=== PATIENT | female | born 1945 | race Caucasian/White ===

== ENCOUNTER 2017-08-19 06:18 | Emergency (ER) | payer MEDICARE, OTHER ==
[2017-08-19 06:30] VITALS: TEMP 98.5
[2017-08-19] MEDS ORDERED: MORPHINE SULFATE 4 MG/ML SYRINGE IV STA (06:37)
[2017-08-19] MEDS ORDERED: SODIUM CHLORIDE 0.9% 1,000 ML IV STA ×2 (06:37)
[2017-08-19] MEDS ORDERED: RX INFO: IV CONTRAST WAS GIVEN 1 EACH MISC MISCELLANE PRN (06:37)
--- NOTE | 2017-08-19 06:38 | ED ---
General Adult HPI - General Source: patient, RN notes reviewed, old records reviewed Mode of arrival: ambulatory Limitations: no limitations <Jan Christina - Last Filed: 08/19/17 07:07> <Shai Pepper - Last Filed: 08/19/17 09:52> - General Chief complaint: Recheck/Abnormal Lab/Rx Stated complaint: back, R arm pain Time Seen by Provider: 08/19/17 06:23 - History of Present Illness Initial comments: This is a 72-year-old female ER for evaluation of severe right arm pain right chest pain. Patient's history of high blood pressure CA and diabetes. Patient has pain rating to her back. Severe pain that she woke up with this morning suddenly. Patient states been doing increased work at home but does not recall any specific injury. No fevers no cough or congestion denies shortness of breath. Patient is in tears. Severe right-sided pain (Jan Christina) - Related Data Home Medications Medication Instructions Recorded Confirmed Aspirin EC [Ecotrin Low Dose] 81 mg PO DAILY 08/19/17 08/19/17 Calcium/Magnesium/Zinc 1 tab PO DAILY 08/19/17 08/19/17 [Wfxndoz-Aluuqzvws-Rord Tablet] Eder Red 1 tab PO DAILY 08/19/17 08/19/17 Multivitamins, Thera [Multivitamin 1 tab PO DAILY 08/19/17 08/19/17 (formulary)] Vit A/Vit C/Vit E/Zinc/Copper 1 cap PO DAILY 08/19/17 08/19/17 [ICAPS SOFTGEL] Vitamin C/Biotin [Hair, Skin and 1 tab PO DAILY 08/19/17 08/19/17 Nails] cloNIDine HCL [Catapres] 0.1 mg PO DAILY 08/19/17 08/19/17 metFORMIN HCL [Glucophage] 500 mg PO DAILY 08/19/17 08/19/17 Previous Rx's Medication Instructions Recorded Diazepam [Valium] 2 mg PO HS PRN #12 tab 08/19/17 Ibuprofen [Motrin] 600 mg PO Q8HR PRN #24 tab 08/19/17 Allergies Allergy/AdvReac Type Severity Reaction Status Date / Time No Known Allergies Allergy Verified 08/19/17 08:46 Review of Systems ROS Other: All systems not noted in ROS Statement are negative. <Jan Christina - Last Filed: 08/19/17 07:07> ROS Other: All systems not noted in ROS Statement are negative. <Shai Pepper - Last Filed: 08/19/17 09:52> ROS Statement: Those systems with pertinent positive or pertinent negative responses have been documented in the HPI. Past Medical History Past Medical History: Cancer, Diabetes Mellitus, Hypertension History of Any Multi-Drug Resistant Organisms: None Reported Past Surgical History: Hysterectomy, Joint Replacement, Orthopedic Surgery Additional Past Surgical History / Comment(s): right knee x2 left knee x1; left foot; Past Psychological History: No Psychological Hx Reported Smoking Status: Former smoker Past Alcohol Use History: Daily Past Drug Use History: None Reported <Jan Christina - Last Filed: 08/19/17 07:07> General Exam Limitations: no limitations General appearance: alert, in no apparent distress Head exam: Present: atraumatic, normocephalic, normal inspection Eye exam: Present: normal appearance, PERRL, EOMI. Absent: scleral icterus, conjunctival injection, periorbital swelling ENT exam: Present: normal exam, mucous membranes moist Neck exam: Present: normal inspection. Absent: tenderness, meningismus, lymphadenopathy Respiratory exam: Present: normal lung sounds bilaterally. Absent: respiratory distress, wheezes, rales, rhonchi, stridor Cardiovascular Exam: Present: regular rate, normal rhythm, normal heart sounds. Absent: systolic murmur, diastolic murmur, rubs, gallop, clicks GI/Abdominal exam: Present: soft, normal bowel sounds. Absent: distended, tenderness, guarding, rebound, rigid Extremities exam: Present: normal inspection, full ROM, normal capillary refill. Absent: tenderness, pedal edema, joint swelling, calf tenderness Back exam: Present: normal inspection Neurological exam: Present: alert, oriented X3, CN II-XII intact Psychiatric exam: Present: normal affect, normal mood Skin exam: Present: warm, dry, intact, normal color. Absent: rash <Jan Christina - Last Filed: 08/19/17 07:07> Vital Signs 08/19/17 08/19/17 06:25 07:43 Temperature 98.5 F Pulse Rate 91 78 Respiratory 22 18 Rate Blood Pressure 184/83 141/64 O2 Sat by Pulse 99 97 Oximetry EKG Findings - EKG Comments: EKG Findings:: EKG shows sinus rhythm rate of 82, IL 216, QRS 80, QTC 434 <Jan Christina - Last Filed: 08/19/17 07:07> Medical Decision Making <Jan Christina - Last Filed: 08/19/17 07:07> - Lab Data Result diagrams: 08/19/17 07:30 08/19/17 07:30 <Shai Pepper - Last Filed: 08/19/17 09:52> - Medical Decision Making 72-year-old female presenting with right arm pain and right back pain. Patient does admit she been lifting boxes and moving things around her heart is which is abnormal for her. Denies any specific injury. Patient's blood pressure was initially elevated, CT angiography is obtained for concerns for dissection. This patient was signed out at shift change awaiting these results. Laboratory studies are reviewed, normal white blood cell count, stable hemoglobin, normal lites, troponin and d-dimer are negative. CT angiography is negative for both pulmonary embolism and dissection, there is a left renal cyst, these findings are discussed with the patient. Patient is reevaluated, she does have point tenderness in the right paraspinal thoracic muscles. She will be prescribed anti-inflammatory medication. She will follow-up with her primary care physician. (Shai Pepper) - Lab Data Lab Results 08/19/17 08/19/17 08/19/17 Range/Units 07:30 07:30 07:30 WBC 10.0 (3.8-10.6) k/uL RBC 4.74 (3.80-5.40) m/uL Hgb 13.9 (11.4-16.0) gm/dL Hct 43.5 (34.0-46.0) % MCV 91.6 (80.0-100.0) fL MCH 29.4 (25.0-35.0) pg MCHC 32.1 (31.0-37.0) g/dL RDW 12.8 (11.5-15.5) % Plt Count 284 (150-450) k/uL Neutrophils % 79 % Lymphocytes % 14 % Monocytes % 4 % Eosinophils % 2 % Basophils % 0 % Neutrophils # 7.9 H (1.3-7.7) k/uL Lymphocytes # 1.4 (1.0-4.8) k/uL Monocytes # 0.4 (0-1.0) k/uL Eosinophils # 0.2 (0-0.7) k/uL Basophils # 0.0 (0-0.2) k/uL PT (9.0-12.0) sec INR (<1.2) APTT (22.0-30.0) sec D-Dimer (<0.60) mg/L FEU Sodium 143 (137-145) mmol/L Potassium 4.2 (3.5-5.1) mmol/L Chloride 107 (98-107) mmol/L Carbon Dioxide 24 (22-30) mmol/L Anion Gap 12 mmol/L BUN 11 (7-17) mg/dL Creatinine 0.50 L (0.52-1.04) mg/dL Est GFR (MDRD) Af Amer >60 (>60 ml/min/1.73 sqM) Est GFR (MDRD) Non-Af >60 (>60 ml/min/1.73 sqM) Glucose 128 H (74-99) mg/dL Calcium 9.5 (8.4-10.2) mg/dL Magnesium 2.0 (1.6-2.3) mg/dL Total Bilirubin 0.5 (0.2-1.3) mg/dL AST 20 (14-36) U/L ALT 26 (9-52) U/L Alkaline Phosphatase 90 (38-126) U/L Total Creatine Kinase 56 (30-135) U/L CK-MB (CK-2) 1.0 (0.0-2.4) ng/mL CK-MB (CK-2) Rel Index 1.8 Troponin I <0.012 (0.000-0.034) ng/mL Total Protein 7.0 (6.3-8.2) g/dL Albumin 4.1 (3.5-5.0) g/dL Lipase 165 (23-300) U/L 08/19/17 Range/Units 07:30 WBC (3.8-10.6) k/uL RBC (3.80-5.40) m/uL Hgb (11.4-16.0) gm/dL Hct (34.0-46.0) % MCV (80.0-100.0) fL MCH (25.0-35.0) pg MCHC (31.0-37.0) g/dL RDW (11.5-15.5) % Plt Count (150-450) k/uL Neutrophils % % Lymphocytes % % Monocytes % % Eosinophils % % Basophils % % Neutrophils # (1.3-7.7) k/uL Lymphocytes # (1.0-4.8) k/uL Monocytes # (0-1.0) k/uL Eosinophils # (0-0.7) k/uL Basophils # (0-0.2) k/uL PT 9.6 (9.0-12.0) sec INR 1.0 (<1.2) APTT 22.5 (22.0-30.0) sec D-Dimer 0.51 (<0.60) mg/L FEU Sodium (137-145) mmol/L Potassium (3.5-5.1) mmol/L Chloride (98-107) mmol/L Carbon Dioxide (22-30) mmol/L Anion Gap mmol/L BUN (7-17) mg/dL Creatinine (0.52-1.04) mg/dL Est GFR (MDRD) Af Amer (>60 ml/min/1.73 sqM) Est GFR (MDRD) Non-Af (>60 ml/min/1.73 sqM) Glucose (74-99) mg/dL Calcium (8.4-10.2) mg/dL Magnesium (1.6-2.3) mg/dL Total Bilirubin (0.2-1.3) mg/dL AST (14-36) U/L ALT (9-52) U/L Alkaline Phosphatase (38-126) U/L Total Creatine Kinase (30-135) U/L CK-MB (CK-2) (0.0-2.4) ng/mL CK-MB (CK-2) Rel Index Troponin I (0.000-0.034) ng/mL Total Protein (6.3-8.2) g/dL Albumin (3.5-5.0) g/dL Lipase (23-300) U/L Disposition <Jan Christina - Last Filed: 08/19/17 07:07> Time of Disposition: 09:50 <Shai Pepper - Last Filed: 08/19/17 09:52> Clinical Impression: Muscle strain Disposition: HOME SELF-CARE Condition: Good Instructions: Muscle Strain (ED) Prescriptions: Diazepam [Valium] 2 mg PO HS PRN #12 tab PRN Reason: Muscle Spasm Ibuprofen [Motrin] 600 mg PO Q8HR PRN #24 tab PRN Reason: Pain Referrals: Lobito Ford MD [Primary Care Provider] - 1-2 days
[2017-08-19 07:46] LABS: Basophils % (A) 0 %; Eosinophils # (A) 0.2 k/uL (0-0.7); Eosinophils % (A) 2 %; HCT 43.5 % (34.0-46.0); HGB 13.9 gm/dL (11.4-16.0); Lymphocytes # (A) 1.4 k/uL (1.0-4.8); Lymphocytes % (A) 14 %; MCH 29.4 pg (25.0-35.0); MCHC 32.1 g/dL (31.0-37.0); MCV 91.6 fL (80.0-100.0); Mean Platelet Volume 7.1; Monocytes # (A) 0.4 k/uL (0-1.0); Monocytes % (A) 4 %; Neutrophils # (A) 7.9 k/uL (1.3-7.7); Neutrophils % (A) 79 %; Platelet Count 284 k/uL (150-450); RBC 4.74 m/uL (3.80-5.40); RDW 12.8 % (11.5-15.5)
[2017-08-19 07:56] LABS: ALT 26 U/L (9-52); AST 20 U/L (14-36); Albumin 4.1 g/dL (3.5-5.0); Alkaline Phosphatase 90 U/L (38-126); Anion Gap 12 mmol/L; Blood Urea Nitrogen 11 mg/dL (7-17); Calcium 9.5 mg/dL (8.4-10.2); Carbon Dioxide 24 mmol/L (22-30); Chloride 107 mmol/L (98-107); Glucose 128 mg/dL (74-99); Lipase 165 U/L (23-300); Partial Thromboplastin Time 22.5 sec (22.0-30.0); Potassium 4.2 mmol/L (3.5-5.1); Prothrombin Time 9.6 sec (9.0-12.0); Sodium 143 mmol/L (137-145); Total Bilirubin 0.5 mg/dL (0.2-1.3)
[2017-08-19 08:01] LABS: D-Dimer 0.51 mg/L FEU (<0.60)
[2017-08-19 08:10] LABS: Creatine Kinase 56 U/L (30-135)
[2017-08-19 08:23] LABS: Troponin I <0.012 ng/mL (0.000-0.034)
--- NOTE | 2017-08-19 08:48 | CT ---
EXAMINATION TYPE: CT angio chest DATE OF EXAM: 08/19/2017 COMPARISON: NONE HISTORY: 72-year-old female back and right arm pain TECHNIQUE: Contiguous axial scanning of the chest performed with IV Contrast, patient injected with 9 1 mL of Omnipaque 350. Coronal/sagittal MIP reconstructions performed. CT DLP: 721.1 mGycm Automated exposure control for dose reduction was used. FINDINGS: The heart is upper limits of normal in size without pericardial effusion. Mild coronary vessel calcif ications are present in remarkable for coronary artery disease. Conventional arch vessel branching an atomy. There is suboptimal opacification of the pulmonary arterial system without large central or definite lobar pulmonary embolus seen. Segmental and more distal arterial branches are nondiagnostic and embol i here cannot adequately be excluded. No thoracic lymphadenopathy by CT size criteria. No focal consolidation or pleural effusion. Mild dependent atelectasis at the posterior lung bases. Tiny hiatal hernia. Visualized upper abdomen shows indeterminant 2.3 cm hypodense lesion lateral left kidney. Questionable mild left-sided hydronephrosis or parapelvic cysts. Also partially visualized. Subcentimeter hypodensity posterior right liver lobe too small for accurate CT characterization, prob able cyst. Bones: Endplate spondylosis mid to lower thoracic spine. Advanced degenerative changes both shoulders . IMPRESSION: 1. SUBOPTIMAL CONTRAST BOLUS. NO LARGE CENTRAL OR DEFINITE LOBAR PULMONARY EMBOLUS. MANY OF THE SEGME NTAL AND MORE DISTAL ARTERIAL BRANCHES ARE NONDIAGNOSTIC AND EMBOLI HERE CANNOT BE EVALUATED. 2. BORDERLINE CARDIOMEGALY. 3. INDETERMINATE 2.3 CM HYPODENSE LESION LATERAL LEFT KIDNEY. EITHER SOME PROMINENT LEFT-SIDED PARAPE LVIC CYSTS OR MILD LEFT-SIDED HYDRONEPHROSIS. CORRELATE WITH PATIENT'S SYMPTOMS. RENAL ULTRASOUND CAN ATTEMPT FURTHER EVALUATION.
[2017-08-19 09:50] VITALS: BP 147/74; PULSE 84; RESP 16
== END 2017-08-19 10:02 | disposition home or self-care (01) ==
LOC: EC 06:18
DX: S29.012A Strain of muscle and tendon of back wall of thorax, initial encounter (principal); S46.911A Strain of unspecified muscle, fascia and tendon at shoulder and upper arm level, right arm, initial encounter; E11.9 Type 2 diabetes mellitus without complications; I10 Essential (primary) hypertension; Z85.9 Personal history of malignant neoplasm, unspecified; Z87.891 Personal history of nicotine dependence; Z79.82 Long term (current) use of aspirin; Z79.84 Long term (current) use of oral hypoglycemic drugs; Z79.899 Other long term (current) drug therapy; X50.0XXA Overexertion from strenuous movement or load, initial encounter; Y92.009 Unspecified place in unspecified non-institutional (private) residence as the place of occurrence of the external cause; Y93.89 Activity, other specified
CPT/HCPCS: 36415; 93005; 85379; 80053; 82550; 82553; 83690; 83735; 84484; 85025; 85610; 85730; 71275; 99284; 96374; 96361 ×2; J2270; Q9967

== ENCOUNTER → 2017-09-02 | Outpatient (CLI) | payer MEDICARE, OTHER ==
--- NOTE | 2017-09-02 14:54 | US ---
EXAMINATION TYPE: US kidneys/renal and bladder DATE OF EXAM: 09/02/2017 COMPARISON: US 2012 CLINICAL HISTORY: Aquired cyst of Kidney N28.1. Follow up renal cyst seen on previous CT EXAM MEASUREMENTS: Right Kidney: 11.2 x 5.7 x 4.9 cm Left Kidney: 11.3 x 6.1 x 5.3 cm Technically difficult and limited study due to patient body habitus Right Kidney: no hydro or masses seen Left Kidney: 1.8 x 1.7 x 2.1cm hypoechoic area lateral mid pole, 1.8 x 1.4 x 1.7cm hypoechoic area me dial mid pole Bladder: wnl Bilateral Jets seen: yes IMPRESSION: 1. Enlarging simple appearing cysts left mid kidney
== END | disposition home or self-care (01) ==
LOC: RADUSWWP 13:57
PROVIDERS: ATTEND Internal Medicine Geriatric Medicine
DX: N28.1 Cyst of kidney, acquired (principal)
CPT/HCPCS: 76770

== ENCOUNTER → 2018-06-08 | Outpatient (CLI) | payer MEDICARE, OTHER ==
[~2018-06-08] MED LIST: REGADENOSON 0.4 MG/5 ML SYRINGE IV ONE
--- NOTE | 2018-06-08 12:54 | NM ---
EXAMINATION TYPE: NM stress lexiscan cardiolite DATE OF EXAM: 06/08/2018 COMPARISON: Prior nuclear medicine cardiac stress test October 26, 2009 HISTORY: Shortness of breath and chest pain per order. TECHNIQUE: After the intravenous administration of 10.31 mCi Tc 99m Sestamibi - Cardiolite resting S PECT images acquired 45 minutes post injection. The patient received 0.4mg Lexiscan, 25.4 mCi Tc 99m Sestamibi - Stress images obtained [address] injection FINDINGS: Review of stress and rest SPECT images demonstrates poor uptake involving anterior septal wall on str ess images particularly basilar to mid segments seen on short axis and vertical long axis views in wh ich acute ischemia cannot be excluded. Gated analysis shows overall estimated left ventricular eject ion fraction of 66 %. IMPRESSION: Cannot exclude acute stress-induced ischemia anterior left ventricular wall LAD distribut ion. Correlate clinically and with EKG. Consider direct catheter angiogram follow-up. A Yellow level critical message alert has been initiated for Lobito Ford MD via the [employer] Critical Results System on 06/08/2018 12:51 PM. This message alert has been sent to Lobito Ford MD v ia the preferences provided by the clinician for the receipt of Radiology Critical Findings. Message ID [id number].
--- NOTE | 2018-06-08 13:43 | EST ---
EXERCISE STRESS DATE OF SERVICE: 06/08/2018 AGE: 72 SEX: Female HT: 5'7" WT: 247 pounds PROTOCOL: Lexiscan Cardiolite STAGE: DURATION OF EXERCISE: HEART RATE REST: 72 BLOOD PRESSURE REST: 144/70 MAXIMUM HEART RATE ACHIEVED: 97 MAXIMUM BLOOD PRESSURE: 146/57 85% MPHR: 100% MPHR: METS: INDICATIONS: Chest pain. CLINICAL INFORMATION: Baseline rhythm is sinus mechanism, rate 72, normal axis and intervals, poor R progression. Baseline blood pressure 144/70 mmHg. Patient received an injection of Lexiscan. Electrocardiograph monitoring revealed no evidence of diagnostic ischemic ST deviation. Cardiolite was injected per protocol. CONCLUSION: 1. Nondiagnostic electrocardiograph stress testing. 2. Nuclear images will be reported separately. MMODL / IJN: [id number] /
== END | disposition home or self-care (01) ==
LOC: RADNMMAIN 07:37
PROVIDERS: ATTEND Internal Medicine Geriatric Medicine
DX: R07.9 Chest pain, unspecified (principal)
CPT/HCPCS: 93017; 78452; A9500; J2785

== ENCOUNTER 2018-06-11 07:38 | Day surgery (SDC) | payer MEDICARE, OTHER ==
[2018-06-10 10:36] VITALS: BMI 39.4
[~2018-06-11 07:38] MED LIST changes: +ALPRAZolam 0.25 MG TAB PO PRN; +ALPRAZolam 0.5 MG TAB PO PRN; +ASPIRIN 325 MG TAB PO ONE; +ATORVASTATIN 80 MG TAB PO ONE; +NITROGLYCERIN SL TABS 0.4 MG TAB SUBLINGUAL PRN; -REGADENOSON 0.4 MG/5 ML SYRINGE IV ONE; +SODIUM CHLORIDE 0.9% 1,000 ML in EMPTY BAG 1 BAG IV ONE
[2018-06-11 08:40] VITALS: PULSE 79; TEMP 97.8
[2018-06-11] MEDS ORDERED: VERAPAMIL 2.5 MG/ML 2 ML AMP ONE (09:03)
[2018-06-11] MEDS ORDERED: LIDOCAINE 1% INJ 10MG/ML (20 ML MDV) ONE (09:03)
[2018-06-11] MEDS ORDERED: HEPARIN SODIUM 1,000 UN/ML (10ML VL) ONE (09:05)
[2018-06-11 09:17] LABS: Glucose,Whole Blood 143 mg/dL (75-99)
[2018-06-11] MEDS ORDERED: MIDAZOLAM 2 MG/2 ML VIAL IV ONE (09:17)
[2018-06-11] MEDS ORDERED: LIDOCAINE 2% (PF) 20 MG/ML 2 ML AMP SQ ONE (09:19)
[2018-06-11] MEDS: VERAPAMIL SYRINGE (5 MG/10 ML) INTRAARTER ONE ×2 (09:20→09:30)
[2018-06-11] MEDS ORDERED: IOPAMIDOL-370 125ML BTL INJ ONE (09:30)
[2018-06-11] MEDS ORDERED: RX INFO: IV CONTRAST WAS GIVEN 1 EACH MISC MISCELLANE PRN (09:37)
[2018-06-11] MEDS ORDERED: SODIUM CHLORIDE 0.9% 1,000 ML IV SCH (09:45)
--- NOTE | 2018-06-11 10:10 | CC ---
CARDIAC CATHETERIZATION REPORT DATE OF SERVICE: June 11, 2018 PERFORMING PHYSICIAN: Berto Lanza MD, supply specialist. PROCEDURE PERFORMED: 1. Selective right and left coronary angiogram. 2. Left heart catheterization. INDICATION: This is a pleasant 72-year-old female patient with past medical history significant for diabetes, hypertension, and dyslipidemia, who was experiencing symptoms of chest discomfort. She underwent a stress test as an outpatient by Dr. Ford and that revealed an anterior ischemia. Because of that, heart catheterization was advised. APPROACH: Right radial artery. COMPLICATION: None. LEVEL OF SEDATION: Moderate with sedation length of 16 minutes. PROCEDURE DESCRIPTION: After obtaining an informed consent, the patient was brought to the cardiac senior laboratory technician. The right radial artery was cannulated using micropuncture technique, the micropuncture wire passed easily then I placed a 6-Ukrainian sheath in the right radial artery. After that I gave the patient 2 mg of verapamil IA and 6000 units of heparin IV. Selective right and left coronary angiogram was performed using JR4 and JL3.5 catheters. Left heart catheterization was performed using 5-Ukrainian pigtail catheter. The procedure was completed without any complication. SELECTIVE CORONARY ANGIOGRAM: 1. The right coronary artery is a medium caliber vessel and it is a nondominant vessel. I did an non selective injection and that showed that the artery is angiographically normal. 2. The left main is angiographically normal. It bifurcates into left circumflex, which is a dominant circumflex and left anterior descending artery. 3. Left circumflex is a large caliber vessel. It is a dominant vessel. The proximal circumflex is angiographically normal. The mid circumflex is normal and gives rise into the first OM branch which appeared to be angiographically normal. The circumflex distally is normal and bifurcates into PDA and PLV branches both are angiographically normal. 4. The LAD: The proximal LAD is normal and gives rise into a high takeoff diagonal branch which appeared to be angiographically normal. The mid LAD is normal as well. It gives rise into 2 small diagonal branches appeared to be angiographically normal and the LAD distally is normal as well. HEMODYNAMICS: The left ventricular end-diastolic pressure was 12 mmHg without significant gradient across the aortic valve. CONCLUSION: 1. Normal coronary angiogram. 2. Normal left ventricular end-diastolic pressure. POSTPROCEDURE MANAGEMENT: Medical treatment. MMODL / IJN: [id number] /
[2018-06-11 11:37] VITALS: RESP 20
[2018-06-11 15:46] VITALS: BP 158/78
== END 2018-06-11 15:49 | disposition home or self-care (01) ==
LOC: CATHCVL 07:38
PROVIDERS: ATTEND Internal Medicine Interventional Cardiology
DX: I20.8 Other forms of angina pectoris (principal); I10 Essential (primary) hypertension; E78.5 Hyperlipidemia, unspecified; E66.3 Overweight; E11.9 Type 2 diabetes mellitus without complications; Z79.84 Long term (current) use of oral hypoglycemic drugs; Z79.82 Long term (current) use of aspirin; Z79.899 Other long term (current) drug therapy
CPT/HCPCS: 93458; C1769; C1894; J2250; J1644; J2001; Q9967

== ENCOUNTER → 2018-08-03 | Outpatient (CLI) | payer MEDICARE, OTHER ==
--- NOTE | 2018-08-03 16:09 | XR ---
EXAMINATION TYPE: XR chest 2V DATE OF EXAM: 08/03/2018 COMPARISON: None INDICATION: Cough TECHNIQUE: Frontal and lateral views of the chest are obtained. FINDINGS: The heart size is normal. The pulmonary vasculature is normal. The lungs are clear. IMPRESSION: 1. No acute pulmonary process.
== END | disposition home or self-care (01) ==
LOC: RADXRMAIN 15:32
PROVIDERS: ATTEND Internal Medicine Geriatric Medicine
DX: R05 Cough (principal)
CPT/HCPCS: 71046

== ENCOUNTER → 2018-09-29 | Outpatient (CLI) | payer MEDICARE, OTHER ==
--- NOTE | 2018-10-01 10:34 | MM ---
Reason for exam: screening (asymptomatic). Last mammogram was performed 2 years and 10 months ago. History: Patient is postmenopausal and has history of endometrial cancer at age 51. Physical Findings: A clinical breast exam by your physician is recommended on an annual basis and results should be correlated with mammographic findings. MG 3D Screening Mammo W/Cad Bilateral CC, MLO, and XCCL view(s) were taken. Prior study comparison: December 14, 2015, bilateral MG screening mammo w CAD. August 28, 2014, bilateral MG screening mammo w CAD. There are scattered fibroglandular densities. There is chronic nodularity in the right breast. New small group of calcifications far posteriorly and centrally 8 o'clock right breast. ASSESSMENT: Incomplete: need additional imaging evaluation, BI-RAD 0 RECOMMENDATION: Special view mammogram of the right breast. If lesion persists on supplemental views, image directed ultrasound is recommended. [facility] will attempt to contact patient to return for supplemental views and ultrasound if indicated.
== END | disposition home or self-care (01) ==
LOC: RADMAMWWP 08:43
PROVIDERS: ATTEND Internal Medicine Geriatric Medicine
DX: Z12.31 Encounter for screening mammogram for malignant neoplasm of breast (principal)
CPT/HCPCS: 77063; 77067

== ENCOUNTER → 2018-10-05 | Outpatient (CLI) | payer MEDICARE, OTHER ==
--- NOTE | 2018-10-05 09:30 | MM ---
Reason for exam: additional evaluation requested from abnormal screening. Last mammogram was performed less than 1 month ago. History: Patient is postmenopausal and has history of endometrial cancer at age 51. Physical Findings: Nurse did not find any significant physical abnormalities on exam. MG 3D Work Up W/Cad RT CC with magnification, ML with magnification, and ML view(s) were taken of the right breast. Prior study comparison: September 29, 2018, bilateral MG 3d screening mammo w/cad. December 14, 2015, bilateral MG screening mammo w CAD. Indeterminate calcifications outer and far posterior right breast. These results were verbally communicated with the patient and result sheet given to the patient on 10/05/18. ASSESSMENT: Suspicious, BI-RAD 4 RECOMMENDATION: Stereotactic core biopsy of the right breast. Called Dr. Ford with mammographic findings and has scheduled an appointment for the patient for 10/27/18 at 2:[address] Pan. Biopsy scheduled for 10/12/18 at 10:20. PRELIMINARY REPORT CALLED AND FAXED TO DR. PAN ON 10/05/18.
== END | disposition home or self-care (01) ==
LOC: RADMAMWWP 06:54
PROVIDERS: ATTEND Internal Medicine Geriatric Medicine
DX: R92.8 Other abnormal and inconclusive findings on diagnostic imaging of breast (principal)
CPT/HCPCS: 77065; G0279; 77061

== ENCOUNTER → 2018-10-12 | Day surgery (SDC) | payer MEDICARE, OTHER ==
[2018-10-12 09:52] VITALS: RESP 16; BMI 82.8
[2018-10-12 12:31] VITALS: BP 106/74; PULSE 81; TEMP 98
--- NOTE | 2018-10-13 17:32 | MM ---
EXAMINATION TYPE: MG stereo VAD BX RT DATE OF EXAM: 10/12/2018 COMPARISON: 10/05/2018 CLINICAL HISTORY: Abnormal mammogram TECHNIQUE: Stereotactic guided core biopsy of right breast. FINDINGS: The procedure of stereotactic guided core biopsy was explained to the patient. Benefits, alternatives, and risks were discussed. An informed consent was then obtained. A timeout was performed Craniocaudal approach was utilized for accurate identification and localization of the calcifications. The skin and deeper breast tissue was anesthetized with 1% lidocaine buffered with sodium bicarbonate. Additional lidocaine was administered during the biopsy procedure protocol. 6 core samples were obtained. Sample specimen was obtained demonstrating calcifications within several samples. Clip was placed at the biopsy site due to mammogram was ordered. The patient tolerated the procedure well without any immediate complication. The patient was kept in the radiology department for short stay after the procedure and then discharged home in stable condition. Post biopsy mammogram shows the clip to appear in satisfactory position relative to the targeted area of concern on the preprocedure images. IMPRESSION: 1. Successful stereotactic core biopsy right breast calcifications. Recommendations: 1. Recommendations are pending pathology results. Pathology Results: Benign RIGHT BREAST: Fibrocystic and fibroadenomatoid lesions in mostly fatty tissue with a microscopic calcification. Recommendation Follow up mammogram of the right breast in 6 months. SOFIYA
== END ==
LOC: RADMAMWWP 09:04
PROVIDERS: ATTEND Surgery
DX: N60.11 Diffuse cystic mastopathy of right breast (principal); R92.1 Mammographic calcification found on diagnostic imaging of breast
CPT/HCPCS: 88305; 19081; A4648; J2001

== ENCOUNTER 2018-12-22 12:30 | Inpatient (IN) | payer MEDICARE, OTHER ==
[2018-12-22] MEDS: MIDAZOLAM (PF) 2 MG/2 ML VIAL IVP ONE ×2 (11:23→12:29)
[~2018-12-22 12:30] MED LIST changes: -ALPRAZolam 0.25 MG TAB PO PRN; -ALPRAZolam 0.5 MG TAB PO PRN; -ASPIRIN 325 MG TAB PO ONE; -ATORVASTATIN 80 MG TAB PO ONE; +HYDROmorphone 0.5 MG/0.5 ML SYRINGE IVP PRN; +LACTATED RINGERS 1,000 ML IV ONE; +LIDOCAINE 1% 20 ML VIAL (10MG/ML) FOR IV START INTRADERMA PRN; -NITROGLYCERIN SL TABS 0.4 MG TAB SUBLINGUAL PRN; +ONDANSETRON 4 MG/2 ML VIAL IVP ONE; -SODIUM CHLORIDE 0.9% 1,000 ML in EMPTY BAG 1 BAG IV ONE; +ceFAZolin IN SWFI 2 GM/20 ML SYRINGE IVP ONE; +fentaNYL (PF) 50 MCG/ML 2 ML AMP IVP ONE
[2018-12-22] MEDS ORDERED: ePHEDrine SULFATE/0.9% NACL/PF 50 MG/5 ML SYRINGE IV ONE (12:52)
[2018-12-22] MEDS ORDERED: ROPIVACAINE 5 MG/ML 30 ML VIAL ONE (12:52)
[2018-12-22] MEDS ORDERED: PHENYLEPHRINE-0.9% NACL SYG 1 MG/10 ML SYRINGE ONE (12:52)
[2018-12-22] MEDS ORDERED: MIDAZOLAM 2 MG/2 ML VIAL ONE (12:52)
[2018-12-22] MEDS ORDERED: fentaNYL (PF) 50 MCG/ML 2 ML AMP ONE (12:52)
[2018-12-22] MEDS ORDERED: LIDOCAINE 1% INJ 10MG/ML (20 ML MDV) ONE (12:52)
[2018-12-22] MEDS ORDERED: ROCURONIUM BROMIDE 10 MG/ML 10 ML VIAL IV ONE (12:52)
[2018-12-22] MEDS ORDERED: SUCCINYLCHOLINE CHLORIDE 100 MG/5 ML SYR IV ONE (12:52)
[2018-12-22] MEDS ORDERED: PROPOFOL 10 MG/ML 20 ML VIAL IV ONE (12:52)
[2018-12-22] MEDS ORDERED: LACTATED RINGERS 1,000 ML IV ONE (14:50)
--- NOTE | 2018-12-22 15:03 | P.ANPRN ---
Procedure Note - Anesthesia - Nerve Block Performed Right Popliteal Single Time Out Performed: Yes Date of Procedure: 12/22/18 Location of Patient Procedure: PreOp Indication: Acute Post-Operative Pain Specifically requested for management of pain by DrRay: Branden West Sedation Type: Sedate with meaningful contact maintained Position: Left Lateral Catheter: None Needle Types: Pajunk Needle Gauge: 18 Technique: Ultrasound Injectate: Other (see comment) (0.25% ropivacaine/0.5% lidocaine 20 mL) Adjunct: Epinephrine (see comment for dilution ratio) (1:200,000) Blood Aspirated: No Pain Paresthesia on Injection Noted: No Resistance on Injection: Normal Events: Uneventful and Well Tolerated
--- NOTE | 2018-12-22 15:05 | P.ANPRN ---
Procedure Note - Anesthesia - Nerve Block Performed Right Saphenous/Obturator Single Time Out Performed: Yes Date of Procedure: 12/22/18 Procedure Start Time: 11:58 Location of Patient Procedure: PreOp Indication: Acute Post-Operative Pain Specifically requested for management of pain by DrRay: Branden West Sedation Type: Sedate with meaningful contact maintained Preparation: Sterile Prep Position: Supine Catheter: None Needle Types: Pajunk Needle Gauge: 18 Technique: Ultrasound Injectate: Other (see comment) (0.25% ropivacaine/0.5% lidocaine 20 mL) Adjunct: Epinephrine (see comment for dilution ratio) (1:200,000) Blood Aspirated: No Pain Paresthesia on Injection Noted: No Resistance on Injection: Normal Events: Uneventful and Well Tolerated
[2018-12-22] MEDS ORDERED: hydrOXYzine PAMOATE 25 MG CAP PO PRN (16:28)
[2018-12-22] MEDS ORDERED: HYDROmorphone 0.5 MG/0.5 ML SYRINGE IVP PRN ×2 (16:28)
[2018-12-22] MEDS ORDERED: SENNOSIDES-DOCUSATE SODIUM 1 EACH TAB PO PRN (16:28)
[2018-12-22] MEDS ORDERED: ONDANSETRON 4 MG/2 ML VIAL IVP PRN (16:28)
[2018-12-22] MEDS ORDERED: HYDROcodone/APAP 5-325MG 1 EACH TAB PO PRN (16:28)
--- NOTE | 2018-12-22 16:42 | P.OP ---
Date of Procedure: 12/22/18 Preoperative Diagnosis: Right stage Vahe adult acquired flatfoot deformity Postoperative Diagnosis: Same Procedure(s) Performed: 1. Right subtalar arthrodesis 2. Right talonavicular joint arthrodesis 3. Right first tarsometatarsal joint arthrodesis 4. Right percutaneous tendo Achilles lengthening 5. Right percutaneous long flexor tendon tenotomy, hallux 6. Application of short leg splint by physician, right leg Anesthesia: CONCETTA, regional Surgeon: Branden West Clam Treader #1: Lakeshia Olvera Estimated Blood Loss (ml): 20 IV fluids (ml): 1,500 Pathology: none sent Condition: stable Disposition: PACU Indications for Procedure: The patient is very pleasant 73-year-old female with a symptomatic stage Vahe adult acquired flat foot deformity. Clinically she had a substantial pes mspri-tezkvtq-uzulaf deformity. Majority of her symptoms were from her deformity and over the dorsal aspect of her midfoot. She had failed a long course of nonsurgical treatment including activity modification, and said pain medication, orthotics, and bracing. She got to the point that she requested surgery. We discussed different surgical options for her severe flatfoot and valgus ankle arthritis. My recommendation was to correct her flatfoot deformity with a modified triple arthrodesis (subtalar, talonavicular, and first tarsometatarsal joint) and if she continued to have ankle pain returned at a separate setting to perform a total ankle arthroplasty. We discussed potential risks and application of surgery including but not limited to risk of anesthesia, superficial infection, deep infection, delayed wound healing, sup erficial wound necrosis, nonunion of the fusion sites, malunion of the fusion sites, under correction of her deformity, over correction of her deformity, continued or worsened pain, progression of ankle arthritis, DVT, medical complications, and inability to regain preinjury level of function, generalized to satisfaction with surgery, possibly loss of life or limb. The patient voiced understanding of these potential complications and also acknowledge that other, less common Rotations are possible. She provided her verbal and written consent to go forward with surgery. Description of Procedure: The patient was identified and prepped with holding and the correct right leg was marked with my initials. I reviewed the consent form with the patient and her family. All their questions were answered. The patient was then given a popliteal and saphenous nerve block by anesthesia. She was brought back to the operating room and positioned on the OR table where a general anesthetic and preoperative antibiotics were given. All bony prominences were well-padded. A tourniquet was applied the proximal aspect of the right leg. A bump was placed under the buttock internally rotating the right leg to neutral. A ramp was placed under the right leg to facilitate imaging. The [place] test was then performed. I was unable to dorsiflex the ankle past neutral with the knee flexed or extended. I interpreted this as a global tendo Achilles contracture necessitating a percutaneous tendo Achilles lengthening. The right leg was then prepped and draped in standard sterile fashion. Prior to starting surgery timeout was performed identifying the correct patient, operative extremity, and procedure. The patient's leg was then elevated, exsanguinated with an Esmarch bandage, and the tourniquet was inflated to 250 mmHg. I began by performing a percutaneous tendo Achilles lengthening. Stab incisions were made starting 2 cm proximal to the posterior tuberosity calcaneus at 2-1/2 cm increments between each stab incision. The distal and proximal stab incisions were used to release the medial 50% of the tendon and the central incision was used to release the lateral 50% of the tendon. A gentle dorsiflexion force was applied to the ankle and there was an audible and palpable pop as the Achilles lengthening. The Achilles was still in continuity. I was able to dorsiflex past neutral. A percutaneous flexor tenotomy was then performed at the flexion crease the big toe and I was able to straighten the toe at the MTP and IP joint. Attention was then turned to the subtalar joint. Longitudinal incision was marked out starting at the tip of the fibula and extending distally over the sinus tarsi in line with the fourth ray. Skin incision made with a scalpel and dissection was carried down carefully to the septated tissue with tenotomy scissors. The peroneal tendon sheath was identified and sharply incised. The peroneal tendons were retracted plantarly. The capsule over the subtalar joint was sharply opened. K wires were placed into the talus and calcaneus and the distractor was applied. I then removed all the articular cartilage from the posterior and middle facets of the subtalar joint with a series of osteotomes and curettes. Once all the articular cartilage was removed the joint was thoroughly irrigated. A 2.5 mm drill bit was used to fenestrate the prepared bony surfaces to facilitate fusion. Attention was then turned to the talonavicular joint. A longitudinal incision was marked out dorsally starting over the dorsal talar neck and extending distally over the first tarsometatarsal joint. Skin incision was made a scalpel and dissection was carried down carefully to the subtendinous tissue. The capsule of the talonavicular joint was sharply elevated. K wires were placed in the navicular and talus and a distractor was applied. The articular cartilage from the talar head and navicular removed with curettes and osteotomes. The joint was thoroughly irrigated. A 2.5 mm button was used to fenestrate the bony surfaces to facilitate fusion. A mixture of crushed cancellus allograft and augment was mixed and packed in the fusion sites. I then positioned the joint for fusion by rotating the talus underneath the calcaneus. On the lateral view the cyma line was restored. A 0.0625 K wire was placed through the anterior process of the calcaneus up into the talar head. On AP view there was slight over correction of the talonavicular joint but due to the patient's significant valgus I elected to accept a slight overcorrection. A K wire was driven through the navicular tuberosity into the talus. I then placed K wires on the plantar aspect of the posterior tuberosity of the calcaneus with the more lateral wire directed to talar body and the more medial wire directed to the talar neck. The wires were then measured, drilled, and partially threaded 7.0 mm screws were placed generating excellent compression across the subtalar joint. The 0.0625 K wire was removed. A cannulated 5.5 mm screw was then placed through the navicular tuberosity up into the talar body. A 20 x 20 3 mm staple was placed over the lateral aspect of the talonavicular joint. Position of both the subtalar and talonavicular joint were evaluated with fluoroscopy. The dorsal incision was then extended distally and the first tarsometatarsal joint was exposed. There were large dorsal osteophytes which were contoured. The joint appeared markedly arthritic. K wires were placed and the joint was distracted. The remaining articular cartilage was removed with an osteotome and curet. The joint was thoroughly irrigated. The subchondral bone was fenestrated with a 2.0 mm drill bit to facilitate fusion. I then position the joint and placed a peripheral 0.0625 K wire to hold the reduction. A 3.5 mm drill bit was used to create a gliding hole along the dorsal aspect of the first metatarsal and a 2.5 mm drill bit was used to create a threaded hole in the medial cuneiform. A fully threaded 3.5 mm cortical screw was placed across the joint generating excellent compression. A second antegrade screw was placed fro m the dorsal lateral aspect of the medial cuneiform into the first metatarsal base. A 2.5 mm drill bit was used to create a threaded hole and a fully threaded 3.5 mm screw measuring 40 mm was placed across the joint. The joint appeared to be adequately compressed. Bone graft was packed around the first metatarsal base. Final fluoroscopic images were taken including a mortise view of the ankle, and axial view of the heel, and AP view of the foot, and a lateral view of the ankle and foot. All the hardware appeared to be neck supple position. On the lateral view Meary's line was restored as well as the cyma line. On the AP view there was slight overcorrection of the talonavicular joint but do to the substantial deformity in both the foot and considering a valgus ankle arthritis I elected to accept the slight overcorrection. Both wounds were copiously irrigated and closed in layers. A sterile dressing was applied. The drapes were taken down and a well-padded bulky Olvera splint was placed with the ankle in neutral. The patient was awoken from her anesthetic, transferred to a [place], and brought to recovery haven't helped procedure well. Plan: The patient is going to be admitted overnight for pain control, 2 doses of postoperative antibiotics, DVT prophylaxis, and discharge planning. She is to remain strictly nonweightbearing on her operative extremity for 6-8 weeks. S he'll follow-up in the office in 2 weeks for splint removal and likely placement into a cast.
[2018-12-22 17:05] LABS: Glucose,Whole Blood 155 mg/dL (75-99)
[2018-12-22] MEDS: HYDROcodone/APAP 5-325MG 1 EACH TAB PO PRN ×2 (18:17→23:59)
[2018-12-22 18:39] LABS: Basophils % (A) 0 %; Eosinophils # (A) 0.1 k/uL (0-0.7); Eosinophils % (A) 1 %; HCT 40.7 % (34.0-46.0); HGB 12.9 gm/dL (11.4-16.0); Lymphocytes % (A) 8 %; MCH 28.5 pg (25.0-35.0); MCHC 31.7 g/dL (31.0-37.0); MCV 89.8 fL (80.0-100.0); Mean Platelet Volume 7.2; Monocytes # (A) 0.4 k/uL (0-1.0); Monocytes % (A) 3 %; Neutrophils # (A) 11.7 k/uL (1.3-7.7); Neutrophils % (A) 88 %; Platelet Count 288 k/uL (150-450); RBC 4.53 m/uL (3.80-5.40); RDW 14.2 % (11.5-15.5); WBC 13.3 k/uL (3.8-10.6)
[2018-12-22 19:42] VITALS: BMI 38.8
[2018-12-22] MEDS: cloNIDine HCL 0.1 MG TAB PO SCH (21:22)
[2018-12-22] MEDS: HYDROmorphone 0.5 MG/0.5 ML SYRINGE IVP PRN (21:30)
[2018-12-22] MEDS: ceFAZolin IN SWFI 2 GM/20 ML SYRINGE IVP SCH (23:54)
[2018-12-23] MEDS: LACTATED RINGERS 1,000 ML IV SCH ×4 (01:04→04:49)
[2018-12-23] MEDS: HYDROmorphone 0.5 MG/0.5 ML SYRINGE IVP PRN ×4 (01:25→12:21)
--- NOTE | 2018-12-23 07:21 | XR ---
EXAMINATION TYPE: XR foot limited RT, FL guidance operating room DATE OF EXAM: 12/22/2018 CLINICAL HISTORY: ORIF for right foot arch revealed. Fluoroscopic documentation. TECHNIQUE: Fluoroscopy. COMPARISON: None. FINDINGS: Fluoroscopic guidance was provided during procedure performed by Dr. West. A total of 1 minute and 37 seconds seconds of fluoroscopic time was utilized during the procedure and 5 spot im ages was acquired. IMPRESSION: As Above.
--- NOTE | 2018-12-23 08:01 | P.PN ---
Subjective Progress Note Date: 12/23/18 This patient is a 73-year-old female with a past medical history of diabetes type 2 and hypertension that underwent a right subtalar arthrodesis, talonavicular joint arthrodesis, first tarsometatarsal joint arthrodesis, percutaneous tendo Achilles lengthening, and percutaneous flexor tendon tenotomy of the hallux on 12/22/[address] West. Today's postoperative day #1. The patient states she is doing well, although her pain is uncontrolled this morning. She has required IV Dilaudid. She states she has been elevating her foot throughout the night. She states she has not been up out of bed yet. She tolerated her breakfast well. She denies numbness or tingling of the right lower extremity. She denies any issues with urination, she has not had a bowel movement yet postoperatively. Patient denies chest pain, shortness of breath, nausea, vomiting, fevers or chills. Objective - Vital Signs Vital signs: Vital Signs Temp 98.5 F 12/23/18 07:00 Pulse 90 12/23/18 07:00 Resp 16 12/23/18 07:00 BP 149/78 12/23/18 07:00 Pulse Ox 94 L 12/23/18 07:00 Intake & Output 12/22/18 12/23/18 12/23/18 18:59 06:59 18:59 Intake Total 1600 1000 Output Total 50 Balance 1550 1000 Intake: IV 1600 Intake, IV Titration 1000 Amount Lactated Ringers 1,000 ml 1000 @ 100 mls/hr IV .Q10H MEHNAZ Rx#:[id number] Output: Estimated Blood Loss 50 Other: # Voids 1 - Exam On examination, the patient is lying in bed in no apparent distress. She is alert and oriented 3. On inspection of the right lower extremity, there is a bulky Olvera splint in place. There is bleeding through the splint on the lateral side. Patient is able to wiggle her toes without pain or issue. There is no pain on passive range of motion of the toes. The toes are warm and well- perfused with brisk capillary refill. Sensation is intact to light touch of toes. The left calf is soft and nontender to palpation. Compression cuff in place of the left lower extremity. - Labs CBC & Chem 7: 12/22/18 18:28 Labs: Abnormal Lab Results - Last 24 Hours (Table) 12/22/18 12/22/18 Range/Units 17:01 18:28 WBC 13.3 H (3.8-10.6) k/uL Neutrophils # 11.7 H (1.3-7.7) k/uL POC Glucose (mg/dL) 155 H (75-99) mg/dL Assessment and Plan Assessment: Right stage IV adult acquired flat foot deformity status-post right subtalar arthrodesis, talonavicular joint arthrodesis, first tarsometatarsal joint arthrodesis, percutaneous tendo Achilles lengthening, and percutaneous flexor tendon tenotomy of the hallux on 12/22/18. Postoperative day #1. Plan: - Strict nonweightbearing of the right lower extremity. Ice and elevate the right lower extremity to decrease pain and swelling. - Physical therapy for gait and balance training. - Continue pain management. [place] increased to 7.5mg q4h. - Lovenox while she is inpatient for anticoagulation, aspirin on discharge. - 2 doses of postoperative antibiotics. - Internal medicine consult for medical management. - Case management consulted for discharge pending. Patient is planning on discharging to rehab. Patient discussed with Dr. West.
[2018-12-23] MEDS: SYMBICORT 160-4.5 MCG INHALER INHALATION SCH ×2 (08:24→19:12)
[2018-12-23] MEDS: ceFAZolin IN SWFI 2 GM/20 ML SYRINGE IVP SCH (08:39)
[2018-12-23] MEDS: cloNIDine HCL 0.1 MG TAB PO SCH ×2 (08:56→21:35)
[2018-12-23] MEDS: VIT A,C & E-LUTEIN-MINERALS 1 EACH TAB PO SCH (08:56)
[2018-12-23] MEDS: ENOXAPARIN 40 MG/0.4 ML SYRINGE SQ SCH (08:56)
[2018-12-23] MEDS: CYANOCOBALAMIN 500 MCG TAB PO SCH (08:56)
[2018-12-23] MEDS: MULTIVITAMINS, THERA 1 EACH TAB PO SCH (08:56)
[2018-12-23] MEDS: metFORMIN 500 MG TAB PO SCH (08:56)
[2018-12-23] MEDS ORDERED: NON-FORMULARY DRUG (Krill/Om-3/Dha/Epa/Phospho/Ast [Omega-3 Krill Oil 300 Mg Sfgl] 1 EACH) PO SCH (09:00)
[2018-12-23] MEDS ORDERED: NON-FORMULARY DRUG (Cinnamon Bark [Cinnamon] 500 MG) PO SCH (09:00)
[2018-12-23] MEDS ORDERED: NON-FORMULARY DRUG (Cranberry Fruit Extract [Cranberry] 500 MG) PO SCH (09:00)
[2018-12-23] MEDS ORDERED: NON-FORMULARY DRUG (Calcium/Magnesium/Zinc [Calcium-Magnesium-Zinc Tablet] 1 TAB) PO SCH (09:00)
[2018-12-23] MEDS ORDERED: NON-FORMULARY DRUG (Vitamin C/Biotin [Hair, Skin And Nails] 1 TAB) PO SCH (09:00)
[2018-12-23] MEDS: HYDROcodone/APAP 7.5-325MG 1 EACH TAB PO PRN ×4 (09:58→21:35)
[2018-12-23 11:10] LABS: Glucose,Whole Blood 133 mg/dL (75-99)
[2018-12-23] MEDS: INSULIN ASPART (NovoLOG) 100 UNIT/ML VIAL SQ SCH ×3 (12:22→22:06)
--- NOTE | 2018-12-23 15:04 | P.CONS ---
History of Present Illness - Reason for Consult Consult date: 12/23/18 Medical management - History of Present Illness This is a 73-year-old female patient of Dr. Galindo with past medical history of diabetes mellitus type 2, hypertension, uterine cancer status post surgery and radiation treatment in 1998. Patient has been brought into the hospital on the care of Dr. West status post surgery for flatfoot deformity completed yesterday. The patient is complaining of pain to the foot and ankle region. She denies any shortness of breath or chest pain. No nausea or vomiting. Blood pressure has been stable 149/78, heart rate 99, pulse ox 94% on room air. She has been afebrile. She has been afebrile, white count is 13.3, hemoglobin 12.9. Review of Systems All systems: negative Constitutional: Denies chills, Denies fatigue, Denies fever, Denies lethargy, Denies malaise, Denies poor appetite, Denies weight loss Eyes: denies blurred vision, denies pain Ears, nose, mouth and throat: Denies dysphagia, Denies headache, Denies nasal congestion, Denies nasal discharge, Denies sore throat, Denies vertigo Cardiovascular: Denies chest pain, Denies decreased exercise tolerance, Denies dyspnea on exertion, Denies leg edema, Denies lightheadedness, Denies shortness of breath, Denies syncope Respiratory: Denies cough, Denies cough with sputum, Denies dyspnea, Denies excessive sputum, Denies hemoptysis, Denies home oxygen, Denies wheezing Gastrointestinal: Denies abdominal pain, Denies diarrhea, Denies nausea, Denies vomiting Genitourinary: Denies dysuria, Denies hematuria, Denies urgency, Denies urinary frequency Musculoskeletal: Denies frequent falls, Denies gait dysfunction, Denies muscle weakness, Denies myalgias Integumentary: Denies darkening of skin, Denies pruritus, Denies rash Neurological: Denies change in mentation, Denies change in speech, Denies confusion, Denies convulsions, Denies numbness, Denies weakness Psychiatric: Denies anxiety, Denies depression Endocrine: Denies fatigue, Denies weight change Past Medical History Past Medical History: Cancer, Chest Pain / Angina, Diabetes Mellitus, Hypertension, Osteoarthritis (OA) Additional Past Medical History / Comment(s): uterine cancer (surgery & radiation tx 1998), states "secondary lung disease", takes clonidine as preventative due to diabetes., Pain right foot- states using cane and walker. History of Any Multi-Drug Resistant Organisms: None Reported Past Surgical History: Heart Catheterization, Hysterectomy, Joint Replacement, Orthopedic Surgery, Tonsillectomy Additional Past Surgical History / Comment(s): total right knee x2 total left knee; Left foot surgery; maru trigger fingers. Heart Cath (may 2018 no stents) Past Anesthesia/Blood Transfusion Reactions: Blood Transfusion Reaction Additional Past Anesthesia/Blood Transfusion Reaction / Comm: Hx of rash with blood transfusion 1997 Past Psychological History: No Psychological Hx Reported Smoking Status: Former smoker Past Alcohol Use History: Occasional Additional Past Alcohol Use History / Comment(s): smoked 1976 for 9 months Past Drug Use History: None Reported - Past Family History Mother Family Medical History: No Reported History Additional Family Medical History / Comment(s): Mother in her 70s from colon cancer. Sister(s) Family Medical History: Cancer Additional Family Medical History / Comment(s): Patient has 2 sisters and one has from ocular melanoma. A second sister is healthy. Father Additional Family Medical History / Comment(s): Father in his 50s from alcoholic liver disease. Son(s) Additional Family Medical History / Comment(s): Patient has 3 children. One son has diabetes and overweight. Patient has 2 daughters with no major medical problems. Medications and Allergies Home Medications Medication Instructions Recorded Confirmed Type Aspirin EC [Ecotrin Low Dose] 81 mg PO DAILY 08/19/17 12/22/18 History Calcium/Magnesium/Zinc 1 tab PO DAILY 08/19/17 12/22/18 History [Ahyfbec-Rqlrsbqxm-Kswc Tablet] Multivitamins, Thera [Multivitamin 1 tab PO DAILY 08/19/17 12/22/18 History (formulary)] Vitamin C/Biotin [Hair, Skin and 1 tab PO DAILY 08/19/17 12/22/18 History Nails] cloNIDine HCL [Catapres] 0.05 mg PO BID 08/19/17 12/22/18 History metFORMIN HCL [Glucophage] 500 mg PO DAILY 08/19/17 12/22/18 History Cinnamon Bark [Cinnamon] 500 mg PO DAILY 06/10/18 12/22/18 History Cranberry Fruit Extract [Cranberry] 500 mg PO DAILY 12/15/18 12/22/18 History Krill/Om-3/Dha/Epa/Phospho/Ast 1 each PO DAILY 12/15/18 12/22/18 History [Sims-3 Krill Oil 300 mg Sfgl] Symbicort 1 puff INHALATION DAILY 12/15/18 12/22/18 History Turmeric Root Extract [Turmeric] 500 mg PO DAILY 12/15/18 12/22/18 History Vits A,C,E/Lutein/Minerals 1 each PO DAILY 12/15/18 12/22/18 History [Ocuvite with Lutein Tablet] Cyanocobalamin [Vitamin B-12] 500 mcg PO DAILY 12/16/18 12/22/18 History Allergies Allergy/AdvReac Type Severity Reaction Status Date / Time No Known Allergies Allergy Verified 12/22/18 17:40 Physical Exam Vitals: Vital Signs Temp Pulse Resp BP Pulse Ox 12/23/18 07:00 98.5 F 90 16 149/78 94 L 12/23/18 01:18 99.0 F 90 18 137/82 95 12/22/18 20:00 98.2 F 93 18 126/78 96 12/22/18 18:15 97 150/72 12/22/18 18:00 97 126/77 12/22/18 17:45 100 153/77 12/22/18 17:30 97.7 F 108 H 18 152/79 93 L 12/22/18 16:43 96 16 148/70 96 12/22/18 16:38 95 16 129/69 95 12/22/18 16:23 97.2 F L 97 18 112/68 97 12/22/18 12:26 81 16 125/58 96 12/22/18 11:45 76 18 111/53 96 12/22/18 10:56 98.7 F 75 18 166/74 97 Intake and Output 12/22/18 12/23/18 12/23/18 22:59 06:59 14:59 Intake Total 100 1000 Output Total 50 Balance 50 1000 Intake: IV 100 Intake, IV Titration 1000 Amount Lactated Ringers 1,000 ml 1000 @ 100 mls/hr IV .Q10H MEHNAZ Rx#:[id number] Output: Estimated Blood Loss 50 Other: # Voids 1 1 Gen: This is a 73-year-old morbidly obese female. She is resting in bed and appears to be comfortable and in no acute distress. HEENT: Head is atraumatic, normocephalic. Pupils equal, round. Sclerae is anicteric. NECK: Supple. No JVD. No lymphadenopathy. No thyromegaly. LUNGS: Clear to auscultation. No wheezes or rhonchi. No intercostal retractions. HEART: Regular rate and rhythm. No murmur. ABDOMEN: Soft. Bowel sounds are present. No masses. No tenderness. EXTREMITIES: No pedal edema. No calf tenderness. Large dressing in place to the right lower extremity. NEUROLOGICAL: Patient is awake, alert and oriented x3. Cranial nerves 2 through 12 are grossly intact. Results CBC & Chem 7: 12/22/18 18:28 Labs: Abnormal Lab Results - Last 24 Hours (Table) 12/22/18 12/22/18 Range/Units 17:01 18:28 WBC 13.3 H (3.8-10.6) k/uL Neutrophils # 11.7 H (1.3-7.7) k/uL POC Glucose (mg/dL) 155 H (75-99) mg/dL Assessment and Plan Plan: 1. Flat foot deformity status post surgical intervention. Continue current pain management, PT and OT per orthopedics. Lovenox as DVT prophylaxis. 2. Diabetes mellitus type 2. Continue metformin 500 mg daily, NovoLog scale before meals and at bedtime. 3. Hypertension. Continue Catapres 0.05 mg twice daily. 4. History of uterine cancer status post surgery and radiation treatment in 1998, stable. 5. GI prophylaxis. Pepcid. 6. DVT prophylaxis. Lovenox. 7. Pulmonary prophylaxis. Incentive spirometry. Discharge plan: To be determined Impression and plan of care have been directed as dictated by the signing physician. Tia Enciso nurse practitioner acting as scribe for signing physician.
[2018-12-23 17:32] LABS: Glucose,Whole Blood 131 mg/dL (75-99)
[2018-12-23 20:41] LABS: Glucose,Whole Blood 135 mg/dL (75-99)
[2018-12-24] MEDS: HYDROcodone/APAP 7.5-325MG 1 EACH TAB PO PRN ×5 (00:34→20:59)
[2018-12-24] MEDS: LACTATED RINGERS 1,000 ML IV SCH (01:32)
[2018-12-24 06:59] LABS: Glucose,Whole Blood 128 mg/dL (75-99)
[2018-12-24] MEDS: SYMBICORT 160-4.5 MCG INHALER INHALATION SCH ×2 (07:19→20:11)
[2018-12-24] MEDS: INSULIN ASPART (NovoLOG) 100 UNIT/ML VIAL SQ SCH ×4 (07:20→21:00)
[2018-12-24] MEDS: ENOXAPARIN 40 MG/0.4 ML SYRINGE SQ SCH (07:35)
[2018-12-24] MEDS: VIT A,C & E-LUTEIN-MINERALS 1 EACH TAB PO SCH (07:35)
[2018-12-24] MEDS: CYANOCOBALAMIN 500 MCG TAB PO SCH (07:36)
[2018-12-24] MEDS: metFORMIN 500 MG TAB PO SCH (07:36)
[2018-12-24] MEDS: FAMOTIDINE 20 MG TAB PO SCH (07:36)
[2018-12-24] MEDS: MULTIVITAMINS, THERA 1 EACH TAB PO SCH (07:36)
--- NOTE | 2018-12-24 09:05 | P.PN ---
Subjective Progress Note Date: 12/24/18 This patient is a 73-year-old female with a past medical history of diabetes type 2 and hypertension that underwent a right subtalar arthrodesis, talonavicular joint arthrodesis, first tarsometatarsal joint arthrodesis, percutaneous tendo Achilles lengthening, and percutaneous flexor tendon tenotomy of the hallux on 12/22/[address] West. Today's postoperative day #2. The patient continues to do well, she states her pain is very well-controlled this morning on the oral [place]. She had a bowel mov ement yesterday, she is having no issues with urination. She has been working with physical therapy with minimal issue with transferring. Patient denies chest pain, shortness of breath, nausea, vomiting, numbness or tingling of the right lower extremity. Vital signs stable. Objective - Vital Signs Vital signs: Vital Signs Temp 98.3 F 12/24/18 07:11 Pulse 86 12/24/18 07:11 Resp 15 12/24/18 07:11 BP 146/74 12/24/18 07:11 Pulse Ox 93 L 12/24/18 07:11 Intake & Output 12/23/18 12/24/18 12/24/18 18:59 06:59 18:59 Intake Total 1200 480 Balance 1200 480 Intake: Oral 1200 480 Other: # Voids 1 - Exam On examination, the patient is lying in the bedside chair in no apparent distress. She is alert and oriented 3. On inspection of the right lower extremity, there is a bulky Olvera splint in place. There is no evidence of bleeding through the splint today. Patient is able to wiggle her toes without pain or issue. There is no pain on passive range of motion of the toes. The toes are warm and well-perfused with brisk capillary refill. Sensation is intact to light touch of toes. The left calf is soft and nontender to palpation. Compression cuff in place of the left lower extremity. - Labs CBC & Chem 7: 12/22/18 18:28 Labs: Abnormal Lab Results - Last 24 Hours (Table) 12/22/18 12/23/18 12/23/18 Range/Units 18:28 11:07 17:30 POC Glucose (mg/dL) 133 H 131 H (75-99) mg/dL Vitamin D 25-Hydroxy 23.9 L (30.0-100.0) ng/mL 12/23/18 12/24/18 Range/Units 20:39 06:58 POC Glucose (mg/dL) 135 H 128 H (75-99) mg/dL Vitamin D 25-Hydroxy (30.0-100.0) ng/mL Assessment and Plan Assessment: Right stage IV adult acquired flat foot deformity status-post right subtalar arthrodesis, talonavicular joint arthrodesis, first tarsometatarsal joint arthrodesis, percutaneous tendo Achilles lengthening, and percutaneous flexor tendon tenotomy of the hallux on 12/22/18. Postoperative day #2. Plan: - Strict nonweightbearing of the right lower extremity. Ice and elevate the right lower extremity to decrease pain and swelling. - Continue physical therapy for gait and balance training. - Continue pain management. - Lovenox while she is inpatient for anticoagulation, aspirin on discharge. - 2 doses of postoperative antibiotics. - Appreciate internal medicine consult for medical management. - Planning on discharge to [facility] rehab in the next 24-48 hours. Patient discussed with Dr. West.
[2018-12-24] MEDS: cloNIDine HCL 0.1 MG TAB PO SCH ×2 (11:39→20:59)
[2018-12-24 12:35] LABS: Glucose,Whole Blood 126 mg/dL (75-99)
--- NOTE | 2018-12-24 14:49 | P.PN ---
Subjective Progress Note Date: 12/24/18 This is a 73-year-old female patient of Dr. Ford with past medical history of diabetes mellitus type 2, hypertension, uterine cancer status post surgery and radiation treatment in 1998. Patient has been brought into the hospital on the care of Dr. West status post surgery for flatfoot deformity completed yesterday. The patient is complaining of pain to the foot and ankle region. She denies any shortness of breath or chest pain. No nausea or vomiting. Blood pressure has been stable 149/78, heart rate 99, pulse ox 94% on room air. She has been afebrile. She has been afebrile, white count is 13.3, hemoglobin 12.9. 12/24: Patient has been working with PT and OT with plan for discharge to [facility] on Thursday if bed is available for her. She denies having any shortness of breath. She is using her incentive spirometry. Patient had a bowel movement yesterday. She denies any nausea or vomiting. Pain is currently a #6. Blood sugars are running between 128 and 135. She has been afebrile, heart rate 86, blood pressure 146/74 and pulse ox 93% on room air. Medication reconciliation reviewed with plan for discharge tomorrow. Objective - Vital Signs Vital signs: Vital Signs Temp 98.3 F 12/24/18 07:11 Pulse 86 12/24/18 07:11 Resp 15 12/24/18 07:11 BP 146/74 12/24/18 07:11 Pulse Ox 93 L 12/24/18 07:11 Intake & Output 12/23/18 12/24/18 12/24/18 18:59 06:59 18:59 Intake Total 1200 480 Balance 1200 480 Intake: Oral 1200 480 Other: # Voids 1 - Exam Review of Systems All systems: negative Constitutional: Denies chills, Denies fatigue, Denies fever, Denies lethargy, Denies malaise, Denies poor appetite, Denies weight loss Eyes: denies blurred vision, denies pain Ears, nose, mouth and throat: Denies dysphagia, Denies headache, Denies nasal congestion, Denies nasal discharge, Denies sore throat, Denies vertigo Cardiovascular: Denies chest pain, Denies decreased exercise tolerance, Denies dyspnea on exertion, Denies leg edema, Denies lightheadedness, Denies shortness of breath, Denies syncope Respiratory: Denies cough, Denies cough with sputum, Denies dyspnea, Denies excessive sputum, Denies hemoptysis, Denies home oxygen, Denies wheezing Gastrointestinal: Denies abdominal pain, Denies diarrhea, Denies nausea, Denies vomiting Genitourinary: Denies dysuria, Denies hematuria, Denies urgency, Denies urinary frequency Musculoskeletal: Denies frequent falls, Denies gait dysfunction, Denies muscle weakness, Denies myalgias Integumentary: Denies darkening of skin, Denies pruritus, Denies rash Neurological: Denies change in mentation, Denies change in speech, Denies confusion, Denies convulsions, Denies numbness, Denies weakness Psychiatric: Denies anxiety, Denies depression Endocrine: Denies fatigue, Denies weight change Physical exam: Gen: This is a 73-year-old morbidly obese female. She is resting in a recliner and appears to be comfortable and in no acute distress. HEENT: Head is atraumatic, normocephalic. Pupils equal, round. Sclerae is an icteric. NECK: Supple. No JVD. No lymphadenopathy. No thyromegaly. LUNGS: Clear to auscultation. No wheezes or rhonchi. No intercostal retractions. HEART: Regular rate and rhythm. No murmur. ABDOMEN: Soft. Bowel sounds are present. No masses. No tenderness. EXTREMITIES: No pedal edema. No calf tenderness. Large dressing in place to the right lower extremity. NEUROLOGICAL: Patient is awake, alert and oriented x3. Cranial nerves 2 through 12 are grossly intact. - Labs CBC & Chem 7: 12/22/18 18:28 Labs: Abnormal Lab Results - Last 24 Hours (Table) 12/22/18 12/23/18 12/23/18 Range/Units 18:28 11:07 17:30 POC Glucose (mg/dL) 133 H 131 H (75-99) mg/dL Vitamin D 25-Hydroxy 23.9 L (30.0-100.0) ng/mL 12/23/18 12/24/18 Range/Units 20:39 06:58 POC Glucose (mg/dL) 135 H 128 H (75-99) mg/dL Vitamin D 25-Hydroxy (30.0-100.0) ng/mL Assessment and Plan Plan: 1. Flat foot deformity status post surgical intervention. Continue current p ain management, PT and OT per orthopedics. Lovenox as DVT prophylaxis. 2. Diabetes mellitus type 2. Continue metformin 500 mg daily, NovoLog scale before meals and at bedtime. 3. Hypertension. Continue Catapres 0.05 mg twice daily. 4. History of uterine cancer status post surgery and radiation treatment in 1998, stable. 5. GI prophylaxis. Pepcid. 6. DVT prophylaxis. Lovenox. 7. Pulmonary prophylaxis. Incentive spirometry. Discharge plan: on Thursday depending on bed availability. Impression and plan of care have been directed as dictated by the signing physician. Tia Enciso nurse practitioner acting as scribe for signing physician.
[2018-12-24 16:41] LABS: Glucose,Whole Blood 123 mg/dL (75-99)
[2018-12-24 20:45] LABS: Glucose,Whole Blood 138 mg/dL (75-99)
[2018-12-25] MEDS: HYDROcodone/APAP 7.5-325MG 1 EACH TAB PO PRN ×3 (03:30→11:40)
[2018-12-25] MEDS: LACTATED RINGERS 1,000 ML IV SCH (04:21)
[2018-12-25 07:05] LABS: Glucose,Whole Blood 135 mg/dL (75-99)
[2018-12-25] MEDS: INSULIN ASPART (NovoLOG) 100 UNIT/ML VIAL SQ SCH (07:35)
[2018-12-25] MEDS: SYMBICORT 160-4.5 MCG INHALER INHALATION SCH (08:35)
[2018-12-25 08:57] VITALS: BP 123/77; PULSE 77; RESP 15; TEMP 97.9
--- NOTE | 2018-12-25 09:17 | P.DS ---
Providers Date of admission: 12/22/18 12:58 Expected date of discharge: 12/25/18 Attending physician: Branden West Consults: 12/22/18 16:37 Consult Physician Routine Consulting Provider: Lobito Ford Reason/Comments: Medical management Do you want consulting provider notified?: Yes Primary care physician: Lobito Logan [place] [facility] Course: This is a 73-year-old female with a past medical history of type 2 diabetes and hypertension that was seen by Dr. West for her flat foot deformity of the right foot. After nonsurgical treatment, the patient requested surgery. Patient underwent a right subtalar arthrodesis, talonavicular arthrodesis, first tarsometatarsal joint arthrodesis, percutaneous tendo Achilles lengthening, percutaneous long flexor tendon tenotomy of the hallux on 12/22/[address] West. The patient was admitted to [facility] following this procedure. Procedure was performed without complication or sequelae. Patient is doing well postoperatively. Vital signs and postoperative labs are stable. The patient is transferring to the bedside commode with a walker with minimal assistance. Patient was seen at bedside today and she has no new complaints. She states her pain is currently well-controlled on oral pain medications. She states she had a bowel movement yesterday, she denies abdominal pain. She denies chest pain, shortness of breath, fevers, chills, abdominal pain, or dysuria. On exam the patient is sitting up in her chair in no acute distress. Patient is alert and oriented 3. A Bulky Olver[place] splint is in place to the right lower extremity. The toes are warm and well perfused with brisk capillary refill. Sensation is intact to the toes. There is no pain to passive range of motion of toes. She is able to actively move her toes without difficulty. Left calf if soft and nontender. Left dorsalis pedis pulse +2. Left compression cuff in place. The patient is discharged to rehab in good condition, pending medical clearance.. Please see discharge orders. Please refer to the med rec for accurate list of medications. Patient Condition at Discharge: Fair Plan - Discharge Summary Discharge Rx Participant: Yes New Discharge Prescriptions: New Famotidine [Pepcid] 20 mg PO DAILY tab Sennosides-Docusate Sodium [Senokot-S] 2 each PO HS PRN tab PRN Reason: Constipation Aspirin 325 mg PO BID #28 tab Hydrocodone/Acetaminophen [[place] 7.5-325] 1 tab PO Q4-6H PRN 7 Days #40 tab PRN Reason: Pain Continue Aspirin EC [Ecotrin Low Dose] 81 mg PO DAILY metFORMIN HCL [Glucophage] 500 mg PO DAILY cloNIDine HCL [Catapres] 0.05 mg PO BID Multivitamins, Thera [Multivitamin (formulary)] 1 tab PO DAILY Calcium/Magnesium/Zinc [Edlmnpd-Nwrgeblfq-Jgrq Tablet] 1 tab PO DAILY Vitamin C/Biotin [Hair, Skin and Nails] 1 tab PO DAILY Vits A,C,E/Lutein/Minerals [Ocuvite with Lutein Tablet] 1 each PO DAILY Cranberry Fruit Extract [Cranberry] 500 mg PO DAILY Symbicort 1 puff INHALATION DAILY Cyanocobalamin [Vitamin B-12] 500 mcg PO DAILY Discontinued Cinnamon Bark [Cinnamon] 500 mg PO DAILY Turmeric Root Extract [Turmeric] 500 mg PO DAILY Krill/Om-3/Dha/Epa/Phospho/Ast [[place]-3 Krill Oil 300 mg Sfgl] 1 each PO DAILY Discharge Medication List Aspirin EC [Ecotrin Low Dose] 81 mg PO DAILY 08/19/17 [History] Calcium/Magnesium/Zinc [Zwvtcgj-Vfbdafshr-Mivb Tablet] 1 tab PO DAILY 08/19/17 [History] Multivitamins, Thera [Multivitamin (formulary)] 1 tab PO DAILY 08/19/17 [History] Vitamin C/Biotin [Hair, Skin and Nails] 1 tab PO DAILY 08/19/17 [History] cloNIDine HCL [Catapres] 0.05 mg PO BID 08/19/17 [History] metFORMIN HCL [Glucophage] 500 mg PO DAILY 08/19/17 [History] Cranberry Fruit Extract [Cranberry] 500 mg PO DAILY 12/15/18 [History] Symbicort 1 puff INHALATION DAILY 12/15/18 [History] Vits A,C,E/Lutein/Minerals [Ocuvite with Lutein Tablet] 1 each PO DAILY 12/15/18 [History] Cyanocobalamin [Vitamin B-12] 500 mcg PO DAILY 12/16/18 [History] Famotidine [Pepcid] 20 mg PO DAILY tab 12/24/18 [Rx] Sennosides-Docusate Sodium [Senokot-S] 2 each PO HS PRN tab 12/24/18 [Rx] Aspirin 325 mg PO BID #28 tab 12/25/18 [Rx] Hydrocodone/Acetaminophen [[place] 7.5-325] 1 tab PO Q4-6H PRN 7 Days #40 tab 12/25/18 [Rx] Follow up Appointment(s)/Referral(s): Lobito Ford MD [Primary Care Provider] - 1 Week ([address] [facility]) Branden West MD [Medical Doctor] - 2 Weeks Activity/Diet/Wound Care/Special Instructions: -Strict non-weight bearing on your operative leg. Do not remove your splint; K eep splint clean, dry, and intact -Use crutches, knee scooter, or a walker to ambulate after surgery. -Elevate and ice operative leg to help reduce swelling and control pain. -Take pain medications as prescribed. Take aspirin as prescribed for blood clot prevention. -Follow-up appointment with Dr. West in the office in 2 weeks. -Call the office with any questions or concerns, Discharge Disposition: TRANSFER TO SNF/ECF
[2018-12-25] MEDS: metFORMIN 500 MG TAB PO SCH (10:03)
[2018-12-25] MEDS: CYANOCOBALAMIN 500 MCG TAB PO SCH (10:03)
[2018-12-25] MEDS: FAMOTIDINE 20 MG TAB PO SCH (10:03)
[2018-12-25] MEDS: cloNIDine HCL 0.1 MG TAB PO SCH (10:03)
[2018-12-25] MEDS: VIT A,C & E-LUTEIN-MINERALS 1 EACH TAB PO SCH (10:03)
[2018-12-25] MEDS: MULTIVITAMINS, THERA 1 EACH TAB PO SCH (10:03)
[2018-12-25] MEDS: ENOXAPARIN 40 MG/0.4 ML SYRINGE SQ SCH (10:04)
[2018-12-25 11:43] LABS: Glucose,Whole Blood 141 mg/dL (75-99)
--- NOTE | 2018-12-25 21:21 | P.PN ---
Subjective Progress Note Date: 12/25/18 This is a 73-year-old female patient of Dr. Ford with past medical history of diabetes mellitus type 2, hypertension, uterine cancer status post surgery and radiation treatment in 1998. Patient has been brought into the hospital on the care of Dr. West status post surgery for flatfoot deformity completed yesterday. The patient is complaining of pain to the foot and ankle region. She denies any shortness of breath or chest pain. No nausea or vomiting. Blood pressure has been stable 149/78, heart rate 99, pulse ox 94% on room air. She has been afebrile. She has been afebrile, white count is 13.3, hemoglobin 12.9. 12/24: Patient has been working with PT and OT with plan for discharge to [facility] on Thursday if bed is available for her. She denies having any shortness of breath. She is using her incentive spirometry. Patient had a bowel movement yesterday. She denies any nausea or vomiting. Pain is currently a #6. Blood sugars are running between 128 and 135. She has been afebrile, heart rate 86, blood pressure 146/74 and pulse ox 93% on room air. Medication reconciliation reviewed with plan for discharge tomorrow. 12/25: Patient is scheduled to be discharged to [facility] today, patient denies any shortness of breath or chest pain, possibly the pain is under control, no nausea no vomiting, patient remains to be afebrile, no new complaints today Review of Systems All systems: negative Constitutional: Denies chills, Denies fatigue, Denies fever, Denies lethargy, Denies malaise, Denies poor appetite, Denies weight loss Eyes: denies blurred vision, denies pain Ears, nose, mouth and throat: Denies dysphagia, Denies headache, Denies nasal congestion, Denies nasal discharge, Denies sore throat, Denies vertigo Cardiovascular: Denies chest pain, Denies decreased exercise tolerance, Denies dyspnea on exertion, Denies leg edema, Denies lightheadedness, Denies shortness of breath, Denies syncope Respiratory: Denies cough, Denies cough with sputum, Denies dyspnea, Denies excessive sputum, Denies hemoptysis, Denies home oxygen, Denies wheezing Gastrointestinal: Denies abdominal pain, Denies diarrhea, Denies nausea, Denies vomiting Genitourinary: Denies dysuria, Denies hematuria, Denies urgency, Denies urinary frequency Musculoskeletal: Denies frequent falls, Denies gait dysfunction, Denies muscle weakness, Denies myalgias Integumentary: Denies darkening of skin, Denies pruritus, Denies rash Neurological: Denies change in mentation, Denies change in speech, Denies confusion, Denies convulsions, Denies numbness, Denies weakness Psychiatric: Denies anxiety, Denies depression Endocrine: Denies fatigue, Denies weight change Objective - Vital Signs Vital signs: Vital Signs Temp 97.9 F 12/25/18 07:00 Pulse 77 12/25/18 07:00 Resp 15 12/25/18 07:00 BP 123/77 12/25/18 07:00 Pulse Ox 93 L 12/25/18 07:00 Intake & Output 12/24/18 12/25/18 12/25/18 18:59 06:59 18:59 Intake Total 600 180 Balance 600 180 Intake: Oral 600 180 Other: Voiding Method Bedpan Bedpan Bedpan # Voids 4 4 - Constitutional General appearance: Present: cooperative, no acute distress - EENT Eyes: Present: anicteric sclerae, EOMI, PERRLA, dentition normal, normal appearance ENT: Present: hearing grossly normal, NA/AT, normal oropharynx - Respiratory Respiratory: bilateral: CTA, negative: diminished, dullness, rales - Cardiovascular Rhythm: regular Heart sounds: normal: S1, S2 Abnormal Heart Sounds: Absent: systolic murmur, diastolic murmur, rub, S3 Gallop, S4 Gallop, click, other - Gastrointestinal General gastrointestinal: Present: normal bowel sounds, soft - Integumentary Integumentary: Present: decreased turgor, normal - Neurologic Neurologic: Present: CNII-XII intact - Musculoskeletal Musculoskeletal: Present: generalized weakness, strength equal bilaterally - Psychiatric Psychiatric: Present: A&O x's 3, appropriate affect, intact judgment & insight - Labs CBC & Chem 7: 12/22/18 18:28 Labs: Abnormal Lab Results - Last 24 Hours (Table) 12/24/18 12/24/18 12/25/18 Range/Units 16:39 20:33 07:02 POC Glucose (mg/dL) 123 H 138 H 135 H (75-99) mg/dL 12/25/18 Range/Units 11:32 POC Glucose (mg/dL) 141 H (75-99) mg/dL Assessment and Plan Plan: 1. Flat foot deformity status post surgical intervention. Continue current pain management, PT and OT per orthopedics. Lovenox as DVT prophylaxis. 2. Diabetes mellitus type 2. Continue metformin 500 mg daily, NovoLog scale before meals and at bedtime. 3. Hypertension. Continue Catapres 0.05 mg twice daily. 4. History of uterine cancer status post surgery and radiation treatment in 1998, stable. 5. GI prophylaxis. Pepcid. 6. DVT prophylaxis. Lovenox. 7. Pulmonary prophylaxis. Incentive spirometry. Discharge plan: on Thursday stable.
[2018-12-26 15:39] LABS: Glucose,Whole Blood 109 mg/dL (75-99)
== END 2018-12-25 12:45 | DRG 502 ==
LOC: 2ORMAIN 12:58 → 4SSUR 16:23
PROVIDERS: ADMIT Orthopaedic Surgery; ATTEND Orthopaedic Surgery
PROC: 0L8N0ZZ Division of Right Lower Leg Tendon, Open Approach (ICD-10-PCS; principal; 2018-12-22 12:30)
PROC: 0L8V3ZZ Division of Right Foot Tendon, Percutaneous Approach (ICD-10-PCS; principal; 2018-12-22 12:30)
PROC: 3E0T3BZ Introduction of Anesthetic Agent into Peripheral Nerves and Plexi, Percutaneous Approach (ICD-10-PCS; principal; 2018-12-22 12:30)
PROC: 0SGH04Z Fusion of Right Tarsal Joint with Internal Fixation Device, Open Approach (ICD-10-PCS; principal; 2018-12-22 12:30)
PROC: 0SGK04Z Fusion of Right Tarsometatarsal Joint with Internal Fixation Device, Open Approach (ICD-10-PCS; principal; 2018-12-22 12:30)
DX: M21.41 Flat foot [pes planus] (acquired), right foot (principal); I10 Essential (primary) hypertension; E11.9 Type 2 diabetes mellitus without complications; M19.90 Unspecified osteoarthritis, unspecified site; E66.01 Morbid (severe) obesity due to excess calories; Z96.60 Presence of unspecified orthopedic joint implant; Z79.51 Long term (current) use of inhaled steroids; Z79.82 Long term (current) use of aspirin; Z79.84 Long term (current) use of oral hypoglycemic drugs; Z80.0 Family history of malignant neoplasm of digestive organs; Z80.8 Family history of malignant neoplasm of other organs or systems; Z85.42 Personal history of malignant neoplasm of other parts of uterus; Z87.891 Personal history of nicotine dependence; Z90.710 Acquired absence of both cervix and uterus; Z92.3 Personal history of irradiation; Z90.89 Acquired absence of other organs; Z98.890 Other specified postprocedural states; Z84.89 Family history of other specified conditions; Z68.39 Body mass index [BMI] 39.0-39.9, adult
CPT/HCPCS: 82306; 85025; 94640

== ENCOUNTER → 2019-04-04 | Outpatient (CLI) | payer MEDICARE, OTHER ==
--- NOTE | 2019-04-05 11:55 | MM ---
Reason for exam: follow-up at short interval from prior study. Last mammogram was performed 6 months ago. History: Patient is postmenopausal and has history of endometrial cancer at age 51. Benign MG stereo VAD BX RT of the right breast, October 12, 2018. Physical Findings: Nurse did not find any significant physical abnormalities on exam. MG 3D Diag Mammo W/Cad RT CC and MLO view(s) were taken of the right breast. Prior study comparison: October 05, 2018, right breast MG 3d work up w/cad RT. September 29, 2018, bilateral MG 3d screening mammo w/cad. There are scattered fibroglandular densities. Right biopsy marker. These results were verbally communicated with the patient and result sheet given to the patient on 04/04/19. ASSESSMENT: Benign, BI-RAD 2 RECOMMENDATION: Return to routine screening mammogram schedule for both breasts. Back on schedule for September 2019.
== END | disposition home or self-care (01) ==
LOC: RADMAMWWP 12-22 10:32
PROVIDERS: ATTEND Surgery
DX: R92.8 Other abnormal and inconclusive findings on diagnostic imaging of breast (principal)
CPT/HCPCS: 77065; G0279; 77061

== ENCOUNTER 2020-03-06 11:37 | Emergency (ER) | payer MEDICARE, OTHER ==
[2020-03-06 11:42] VITALS: BP 160/85; PULSE 79; RESP 18; TEMP 98
[2020-03-06] MEDS ORDERED: LIDOCAINE 1% INJ 10MG/ML (20 ML MDV) SQ ONE (11:51)
[2020-03-06] MEDS ORDERED: DIPH,PERTUS(ACELL)TETVAC-LF 0.5 ML VIAL IM ONE (11:51)
--- NOTE | 2020-03-06 11:53 | ED ---
Wound/Laceration HPI - General Chief Complaint: Wound/Laceration Stated Complaint: finger lac Time Seen by Provider: 03/06/20 11:43 Source: patient, RN notes reviewed Mode of arrival: wheelchair Limitations: no limitations - History of Present Illness Initial Comments: 74-year-old female presents emergency Department chief plan laceration to her right hand fourth digit. Patient states that she cut it on a fence going on her chin gout. Patient states she has full range of motion there is no pain associated she is unsure when her last tetanus was. Patient denies any other complaints of injury no loss conscious. - Related Data Home Medications Medication Instructions Recorded Confirmed Aspirin EC [Ecotrin Low Dose] 81 mg PO DAILY 08/19/17 12/22/18 Calcium/Magnesium/Zinc 1 tab PO DAILY 08/19/17 12/22/18 [Afuxwin-Xdckilhvb-Tewi Tablet] Multivitamins, Thera [Multivitamin 1 tab PO DAILY 08/19/17 12/22/18 (formulary)] Vitamin C/Biotin [Hair, Skin and 1 tab PO DAILY 08/19/17 12/22/18 Nails] cloNIDine HCL [Catapres] 0.05 mg PO BID 08/19/17 12/22/18 metFORMIN HCL [Glucophage] 500 mg PO DAILY 08/19/17 12/22/18 Cranberry Fruit Extract [Cranberry] 500 mg PO DAILY 12/15/18 12/22/18 Symbicort 1 puff INHALATION DAILY 12/15/18 12/22/18 Vits A,C,E/Lutein/Minerals 1 each PO DAILY 12/15/18 12/22/18 [Ocuvite with Lutein Tablet] Cyanocobalamin [Vitamin B-12] 500 mcg PO DAILY 12/16/18 12/22/18 Previous Rx's Medication Instructions Recorded Famotidine [Pepcid] 20 mg PO DAILY tab 12/24/18 Sennosides-Docusate Sodium 2 each PO HS PRN tab 12/24/18 [Senokot-S] Aspirin 325 mg PO BID #28 tab 12/25/18 Hydrocodone/Acetaminophen [[place] 1 tab PO Q4-6H PRN 7 Days #40 tab 12/25/18 7.5-325] Allergies Allergy/AdvReac Type Severity Reaction Status Date / Time No Known Allergies Allergy Verified 09/08/20 11:45 Review of Systems ROS Statement: Those systems with pertinent positive or pertinent negative responses have been documented in the HPI. ROS Other: All systems not noted in ROS Statement are negative. Past Medical History Past Medical History: Cancer, Chest Pain / Angina, Diabetes Mellitus, Hypertension, Osteoarthritis (OA) Additional Past Medical History / Comment(s): uterine cancer (surgery & radiation tx 1998), states "secondary lung disease", takes clonidine as preventative due to diabetes., Pain right foot- states using cane and walker. History of Any Multi-Drug Resistant Organisms: None Reported Past Surgical History: Heart Catheterization, Hysterectomy, Joint Replacement, Orthopedic Surgery, Tonsillectomy Additional Past Surgical History / Comment(s): total right knee x2 total left knee; Left foot surgery; maru trigger fingers. Heart Cath (may 2018 no stents) Past Anesthesia/Blood Transfusion Reactions: Blood Transfusion Reaction Additional Past Anesthesia/Blood Transfusion Reaction / Comment(s): Hx of rash with blood transfusion 1997 Past Psychological History: No Psychological Hx Reported Past Alcohol Use History: Occasional Past Drug Use History: None Reported - Past Family History Mother Family Medical History: No Reported History Additional Family Medical History / Comment(s): Mother in her 70s from colon cancer. Sister(s) Family Medical History: Cancer Additional Family Medical History / Comment(s): Patient has 2 sisters and one has from ocular melanoma. A second sister is healthy. Father Additional Family Medical History / Comment(s): Father in his 50s from alcoholic liver disease. Son(s) Additional Family Medical History / Comment(s): Patient has 3 children. One son has diabetes and overweight. Patient has 2 daughters with no major medical problems. General Exam Limitations: no limitations General appearance: alert, in no apparent distress Head exam: Present: atraumatic, normocephalic, normal inspection Respiratory exam: Present: normal lung sounds bilaterally. Absent: respiratory distress, wheezes, rales, rhonchi, stridor Cardiovascular Exam: Present: regular rate, normal rhythm, normal heart sounds. Absent: systolic murmur, diastolic murmur, rubs, gallop, clicks Extremities exam: Present: other (Right hand fourth digit there is a 1 cm laceration at the PIP patient's full range of motion neurovascular intact) Skin exam: Present: warm, dry Course Vital Signs 03/06/20 11:39 Temperature 98.0 F Pulse Rate 79 Respiratory 18 Rate Blood Pressure 160/85 O2 Sat by Pulse 97 Oximetry Procedures - Laceration Laceration #1 Consent Obtained: verbal consent Indication: laceration Site: hand (Right hand) Size (cm): 1 Description: irregular Depth: simple, single layer Anesthetic Used: lidocaine 1% Anesthesia Technique: local infiltration Amount (mls): 3 Pre-repair: wound explored, irrigated extensively, deep structures intact Type of Sutures: nylon Size of Sutures: 4-0 Number of Sutures: 3 Technique: simple, interrupted Patient Tolerated Procedure: well, no complications Medical Decision Making - Medical Decision Making Sutures were placed with no compilations patient has full range of motion neurovascular intact return parameters were discussed wound care was discussed. Disposition Clinical Impression: Laceration of finger of right hand Disposition: HOME SELF-CARE Condition: Stable Instructions (If sedation given, give patient instructions): Care For Your Stitches (ED), Finger Laceration (ED) Additional Instructions: Have sutures removed in 10 days.Please return to the Emergency Department if symptoms worsen or any other concerns. Is patient prescribed a controlled substance at d/c from ED?: No Referrals: Lobito Ford MD [Primary Care Provider] - 1-2 days
== END 2020-03-06 12:50 | disposition home or self-care (01) ==
LOC: EC 11:37
DX: S61.214A Laceration without foreign body of right ring finger without damage to nail, initial encounter (principal); I10 Essential (primary) hypertension; E11.9 Type 2 diabetes mellitus without complications; I20.9 Angina pectoris, unspecified; M19.90 Unspecified osteoarthritis, unspecified site; M79.671 Pain in right foot; Z79.899 Other long term (current) drug therapy; Z79.84 Long term (current) use of oral hypoglycemic drugs; Z79.82 Long term (current) use of aspirin; Z79.51 Long term (current) use of inhaled steroids; Z23 Encounter for immunization; Z85.42 Personal history of malignant neoplasm of other parts of uterus; Z96.60 Presence of unspecified orthopedic joint implant; W26.8XXA Contact with other sharp object(s), not elsewhere classified, initial encounter
CPT/HCPCS: 90715; 99282; 12001; 90471; J2001

== ENCOUNTER 2021-02-08 17:28 | Observation (INO) | payer MEDICARE, OTHER ==
[2021-02-08] MEDS ORDERED: ASPIRIN 81 MG PO STA (17:50)
--- NOTE | 2021-02-08 17:56 | ED ---
Chest Pain HPI - General Chief Complaint: Chest Pain Stated Complaint: chest pressure Time Seen by Provider: 02/08/21 17:33 Source: patient Mode of arrival: wheelchair Limitations: physical limitation - History of Present Illness Initial Comments: 75-year-old female with no prior history of heart disease who did have a catheterization approximately 3-4 years ago who was apparently within normal limits presents with difficulty breathing sweats retrosternal chest tightness and pressure for last couple days on and off. She currently has 3-4/10 retrost ernal discomfort nonradiating. She had no fevers chills sweats no cough or phlegm production no other current complaints or modifying factors she is a nonsmoker she did try for a little while but quit many many years ago. MD Complaint: chest pain - Related Data Home Medications Medication Instructions Recorded Confirmed Aspirin EC [Ecotrin Low Dose] 81 mg PO DAILY 08/19/17 02/08/21 cloNIDine HCL [Catapres] 0.1 mg PO DAILY 08/19/17 02/08/21 metFORMIN HCL [Glucophage] 500 mg PO DAILY 08/19/17 02/08/21 Oxybutynin ER [Ditropan Xl] 10 mg PO DAILY 02/08/21 02/08/21 Allergies Allergy/AdvReac Type Severity Reaction Status Date / Time No Known Allergies Allergy Verified 02/08/21 18:37 Review of Systems ROS Statement: Those systems with pertinent positive or pertinent negative responses have been documented in the HPI. ROS Other: All systems not noted in ROS Statement are negative. EKG Findings - EKG Results: EKG: interpreted by LICO, sinus rhythm (Sinus rhythm of 86. Interval 206 QRS duration 82 daily since QTC 360/440 left anterior fascicular block and minimal criteria for LVH evidence of septal changes) Past Medical History Past Medical History: Cancer, Chest Pain / Angina, Diabetes Mellitus, Hypertension, Osteoarthritis (OA) Additional Past Medical History / Comment(s): uterine cancer (surgery & radiation tx 1998), states "secondary lung disease", takes clonidine as preventative due to diabetes., Pain right foot- states using cane and walker, covid History of Any Multi-Drug Resistant Organisms: None Reported Past Surgical History: Heart Catheterization, Hysterectomy, Joint Replacement, Orthopedic Surgery, Tonsillectomy Additional Past Surgical History / Comment(s): total right knee x2 total left knee; Left foot surgery; maru trigger fingers. Heart Cath (may 2018 no stents) Past Anesthesia/Blood Transfusion Reactions: Blood Transfusion Reaction Additional Past Anesthesia/Blood Transfusion Reaction / Comment(s): Hx of rash with blood transfusion 1997 Past Psychological History: No Psychological Hx Reported Smoking Status: Never smoker Past Alcohol Use History: Daily Past Drug Use History: None Reported - Past Family History Mother Family Medical History: No Reported History Additional Family Medical History / Comment(s): Mother in her 70s from colon cancer. Sister(s) Family Medical History: Cancer Additional Family Medical History / Comment(s): Patient has 2 sisters and one has from ocular melanoma. A second sister is healthy. Father Additional Family Medical History / Comment(s): Father in his 50s from alcoholic liver disease. Son(s) Additional Family Medical History / Comment(s): Patient has 3 children. One son has diabetes and overweight. Patient has 2 daughters with no major medical problems. General Exam - General Exam Comments Initial Comments: This is a well-developed well-nourished awake alert oriented 3 female Limitations: physical limitation General appearance: alert, anxious Head exam: Present: atraumatic, normocephalic, normal inspection Eye exam: Present: normal appearance, PERRL, EOMI. Absent: scleral icterus, conjunctival injection, periorbital swelling ENT exam: Present: normal exam, mucous membranes moist Neck exam: Present: normal inspection. Absent: tenderness, meningismus, lymphadenopathy Respiratory exam: Present: normal lung sounds bilaterally. Absent: respiratory distress, wheezes, rales, rhonchi, stridor Cardiovascular Exam: Present: regular rate, normal rhythm, normal heart sounds. Absent: systolic murmur, diastolic murmur, rubs, gallop, clicks GI/Abdominal exam: Present: soft, normal bowel sounds. Absent: distended, tenderness, guarding, rebound, rigid Extremities exam: Present: normal inspection, full ROM, normal capillary refill. Absent: tenderness, pedal edema, joint swelling, calf tenderness Back exam: Present: normal inspection Neurological exam: Present: alert, oriented X3, CN II-XII intact Psychiatric exam: Present: normal affect, normal mood Skin exam: Present: warm, dry, intact, normal color. Absent: rash Course Vital Signs 02/08/21 02/08/21 02/08/21 17:29 17:46 18:05 Temperature 98.9 F Pulse Rate 88 84 86 Respiratory 18 18 18 Rate Blood Pressure 163/79 169/86 133/76 O2 Sat by Pulse 98 97 98 Oximetry 02/08/21 02/08/21 18:21 18:30 Temperature Pulse Rate 82 80 Respiratory 18 18 Rate Blood Pressure 140/95 127/74 O2 Sat by Pulse 98 98 Oximetry - Reevaluation(s) Reevaluation #1: 02/08/21 19:22 Patient did get complete relief of her chest discomfort after nitroglycerin. Chest Pain MDM - MDM Imaging reviewed no acute findings patient family member was present we did discuss the findings the presentation currently is consistent with ACS, once stable angina. Patient be admitted she'll be placed on heparin and nitro Marinelli and aspirin. Cardiology will be consulted. The case is discussed with Dr. Ashford Critical Care Time Critical Care Time: Yes Total Critical Care Time: 31 Critical Care Time: Critical care time includes initial presentation with history physical labs x- rays multiple reevaluation the patient discuss the patient family discuss with the admitting physician admission orders and documentation of the above Disposition Clinical Impression: Unstable angina pectoris, Chest pain, Acute coronary syndrome Disposition: ADMITTED IP TO THIS [facility] Condition: Stable Referrals: Lobito Ford MD [Primary Care Provider] - 1-2 days
[2021-02-08] MEDS: NITROGLYCERIN SL TABS 0.4 MG TAB SUBLINGUAL STA ×2 (17:59→18:08)
[2021-02-08 18:13] LABS: Basophils # (A) 0.1 k/uL (0-0.2); Basophils % (A) 1 %; Eosinophils # (A) 0.1 k/uL (0-0.7); Eosinophils % (A) 2 %; HCT 44.3 % (34.0-46.0); HGB 14.7 gm/dL (11.4-16.0); Lymphocytes # (A) 2.3 k/uL (1.0-4.8); Lymphocytes % (A) 27 %; MCH 30.5 pg (25.0-35.0); MCHC 33.2 g/dL (31.0-37.0); Mean Platelet Volume 8.2; Monocytes # (A) 0.4 k/uL (0-1.0); Monocytes % (A) 5 %; Neutrophils # (A) 5.5 k/uL (1.3-7.7); Neutrophils % (A) 64 %; Platelet Count 304 k/uL (150-450); RBC 4.81 m/uL (3.80-5.40); RDW 13.2 % (11.5-15.5); WBC 8.6 k/uL (3.8-10.6)
[2021-02-08 18:22] LABS: ALT 20 U/L (4-34); AST 28 U/L (14-36); African American GFR (CKD) >90 (>60 ml/min/1.73 sqM); Albumin 4.2 g/dL (3.5-5.0); Alkaline Phosphatase 92 U/L (38-126); Anion Gap 9 mmol/L; Blood Urea Nitrogen 19 mg/dL (7-17); Calcium 9.7 mg/dL (8.4-10.2); Carbon Dioxide 24 mmol/L (22-30); Chloride 105 mmol/L (98-107); Creatine Kinase 74 U/L (30-135); Glucose 120 mg/dL (74-99); Lipase 87 U/L (23-300); Magnesium 1.9 mg/dL (1.6-2.3); Non-African American GFR(CKD) >90 (>60 ml/min/1.73 sqM); Potassium 4.2 mmol/L (3.5-5.1); Sodium 138 mmol/L (137-145); Total Bilirubin 0.2 mg/dL (0.2-1.3)
[2021-02-08 18:31] LABS: INR 0.9 (<1.2); Prothrombin Time 9.5 sec (9.0-12.0)
--- NOTE | 2021-02-08 18:35 | XR ---
EXAMINATION TYPE: XR chest 2V DATE OF EXAM: 02/08/2021 COMPARISON: 08/03/2018. HISTORY: Chest pain. TECHNIQUE: Frontal and lateral views of the chest are obtained. FINDINGS: There is mild atelectasis. No focal air space opacity, pleural effusion, or pneumothorax s een. The cardiac silhouette size is within normal limits. The osseous structures are intact. IMPRESSION: No acute cardiopulmonary process.
[2021-02-08 18:38] LABS: Partial Thromboplastin Time 20.8 sec (22.0-30.0)
[2021-02-08] MEDS ORDERED: HEPARIN SODIUM 1,000 UN/ML (10ML VL) IV ONE (19:25)
[2021-02-08] MEDS ORDERED: NITROGLYCERIN SL TABS 0.4 MG TAB SUBLINGUAL PRN (19:25)
[2021-02-08] MEDS ORDERED: HEPARIN SOD,PORK IN 0.45% NACL 25,000 UNIT in 0.45% NACL 1 250ML.BAG IV SCH (19:30)
[2021-02-08] MEDS: SODIUM CHLORIDE 0.9% 1,000 ML IV SCH (19:57)
[2021-02-08] MEDS: INSULIN ASPART (NovoLOG) 100 UNIT/ML VIAL SQ SCH (22:35)
[2021-02-09] MEDS: NITROGLYCERIN OINT 1 INCH/GM PACKET TOPICAL SCH ×4 (00:15→18:16)
[2021-02-09] MEDS ORDERED: HEPARIN SODIUM 1,000 UN/ML (10ML VL) IV PRN (04:20)
[2021-02-09] MEDS: INSULIN ASPART (NovoLOG) 100 UNIT/ML VIAL SQ SCH ×4 (08:41→21:21)
[2021-02-09 08:42] LABS: Glucose,Whole Blood 133 mg/dL (75-99)
[2021-02-09] MEDS: ASPIRIN 81 MG PO SCH (08:42)
[2021-02-09] MEDS: cloNIDine HCL 0.1 MG TAB PO SCH ×2 (08:42→08:43)
[2021-02-09] MEDS: OXYBUTYNIN 10 MG TAB.ER.24 PO SCH (08:42)
[2021-02-09] MEDS ORDERED: ASPIRIN 325 MG TAB PO SCH (09:00)
[2021-02-09 09:50] LABS: Chol/HDL Ratio 3.71; LDL Cholesterol,Calculated 68.6 mg/dL (0.0-131.0); VLDL Calculation 23.4 mg/dL (5.00-40.00)
--- NOTE | 2021-02-09 10:28 | P.CRDCN ---
History of Present Illness History of present illness: HISTORY OF PRESENTING ILLNESS This is a pleasant 75-year-old with past medical history significant for hypertension, anxiety, normal coronary arteries by heart catheterization 2018, pre-diabetes mellitus on metformin. She was previously seen by Dr. Lanza however has not followed in a few years. She admits that over the last 3-4 weeks she has been having increased episodes of diaphoresis and shortness breath. She believes it is mainly related to the hot weather as she works outside on a farm. It has however been fairly excessive to where she cannot do much of anything without becoming profusely diaphoretic and short of breath. 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 She therefore was recommended to come the emergency department. Initially her blood pressure is mildly elevated, systolics in the 160s and she was given nitroglycerin with relief of her chest discomfort. She had been doing fairly well up until last 3 weeks. She did have a prior similar episode a few years back after the of her however had workup with heart catheterization which showed normal coronary arteries. She has been on clonidine 0.1 mg daily however has had significant fluctuations in her blood pressures and therefore discussed changing to a once a day regimen with losartan and Toprol as clonidine is usually a twice a day medication. Does not smoke, rare alcohol, no illicit drugs. She admits she previously was on some inhalers however has not been using them. She denies any wheeze or cough. She did have mild increased right lower extremity swelling however this has improved. She admits her shortness breath has also improved today. DIAGNOSTICS EKG reveals normal sinus rhythm, no significant ST-T wave abnormalities Chest xray NAP Laboratory reviewed, WBC 8.6, hemoglobin 14.7, d-dimer 0.56, sodium 138, BUN 19, creatinine 0.5 troponin less than 0.0123, proBNP 133, total cholesterol 126, LDL 68, HDL 34.. REVIEW OF SYSTEMS At the time of my exam: CONSTITUTIONAL: Denies fever or chills. CARDIOVASCULAR: +chest pain, +shortness of breath, No orthopnea, PND or palpitations. RESPIRATORY: Denies cough. GASTROINTESTINAL: Denies abdominal pain, diarrhea, constipation, nausea or vomiting. MUSCULOSKELETAL: Denies myalgias. NEUROLOGIC: Denies numbness, tingling or weakness. ENDOCRINE: Denies fatigue, weight change, polydipsia or polyurina. GENITOURINARY: Denies burning, hematuria or urgency with micturation. HEMATOLOGIC: Denies history of anemia or bleeding. PHYSICAL EXAMINATION Vital signs reviewed. CONSTITUTIONAL: No apparent distress. HEENT: Head is normocephalic. Pupils are equal, round. Sclerae anicteric. Mucous membranes of the mouth are moist. No JVD. No carotid bruit. CHEST EXAMINATION: Lungs are clear to auscultation. No chest wall tenderness is noted on palpation or with deep breathing. HEART EXAMINATION: Regular rate and rhythm. S1, S2 heard. No murmurs, gallops or rub. ABDOMEN: Soft, nontender. Positive bowel sounds. EXTREMITIES: 2+ peripheral pulses, no lower extremity edema and no calf tender ness. NEUROLOGIC EXAMINATION: Patient is awake, alert and oriented x3. ASSESSMENT 1. Precordial chest pain worse with exertion associated with diaphoresis and shortness breath and improved with nitroglycerin. Somewhat concerning for cardiac etiology however EKG normal and troponins normal and normal left heart catheterization 2018. 2. Essential hypertension, elevated on presentation 3. Prediabetes mellitus 4. Dyslipidemia 5. Mild increased swelling of the right lower extremity, currently improved. Suspect related to venous insufficiency 6. Dyspnea on exertion with associated diaphoresis. May be related to deconditioning or pulmonary source however no significant wheeze on exam. P roBNP normal PLAN Patient's chest pain is somewhat atypical as it is worse with exertion and improves with rest, associated diaphoresisand SOB. We will check 2-D echo to evaluate for left ventricular function. ProBNP noted to be normal however can be somewhat falsely normal at times with obesity. Patient did have improvement with nitroglycerin and less likely acute coronary syndrome however may have microvascular dysfunction, exacerbated by elevated blood pressures. Blood pressures have been somewhat labile and clonidine should be twice a day may be causing some reflex hypertension. We will stop clonidine and place patient on losartan as well as metoprolol for antianginal effects. Discussed possible stress testing and patient would prefer to do this and patient given her significant symptoms with minimal activity and issues with following up, logistics. We will continue to try to treat medications and likely stress test on Thursday. Past Medical History Past Medical History: Cancer, Chest Pain / Angina, Hypertension, Osteoarthritis (OA) Additional Past Medical History / Comment(s): uterine cancer (surgery & ra diation tx 1998), states "secondary lung disease", takes clonidine as preventative due to diabetes., Pain right foot- states using cane and walker, covid History of Any Multi-Drug Resistant Organisms: None Reported Past Surgical History: Heart Catheterization, Hysterectomy, Joint Replacement, Orthopedic Surgery, Tonsillectomy Additional Past Surgical History / Comment(s): total right knee x2 total left knee; Left foot surgery; maru trigger fingers. Heart Cath (may 2018 no stents) Past Anesthesia/Blood Transfusion Reactions: Blood Transfusion Reaction Additional Past Anesthesia/Blood Transfusion Reaction / Comment(s): Hx of rash with blood transfusion 1997 Past Psychological History: No Psychological Hx Reported Smoking Status: Never smoker Past Alcohol Use History: Daily Additional Past Alcohol Use History / Comment(s): smoked 1976 for 9 months Past Drug Use History: None Reported - Past Family History Mother Family Medical History: No Reported History Additional Family Medical History / Comment(s): Mother in her 70s from colon cancer. Sister(s) Family Medical History: Cancer Additional Family Medical History / Comment(s): Patient has 2 sisters and one has from ocular melanoma. A second sister is healthy. Father Additional Family Medical History / Comment(s): Father in his 50s from alcoholic liver disease. Son(s) Additional Family Medical History / Comment(s): Patient has 3 children. One son has diabetes and overweight. Patient has 2 daughters with no major medical problems. Medications and Allergies Home Medications Medication Instructions Recorded Confirmed Type Aspirin EC [Ecotrin Low Dose] 81 mg PO DAILY 08/19/17 02/08/21 History cloNIDine HCL [Catapres] 0.1 mg PO DAILY 08/19/17 02/08/21 History metFORMIN HCL [Glucophage] 500 mg PO DAILY 08/19/17 02/08/21 History Oxybutynin ER [Ditropan Xl] 10 mg PO DAILY 02/08/21 02/08/21 History Allergies Allergy/AdvReac Type Severity Reaction Status Date / Time No Known Allergies Allergy Verified 02/08/21 18:37 Physical Exam Vitals: Vital Signs Temp Pulse Pulse Resp BP BP Pulse Ox 02/09/21 07:00 98.3 F 79 16 157/92 96 02/09/21 01:17 98.2 F 76 20 129/76 95 02/08/21 20:38 97.6 F 84 22 163/80 97 02/08/21 19:00 80 18 134/88 98 02/08/21 18:30 80 18 127/74 98 02/08/21 18:21 82 18 140/95 98 02/08/21 18:05 86 18 133/76 98 02/08/21 17:46 84 18 169/86 97 02/08/21 17:29 98.9 F 88 18 163/79 98 Intake and Output 02/08/21 02/09/21 02/09/21 22:59 06:59 14:59 Intake Total 85.333 Balance 85.333 Intake: Intake, IV Titration 85.333 Amount Heparin Sod,Pork in 0.45% 85.333 NaCl 25,000 unit In 0.45 % NaCl 1 250ml.bag @ 8. 8184 UNITS/KG/HR 10 mls/ hr IV .Q24H [facility] Rx#: [id number] Other: Voiding Method Toilet # Voids 1 2 Weight 113.398 kg Results 02/08/21 17:54 02/08/21 17:54 Cardiac Enzymes 02/08/21 02/08/21 02/08/21 Range/Units 17:54 17:54 21:20 AST 28 (14-36) U/L Troponin I <0.012 <0.012 (0.000-0.034) ng/mL 02/09/21 Range/Units 00:07 AST (14-36) U/L Troponin I <0.012 (0.000-0.034) ng/mL Coagulation 02/08/21 02/09/21 Range/Units 17:54 03:11 PT 9.5 (9.0-12.0) sec APTT 20.8 L 24.2 (22.0-30.0) sec Lipids 02/09/21 Range/Units 03:11 Triglycerides 117.0 (0.0-149.0) mg/dL Cholesterol 126 (0-200) mg/dL HDL Cholesterol 34.0 L (40.0-60.0) mg/dL Cholesterol/HDL Ratio 3.71 CBC 02/08/21 Range/Units 17:54 WBC 8.6 (3.8-10.6) k/uL RBC 4.81 (3.80-5.40) m/uL Hgb 14.7 (11.4-16.0) gm/dL Hct 44.3 (34.0-46.0) % Plt Count 304 (150-450) k/uL Comprehensive Metabolic Panel 02/08/21 Range/Units 17:54 Sodium 138 (137-145) mmol/L Potassium 4.2 (3.5-5.1) mmol/L Chloride 105 (98-107) mmol/L Carbon Dioxide 24 (22-30) mmol/L BUN 19 H (7-17) mg/dL Creatinine 0.55 (0.52-1.04) mg/dL Glucose 120 H (74-99) mg/dL Calcium 9.7 (8.4-10.2) mg/dL AST 28 (14-36) U/L ALT 20 (4-34) U/L Alkaline Phosphatase 92 (38-126) U/L Total Protein 7.0 (6.3-8.2) g/dL Albumin 4.2 (3.5-5.0) g/dL Current Medications Generic Name Dose Route Start Last Admin Trade Name Freq PRN Reason Stop Dose Admin Aspirin 81 mg 02/09/21 09:00 02/09/21 08:42 Aspirin 81 Mg PO 81 mg DAILY MEHNAZ Administration Heparin Sodium (Porcine) 0 unit 02/09/21 04:20 02/09/21 04:32 Heparin Sodium 1,000 Un/Ml (10ml Vl) IV 5,669.9 unit PER PROTOCOL PRN Administration Low PTT Protocol Sodium Chloride 1,000 mls @ 20 mls/hr 02/08/21 19:30 02/08/21 19:57 Saline 0.9% IV 20 mls/hr .Q24H MEHNAZ Administration Insulin Aspart 0 unit 02/08/21 21:00 02/09/21 08:41 Insulin Aspart (Novolog) 100 Unit/Ml Vial SQ Not Given ACHS [facility] Protocol Losartan Potassium 25 mg 02/09/21 10:15 Losartan 25 Mg Tab PO DAILY [facility] Metformin HCl 500 mg 02/09/21 09:00 Metformin 500 Mg Tab PO DAILY [facility] Metoprolol Succinate 25 mg 02/09/21 10:15 Metoprolol Succinate (Er) 25 Mg Tab.Er.24h PO DAILY [facility] Nitroglycerin 0.4 mg 02/08/21 19:25 Nitroglycerin Sl Tabs 0.4 Mg Tab SUBLINGUAL Q5M PRN Chest Pain Nitroglycerin 1 inch 02/09/21 00:00 02/09/21 05:47 Nitroglycerin Oint 1 Inch/Gm Packet TOPICAL Not Given Q6HR [facility] Oxybutynin Chloride 10 mg 02/09/21 09:00 02/09/21 08:42 Oxybutynin 10 Mg Tab.Er.24 PO 10 mg DAILY MEHNAZ Administration Intake and Output 02/08/21 02/09/21 02/09/21 22:59 06:59 14:59 Intake Total 85.333 Balance 85.333 Intake: Intake, IV Titration 85.333 Amount Heparin Sod,Pork in 0.45% 85.333 NaCl 25,000 unit In 0.45 % NaCl 1 250ml.bag @ 8. 8184 UNITS/KG/HR 10 mls/ hr IV .Q24H [facility] Rx#: [id number] Other: Voiding Method Toilet # Voids 1 2 Weight 113.398 kg 02/08/21 17:54 02/08/21 17:54
[2021-02-09] MEDS: metFORMIN 500 MG TAB PO SCH (10:34)
--- NOTE | 2021-02-09 10:55 | P.HPIM ---
History of Present Illness H&P Date: 02/09/21 HISTORY OF PRESENT ILLNESS This is a 75-year-old female patient of Dr. Ford with past medical history of diabetes mellitus type 2, hypertension, uterine cancer status post surgery and radiation treatment in 1998, overactive bladder. Patient states now she feels great but yesterday, patient developed mid chest pain that went across her chest. No radiation to her neck or arms. She describes the chest pain as a discomfort. 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 She denies any orthopnea. She does had some right ankle swelling earlier in the week but it was after she went swimming on Thursday and Thursday that this improved. She was also thinking that her arms were sore from exercise and the poor on Thursday and Thursday. No chest wall tenderness. She does follow with Dr. Lanza but has not seen him recently. When she is active she has some shortness of breath. She does not have home oxygen. Patient's chest pain was relieved with 2 nitroglycerin sublingual Patient presented to [facility] emergency center for evaluation. She was found to be afebrile, heart rate 88, blood pressure 163/79, pulse ox 98% on room air. CBC was normal, electrolytes normal. BUN 19 and creatinine 0.55, blood sugar 120. D-dimer 0.56. Troponins were negative on 3 draws. Magnesium 1.9. Liver function tests normal. Lipase 87. EKG was in normal sinus rhythm. Chest x-ray showed no acute cardiopulmonary findings. Patient was started on heparin drip, placed on the observation unit and cardiology consult requested. REVIEW OF SYSTEMS Constitutional: No fever, no chills, no night sweats. No weight change. No weakness, fatigue or lethargy. No daytime sleepiness. EENT: No headache. No blurred vision or double vision, no loss of vision. No loss of Hearing, no ringing in the ears, no dizziness. No nasal drainage or congestion. No epistaxis. No sore throat. Lungs: No shortness of breath, cough, no sputum production. No wheezing. Cardiovascular: No chest pain, no lower extremity edema. No palpitations. No paroxysmal nocturnal dyspnea. No orthopnea. No lightheadedness or dizziness. No syncopal episodes. Abdominal: No abdominal pain. No nausea, vomiting. No diarrhea. No c onstipation. No bloody or tarry stools.. No loss of appetite. Genitourinary: No dysuria, increased frequency, urgency. No urinary retention. Musculoskeletal: No myalgias. No muscle weakness, no gait dysfunction, no frequent falls. No back pain. No neck pain. Integumentary: No wounds, no lesions. No rash or pruritus. No unusual bruising. No change in hair or nails. Neurologic: No aphasia. No facial droop. No change in mentation. No head injury. No headache. No paralysis. No paresthesia. Psychiatric: No depression. No anxiety. No mood swings. Endocrine: No abnormal blood sugars. No weight change. No excessive sweating or thirst. No cold intolerance. SOCIAL HISTORY Patient is a lifelong nonsmoker, no alcohol use, marijuana or illicit drug use. FAMILY HISTORY Mother in her 70s from colon cancer. Father in his 50s from alcoholic liver disease. Patient has 2 sisters and one is from ocular melanoma and a second sister is healthy. Patient has 3 children, one son is overweight with diabetes, 2 daughters with no major medical problems. PHYSICAL EXAMINATION Gen: This is a 75-year-old obese female. She is resting in bed appears to be comfortable and in no acute distress. HEENT: Head is atraumatic, normocephalic. Pupils equal, round. Sclerae is anicteric. NECK: Supple. No JVD. No lymphadenopathy. No thyromegaly. LUNGS: Clear to auscultation. No wheezes or rhonchi. No intercostal retractions. HEART: Regular rate and rhythm. No murmur. ABDOMEN: Soft. Bowel sounds are present. No masses. No tenderness. EXTREMITIES: No pedal edema. No calf tenderness. Dorsalis pedis +2 bilaterally NEUROLOGICAL: Patient is awake, alert and oriented x3. Cranial nerves 2 through 12 are grossly intact. ASSESSMENT AND PLAN 1. Chest pain with negative troponins, concerning for angina, acute coronary syndrome ruled out by cardiology. Patient has been on a heparin drip, cardiology consult appreciated. Patient may require stress test on Thursday. Continue aspirin 81 mg daily, Toprol-XL. 2. Diabetes mellitus type 2. Hold metformin 500 mg daily, continue NovoLog scale before meals and at bedtime. 3. Hypertension. Catapres was discontinued and patient started on losartan 25 mg daily and Toprol-XL 25 mg daily. 4. History of uterine cancer status post surgery and radiation treatment in 1998, stable. 5. Overactive bladder. Continue oxybutynin 10 mg daily. 6. GI prophylaxis. Protonix. 7. DVT prophylaxis. Heparin. Patient placed as an observation status. DISCHARGE PLAN Home. Impression and plan of care have been directed as dictated by the signing physician. Tia Enciso nurse practitioner acting as scribe for signing physician. Past Medical History Past Medical History: Cancer, Chest Pain / Angina, Hypertension, Osteoarthritis (OA) Additional Past Medical History / Comment(s): uterine cancer (surgery & radiation tx 1998), states "secondary lung disease", takes clonidine as preventative due to diabetes., Pain right foot- states using cane and walker, covid History of Any Multi-Drug Resistant Organisms: None Reported Past Surgical History: Heart Catheterization, Hysterectomy, Joint Replacement, Orthopedic Surgery, Tonsillectomy Additional Past Surgical History / Comment(s): total right knee x2 total left knee; Left foot surgery; maru trigger fingers. Heart Cath (may 2018 no stents) Past Anesthesia/Blood Transfusion Reactions: Blood Transfusion Reaction Additional Past Anesthesia/Blood Transfusion Reaction / Comment(s): Hx of rash with blood transfusion 1997 Past Psychological History: No Psychological Hx Reported Smoking Status: Never smoker Past Alcohol Use History: Daily Additional Past Alcohol Use History / Comment(s): smoked 1976 for 9 months Past Drug Use History: None Reported - Past Family History Mother Family Medical History: No Reported History Additional Family Medical History / Comment(s): Mother in her 70s from colon cancer. Sister(s) Family Medical History: Cancer Additional Family Medical History / Comment(s): Patient has 2 sisters and one has from ocular melanoma. A second sister is healthy. Father Additional Family Medical History / Comment(s): Father in his 50s from alcoholic liver disease. Son(s) Additional Family Medical History / Comment(s): Patient has 3 children. One son has diabetes and overweight. Patient has 2 daughters with no major medical problems. Medications and Allergies Home Medications Medication Instructions Recorded Confirmed Type Aspirin EC [Ecotrin Low Dose] 81 mg PO DAILY 08/19/17 02/08/21 History cloNIDine HCL [Catapres] 0.1 mg PO DAILY 08/19/17 02/08/21 History metFORMIN HCL [Glucophage] 500 mg PO DAILY 08/19/17 02/08/21 History Oxybutynin ER [Ditropan Xl] 10 mg PO DAILY 02/08/21 02/08/21 History Allergies Allergy/AdvReac Type Severity Reaction Status Date / Time No Known Allergies Allergy Verified 02/08/21 18:37 Physical Exam Vitals: Vital Signs Temp Pulse Pulse Resp BP BP Pulse Ox 02/09/21 07:00 98.3 F 79 16 157/92 96 02/09/21 01:17 98.2 F 76 20 129/76 95 02/08/21 20:38 97.6 F 84 22 163/80 97 02/08/21 19:00 80 18 134/88 98 02/08/21 18:30 80 18 127/74 98 02/08/21 18:21 82 18 140/95 98 02/08/21 18:05 86 18 133/76 98 02/08/21 17:46 84 18 169/86 97 02/08/21 17:29 98.9 F 88 18 163/79 98 Intake and Output 02/08/21 02/09/21 02/09/21 22:59 06:59 14:59 Intake Total 85.333 Balance 85.333 Intake: Intake, IV Titration 85.333 Amount Heparin Sod,Pork in 0.45% 85.333 NaCl 25,000 unit In 0.45 % NaCl 1 250ml.bag @ 8. 8184 UNITS/KG/HR 10 mls/ hr IV .Q24H [facility] Rx#: [id number] Other: Voiding Method Toilet # Voids 1 2 Weight 113.398 kg Results CBC & Chem 7: 02/08/21 17:54 02/08/21 17:54 Labs: Abnormal Lab Results - Last 24 Hours (Table) 02/08/21 02/08/21 Range/Units 17:54 17:54 APTT 20.8 L (22.0-30.0) sec BUN 19 H (7-17) mg/dL Glucose 120 H (74-99) mg/dL Thrombosis Risk Factor Assmnt - Choose All That Apply Each Factor Represents 1 point: Obesity (BMI >25) Each Risk Factor Represents 3 Points: Age 75 years or older Thrombosis Risk Factor Assessment Total Risk Factor Score: 4 Thrombosis Risk Factor Assessment Level: Moderate Risk
[2021-02-09] MEDS: METOPROLOL SUCCINATE (ER) 25 MG TAB.ER.24H PO SCH (11:01)
[2021-02-09] MEDS: LOSARTAN 25 MG TAB PO SCH (11:01)
[2021-02-09 12:33] LABS: Glucose,Whole Blood 127 mg/dL (75-99)
--- NOTE | 2021-02-09 13:23 | ECHOF ---
Referral Reason:LVF MEASUREMENTS -------- HEIGHT: 170.2 cm WEIGHT: 113.4 kg BP: 157/92 RVIDd: 3.2 cm (< 3.3) IVSd: 2.0 cm (0.6 - 1.1) LVIDd: 3.3 cm (3.9 - 5.3) LVPWd: 1.5 cm (0.6 - 1.1) IVSs: 2.3 cm LVIDs: 2.1 cm LVPWs: 1.7 cm LAESV Index (A-L): 22.27 ml/m Ao Diam: 3.3 cm (2.0 - 3.7) AV Cusp: 1.6 cm (1.5 - 2.6) MV EXCURSION: 17.027 mm (> 18.000) MV EF SLOPE: 56 mm/s (70 - 150) EPSS: 0.2 cm MV E Wicho: 0.80 m/s MV DecT: 295 ms MV A Wicho: 1.44 m/s MV E/A Ratio: 0.55 AV maxP.87 mmHg AV meanP.64 mmHg RAP: 5.00 mmHg RVSP: 26.07 mmHg FINDINGS -------- Sinus rhythm. This was a technically difficult study with suboptimal views. The left ventricular size is normal. There is severe concentric left ventricular hypertrophy. Ove rall left ventricular systolic function is normal with, an EF between 55 - 60 %. The right ventricle is normal in size. Normal LA size by volume 22+/-6 ml/m2. The right atrial size is normal. 5.0mg of Lumason was utilized for enhancement of images Interatrial and interventricular septum intact. There is no evidence of aortic regurgitation. There is mild aortic stenosis present. Peak/mean gr adient across the Aortic Valve is 21.87mmHg / 13.64mmHg. Moderate mitral annular calcification present. No mitral regurgitation. Cakr-ya-dggbkuep mitral s tenosis , with a MVA of 2.0cm (by PHT) Mild tricuspid regurgitation present. There is no evidence of pulmonary hypertension. The right v entricular systolic pressure, as measured by Doppler, is 26.07mmHg. There is no pulmonic regurgitation present. The aortic root size is normal. Normal inferior vena cava with normal inspiratory collapse consistent with estimated right atrial pre ssure of 5 mmHg. There is no pericardial effusion. CONCLUSIONS -------- 1. The left ventricular size is normal. 2. There is severe concentric left ventricular hypertrophy. 3. Overall left ventricular systolic function is normal with, an EF between 55 - 60 %. 4. There is mild aortic stenosis present. 5. Peak/mean gradient across the Aortic Valve is 21.87mmHg / 13.64mmHg. 6. Moderate mitral annular calcification present. 7. No mitral regurgitation. 8. Ucht-la-kakkqyjx mitral stenosis. 9. , with a MVA of 2.0cm (by PHT) 10. Mild tricuspid regurgitation present. [employer] ITEM: Nichole Byrne RDCS
[2021-02-09 17:10] LABS: Glucose,Whole Blood 147 mg/dL (75-99)
[2021-02-09 21:05] LABS: Glucose,Whole Blood 133 mg/dL (75-99)
[2021-02-09] MEDS: SODIUM CHLORIDE 0.9% 1,000 ML IV SCH (21:23)
[2021-02-10] MEDS: NITROGLYCERIN OINT 1 INCH/GM PACKET TOPICAL SCH ×4 (00:57→16:39)
[2021-02-10 07:17] LABS: Glucose,Whole Blood 127 mg/dL (75-99)
[2021-02-10] MEDS: INSULIN ASPART (NovoLOG) 100 UNIT/ML VIAL SQ SCH ×4 (07:36→21:35)
[2021-02-10] MEDS: metFORMIN 500 MG TAB PO SCH (07:40)
[2021-02-10] MEDS: LOSARTAN 25 MG TAB PO SCH (07:40)
[2021-02-10] MEDS: PANTOPRAZOLE 40 MG TABLET PO SCH (07:40)
[2021-02-10] MEDS: METOPROLOL SUCCINATE (ER) 25 MG TAB.ER.24H PO SCH (07:40)
[2021-02-10] MEDS: OXYBUTYNIN 10 MG TAB.ER.24 PO SCH (07:40)
[2021-02-10] MEDS: ASPIRIN 81 MG PO SCH (07:40)
--- NOTE | 2021-02-10 08:50 | P.PN ---
Subjective Progress Note Date: 02/10/21 HISTORY OF PRESENT ILLNESS This is a 75-year-old female patient of Dr. Ford with past medical history of diabetes mellitus type 2, hypertension, uterine cancer status post surgery and radiation treatment in 1998, overactive bladder. Patient states now she feels great but yesterday, patient developed mid chest pain that went across her chest. No radiation to her neck or arms. She describes the chest pain as a discomfort. 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 She denies any orthopnea. She does had some right ankle swelling earlier in the week but it was after she went swimming on Thursday and Thursday that this improved. She was also thinking that her arms were sore from exercise and the poor on Thursday and Thursday. No chest wall tenderness. She does follow with Dr. Lanza but has not seen him recently. When she is active she has some shortness of breath. She does not have home oxygen. Patient's chest pain was relieved with 2 nitroglycerin sublingual Patient presented to [facility] emergency center for ev aluation. She was found to be afebrile, heart rate 88, blood pressure 163/79, pulse ox 98% on room air. CBC was normal, electrolytes normal. BUN 19 and creatinine 0.55, blood sugar 120. D-dimer 0.56. Troponins were negative on 3 draws. Magnesium 1.9. Liver function tests normal. Lipase 87. EKG was in normal sinus rhythm. Chest x-ray showed no acute cardiopulmonary findings. Patient was started on heparin drip, placed on the observation unit and cardiology consult requested. 02/10: Patient has been seen by cardiology and medication changes were made to include discontinuing clonidine and started losartan and metoprolol. Patient may have stress testing done on Thursday. Echocardiogram reveals EF of 55-60% with severe concentric left ventricular hypertrophy, mild aortic stenosis, mild to moderate mitral stenosis, mild tricuspid regurgitation. Patient has been afebrile, heart rate 81, blood pressure 158/83 on the left arm and right arm is 190/91, pulse ox 95% on room air. Blood sugars are running between 127 -147. Triglycerides 117, cholesterol 126, HDL 34. Patient denies having any chest pain, no lightheadedness or dizziness. She does have shortness of breath with ambulating to the bathroom and back to her bed. Heparin drip has been discontinued. IV fluids will be changed to saline lock. Plan is for stress test tomorrow. REVIEW OF SYSTEMS Constitutional: No fever, no chills, no night sweats. No weight change. No weakness, fatigue or lethargy. No daytime sleepiness. EENT: No headache. No blurred vision or double vision, no loss of vision. No loss of Hearing, no ringing in the ears, no dizziness. No nasal drainage or congestion. No epistaxis. No sore throat. Lungs: No shortness of breath, cough, no sputum production. No wheezing. Shortness of breath with exertion. Cardiovascular: No chest pain, no lower extremity edema. No palpitations. No paroxysmal nocturnal dyspnea. No orthopnea. No lightheadedness or dizziness. No syncopal episodes. Abdominal: No abdominal pain. No nausea, vomiting. No diarrhea. No constipation. No bloody or tarry stools.. No loss of appetite. Genitourinary: No dysuria, increased frequency, urgency. No urinary retention. Musculoskeletal: No myalgias. No muscle weakness, no gait dysfunction, no frequent falls. No back pain. No neck pain. Integumentary: No wounds, no lesions. No rash or pruritus. No unusual bruising. No change in hair or nails. Neurologic: No aphasia. No facial droop. No change in mentation. No head injury. No headache. No paralysis. No paresthesia. Psychiatric: No depression. No anxiety. No mood swings. Endocrine: No abnormal blood sugars. No weight change. No excessive sweating or thirst. No cold intolerance. PHYSICAL EXAMINATION Gen: This is a 75-year-old obese female. She is resting in bed appear s to be comfortable and in no acute distress. HEENT: Head is atraumatic, normocephalic. Pupils equal, round. Sclerae is anicteric. NECK: Supple. No JVD. No lymphadenopathy. No thyromegaly. LUNGS: Clear to auscultation. Scattered bilateral wheezes no rhonchi. No intercostal retractions. HEART: Regular rate and rhythm. No murmur. ABDOMEN: Soft. Bowel sounds are present. No masses. No tenderness. EXTREMITIES: No pedal edema. No calf tenderness. Dorsalis pedis +2 bilaterally NEUROLOGICAL: Patient is awake, alert and oriented x3. Cranial nerves 2 through 12 are grossly intact. ASSESSMENT AND PLAN 1. Chest pain with negative troponins, concerning for angina, acute coronary syndrome ruled out by cardiology. Off heparin drip, cardiology consult appreciated. Stress test on Thursday. Continue aspirin 81 mg daily, Toprol-XL. 2. Diabetes mellitus type 2. Hold metformin 500 mg daily, continue NovoLog scale before meals and at bedtime. 3. Hypertension. Catapres was discontinued and patient started on losartan 25 mg daily and Toprol-XL 25 mg daily. 4. Valvular heart disease with mild aortic stenosis, mild to moderate mitral stenosis. 5. History of uterine cancer status post surgery and radiation treatment in 1998, stable. 6. Overactive bladder. Continue oxybutynin 10 mg daily. 7. COPD, mild exacerbation. Patient restarted on Pulmicort 1 mg twice daily and DuoNeb treatments 3 times daily and as needed. 8. GI prophylaxis. Protonix. 9. DVT prophylaxis. Heparin. DISCHARGE PLAN Home. Impression and plan of care have been directed as dictated by the signing physician. Tia Enciso nurse practitioner acting as scribe for signing physician. Objective - Vital Signs Vital signs: Vital Signs Temp 97.6 F 02/10/21 07:00 Pulse 81 02/10/21 07:00 Resp 16 02/10/21 07:43 BP 190/91 02/10/21 07:00 Pulse Ox 95 02/10/21 07:00 Intake & Output 02/09/21 02/10/21 02/10/21 18:59 06:59 18:59 Intake Total 360 Balance 360 Intake: Intake, IV Titration 120 Amount Sodium Chloride 0.9% 1, 120 000 ml @ 20 mls/hr IV . Q24H [facility] Rx#:[id number] Oral 240 Other: Voiding Method Toilet Toilet # Voids 1 - Labs CBC & Chem 7: 02/08/21 17:54 02/08/21 17:54 Labs: Abnormal Lab Results - Last 24 Hours (Table) 02/09/21 02/09/21 02/09/21 Range/Units 03:11 08:41 12:31 POC Glucose (mg/dL) 133 H 127 H (75-99) mg/dL HDL Cholesterol 34.0 L (40.0-60.0) mg/dL 02/09/21 02/09/21 02/10/21 Range/Units 17:09 21:04 07:15 POC Glucose (mg/dL) 147 H 133 H 127 H (75-99) mg/dL HDL Cholesterol (40.0-60.0) mg/dL
[2021-02-10] MEDS ORDERED: IPRATROPIUM-ALBUTEROL 3 ML NEB INHALATION PRN (08:51)
[2021-02-10] MEDS ORDERED: LOSARTAN 25 MG TAB PO STA (09:34)
[2021-02-10] MEDS ORDERED: METOPROLOL SUCCINATE (ER) 25 MG TAB.ER.24H PO STA (09:35)
[2021-02-10] MEDS ORDERED: FUROSEMIDE 10 MG/ML 2 ML VIAL IV ONE (09:39)
--- NOTE | 2021-02-10 09:39 | P.PN ---
Subjective HISTORY OF PRESENTING ILLNESS This is a pleasant 75-year-old with past medical history significant for hypertension, anxiety, normal coronary arteries by heart catheterization 2017, pre-diabetes mellitus on metformin. She was previously seen by Dr. Lanza however has not followed in a few years. She admits that over the last 3-4 weeks she has been having increased episodes of diaphoresis and shortness breath. She believes it is mainly related to the hot weather as she works outside on a farm. It has however been fairly excessive to where she cannot do much of anything without becoming profusely diaphoretic and short of breath. 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 She therefore was recommended to come the emergency department. Initially her blood pressure is mildly elevated, systolics in the 160s and she was given nitroglycerin with relief of her chest discomfort. She had been doing fairly well up until last 3 weeks. She did have a prior similar episode a few years back after the of her however had workup with heart catheterization which showed normal coronary arteries. She has been on clonidine 0.1 mg daily however has had significant fluctuations in her blood pressures and therefore discussed changing to a once a day regimen with losartan and Toprol as clonidine is usually a twice a day medication. Does not smoke, rare alcohol, no illicit drugs. She admits she previously was on some inhalers however has not been using them. She denies any wheeze or cough. She did have mild increased right lower extremity swelling however this has improved. She admits her shortness breath has also improved today. DIAGNOSTICS EKG reveals normal sinus rhythm, no significant ST-T wave abnormalities Chest xray [facility] Laboratory reviewed, WBC 8.6, hemoglobin 14.7, d-dimer 0.56, sodium 138, BUN 19, creatinine 0.5 troponin less than 0.0123, proBNP 133, total cholesterol 126, LDL 68, HDL 34.. 02/10 Patient seen and examined. Patient still with significant dyspnea with fairly minimal exertion. She denies any further chest tightness. Her blood pressure noted to be fairly elevated however this was after minimal activity and on repeat somewhat better this morning with systolics 150s. There initially was some discrepancy between left and right however on repeat it was fairly similar. She had changes to her medication yesterday and we will increase the losartan to 50 mg today as well as increased the Toprol to 50 mg today. PHYSICAL EXAMINATION Vital signs reviewed. CONSTITUTIONAL: No apparent distress. HEENT: Head is normocephalic. Pupils are equal, round. Sclerae anicteric. Mucous membranes of the mouth are moist. No JVD. No carotid bruit. CHEST EXAMINATION: Lungs are clear to auscultation. No chest wall tenderness is noted on palpation or with deep breathing. HEART EXAMINATION: Regular rate and rhythm. S1, S2 heard. No murmurs, gallops or rub. ABDOMEN: Soft, nontender. Positive bowel sounds. EXTREMITIES: 2+ peripheral pulses, no lower extremity edema and no calf tenderness. NEUROLOGIC EXAMINATION: Patient is awake, alert and oriented x3. ASSESSMENT 1. Precordial chest pain worse with exertion associated with diaphoresis and shortness breath and improved with nitroglycerin. Somewhat concerning for cardiac etiology however EKG normal and troponins normal and normal left heart catheterization 2018. 2. Essential hypertension, elevated on presentation 3. Prediabetes mellitus 4. Dyslipidemia 5. Mild increased swelling of the right lower extremity, currently improved. Suspect related to venous insufficiency 6. Dyspnea on exertion with associated diaphoresis. May be related to deconditioning or pulmonary source however no significant wheeze on exam. ProBNP normal PLAN Somewhat typical chest pain associated with exertion and improved with nitroglycerin associated shortness breath and diaphoresis. We will check a dobutamine stress echo tomorrow. Some of this may be related to her blood pressure being elevated and we will continue to optimize medications, antianginals. If stress test okay tomorrow likely discharge home tomorrow. Objective - Vital Signs Vital signs: Vital Signs Temp 97.6 F 02/10/21 07:00 Pulse 81 02/10/21 07:00 Resp 16 02/10/21 07:43 BP 190/91 02/10/21 07:00 Pulse Ox 95 02/10/21 07:00 Intake & Output 02/09/21 02/10/21 02/10/21 18:59 06:59 18:59 Intake Total 360 Balance 360 Intake: Intake, IV Titration 120 Amount Sodium Chloride 0.9% 1, 120 000 ml @ 20 mls/hr IV . Q24H [facility] Rx#:[id number] Oral 240 Other: Voiding Method Toilet Toilet # Voids 1 - Labs CBC & Chem 7: 02/08/21 17:54 02/08/21 17:54 Labs: Abnormal Lab Results - Last 24 Hours (Table) 02/09/21 02/09/21 02/09/21 Range/Units 03:11 12:31 17:09 POC Glucose (mg/dL) 127 H 147 H (75-99) mg/dL HDL Cholesterol 34.0 L (40.0-60.0) mg/dL 02/09/21 02/10/21 Range/Units 21:04 07:15 POC Glucose (mg/dL) 133 H 127 H (75-99) mg/dL HDL Cholesterol (40.0-60.0) mg/dL
[2021-02-10] MEDS: IPRATROPIUM-ALBUTEROL 3 ML NEB INHALATION SCH ×2 (11:43→18:55)
[2021-02-10 11:49] LABS: Glucose,Whole Blood 135 mg/dL (75-99)
[2021-02-10 17:32] LABS: Glucose,Whole Blood 106 mg/dL (75-99)
[2021-02-10] MEDS: BUDESONIDE 1 MG/2 ML NEBU INHALATION SCH (18:55)
[2021-02-10] MEDS: SODIUM CHLORIDE 0.9% 1,000 ML IV SCH (20:12)
[2021-02-10 21:01] LABS: Glucose,Whole Blood 144 mg/dL (75-99)
[2021-02-11] MEDS: NITROGLYCERIN OINT 1 INCH/GM PACKET TOPICAL SCH ×2 (00:04→05:19)
[2021-02-11 02:36] VITALS: TEMP 97.6
[2021-02-11] MEDS ORDERED: DOBUTamine DRIP for NUC MED 500 MG in DEXTROSE/WATER 1 250ML.BAG IV PRN (06:00)
[2021-02-11 07:09] LABS: Glucose,Whole Blood 135 mg/dL (75-99)
[2021-02-11 07:32] VITALS: BP 156/84; RESP 16
[2021-02-11] MEDS: INSULIN ASPART (NovoLOG) 100 UNIT/ML VIAL SQ SCH ×2 (07:40→12:32)
[2021-02-11] MEDS: ASPIRIN 81 MG PO SCH (08:44)
[2021-02-11] MEDS: OXYBUTYNIN 10 MG TAB.ER.24 PO SCH (08:44)
[2021-02-11] MEDS ORDERED: LOSARTAN 50 MG TAB PO SCH (09:00)
[2021-02-11] MEDS ORDERED: METOPROLOL SUCCINATE (ER) 50 MG TAB.ER.24H PO SCH (09:00)
[2021-02-11] MEDS: BUDESONIDE 1 MG/2 ML NEBU INHALATION SCH (09:25)
[2021-02-11] MEDS: IPRATROPIUM-ALBUTEROL 3 ML NEB INHALATION SCH ×2 (09:25→12:48)
[2021-02-11] MEDS: PANTOPRAZOLE 40 MG TABLET PO SCH (10:02)
[2021-02-11] MEDS: metFORMIN 500 MG TAB PO SCH (10:02)
--- NOTE | 2021-02-11 10:39 | P.STRESS ---
- Stress Test Note Stress Test Results/Findings: Exam Performed: Exam Date: Reason for Exam: Height: 5 ft 7 in Weight: 113.398 kg Protocol: Stage: Duration of Exercise: Resting Heart Rate: Resting Blood Pressure: Maximum Achieved Heart Rate: Maximum Achieved Blood Pressure: 85% PMHR: 100% PMHR: METS: Technologist Comment: Stress Test Results/Findings: This is a 75-year-old female with history of hypertension, diabetes, COPD being evaluated for symptoms chest pain and shortness of breath. Stress data: Baseline EKG showed sinus rhythm with normal ID interval and QRS duration some T-wave inversions in aVL. Blood pressure at rest is 153/72 with pulse rate of 77. A standard dose of dobutamine was initiated at 10 mics and titrated to 30 mics, achieving a maximal heart rate of 125 with a blood pressure 130/47. EKGs taken during and after the dobutamine infusion did not reveal any significant changes from the baseline.. Echo data: Baseline echo images show normal wall motion and thickening. The study is done with contrast. Exercise echo images showed augmentation of wall motion and thickening in all the segments. Final impression: #1. Negative dobutamine stress test #2. Negative dobutamine stress echo.
--- NOTE | 2021-02-11 10:53 | P.PN ---
Subjective Progress Note Date: 02/11/21 HISTORY OF PRESENT ILLNESS: This is a pleasant 75-year-old with past medical history significant for hypertension, anxiety, normal coronary arteries by heart catheterization 2018, p re-diabetes mellitus on metformin. She was previously seen by Dr. Lanza however has not followed in a few years. She admits that over the last 3-4 weeks she has been having increased episodes of diaphoresis and shortness breath. She believes it is mainly related to the hot weather as she works outside on a farm. It has however been fairly excessive to where she cannot do much of anything without becoming profusely diaphoretic and short of breath. 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 She therefore was recommended to come the emergency department. Initially her blood pressure is mildly elevated, systolics in the 160s and she was given nitroglycerin with relief of her chest discomfort. She had been doing fairly well up until last 3 weeks. She did have a prior similar episode a few years back after the of her however had workup with heart catheterization which showed normal coronary arteries. She has been on clonidine 0.1 mg daily however has had significant fluctuations in her blood pressures and therefore discussed changing to a once a day regimen with losartan and Toprol as clonidine is usually a twice a day medication. Does not smoke, rare alcohol, no illicit drugs. She admits she previously was on some inhalers however has not been using them. She denies any wheeze or cough. She did have mild increased right lower extremity swelling however this has improved. She admits her shortness breath has also improved today. DIAGNOSTICS EKG reveals normal sinus rhythm, no significant ST-T wave abnormalities Chest xray NAP Laboratory reviewed, WBC 8.6, hemoglobin 14.7, d-dimer 0.56, sodium 138, BUN 19, creatinine 0.5 troponin less than 0.0123, proBNP 133, total cholesterol 126, LDL 68, HDL 34.. 02/10 Patient seen and examined. Patient still with significant dyspnea with fairly minimal exertion. She denies any further chest tightness. Her blood pressure noted to be fairly elevated however this was after minimal activity and on repeat somewhat better this morning with systolics 150s. There initially was some discrepancy between left and right however on repeat it was fairly similar. She had changes to her medication yesterday and we will increase the losartan to 50 mg today as well as increased the Toprol to 50 mg today. 02/11/2021 Patient examined this morning. Patient denies chest pain or pressure. She denies shortness of breath. Vital signs are stable. She is hoping to be discharged home today. PHYSICAL EXAM: VITAL SIGNS: Reviewed. GENERAL: Well-developed in no acute distress. NECK: Supple. No JVD or thyromegaly LUNGS: Respirations even and unlabored. Lungs essentially clear to auscultation bilaterally. HEART: Regular rate and rhythm. S1 and S2 heard. EXTREMITIES: Normal range of motion. No clubbing or cyanosis. Peripheral puls es intact. No lower extremity edema ASSESSMENT: Precordial chest pain Hypertension Diabetes mellitus Hyperlipidemia Dyspnea on exertion PLAN: Patient underwent dobutamine stress echo today which was negative for ischemia. The patient may be discharged home today from a cardiac standpoint. She is to follow up on an outpatient basis We will sign off. Please reconsult if needed. Nurse practitioner note has been reviewed by physician. Signing provider agrees with the documented findings, assessment, and plan of care. Objective - Vital Signs Vital signs: Vital Signs Temp 97.6 F 02/11/21 07:00 Pulse 95 02/11/21 07:00 Resp 16 02/11/21 07:00 BP 156/84 02/11/21 07:00 Pulse Ox 95 02/11/21 07:00 Intake & Output 02/10/21 02/11/21 02/11/21 18:59 06:59 18:59 Other: Voiding Method Toilet Toilet # Voids 6 2 - Labs CBC & Chem 7: 02/08/21 17:54 02/08/21 17:54 Labs: Abnormal Lab Results - Last 24 Hours (Table) 02/10/21 02/10/21 02/10/21 Range/Units 11:47 17:21 20:55 POC Glucose (mg/dL) 135 H 106 H 144 H (75-99) mg/dL 02/11/21 Range/Units 06:58 POC Glucose (mg/dL) 135 H (75-99) mg/dL
[2021-02-11 12:01] LABS: Glucose,Whole Blood 171 mg/dL (75-99)
[2021-02-11 12:57] VITALS: PULSE 92
--- NOTE | 2021-02-11 14:12 | P.DS ---
Providers Date of admission: 02/08/21 19:25 Expected date of discharge: 02/11/21 Attending physician: Diamond Ashford Primary care physician: Lobito Ford [facility] Course: HISTORY OF PRESENT ILLNESS This is a 75-year-old female patient of Dr. Ford with past medical history of diabetes mellitus type 2, hypertension, uterine cancer status post surgery and radiation treatment in 1998, overactive bladder. Patient states now she feels great but yesterday, patient developed mid chest pain that went across her chest. No radiation to her neck or arms. She describes the chest pain as a discomfort. 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 She denies any orthopnea. She does had some right ankle swelling earlier in the week but it was after she went swimming on Thursday and Thursday that this improved. She was also thinking that her arms were sore from exercise and the poor on Thursday and Thursday. No chest wall tenderness. She does follow with Dr. Lanza but has not seen him recently. When she is active she has some shortness of breath. She does not have home oxygen. Patient's chest pain was relieved with 2 nitroglycerin sublingual Patient presented to [facility] emergency center for evaluation. She was found to be afebrile, heart rate 88, blood pressure 163/79, pulse ox 98% on room air. CBC was normal, electrolytes normal. BUN 19 and creatinine 0.55, blood sugar 120. D-dimer 0.56. Troponins were negative on 3 draws. Magnesium 1.9. Liver function tests normal. Lipase 87. EKG was in normal sinus rhythm. Chest x-ray showed no acute cardiopulmonary findings. Patient was started on heparin drip, placed on the observation unit and cardiology consult requested. 02/10: Patient has been seen by cardiology and medication changes were made to include discontinuing clonidine and started losartan and metoprolol. Patient may have stress testing done on Thursday. Echocardiogram reveals EF of 55-60% with severe concentric left ventricular hypertrophy, mild aortic stenosis, mild to moderate mitral stenosis, mild tricuspid regurgitation. Patient has been afebrile, heart rate 81, blood pressure 158/83 on the left arm and right arm is 190/91, pulse ox 95% on room air. Blood sugars are running between 127 -147. Triglycerides 117, cholesterol 126, HDL 34. Patient denies having any chest pain, no lightheadedness or dizziness. She does have shortness of breath with ambulating to the bathroom and back to her bed. Heparin drip has been discontinued. IV fluids will be changed to saline lock. Plan is for stress test tomorrow. 02/11: Patient underwent stress test today which was negative for stress-induced ischemia, patient is also doing much better today, no chest pain, she required inhalers while here, and she reports that this has helped. She will be discharged later today, with follow-up to see her PCP and Dr. Petit, patient will be discharged on inhalers, and Zithromax and Flonase Symbicort follow up with PCP 1-2 days no GI symptoms this time including the special melena, no odynophagia, no fever no chills, no lightheadedness, symptoms have improved REVIEW OF SYSTEMS Constitutional: No fever, no chills, no night sweats. No weight change. No weakness, fatigue or lethargy. No daytime sleepiness. EENT: No headache. No blurred vision or double vision, no loss of vision. No loss of Hearing, no ringing in the ears, no dizziness. No nasal drainage or congestion. No epistaxis. No sore throat. Lungs: No shortness of breath, cough, no sputum production. No wheezing. Shortness of breath with exertion. Cardiovascular: No chest pain, no lower extremity edema. No palpitations. No paroxysmal nocturnal dyspnea. No orthopnea. No lightheadedness or dizziness. No syncopal episodes. Abdominal: No abdominal pain. No nausea, vomiting. No diarrhea. No constipation. No bloody or tarry stools.. No loss of appetite. Genitourinary: No dysuria, increased frequency, urgency. No urinary retention. Musculoskeletal: No myalgias. No muscle weakness, no gait dysfunction, no frequent falls. No back pain. No neck pain. Integumentary: No wounds, no lesions. No rash or pruritus. No unusual bruising. No change in hair or nails. Neurologic: No aphasia. No facial droop. No change in mentation. No head injury. No headache. No paralysis. No paresthesia. Psychiatric: No depression. No anxiety. No mood swings. Endocrine: No abnormal blood sugars. No weight change. No excessive sweating or thirst. No cold intolerance. DISCHARGE DIAGNOSIS 1. Chest pain with negative troponins ruled out SC, concerning for angina, acute coronary syndrome ruled out by cardiology. Off heparin drip, cardiology consult appreciated. Stress test negative Graeme 02/11/2021 Continue aspirin 81 mg daily, Toprol-XL. 2. Diabetes mellitus type 2. Hold metformin 500 mg daily patient on discharge, continue NovoLog scale before meals and at bedtime. 3. Hypertension. Catapres was discontinued and patient started on losartan 25 mg daily and Toprol-XL 25 mg daily. 4. Valvular heart disease with mild aortic stenosis, mild to moderate mitral stenosis. 5. History of uterine cancer status post surgery and radiation treatment in 1998, stable. 6. Overactive bladder. Continue oxybutynin 10 mg daily. 7. COPD, mild exacerbation. Patient restarted on Pulmicort 1 mg twice daily and DuoNeb treatments 3 times daily and as needed. Discharge with Symbicort and Proventil 8. GI prophylaxis. Protonix. 9. DVT prophylaxis. Heparin. Patient Condition at Discharge: Stable Plan - Discharge Summary Discharge Rx Participant: No New Discharge Prescriptions: New Losartan [Cozaar] 50 mg PO DAILY #30 tab Albuterol Sulfate [Proventil Hfa] 1 puff INHALATION Q4-6H PRN #1 each PRN Reason: Wheezing Budesonide-Formot 160-4.5 Mcg [Symbicort 160-4.5 Mcg Inhaler] 2 puff INHALATION BID #1 each Metoprolol Succinate (ER) [Toprol XL] 50 mg PO DAILY #30 tab.er.24h Fluticasone Nasal [place] [Flonase Nasal [place]] 1 spray EA NOSTRIL BID #1 bottle Azithromycin [Zithromax Z-pack (6 tabs)] 0 mg PO DIRECTED 5 Days #6 tab Continue Aspirin EC [Ecotrin Low Dose] 81 mg PO DAILY metFORMIN HCL [Glucophage] 500 mg PO DAILY Oxybutynin ER [Ditropan Xl] 10 mg PO DAILY Discontinued cloNIDine HCL [Catapres] 0.1 mg PO DAILY Discharge Medication List Aspirin EC [Ecotrin Low Dose] 81 mg PO DAILY 08/19/17 [History] metFORMIN HCL [Glucophage] 500 mg PO DAILY 08/19/17 [History] Oxybutynin ER [Ditropan Xl] 10 mg PO DAILY 02/08/21 [History] Albuterol Sulfate [Proventil Hfa] 1 puff INHALATION Q4-6H PRN #1 each 02/11/21 [Rx] Azithromycin [Zithromax Z-pack (6 tabs)] 0 mg PO DIRECTED 5 Days #6 tab 02/11/21 [Rx] Budesonide-Formot 160-4.5 Mcg [Symbicort 160-4.5 Mcg Inhaler] 2 puff INHALATION BID #1 each 02/11/21 [Rx] Fluticasone Nasal [place] [Flonase Nasal [place]] 1 spray EA NOSTRIL BID #1 bottle 02/11/21 [Rx] Losartan [Cozaar] 50 mg PO DAILY #30 tab 02/11/21 [Rx] Metoprolol Succinate (ER) [Toprol XL] 50 mg PO DAILY #30 tab.er.24h 02/11/21 [Rx] Follow up Appointment(s)/Referral(s): Berto Lanza MD [STAFF PHYSICIAN] - 1 Week (please call and make appointment ) Lobito Ford MD [Primary Care Provider] - 1 Week Patient Instructions/Handouts: Chest Pain (DC) Activity/Diet/Wound Care/Special Instructions: activity as tolerated heart healthy diet Discharge Disposition: HOME SELF-CARE
--- NOTE | 2021-02-15 10:45 | ECHOS ---
Stress Test Results/Findings: Exam Performed: Dobutamine Stress Echo Exam Date: 02/11/21 Reason for Exam: CP Height: 5 ft 7 in Weight: 113.398 kg Protocol: Dobutamine Stress Echo Stage: 3 Duration of Exercise: Resting Heart Rate: 77 Resting Blood Pressure: 153/72 Maximum Achieved Heart Rate: 125 Maximum Achieved Blood Pressure: 168/78 85% PMHR: 123 100% PMHR: 145 METS: Technologist Comment: Stress Test Results/Findings: This is a 75-year-old female with history of hypertension, diabetes, COPD being evaluated for symptoms chest pain and shortness of breath. Stress data: Baseline EKG showed sinus rhythm with normal HI interval and QRS duration some T-wave inversions in aVL. Blood pressure at rest is 153/72 with pulse rate of 77. A standard dose of dobutamine was initiated at 10 mics and titrated to 30 mics, achieving a maximal heart rate of 125 with a blood pressure 130/47. EKGs taken during and after the dobutamine infusion did not reveal any significant changes from the baseline.. Echo data: Baseline echo images show normal wall motion and thickening. The study is done with contrast. Exercise echo images showed augmentation of wall motion and thickening in all the segments. Final impression: #1. Negative dobutamine stress test #2. Negative dobutamine stress echo. DIANAD
== END 2021-02-11 14:47 | disposition home or self-care (01) ==
LOC: EC 17:28 → 6NMEDSUR 19:25
PROVIDERS: ADMIT Family Medicine; ATTEND Family Medicine
DX: R07.89 Other chest pain (principal); J44.1 Chronic obstructive pulmonary disease with (acute) exacerbation; E11.9 Type 2 diabetes mellitus without complications; I11.9 Hypertensive heart disease without heart failure; I08.3 Combined rheumatic disorders of mitral, aortic and tricuspid valves; E78.5 Hyperlipidemia, unspecified; M19.90 Unspecified osteoarthritis, unspecified site; M79.671 Pain in right foot; N32.81 Overactive bladder; E66.9 Obesity, unspecified; Z68.39 Body mass index [BMI] 39.0-39.9, adult; F41.9 Anxiety disorder, unspecified; R22.41 Localized swelling, mass and lump, right lower limb; R61 Generalized hyperhidrosis; Z79.82 Long term (current) use of aspirin; Z79.84 Long term (current) use of oral hypoglycemic drugs; Z79.899 Other long term (current) drug therapy; Z85.42 Personal history of malignant neoplasm of other parts of uterus; Z92.3 Personal history of irradiation; Z86.16 Personal history of COVID-19; Z90.710 Acquired absence of both cervix and uterus; Z96.653 Presence of artificial knee joint, bilateral; Z98.890 Other specified postprocedural states; Z87.891 Personal history of nicotine dependence; Z80.0 Family history of malignant neoplasm of digestive organs; Z80.8 Family history of malignant neoplasm of other organs or systems; Z81.1 Family history of alcohol abuse and dependence; Z83.3 Family history of diabetes mellitus; Z83.79 Family history of other diseases of the digestive system; Z83.49 Family history of other endocrine, nutritional and metabolic diseases
CPT/HCPCS: 96376 ×2; 96366 ×2; 96375; 96365; 99291; 36415; 94640 ×3; 94760; 93005; 85379; 83880; 80061; 80053; 82550; 83690; 83735; 84484 ×2; 85025; 85610; 85730 ×2; 71046; G0378 ×4; C8929; C8930; J1250; J1940; J1644 ×3; Q9950; 93306; 93351

== ENCOUNTER 2021-11-26 09:47 | Inpatient (IN) | payer MEDICARE, OTHER ==
[2021-11-26 10:32] LABS: Basophils # (A) 0.1 k/uL (0-0.2); Basophils % (A) 1 %; Eosinophils # (A) 0.2 k/uL (0-0.7); Eosinophils % (A) 3 %; HCT 38.8 % (34.0-46.0); HGB 12.4 gm/dL (11.4-16.0); Lymphocytes # (A) 1.7 k/uL (1.0-4.8); Lymphocytes % (A) 25 %; MCH 29.1 pg (25.0-35.0); MCHC 31.9 g/dL (31.0-37.0); MCV 91.2 fL (80.0-100.0); Mean Platelet Volume 7.6; Monocytes # (A) 0.3 k/uL (0-1.0); Monocytes % (A) 4 %; Neutrophils # (A) 4.5 k/uL (1.3-7.7); Neutrophils % (A) 66 %; Platelet Count 309 k/uL (150-450); RBC 4.26 m/uL (3.80-5.40); RDW 13.8 % (11.5-15.5); WBC 6.8 k/uL (3.8-10.6)
[2021-11-26 10:43] LABS: INR 0.9 (<1.2); Partial Thromboplastin Time 22.7 sec (22.0-30.0); Prothrombin Time 9.9 sec (9.0-12.0)
[2021-11-26 10:58] LABS: ALT 16 U/L (4-34); AST 20 U/L (14-36); African American GFR (CKD) >90 (>60 ml/min/1.73 sqM); Albumin 3.8 g/dL (3.5-5.0); Alkaline Phosphatase 82 U/L (38-126); Anion Gap 7 mmol/L; Blood Urea Nitrogen 19 mg/dL (7-17); Carbon Dioxide 26 mmol/L (22-30); Chloride 106 mmol/L (98-107); Glucose 138 mg/dL (74-99); Non-African American GFR(CKD) >90 (>60 ml/min/1.73 sqM); Sodium 139 mmol/L (137-145); Total Bilirubin 0.3 mg/dL (0.2-1.3); Total Protein 6.5 g/dL (6.3-8.2)
--- NOTE | 2021-11-26 12:14 | ED ---
General Adult HPI - General Chief complaint: GI Bleed Stated complaint: rectal bleeding Time Seen by Provider: 11/26/21 11:52 Source: patient Mode of arrival: ambulatory Limitations: no limitations - History of Present Illness Initial comments: Dictation was produced using [employer] dictation software. please excuse any grammatical, word or spelling errors. Chief Complaint: 76-year-old female presents to the emergency department with b right red blood per rectum History of Present Illness: Patient is a 76-year-old female presents emergency department for acute bright red blood per rectum. She states she noted brisk bleeding coming from her rectum every 20 minutes since 3 AM this morning. She felt a little uncomfortable last night thought that maybe her symptoms started then. Patient denies taking any anticoagulation therapy. She does have history of hypertension, diabetes. She has previous history of uterine cancer. Patient had a conversation with a primary care doctor and she was instructed to come to the emergency department for evaluation. Patient has any abdominal pain. She denies any rectal pain. She does feel like she gets some spasms in her suprapubic area. However at the bedside she is a symptomatic. The ROS documented in this emergency department record has been reviewed and confirmed by me. Those systems with pertinent positive or negative responses have been documented in the HPI. All other systems are other negative and/or noncontributory. PHYSICAL EXAM: General Impression: Alert and oriented x3, not in acute distress HEENT: Normocephalic atraumatic, extra-ocular movements intact, pupils equal and reactive to light bilaterally, mucous membranes moist. Cardiovascular: Heart regular rate and rhythm Chest: Able to complete full sentences, no retractions, no tachypnea Abdomen: abdomen soft, non-tender, non-distended, no organomegaly Musculoskeletal: Pulses present and equal in all extremities, no peripheral edema Motor: no focal deficits noted Neurological: CN II-XII grossly intact, no focal motor or sensory deficits noted Skin: Intact with no visualized rashes Psych: Normal affect and mood Rectal exam: Bright red blood per rectum with slight active bleed ED course: 76-year-old female presents emergency department for bright red blood per rectum. Patient is having active bleeding. The bleeding however is not brisk on physical examination patient is well-appearing at the bedside. Vital signs are unremarkable. Advanced triage protocol labs were ordered by triage nurse. CBC is unremarkable. Hemoglobin stable. Coag panel is negative. Patient is not acidotic. Metabolic panel is otherwise unremarkable. Case is discussed with on-call surgeon Dr. Brown who is agreeable that patient can be admitted to our hospital with him on consult despite not having any GI coverage this week. Patient given Protonix. Patient nothing by mouth will be admitted to Dr. Ford's service. EKG interpretation: Ventricular rate 83, sinus rhythm, VT interval 202, care is 98, QTC 411. No VT prolongation, no QTC prolongation, no ST or T-wave changes noted. EKG compared to 02/08/2021 showing no changes. Overall, this EKG is unremarkable - Related Data Home Medications Medication Instructions Recorded Confirmed Aspirin EC [Ecotrin Low Dose] 81 mg PO DAILY 08/19/17 02/08/21 metFORMIN HCL [Glucophage] 500 mg PO DAILY 08/19/17 02/08/21 Oxybutynin ER [Ditropan Xl] 10 mg PO DAILY 02/08/21 02/08/21 Previous Rx's Medication Instructions Recorded Albuterol Sulfate [Proventil Hfa] 1 puff INHALATION Q4-6H PRN #1 each 02/11/21 Azithromycin [Zithromax Z-pack (6 0 mg PO DIRECTED 5 Days #6 tab 02/11/21 tabs)] Budesonide-Formot 160-4.5 Mcg 2 puff INHALATION BID #1 each 02/11/21 [Symbicort 160-4.5 Mcg Inhaler] Fluticasone Nasal [place] [Flonase 1 spray EA NOSTRIL BID #1 bottle 02/11/21 Nasal [place]] Losartan [Cozaar] 50 mg PO DAILY #30 tab 02/11/21 Metoprolol Succinate (ER) [Toprol 50 mg PO DAILY #30 tab.er.24h 02/11/21 XL] Allergies Allergy/AdvReac Type Severity Reaction Status Date / Time No Known Allergies Allergy Verified 11/26/21 09:55 Review of Systems ROS Statement: Those systems with pertinent positive or pertinent negative responses have been documented in the HPI. ROS Other: All systems not noted in ROS Statement are negative. Past Medical History Past Medical History: Cancer, Chest Pain / Angina, Hypertension, Osteoarthritis (OA) Additional Past Medical History / Comment(s): uterine cancer (surgery & radiation tx 1998), states "secondary lung disease", takes clonidine as preventative due to diabetes., Pain right foot- states using cane and walker, covid History of Any Multi-Drug Resistant Organisms: None Reported Past Surgical History: Heart Catheterization, Hysterectomy, Joint Replacement, Orthopedic Surgery, Tonsillectomy Additional Past Surgical History / Comment(s): total right knee x2 total left knee; Left foot surgery; maru trigger fingers. Heart Cath (may 2018 no stents) Past Anesthesia/Blood Transfusion Reactions: Blood Transfusion Reaction Additional Past Anesthesia/Blood Transfusion Reaction / Comment(s): Hx of rash with blood transfusion 1997 Past Psychological History: No Psychological Hx Reported Smoking Status: Never smoker Past Alcohol Use History: Daily Past Drug Use History: None Reported - Past Family History Mother Family Medical History: No Reported History Additional Family Medical History / Comment(s): Mother in her 70s from colon cancer. Sister(s) Family Medical History: Cancer Additional Family Medical History / Comment(s): Patient has 2 sisters and one has from ocular melanoma. A second sister is healthy. Father Additional Family Medical History / Comment(s): Father in his 50s from alcoholic liver disease. Son(s) Additional Family Medical History / Comment(s): Patient has 3 children. One son has diabetes and overweight. Patient has 2 daughters with no major medical problems. General Exam Limitations: no limitations Course Vital Signs 11/26/21 11/26/21 09:53 11:42 Temperature 97.9 F 98.5 F Pulse Rate 86 80 Respiratory 20 18 Rate Blood Pressure 118/60 145/80 O2 Sat by Pulse 96 98 Oximetry Medical Decision Making - Lab Data Result diagrams: 11/26/21 10:19 11/26/21 10:19 Lab Results 11/26/21 11/26/21 11/26/21 Range/Units 10:19 10:19 10:19 WBC 6.8 (3.8-10.6) k/uL RBC 4.26 (3.80-5.40) m/uL Hgb 12.4 (11.4-16.0) gm/dL Hct 38.8 (34.0-46.0) % MCV 91.2 (80.0-100.0) fL MCH 29.1 (25.0-35.0) pg MCHC 31.9 (31.0-37.0) g/dL RDW 13.8 (11.5-15.5) % Plt Count 309 (150-450) k/uL MPV 7.6 Neutrophils % 66 % Lymphocytes % 25 % Monocytes % 4 % Eosinophils % 3 % Basophils % 1 % Neutrophils # 4.5 (1.3-7.7) k/uL Lymphocytes # 1.7 (1.0-4.8) k/uL Monocytes # 0.3 (0-1.0) k/uL Eosinophils # 0.2 (0-0.7) k/uL Basophils # 0.1 (0-0.2) k/uL PT 9.9 (9.0-12.0) sec INR 0.9 (<1.2) APTT 22.7 (22.0-30.0) sec Sodium 139 (137-145) mmol/L Potassium 4.0 (3.5-5.1) mmol/L Chloride 106 (98-107) mmol/L Carbon Dioxide 26 (22-30) mmol/L Anion Gap 7 mmol/L BUN 19 H (7-17) mg/dL Creatinine 0.55 (0.52-1.04) mg/dL Est GFR (CKD-EPI)AfAm >90 (>60 ml/min/1.73 sqM) Est GFR (CKD-EPI)NonAf >90 (>60 ml/min/1.73 sqM) Glucose 138 H (74-99) mg/dL Calcium 9.0 (8.4-10.2) mg/dL Total Bilirubin 0.3 (0.2-1.3) mg/dL AST 20 (14-36) U/L ALT 16 (4-34) U/L Alkaline Phosphatase 82 (38-126) U/L Troponin I (0.000-0.034) ng/mL Total Protein 6.5 (6.3-8.2) g/dL Albumin 3.8 (3.5-5.0) g/dL 11/26/21 Range/Units 10:19 WBC (3.8-10.6) k/uL RBC (3.80-5.40) m/uL Hgb (11.4-16.0) gm/dL Hct (34.0-46.0) % MCV (80.0-100.0) fL MCH (25.0-35.0) pg MCHC (31.0-37.0) g/dL RDW (11.5-15.5) % Plt Count (150-450) k/uL MPV Neutrophils % % Lymphocytes % % Monocytes % % Eosinophils % % Basophils % % Neutrophils # (1.3-7.7) k/uL Lymphocytes # (1.0-4.8) k/uL Monocytes # (0-1.0) k/uL Eosinophils # (0-0.7) k/uL Basophils # (0-0.2) k/uL PT (9.0-12.0) sec INR (<1.2) APTT (22.0-30.0) sec Sodium (137-145) mmol/L Potassium (3.5-5.1) mmol/L Chloride (98-107) mmol/L Carbon Dioxide (22-30) mmol/L Anion Gap mmol/L BUN (7-17) mg/dL Creatinine (0.52-1.04) mg/dL Est GFR (CKD-EPI)AfAm (>60 ml/min/1.73 sqM) Est GFR (CKD-EPI)NonAf (>60 ml/min/1.73 sqM) Glucose (74-99) mg/dL Calcium (8.4-10.2) mg/dL Total Bilirubin (0.2-1.3) mg/dL AST (14-36) U/L ALT (4-34) U/L Alkaline Phosphatase (38-126) U/L Troponin I <0.012 (0.000-0.034) ng/mL Total Protein (6.3-8.2) g/dL Albumin (3.5-5.0) g/dL Disposition Clinical Impression: BRBPR (bright red blood per rectum) Disposition[facility] Condition: Serious Referrals: Lobito Ford MD [Primary Care Provider] - 1-2 days Decision Time: 13:36
[2021-11-26] MEDS ORDERED: SODIUM CHLORIDE 0.9% 1,000 ML IV STA (13:17)
[2021-11-26] MEDS ORDERED: PANTOPRAZOLE 40 MG/10 ML VIAL IVP STA (13:17)
[2021-11-26] MEDS ORDERED: NALOXONE 0.4 MG/ML 1 ML VIAL IV PRN (13:32)
--- NOTE | 2021-11-26 15:15 | P.GSCN ---
History of Present Illness Consult date: 11/26/21 History of present illness: CHIEF COMPLAINT: GI bleed HISTORY OF PRESENT ILLNESS: This is a 76-year-old female who presented to the hospital with bright red blood per rectum. She reports the bleeding started at 3 AM this morning. She reports initially she had been doing with constipation for the last week. Her stools were like lee. She reports some mild lower abdominal discomfort. And then has been having multiple episodes of bleeding from rectum. She reports about every 30 minutes she is been passing some blood. She also reports some blood clots. She denies any NSAID use. Denies any history of anticoagulation. Her last colonoscopy was 7 years ago she reports that was negative. Her last cold guard was 2 years ago and she reports as negative. She has a history of uterine cancer status post radiation treatment and hysterectomy. Hemoglobin on admission 12.4. PAST MEDICAL HISTORY: See list. PAST SURGICAL HISTORY: See list. MEDICATIONS: See list. ALLERGIES: See list. SOCIAL HISTORY: No illicit drug use. REVIEW OF SYSTEMS: CONSTITUTIONAL: Denies fever or chills. HEENT: Denies blurred vision, vision changes, or eye pain. Denies hemoptysis CARDIOVASCULAR: Denies chest pain or pressure. RESPIRATORY: No shortness of breath. GASTROINTESTINAL: See HPI for pertinent findings HEMATOLOGIC: Denies bleeding disorders. GENITOURINARY: Denies any blood in urine or increased urinary frequency. SKIN: Denies pruitis. Denies rash. PHYSICAL EXAM: VITAL SIGNS: Reviewed GENERAL: Well-developed in no acute distress. HEENT: No sclera icterus. Extraocular movements grossly intact. Moist buccal mucosa. Head is atraumatic, normocephalic. No nasal drainage. ABDOMEN: Soft. Nondistended. Minimal discomfort with palpation of the lower abdomen NEUROLOGIC: Alert and oriented. Cranial nerves II through XII grossly intact. LABORATORY DATA: WBC is 6.8 hemoglobin 12.4 platelets 309 INR 0.9 Sodium 139 potassium 4.0 creatinine 0.55 IMAGING: ASSESSMENT: 1. Acute GI bleed with bright red blood per rectum PLAN: -Patient scheduled for colonoscopy on , 11/28/[address] lyons -Patient can have clear liquid diet today -Start GoLYTELY prep tomorrow -Continue to monitor hemoglobin -Continue monitor for any signs or symptoms of bleeding -Continue IV fluids -Continue supportive care Thank you for this consultation Physician Access Consultant note has been reviewed by physician. Signing provider agrees with the documented findings, assessment, and plan of care. Past Medical History Past Medical History: Cancer, Chest Pain / Angina, Hypertension, Osteoarthritis (OA) Additional Past Medical History / Comment(s): uterine cancer (surgery & radiation tx 1998), states "secondary lung disease", takes clonidine as preventative due to diabetes., Pain right foot- states using cane and walker, covid History of Any Multi-Drug Resistant Organisms: None Reported Past Surgical History: Heart Catheterization, Hysterectomy, Joint Replacement, Orthopedic Surgery, Tonsillectomy Additional Past Surgical History / Comment(s): total right knee x2 total left knee; Left foot surgery; maru trigger fingers. Heart Cath (may 2018 no stents) Past Anesthesia/Blood Transfusion Reactions: Blood Transfusion Reaction Additional Past Anesthesia/Blood Transfusion Reaction / Comm: Hx of rash with blood transfusion 1997 Past Psychological History: No Psychological Hx Reported Smoking Status: Never smoker Past Alcohol Use History: Daily Past Drug Use History: None Reported - Past Family History Mother Family Medical History: No Reported History Additional Family Medical History / Comment(s): Mother in her 70s from colon cancer. Sister(s) Family Medical History: Cancer Additional Family Medical History / Comment(s): Patient has 2 sisters and one has from ocular melanoma. A second sister is healthy. Father Additional Family Medical History / Comment(s): Father in his 50s from alcoholic liver disease. Son(s) Additional Family Medical History / Comment(s): Patient has 3 children. One son has diabetes and overweight. Patient has 2 daughters with no major medical problems. Medications and Allergies Home Medications Medication Instructions Recorded Confirmed Type metFORMIN HCL [Glucophage] 500 mg PO BID 08/19/17 11/26/21 History Oxybutynin ER [Ditropan Xl] 10 mg PO HS 02/08/21 11/26/21 History Albuterol Sulfate [Proair Hfa] 2 puff INHALATION RT-QID PRN 11/26/21 11/26/21 History Aspirin 81 mg PO DAILY 11/26/21 11/26/21 History Budesonide-Formot 160-4.5 Mcg 2 puff INHALATION RT-BID 11/26/21 11/26/21 History [Symbicort 160-4.5 Mcg Inhaler] Calcium/Magnesium/Zinc 1 tab PO DAILY 11/26/21 11/26/21 History [Jsexlnu-Keqrrlfcb-Dpha Tablet] Cholecalciferol [Vitamin D3 (25 25 mcg PO DAILY 11/26/21 11/26/21 History Mcg = 1000 Iu)] Cinnamon Bark [Cinnamon] 500 mg PO DAILY 11/26/21 11/26/21 History Cranberry Fruit Extract [Cranberry] 500 mg PO DAILY 11/26/21 11/26/21 History Cyanocobalamin (Vitamin B-12) 1,000 mcg PO DAILY 11/26/21 11/26/21 History [Vitamin B-12] Elderberry Fruit and Flower [Black 1 cap PO DAILY 11/26/21 11/26/21 History Elderberry 575 mg Cap] Isosorbide Mononitrate ER [Imdur] 15 mg PO HS 11/26/21 11/26/21 History Losartan Potassium 100 mg PO DAILY 11/26/21 11/26/21 History Metoprolol Succinate (ER) [Toprol 50 mg PO HS 11/26/21 11/26/21 History XL] Multivit with Calcium,Iron,Min 1 tab PO DAILY 11/26/21 11/26/21 History [Women's Multivitamin] Neuriva 1 cap PO DAILY 11/26/21 11/26/21 History Vitamin C/Biotin [Hair, Skin and 1 tab PO DAILY 11/26/21 11/26/21 History Nails Chew] cloNIDine HCL [Catapres] 0.1 mg PO BID 11/26/21 11/26/21 History Allergies Allergy/AdvReac Type Severity Reaction Status Date / Time No Known Allergies Allergy Verified 11/26/21 14:25 Surgical - Exam Vital Signs Temp Pulse Resp BP Pulse Ox 97.9 F 86 20 118/60 96 11/26/21 09:53 11/26/21 09:53 11/26/21 09:53 11/26/21 09:53 11/26/21 09:53 Results - Labs 11/26/21 10:19 11/26/21 10:19 Abnormal Lab Results - Last 24 Hours (Table) 11/26/21 Range/Units 10:19 BUN 19 H (7-17) mg/dL Glucose 138 H (74-99) mg/dL Diabetes panel 11/26/21 Range/Units 10:19 Sodium 139 (137-145) mmol/L Potassium 4.0 (3.5-5.1) mmol/L Chloride 106 (98-107) mmol/L Carbon Dioxide 26 (22-30) mmol/L BUN 19 H (7-17) mg/dL Creatinine 0.55 (0.52-1.04) mg/dL Glucose 138 H (74-99) mg/dL Calcium 9.0 (8.4-10.2) mg/dL AST 20 (14-36) U/L ALT 16 (4-34) U/L Alkaline Phosphatase 82 (38-126) U/L Total Protein 6.5 (6.3-8.2) g/dL Albumin 3.8 (3.5-5.0) g/dL Calcium panel 11/26/21 Range/Units 10:19 Calcium 9.0 (8.4-10.2) mg/dL Albumin 3.8 (3.5-5.0) g/dL Pituitary panel 11/26/21 Range/Units 10:19 Sodium 139 (137-145) mmol/L Potassium 4.0 (3.5-5.1) mmol/L Chloride 106 (98-107) mmol/L Carbon Dioxide 26 (22-30) mmol/L BUN 19 H (7-17) mg/dL Creatinine 0.55 (0.52-1.04) mg/dL Glucose 138 H (74-99) mg/dL Calcium 9.0 (8.4-10.2) mg/dL Adrenal panel 11/26/21 Range/Units 10:19 Sodium 139 (137-145) mmol/L Potassium 4.0 (3.5-5.1) mmol/L Chloride 106 (98-107) mmol/L Carbon Dioxide 26 (22-30) mmol/L BUN 19 H (7-17) mg/dL Creatinine 0.55 (0.52-1.04) mg/dL Glucose 138 H (74-99) mg/dL Calcium 9.0 (8.4-10.2) mg/dL Total Bilirubin 0.3 (0.2-1.3) mg/dL AST 20 (14-36) U/L ALT 16 (4-34) U/L Alkaline Phosphatase 82 (38-126) U/L Total Protein 6.5 (6.3-8.2) g/dL Albumin 3.8 (3.5-5.0) g/dL
[2021-11-26 16:29] LABS: Basophils # (A) 0.1 k/uL (0-0.2); Basophils % (A) 1 %; Eosinophils # (A) 0.2 k/uL (0-0.7); Eosinophils % (A) 2 %; HCT 37.4 % (34.0-46.0); HGB 11.7 gm/dL (11.4-16.0); Lymphocytes # (A) 2.1 k/uL (1.0-4.8); Lymphocytes % (A) 29 %; MCH 29.2 pg (25.0-35.0); MCHC 31.3 g/dL (31.0-37.0); MCV 93.2 fL (80.0-100.0); Mean Platelet Volume 7.6; Monocytes # (A) 0.3 k/uL (0-1.0); Monocytes % (A) 5 %; Neutrophils # (A) 4.5 k/uL (1.3-7.7); Neutrophils % (A) 62 %; Platelet Count 275 k/uL (150-450); RBC 4.01 m/uL (3.80-5.40); RDW 13.8 % (11.5-15.5); WBC 7.2 k/uL (3.8-10.6)
[2021-11-26] MEDS ORDERED: ALBUTEROL HFA INHALER INHALATION PRN (18:25)
[2021-11-26] MEDS: SYMBICORT 160-4.5 MCG INHALER INHALATION SCH (20:14)
[2021-11-26] MEDS: METOPROLOL SUCCINATE (ER) 50 MG TAB.ER.24H PO SCH (21:20)
[2021-11-26] MEDS: ISOSORBIDE MONONITRATE ER 15 MG TAB PO SCH (21:20)
[2021-11-26] MEDS: cloNIDine HCL 0.1 MG TAB PO SCH (21:20)
[2021-11-26] MEDS: SODIUM CHLORIDE 0.9% 1,000 ML IV SCH (22:03)
--- NOTE | 2021-11-26 22:46 | P.HPIM ---
History of Present Illness H&P Date: 11/26/21 HISTORY OF PRESENT ILLNESS 76 year-old morbidly obese female one of my office patient who is known to have history of type 2 diabetes, hypertension, uterine cancer post surgery with radiation and chemo, history of overactive bladder, recurrent UTI and chronic arthritis. patient has not been feeling well last 24 hours developed to have recurrent bright red blood per rectum with worsening symptoms as a cause on ended up calling the office with a concern of the active recurrent bleed was instructed to come to the emergency department where was seen and evaluated at the time her hemoglobin remain good at 12.4 with no major abnormality negative troponin blood sugar was mildly elevated at 138. Hemoccult was positive patient has been complaining of increased discomfort in the mid lower abdominal region for the last few days become much worse last 48 hours. Patient was admitted to the hospital continue hydration watch CBC every 8-12 hours and consult general surgery for backup patient might need to be testing or intervention. REVIEW OF SYSTEMS Constitutional: No fever, no chills, no night sweats. No weight change. No weakness, fatigue or lethargy. No daytime sleepiness. EENT: No headache. No blurred vision or double vision, no loss of vision. No loss of Hearing, no ringing in the ears, no dizziness. No nasal drainage or congestion. No epistaxis. No sore throat. Lungs: No shortness of breath, cough, no sputum production. No wheezing. Cardiovascular: No chest pain, no lower extremity edema. No palpitations. No paroxysmal nocturnal dyspnea. No orthopnea. No lightheadedness or dizziness. No syncopal episodes. Abdominal: No abdominal pain. No nausea, vomiting. No diarrhea. No constipation. No bloody or tarry stools.. No loss of appetite. Genitourinary: No dysuria, increased frequency, urgency. No urinary retention. Musculoskeletal: No myalgias. No muscle weakness, no gait dysfunction, no frequent falls. No back pain. No neck pain. Integumentary: No wounds, no lesions. No rash or pruritus. No unusual b ruising. No change in hair or nails. Neurologic: No aphasia. No facial droop. No change in mentation. No head injury. No headache. No paralysis. No paresthesia. Psychiatric: No depression. No anxiety. No mood swings. Endocrine: No abnormal blood sugars. No weight change. No excessive sweating o r thirst. No cold intolerance. SOCIAL HISTORY Patient is a lifelong nonsmoker, no alcohol use, marijuana or illicit drug use. FAMILY HISTORY Mother in her 70s from colon cancer. Father in his 50s from alcoholic liver disease. Patient has 2 sisters and one is from ocular melanoma and a second sister is healthy. Patient has 3 children, one son is overweight with diabetes, 2 daughters with no major medical problems. PHYSICAL EXAMINATION Gen: This is a 75-year-old obese female. She is resting in bed appears to be comfortable and in no acute distress. HEENT: Head is atraumatic, normocephalic. Pupils equal, round. Sclerae is anicteric. NECK: Supple. No JVD. No lymphadenopathy. No thyromegaly. LUNGS: Clear to auscultation. No wheezes or rhonchi. No intercostal retractions. HEART: Regular rate and rhythm. No murmur. ABDOMEN: Soft. Bowel sounds are present. I discomfort and lower abdominal region area no rebound or rigidity. EXTREMITIES: No pedal edema. No calf tenderness. Dorsalis pedis +2 bilaterally NEUROLOGICAL: Patient is awake, alert and oriented x3. Cranial nerves 2 through 12 are grossly intact. ASSESSMENT AND PLAN 1 acute GI bleed: Most likely lower with bright red blood per rectum, we'll consult general surgery, patient will have CBC every 8 hours if no significant drop in hemoglobin and stable might be able to do her colonoscopy in the next 24 hours otherwise will wait until patient is more stable. 2 active gastritis and gastroesophageal Flex syndrome: Patient will continue been on proton pump inhibitor twice a day for now. 3 History of type 2 diabetes: Has been well controlled on metformin continue medication continue Accu-Chek with sliding scales coverage. 4 atherosclerotic heart disease: Post angioplasty and stent placement, still doing well. 5 mild COPD: Has been on Pulmicort and albuterol. 6 History of uterine cancer status post surgery and radiation treatment in 1998, stable. 7 Overactive bladder. Continue oxybutynin 10 mg daily. 8 Hypertension. Catapres was discontinued and patient started on losartan 25 mg daily and Toprol-XL 25 mg daily. 9 GI prophylaxis. Protonix. 10 DVT prophylaxis. Heparin. admit patient to the hospital for at least 2 days overnight stay. DISCHARGE PLAN Home. Past Medical History Past Medical History: Cancer, Chest Pain / Angina, Hypertension, Osteoarthritis (OA) Additional Past Medical History / Comment(s): uterine cancer (surgery & radiation tx 1998), states "secondary lung disease", takes clonidine as preventative due to diabetes., Pain right foot- states using cane and walker, covid History of Any Multi-Drug Resistant Organisms: None Reported Past Surgical History: Heart Catheterization, Hysterectomy, Joint Replacement, Orthopedic Surgery, Tonsillectomy Additional Past Surgical History / Comment(s): total right knee x2 total left knee; Left foot surgery; maru trigger fingers. Heart Cath (may 2018 no stents) Past Anesthesia/Blood Transfusion Reactions: Blood Transfusion Reaction Additional Past Anesthesia/Blood Transfusion Reaction / Comment(s): Hx of rash with blood transfusion 1997 Past Psychological History: No Psychological Hx Reported Smoking Status: Never smoker Past Alcohol Use History: Daily Past Drug Use History: None Reported - Past Family History Mother Family Medical History: No Reported History Additional Family Medical History / Comment(s): Mother in her 70s from colon cancer. Sister(s) Family Medical History: Cancer Additional Family Medical History / Comment(s): Patient has 2 sisters and one has from ocular melanoma. A second sister is healthy. Father Additional Family Medical History / Comment(s): Father in his 50s from alcoholic liver disease. Son(s) Additional Family Medical History / Comment(s): Patient has 3 children. One son has diabetes and overweight. Patient has 2 daughters with no major medical problems. Medications and Allergies Home Medications Medication Instructions Recorded Confirmed Type metFORMIN HCL [Glucophage] 500 mg PO BID 08/19/17 11/26/21 History Oxybutynin ER [Ditropan Xl] 10 mg PO HS 02/08/21 11/26/21 History Albuterol Sulfate [Proair Hfa] 2 puff INHALATION RT-QID PRN 11/26/21 11/26/21 History Aspirin 81 mg PO DAILY 11/26/21 11/26/21 History Budesonide-Formot 160-4.5 Mcg 2 puff INHALATION RT-BID 11/26/21 11/26/21 History [Symbicort 160-4.5 Mcg Inhaler] Calcium/Magnesium/Zinc 1 tab PO DAILY 11/26/21 11/26/21 History [Dhrlftw-Tdmfgefhl-Smim Tablet] Cholecalciferol [Vitamin D3 (25 25 mcg PO DAILY 11/26/21 11/26/21 History Mcg = 1000 Iu)] Cinnamon Bark [Cinnamon] 500 mg PO DAILY 11/26/21 11/26/21 History Cranberry Fruit Extract [Cranberry] 500 mg PO DAILY 11/26/21 11/26/21 History Cyanocobalamin (Vitamin B-12) 1,000 mcg PO DAILY 11/26/21 11/26/21 History [Vitamin B-12] Elderberry Fruit and Flower [Black 1 cap PO DAILY 11/26/21 11/26/21 History Elderberry 575 mg Cap] Isosorbide Mononitrate ER [Imdur] 15 mg PO HS 11/26/21 11/26/21 History Losartan Potassium 100 mg PO DAILY 11/26/21 11/26/21 History Metoprolol Succinate (ER) [Toprol 50 mg PO HS 11/26/21 11/26/21 History XL] Multivit with Calcium,Iron,Min 1 tab PO DAILY 11/26/21 11/26/21 History [Women's Multivitamin] Neuriva 1 cap PO DAILY 11/26/21 11/26/21 History Vitamin C/Biotin [Hair, Skin and 1 tab PO DAILY 11/26/21 11/26/21 History Nails Chew] cloNIDine HCL [Catapres] 0.1 mg PO BID 11/26/21 11/26/21 History Allergies Allergy/AdvReac Type Severity Reaction Status Date / Time No Known Allergies Allergy Verified 11/26/21 14:25 Physical Exam Vitals: Vital Signs Temp Pulse Resp BP Pulse Ox 11/26/21 11:42 98.5 F 80 18 145/80 98 11/26/21 09:53 97.9 F 86 20 118/60 96 Intake and Output 11/26/21 11/26/21 11/26/21 06:59 14:59 22:59 Other: Weight 99.79 kg Results CBC & Chem 7: 11/26/21 15:57 11/26/21 10:19 Labs: Abnormal Lab Results - Last 24 Hours (Table) 11/26/21 Range/Units 10:19 BUN 19 H (7-17) mg/dL Glucose 138 H (74-99) mg/dL
[2021-11-27] MEDS: SODIUM CHLORIDE 0.9% 1,000 ML IV SCH ×3 (02:41→17:08)
[2021-11-27] MEDS: ASPIRIN 81 MG PO SCH (07:41)
[2021-11-27] MEDS: cloNIDine HCL 0.1 MG TAB PO SCH ×2 (07:41→20:55)
[2021-11-27] MEDS: CYANOCOBALAMIN 500 MCG TAB PO SCH (07:42)
[2021-11-27] MEDS: LOSARTAN 50 MG TAB PO SCH (07:42)
[2021-11-27] MEDS: CHOLECALCIFEROL 25 MCG (1000 IU) TABLET PO SCH (07:42)
[2021-11-27] MEDS ORDERED: PEG 3350-NA SULF,BICARB,CL/KCL 4,000 ML BOTTLE PO ONE (09:00)
[2021-11-27] MEDS ORDERED: NON FORMULARY DRUG (Neuriva 1 CAP) PO SCH (09:00)
[2021-11-27] MEDS ORDERED: NON FORMULARY DRUG (Elderberry Fruit And Flower [Black Elderberry 575 Mg Cap] 1 EACH Capsu PO SCH (09:00)
[2021-11-27] MEDS ORDERED: NON FORMULARY DRUG (Calcium/Magnesium/Zinc [Calcium-Magnesium-Zinc Tablet] 1 EACH Tablet) PO SCH (09:00)
[2021-11-27] MEDS ORDERED: NON FORMULARY DRUG (Cinnamon Bark [Cinnamon] 500 MG Capsule) PO SCH (09:00)
[2021-11-27] MEDS ORDERED: NON FORMULARY DRUG (Cranberry Fruit Extract [Cranberry] 500 MG Tablet) PO SCH (09:00)
[2021-11-27] MEDS: SYMBICORT 160-4.5 MCG INHALER INHALATION SCH ×2 (09:08→21:42)
[2021-11-27 10:29] LABS: ALT 15 U/L (4-34); AST 20 U/L (14-36); African American GFR (CKD) >90 (>60 ml/min/1.73 sqM); Albumin 3.5 g/dL (3.5-5.0); Alkaline Phosphatase 67 U/L (38-126); Anion Gap 5 mmol/L; Blood Urea Nitrogen 13 mg/dL (7-17); Calcium 8.6 mg/dL (8.4-10.2); Carbon Dioxide 26 mmol/L (22-30); Chloride 107 mmol/L (98-107); Glucose 134 mg/dL (74-99); Non-African American GFR(CKD) >90 (>60 ml/min/1.73 sqM); Potassium 4.2 mmol/L (3.5-5.1); Sodium 138 mmol/L (137-145); Total Bilirubin 0.3 mg/dL (0.2-1.3)
[2021-11-27 10:34] LABS: HCT 33.8 % (34.0-46.0); HGB 10.8 gm/dL (11.4-16.0); MCH 29.6 pg (25.0-35.0); MCHC 31.8 g/dL (31.0-37.0); Mean Platelet Volume 7.7; Platelet Count 289 k/uL (150-450); RBC 3.63 m/uL (3.80-5.40); WBC 6.5 k/uL (3.8-10.6)
--- NOTE | 2021-11-27 10:35 | P.PN ---
Subjective Progress Note Date: 11/27/21 HISTORY OF PRESENT ILLNESS 76 year-old morbidly obese female one of my office patient who is known to have history of type 2 diabetes, hypertension, uterine cancer post surgery with radiation and chemo, history of overactive bladder, recurrent UTI and chronic arthritis. patient has not been feeling well last 24 hours developed to have recurrent bright red blood per rectum with worsening symptoms as a cause on ended up calling the office with a concern of the active recurrent bleed was instructed to come to the emergency department where was seen and evaluated at the time her hemoglobin remain good at 12.4 with no major abnormality negative troponin blood sugar was mildly elevated at 138. Hemoccult was positive patient has been complaining of increased discomfort in the mid lower abdominal region for the last few days become much worse last 48 hours. Patient was admitted to the hospital continue hydration watch CBC every 8-12 hours and consult general surgery for backup patient might need to be testing or intervention. 11/27: Patient has been seen by general surgery and scheduled for colonoscopy tomorrow. Repeat hemoglobin yesterday afternoon was 11.7 and lab work for this morning is still pending. Patient states she stopped leading rectally early in the night. She has started the prep for colonoscopy. Patient has been afebrile, heart rate 73, blood pressure 133/80, pulse ox 95% on room air. REVIEW OF SYSTEMS Constitutional: No fever, no chills, no night sweats. No weight change. No weakness, fatigue or lethargy. No daytime sleepiness. EENT: No headache. No blurred vision or double vision, no loss of vision. No loss of Hearing, no ringing in the ears, no dizziness. No nasal drainage or congestion. No epistaxis. No sore throat. Lungs: No shortness of breath, cough, no sputum production. No wheezing. Cardiovascular: No chest pain, no lower extremity edema. No palpitations. No paroxysmal nocturnal dyspnea. No orthopnea. No lightheadedness or dizziness. No syncopal episodes. Abdominal: No abdominal pain. No nausea, vomiting. No diarrhea. No constipation. Reports bloody or tarry stools.. No loss of appetite. Genitourinary: No dysuria, increased frequency, urgency. No urinary retention. Musculoskeletal: No myalgias. No muscle weakness, no gait dysfunction, no frequent falls. No back pain. No neck pain. Integumentary: No wounds, no lesions. No rash or pruritus. No unusual bruising. No change in hair or nails. Neurologic: No aphasia. No facial droop. No change in mentation. No head injury. No headache. No paralysis. No paresthesia. Psychiatric: No depression. No anxiety. No mood swings. Endocrine: No abnormal blood sugars. No weight change. No excessive sweating or thirst. No cold intolerance. PHYSICAL EXAMINATION Gen: This is a 75-year-old obese female. She is resting in bed appears to be comfortable and in no acute distress. HEENT: Head is atraumatic, normocephalic. Pupils equal, round. Sclerae is anicteric. NECK: Supple. No JVD. No lymphadenopathy. No thyromegaly. LUNGS: Clear to auscultation. No wheezes or rhonchi. No intercostal retractions. HEART: Regular rate and rhythm. No murmur. ABDOMEN: Soft. Bowel sounds are present. I discomfort and lower abdominal region area no rebound or rigidity. EXTREMITIES: No pedal edema. No calf tenderness. Dorsalis pedis +2 bilaterally NEUROLOGICAL: Patient is awake, alert and oriented x3. Cranial nerves 2 through 12 are grossly intact. ASSESSMENT AND PLAN 1 acute GI bleed: Most likely lower with bright red blood per rectum. Consult with general surgery, colonoscopy scheduled for tomorrow. Repeat CBC this morning and tomorrow. 2 active gastritis and GERD: Patient will continue been on proton pump inhibitor twice a day for now. 3 History of type 2 diabetes: Has been well controlled on metformin continue medication continue Accu-Chek with sliding scales coverage. 4 atherosclerotic heart disease: Post angioplasty and stent placement, still doing well. 5 mild COPD: Has been on Pulmicort and albuterol. 6 History of uterine cancer status post surgery and radiation treatment in 1998, stable. 7 Overactive bladder. Continue oxybutynin 10 mg daily. 8 Hypertension. Catapres was discontinued and patient started on losartan 25 mg daily and Toprol-XL 25 mg daily. 9 GI prophylaxis. Protonix. 10 DVT prophylaxis. SCDs and KENNY hose. DISCHARGE PLAN Home. Impression and plan of care have been directed as dictated by the signing physician. Tia Enciso nurse practitioner acting as scribe for signing murphy ramirez. Objective - Vital Signs Vital signs: Vital Signs Temp 97.6 F 11/27/21 04:00 Pulse 73 11/27/21 04:00 Resp 12 11/27/21 04:00 BP 136/78 11/27/21 04:00 Pulse Ox 96 11/27/21 04:00 FiO2 Intake & Output 11/26/21 11/27/21 11/27/21 18:59 06:59 18:59 Weight 99.79 kg Other: Voiding Method Toilet # Voids 1 - Labs CBC & Chem 7: 11/26/21 15:57 11/27/21 09:14 Labs: Abnormal Lab Results - Last 24 Hours (Table) 11/26/21 Range/Units 10:19 BUN 19 H (7-17) mg/dL Glucose 138 H (74-99) mg/dL
[2021-11-27 11:44] LABS: Glucose,Whole Blood 138 mg/dL (75-99)
[2021-11-27] MEDS: INSULIN ASPART (NovoLOG) 100 UNIT/ML VIAL SQ SCH ×3 (12:18→20:49)
--- NOTE | 2021-11-27 13:21 | P.PN ---
Subjective Progress Note Date: 11/27/21 CHIEF COMPLAINT: GI bleed HISTORY OF PRESENT ILLNESS: Patient sitting up at bedside chair. Denies any ab dominal pain. She has started the GoLYTELY prep. Hemoglobin has been trending downwards from 11.7-10.8. Afebrile sodium 13 potassium 4.2 creatinine 0.44 PHYSICAL EXAM: VITAL SIGNS: Reviewed. GENERAL: Well-developed in no acute distress. HEENT: No sclera icterus. Extraocular movements grossly intact. Moist buccal mucosa. Head is atraumatic, normocephalic. ABDOMEN: Soft. Nondistended. Nontender. NEUROLOGIC: Alert and oriented. Cranial nerves II through XII grossly intact. ASSESSMENT: 1. Acute GI bleed with bright red blood per rectum PLAN: -Patient scheduled for colonoscopy tomorrow, 11/28/[address] lyons -GoLYTELY prep today -Nothing by mouth after midnight -Continue monitor hemoglobin -Continue monitor for any signs or symptoms of bleeding Physician Bricklayer Tender note has been reviewed by physician. Signing provider agrees with the documented findings, assessment, and plan of care. Objective - Vital Signs Vital signs: Vital Signs Temp 97.5 F L 11/27/21 11:05 Pulse 70 11/27/21 11:05 Resp 20 11/27/21 11:05 BP 139/70 11/27/21 11:05 Pulse Ox 97 11/27/21 11:05 FiO2 Intake & Output 11/26/21 11/27/21 11/27/21 18:59 06:59 18:59 Intake Total 1018 Balance 1018 Weight 99.79 kg Intake: Intake, IV Titration 900 Amount Sodium Chloride 0.9% 1, 900 000 ml @ 130 mls/hr IV . [id number] [facility] Rx#:[id number] Oral 118 Other: Voiding Method Toilet Toilet # Voids 1 1 # Bowel Movements 1 - Labs CBC & Chem 7: 11/27/21 09:14 11/27/21 09:14 Labs: Abnormal Lab Results - Last 24 Hours (Table) 11/27/21 11/27/21 11/27/21 Range/Units 09:14 09:14 11:42 RBC 3.63 L (3.80-5.40) m/uL Hgb 10.8 L (11.4-16.0) gm/dL Hct 33.8 L (34.0-46.0) % Creatinine 0.44 L (0.52-1.04) mg/dL Glucose 134 H (74-99) mg/dL POC Glucose (mg/dL) 138 H (75-99) mg/dL Total Protein 6.0 L (6.3-8.2) g/dL
[2021-11-27 16:24] LABS: Glucose,Whole Blood 152 mg/dL (75-99)
[2021-11-27 20:14] LABS: Glucose,Whole Blood 120 mg/dL (75-99)
[2021-11-27] MEDS: ISOSORBIDE MONONITRATE ER 15 MG TAB PO SCH (20:55)
[2021-11-27] MEDS: METOPROLOL SUCCINATE (ER) 50 MG TAB.ER.24H PO SCH (20:55)
[2021-11-28] MEDS: SODIUM CHLORIDE 0.9% 1,000 ML IV SCH ×4 (00:08→22:23)
[2021-11-28 00:27] VITALS: RESP 16
[2021-11-28 06:07] LABS: Glucose,Whole Blood 140 mg/dL (75-99)
[2021-11-28] MEDS: INSULIN ASPART (NovoLOG) 100 UNIT/ML VIAL SQ SCH ×4 (06:24→21:42)
[2021-11-28] MEDS: SYMBICORT 160-4.5 MCG INHALER INHALATION SCH ×2 (07:57→19:33)
[2021-11-28] MEDS: ASPIRIN 81 MG PO SCH (08:28)
[2021-11-28] MEDS: cloNIDine HCL 0.1 MG TAB PO SCH ×2 (08:28→21:42)
[2021-11-28] MEDS: CYANOCOBALAMIN 500 MCG TAB PO SCH (08:28)
[2021-11-28] MEDS: CHOLECALCIFEROL 25 MCG (1000 IU) TABLET PO SCH (08:28)
[2021-11-28] MEDS: LOSARTAN 50 MG TAB PO SCH (08:28)
[2021-11-28 09:54] LABS: HCT 33.8 % (34.0-46.0); HGB 10.7 gm/dL (11.4-16.0); MCH 29.5 pg (25.0-35.0); MCHC 31.8 g/dL (31.0-37.0); MCV 92.9 fL (80.0-100.0); Mean Platelet Volume 7.6; Platelet Count 286 k/uL (150-450); RBC 3.64 m/uL (3.80-5.40); RDW 14.5 % (11.5-15.5); WBC 5.9 k/uL (3.8-10.6)
[2021-11-28 10:05] LABS: ALT 15 U/L (4-34); AST 20 U/L (14-36); African American GFR (CKD) >90 (>60 ml/min/1.73 sqM); Albumin 3.7 g/dL (3.5-5.0); Alkaline Phosphatase 67 U/L (38-126); Anion Gap 6 mmol/L; Blood Urea Nitrogen 4 mg/dL (7-17); Calcium 8.7 mg/dL (8.4-10.2); Carbon Dioxide 29 mmol/L (22-30); Chloride 107 mmol/L (98-107); Glucose 129 mg/dL (74-99); Non-African American GFR(CKD) >90 (>60 ml/min/1.73 sqM); Potassium 4.1 mmol/L (3.5-5.1); Sodium 142 mmol/L (137-145); Total Bilirubin 0.2 mg/dL (0.2-1.3); Total Protein 6.3 g/dL (6.3-8.2)
[2021-11-28 11:34] LABS: Glucose,Whole Blood 131 mg/dL (75-99)
--- NOTE | 2021-11-28 11:49 | P.DS ---
Providers Date of admission: 11/26/21 13:32 Expected date of discharge: 11/28/21 Attending physician: Lobito Ford Consults: 11/26/21 13:11 Consult Physician Routine Consulting Provider: Teofilo Brown Consult Reason/Comments: BRBPR Do you want consulting provider notified?: Already Contacted Primary care physician: Lob[facility] Course: HISTORY OF PRESENT ILLNESS 76 year-old morbidly obese female one of my office patient who is known to have history of type 2 diabetes, hypertension, uterine cancer post surgery with radiation and chemo, history of overactive bladder, recurrent UTI and chronic arthritis. patient has not been feeling well last 24 hours developed to have recurrent bright red blood per rectum with worsening symptoms as a cause on ended up calling the office with a concern of the active recurrent bleed was instructed to come to the emergency department where was seen and evaluated at the time her hemoglobin remain good at 12.4 with no major abnormality negative troponin blood sugar was mildly elevated at 138. Hemoccult was positive patient has been complaining of increased discomfort in the mid lower abdominal region for the last few days become much worse last 48 hours. Patient was admitted to the hospital continue hydration watch CBC every 8-12 hours and consult general surgery for backup patient might need to be testing or intervention. 11/27: Patient has been seen by general surgery and scheduled for colonoscopy tomorrow. Repeat hemoglobin yesterday afternoon was 11.7 and lab work for this morning is still pending. Patient states she stopped leading rectally early in the night. She has started the prep for colonoscopy. Patient has been afebrile, heart rate 73, blood pressure 133/80, pulse ox 95% on room air. 11/28: Patient states that she completed today prep for colonoscopy and output was clear, no blood has been noted in more than 24 hours. Colonoscopy was incomplete secondary to tortuosity of the sigmoid colon and patient scheduled for barium enema tomorrow. Repeat hemoglobin is 10.7, BUN 4 and creatinine 0.42. Blood sugars running between 120 and 140. 6/: Patient denies any new concerns. IV fluids will be discontinued. She denies abdominal pain, no further rectal bleeding. Patient is afebrile, heart rate 74, blood pressure 156/78 and pulse ox 94% on room air. Repeat blood work reveals WBC 5.0, hemoglobin 9.7 and platelet count 252. Capillary blood glucose running between 127-138. Barium enema revealed successful filling to the cecum. No obstructing or constricting neoplasm. She will be discharged home today in stable condition. DISCHARGE DIAGNOSES 1 acute GI bleed: Most likely lower with bright red blood per rectum. 2 active gastritis and GERD. 3 History of type 2 diabetes. 4 atherosclerotic heart disease. 5 mild COPD. 6 History of uterine cancer status post surgery and radiation treatment in 1998, stable. 7 Overactive bladder. 8 Hypertension. DISCHARGE PLAN Home. Greater than 35 minutes was utilized and coordinating patient's discharge. Impression and plan of care have been directed as dictated by the signing physician. Tia Enciso nurse practitioner acting as scribe for signing physician. Patient Condition at Discharge: Good Plan - Discharge Summary Discharge Rx Participant: Yes New Discharge Prescriptions: Continue metFORMIN HCL [Glucophage] 500 mg PO BID Neuriva 1 cap PO DAILY Vitamin C/Biotin [Hair, Skin and Nails Chew] 1 tab PO DAILY Calcium/Magnesium/Zinc [Zhxgyyd-Wsdeppkqb-Mgsh Tablet] 1 tab PO DAILY Budesonide-Formot 160-4.5 Mcg [Symbicort 160-4.5 Mcg Inhaler] 2 puff INHALATION RT-BID Aspirin 81 mg PO DAILY Losartan Potassium 100 mg PO DAILY Isosorbide Mononitrate ER [Imdur] 15 mg PO HS cloNIDine HCL [Catapres] 0.1 mg PO BID Elderberry Fruit and Flower [Black Elderberry 575 mg Cap] 1 cap PO DAILY Oxybutynin ER [Ditropan Xl] 10 mg PO HS Cinnamon Bark [Cinnamon] 500 mg PO DAILY Cyanocobalamin (Vitamin B-12) [Vitamin B-12] 1,000 mcg PO DAILY Cranberry Fruit Extract [Cranberry] 500 mg PO DAILY Cholecalciferol [Vitamin D3 (25 Mcg = 1000 Iu)] 25 mcg PO DAILY Multivit with Calcium,Iron,Min [Women's Multivitamin] 1 tab PO DAILY Metoprolol Succinate (ER) [Toprol XL] 50 mg PO HS Albuterol Sulfate [Proair Hfa] 2 puff INHALATION RT-QID PRN PRN Reason: Shortness Of Breath Discharge Medication List metFORMIN HCL [Glucophage] 500 mg PO BID 08/19/17 [History] Oxybutynin ER [Ditropan Xl] 10 mg PO HS 02/08/21 [History] Albuterol Sulfate [Proair Hfa] 2 puff INHALATION RT-QID PRN 11/26/21 [History] Aspirin 81 mg PO DAILY 11/26/21 [History] Budesonide-Formot 160-4.5 Mcg [Symbicort 160-4.5 Mcg Inhaler] 2 puff INHALATION RT-BID 11/26/21 [History] Calcium/Magnesium/Zinc [Eotzgkg-Jzabduidm-Fcco Tablet] 1 tab PO DAILY 11/26/21 [History] Cholecalciferol [Vitamin D3 (25 Mcg = 1000 Iu)] 25 mcg PO DAILY 11/26/21 [History] Cinnamon Bark [Cinnamon] 500 mg PO DAILY 11/26/21 [History] Cranberry Fruit Extract [Cranberry] 500 mg PO DAILY 11/26/21 [History] Cyanocobalamin (Vitamin B-12) [Vitamin B-12] 1,000 mcg PO DAILY 11/26/21 [History] Elderberry Fruit and Flower [Black Elderberry 575 mg Cap] 1 cap PO DAILY 11/26/21 [History] Isosorbide Mononitrate ER [Imdur] 15 mg PO HS 11/26/21 [History] Losartan Potassium 100 mg PO DAILY 11/26/21 [History] Metoprolol Succinate (ER) [Toprol XL] 50 mg PO HS 11/26/21 [History] Multivit with Calcium,Iron,Min [Women's Multivitamin] 1 tab PO DAILY 11/26/21 [History] Neuriva 1 cap PO DAILY 11/26/21 [History] Vitamin C/Biotin [Hair, Skin and Nails Chew] 1 tab PO DAILY 11/26/21 [History] cloNIDine HCL [Catapres] 0.1 mg PO BID 11/26/21 [History] Follow up Appointment(s)/Referral(s): Lobito Ford MD [Primary Care Provider] - 1 Week Discharge Disposition: HOME SELF-CARE
[2021-11-28] MEDS ORDERED: IV FLUID CONTINUATION 600 ML IV ONE (13:41)
[2021-11-28] MEDS ORDERED: PROPOFOL 10 MG/ML 20 ML VIAL IV ONE (13:41)
--- NOTE | 2021-11-28 13:55 | P.OP ---
Date of Procedure: 11/28/21 Preoperative Diagnosis: GI bleed Postoperative Diagnosis: Internal and external hemorrhoids Incomplete colonoscopy secondary tortuosity of sigmoid colon Procedure(s) Performed: Colonoscopy Anesthesia: MAC Surgeon: Teofilo Brown Pathology: none sent Condition: stable Disposition: PACU Description of Procedure: Patient's placed on the endoscopy table in the lateral position. She received IV sedation. The digital rectal exam was performed which revealed internal and external hemorrhoids. Flexible colonoscope was then placed patient anus and placed into the sigmoid colon. Scope could not be advanced secondary to tortuosity of the colon. This point scope withdrawn. The pediatric scope was inserted patient rectum and passed into the sigmoid colon was again the pediatric scope could not be advanced secondary to the tight band of the sigmoid colon. At this point the scope was withdrawn. There is no evidence of any blood in the colon. The patient has history of bright red blood per rectum. His presumed that this may have been due to hemorrhoids. The patient will be scheduled for a barium enema to evaluate the proximal colon.
--- NOTE | 2021-11-28 14:12 | P.PN ---
Subjective Progress Note Date: 11/28/21 HISTORY OF PRESENT ILLNESS 76 year-old morbidly obese female one of my office patient who is known to have history of type 2 diabetes, hypertension, uterine cancer post surgery with radiation and chemo, history of overactive bladder, recurrent UTI and chronic arthritis. patient has not been feeling well last 24 hours developed to have recurrent bright red blood per rectum with worsening symptoms as a cause on ended up calling the office with a concern of the active recurrent bleed was instructed to come to the emergency department where was seen and evaluated at the time her hemoglobin remain good at 12.4 with no major abnormality negative troponin blood sugar was mildly elevated at 138. Hemoccult was positive patient has been complaining of increased discomfort in the mid lower abdominal region for the last few days become much worse last 48 hours. Patient was admitted to the hospital continue hydration watch CBC every 8-12 hours and consult general surgery for backup patient might need to be testing or intervention. 11/27: Patient has been seen by general surgery and scheduled for colonoscopy tomorrow. Repeat hemoglobin yesterday afternoon was 11.7 and lab work for this morning is still pending. Patient states she stopped leading rectally early in the night. She has started the prep for colonoscopy. Patient has been afebrile, heart rate 73, blood pressure 133/80, pulse ox 95% on room air. 11/28: Patient states that she completed today prep for colonoscopy and output was clear, no blood has been noted in more than 24 hours. She is scheduled for EGD today with Dr. Brown. Colonoscopy was incomplete secondary to tortuosity of the sigmoid colon and patient scheduled for barium enema tomorrow. Repeat hemoglobin is 10.7, BUN 4 and creatinine 0.42. Blood sugars running between 120 and 140. REVIEW OF SYSTEMS Constitutional: No fever, no chills, no night sweats. No weight change. No weakness, fatigue or lethargy. No daytime sleepiness. EENT: No headache. No blurred vision or double vision, no loss of vision. No loss of Hearing, no ringing in the ears, no dizziness. No nasal drainage or congestion. No epistaxis. No sore throat. Lungs: No shortness of breath, cough, no sputum production. No wheezing. Cardiovascular: No chest pain, no lower extremity edema. No palpitations. No paroxysmal nocturnal dyspnea. No orthopnea. No lightheadedness or dizziness. No syncopal episodes. Abdominal: No abdominal pain. No nausea, vomiting. No diarrhea. No constipation. Denies bloody or tarry stools.. No loss of appetite. Genitourinary: No dysuria, increased frequency, urgency. No urinary retention. Musculoskeletal: No myalgias. No muscle weakness, no gait dysfunction, no frequent falls. No back pain. No neck pain. Integumentary: No wounds, no lesions. No rash or pruritus. No unusual bruising. No change in hair or nails. Neurologic: No aphasia. No facial droop. No change in mentation. No head injury. No headache. No paralysis. No paresthesia. Psychiatric: No depression. No anxiety. No mood swings. Endocrine: No abnormal blood sugars. No weight change. No excessive sweating or thirst. No cold intolerance. PHYSICAL EXAMINATION Gen: This is a 75-year-old obese female. She is resting in bed appears to be comfortable and in no acute distress. HEENT: Head is atraumatic, normocephalic. Pupils equal, round. Sclerae is anicteric. NECK: Supple. No JVD. No lymphadenopathy. No thyromegaly. LUNGS: Clear to auscultation. No wheezes or rhonchi. No intercostal retractions. HEART: Regular rate and rhythm. No murmur. ABDOMEN: Soft. Bowel sounds are present. no abdominal pain, no rebound or rigidity. EXTREMITIES: No pedal edema. No calf tenderness. Dorsalis pedis +2 bilaterally NEUROLOGICAL: Patient is awake, alert and oriented x3. Cranial nerves 2 through 12 are grossly intact. ASSESSMENT AND PLAN 1 acute GI bleed: Most likely lower with bright red blood per rectum. Consult with general surgery, colonoscopy incomplete. Barium enema scheduled for tomorrow. 2 active gastritis and GERD: Patient will continue been on proton pump inhibitor twice a day for now. 3 History of type 2 diabetes: Has been well controlled on metformin continue medication continue Accu-Chek with sliding scales coverage. 4 atherosclerotic heart disease: Post angioplasty and stent placement, still doing well. 5 mild COPD: Has been on Pulmicort and albuterol. 6 History of uterine cancer status post surgery and radiation treatment in 1998, stable. 7 Overactive bladder. Continue oxybutynin 10 mg daily. 8 Hypertension. Catapres was discontinued and patient started on losartan 25 mg daily and Toprol-XL 25 mg daily. 9 GI prophylaxis. Protonix. 10 DVT prophylaxis. SCDs and KENNY hose. DISCHARGE PLAN Home. Impression and plan of care have been directed as dictated by the signing physician. Tia Enciso nurse practitioner acting as scribe for signing physician. Objective - Vital Signs Vital signs: Vital Signs Temp 97.9 F 11/28/21 07:52 Pulse 88 11/28/21 07:52 Resp 16 11/28/21 07:52 BP 150/80 11/28/21 07:52 Pulse Ox 96 11/28/21 07:52 FiO2 Intake & Output 11/27/21 11/28/21 11/28/21 18:59 06:59 18:59 Intake Total 2258 Balance 2258 Intake: Intake, IV Titration 900 Amount Sodium Chloride 0.9% 1, 900 000 ml @ 130 mls/hr IV . [id number] [facility] Rx#:[id number] Oral 1358 Other: Voiding Method Toilet Toilet # Voids 1 # Bowel Movements 10 3 - Labs CBC & Chem 7: 11/28/21 08:40 11/28/21 08:40 Labs: Abnormal Lab Results - Last 24 Hours (Table) 11/27/21 11/27/21 11/27/21 Range/Units 09:14 09:14 11:42 RBC 3.63 L (3.80-5.40) m/uL Hgb 10.8 L (11.4-16.0) gm/dL Hct 33.8 L (34.0-46.0) % Creatinine 0.44 L (0.52-1.04) mg/dL Glucose 134 H (74-99) mg/dL POC Glucose (mg/dL) 138 H (75-99) mg/dL Total Protein 6.0 L (6.3-8.2) g/dL 11/27/21 11/27/21 11/28/21 Range/Units 16:19 20:13 06:06 RBC (3.80-5.40) m/uL Hgb (11.4-16.0) gm/dL Hct (34.0-46.0) % Creatinine (0.52-1.04) mg/dL Glucose (74-99) mg/dL POC Glucose (mg/dL) 152 H 120 H 140 H (75-99) mg/dL Total Protein (6.3-8.2) g/dL
[2021-11-28 16:29] LABS: Glucose,Whole Blood 138 mg/dL (75-99)
[2021-11-28] MEDS: LACTATED RINGERS 1,000 ML IV SCH (17:10)
[2021-11-28 20:07] LABS: Glucose,Whole Blood 130 mg/dL (75-99)
[2021-11-28] MEDS: METOPROLOL SUCCINATE (ER) 50 MG TAB.ER.24H PO SCH (21:42)
[2021-11-28] MEDS: ISOSORBIDE MONONITRATE ER 15 MG TAB PO SCH (21:42)
--- NOTE | 2021-11-28 22:45 | XR ---
EXAMINATION TYPE: XR abdomen 1V DATE OF EXAM: 11/28/2021 3:32 PM CLINICAL HISTORY: Failed colonoscopy. TECHNIQUE: Two portable supine KUB images of the abdomen are obtained. COMPARISON: Abdominal x-ray January 08, 2013. FINDINGS: Gas prominent colon throughout the abdomen and pelvis consistent with recent attempted colo noscopy. Visualized lung bases are clear. Scoliosis with multilevel disc space narrowing and spurring throughout the thoracolumbar spine. Moderate axial joint space loss in both hips. IMPRESSION: As above. Barium enema study canceled due to gas prominent colon by another radiologist.
[2021-11-29] MEDS: SODIUM CHLORIDE 0.9% 1,000 ML IV SCH ×2 (03:10→13:42)
[2021-11-29] MEDS: INSULIN ASPART (NovoLOG) 100 UNIT/ML VIAL SQ SCH ×3 (06:30→16:46)
[2021-11-29 06:34] LABS: Glucose,Whole Blood 129 mg/dL (75-99)
[2021-11-29 07:27] LABS: HGB 9.7 gm/dL (11.4-16.0); MCH 30.2 pg (25.0-35.0); MCHC 32.5 g/dL (31.0-37.0); MCV 92.9 fL (80.0-100.0); Mean Platelet Volume 7.6; Platelet Count 252 k/uL (150-450); RBC 3.22 m/uL (3.80-5.40); RDW 14.1 % (11.5-15.5)
[2021-11-29] MEDS: SYMBICORT 160-4.5 MCG INHALER INHALATION SCH (07:54)
[2021-11-29 08:04] VITALS: TEMP 97.9
[2021-11-29] MEDS: ASPIRIN 81 MG PO SCH (08:16)
[2021-11-29] MEDS: cloNIDine HCL 0.1 MG TAB PO SCH (08:16)
[2021-11-29] MEDS: CYANOCOBALAMIN 500 MCG TAB PO SCH (08:16)
[2021-11-29] MEDS: CHOLECALCIFEROL 25 MCG (1000 IU) TABLET PO SCH (08:16)
[2021-11-29] MEDS: LOSARTAN 50 MG TAB PO SCH (08:16)
[2021-11-29 11:50] LABS: Glucose,Whole Blood 127 mg/dL (75-99)
[2021-11-29 12:34] VITALS: BP 145/71; PULSE 76
--- NOTE | 2021-11-29 13:18 | P.PN ---
Subjective Progress Note Date: 11/29/21 CHIEF COMPLAINT: GI bleed HISTORY OF PRESENT ILLNESS: Patient is sitting in bed. Denies abdominal pain. She does report still having blood per rectum. She had some blood clots passed around 4 AM this morning and then again around 10 AM. Each time the amount of blood is less and is becoming less frequent. Her hemoglobin did drop from 10.7- 9.7. She had colonoscopy completed yesterday that did reveal internal/external hemorrhoids and colonoscopy was incomplete secondary to tortuosity of the sigmoi d colon. It is presumed the bleeding is from hemorrhoids. Patient is scheduled for barium enema to evaluate the proximal colon. PHYSICAL EXAM: VITAL SIGNS: Reviewed. GENERAL: Well-developed in no acute distress. HEENT: No sclera icterus. Extraocular movements grossly intact. Moist buccal mucosa. Head is atraumatic, normocephalic. ABDOMEN: Soft. Nondistended. Nontender. NEUROLOGIC: Alert and oriented. Cranial nerves II through XII grossly intact. ASSESSMENT: 1. Acute GI bleed with bright red blood per rectum status post incomplete colonoscopy results did reveal internal and external hemorrhoids. PLAN: -Follow up on barium enema results -Continue to monitor hemoglobin -Continue to monitor for signs or symptoms of bleeding -Further recommendations forthcoming per surgeon Physician Technology Development Intern note has been reviewed by physician. Signing provider agrees with the documented findings, assessment, and plan of care. Objective - Vital Signs Vital signs: Vital Signs Temp 97.9 F 11/29/21 07:46 Pulse 76 11/29/21 12:00 Resp 16 11/29/21 12:00 BP 145/71 11/29/21 12:00 Pulse Ox 97 11/29/21 12:00 FiO2 Intake & Output 11/28/21 11/29/21 11/29/21 18:59 06:59 18:59 Intake Total 340 20 Output Total 1 Balance 339 20 Intake: IV 100 20 Invasive Line 1 10 Invasive Line 2 10 Oral 240 Output: Urine 1 Other: Voiding Method Toilet Toilet Toilet # Voids 1 4 1 # Bowel Movements 1 2 - Labs CBC & Chem 7: 11/29/21 06:58 11/28/21 08:40 Labs: Abnormal Lab Results - Last 24 Hours (Table) 11/28/21 11/28/21 11/29/21 Range/Units 16:27 20:04 06:29 RBC (3.80-5.40) m/uL Hgb (11.4-16.0) gm/dL Hct (34.0-46.0) % POC Glucose (mg/dL) 138 H 130 H 129 H (75-99) mg/dL 11/29/21 11/29/21 Range/Units 06:58 11:48 RBC 3.22 L (3.80-5.40) m/uL Hgb 9.7 L (11.4-16.0) gm/dL Hct 30.0 L (34.0-46.0) % POC Glucose (mg/dL) 127 H (75-99) mg/dL
[2021-11-29] MEDS: LACTATED RINGERS 1,000 ML IV SCH (13:42)
--- NOTE | 2021-11-29 13:47 | FL ---
EXAMINATION TYPE: FL barium enema w air contrast DATE OF EXAM: 11/29/2021 COMPARISON: Abdominal x-ray from yesterday HISTORY: History of GI bleed, bright red blood per rectum Thursday night/Thursday morning. Incomplete co lonoscopy yesterday. TECHNIQUE: A double contrast barium enema study is performed. A total of 2 minutes 36 seconds secon ds of fluoroscopic time was utilized during procedure and 22 images obtained. FINDINGS: Director Data Architecture view of the abdomen shows overall persistent gaseous prominent small and large bowel loops but colonoscopy will be attempted. There is scoliosis with multilevel disc space narrowing and spurring throughout the spine. There is successful filling to the level of the cecum. Redundancy and twisting of the sigmoid colon w ith prominent diverticulosis makes evaluation suboptimal for polyps. Suboptimal evaluation also due t o large body habitus and diminished mobility. There are a few additional diverticula in the left colo n and throughout the transverse colon. No obstructing or constricting neoplasm is identified. Appendix was filled and appeared normal. The terminal ileum was not refluxed. IMPRESSION: Successful filling to the cecum. No obstructing or constricting neoplasm identified.
[2021-11-29 14:04] VITALS: BMI 34.4
[2021-11-29 16:37] LABS: Glucose,Whole Blood 139 mg/dL (75-99)
== END 2021-11-29 17:57 | disposition home or self-care (01) | DRG 377 ==
LOC: EC 09:47 → 3SCARD 13:32
PROVIDERS: ADMIT Internal Medicine Geriatric Medicine; ATTEND Internal Medicine Geriatric Medicine
PROC: 0DJD8ZZ Inspection of Lower Intestinal Tract, Via Natural or Artificial Opening Endoscopic (ICD-10-PCS; principal; 2021-11-28 07:30)
DX: K57.31 Diverticulosis of large intestine without perforation or abscess with bleeding (principal); K56.2 Volvulus; K64.8 Other hemorrhoids; K64.4 Residual hemorrhoidal skin tags; K29.71 Gastritis, unspecified, with bleeding; E11.9 Type 2 diabetes mellitus without complications; E66.01 Morbid (severe) obesity due to excess calories; I10 Essential (primary) hypertension; I25.10 Atherosclerotic heart disease of native coronary artery without angina pectoris; J44.9 Chronic obstructive pulmonary disease, unspecified; K21.9 Gastro-esophageal reflux disease without esophagitis; N32.81 Overactive bladder; M79.671 Pain in right foot; Z96.653 Presence of artificial knee joint, bilateral; M19.90 Unspecified osteoarthritis, unspecified site; K59.00 Constipation, unspecified; Z86.2 Personal history of diseases of the blood and blood-forming organs and certain disorders involving the immune mechanism; Z79.51 Long term (current) use of inhaled steroids; Z79.82 Long term (current) use of aspirin; Z79.84 Long term (current) use of oral hypoglycemic drugs; Z79.899 Other long term (current) drug therapy; Z85.42 Personal history of malignant neoplasm of other parts of uterus; Z87.440 Personal history of urinary (tract) infections; Z90.710 Acquired absence of both cervix and uterus; Z92.3 Personal history of irradiation; Z92.21 Personal history of antineoplastic chemotherapy; Z98.890 Other specified postprocedural states; Z86.16 Personal history of COVID-19; Z90.89 Acquired absence of other organs; Z80.0 Family history of malignant neoplasm of digestive organs; Z80.8 Family history of malignant neoplasm of other organs or systems; Z83.79 Family history of other diseases of the digestive system; Z83.3 Family history of diabetes mellitus; Z63.4 Disappearance and death of family member
CPT/HCPCS: 36415; 45378; 74018; 74280; 80053; 84484; 85025; 85027; 85610; 85730; 93005; 94640; 96361; 96374; 99285

== ENCOUNTER 2021-12-09 13:29 | Emergency (ER) | payer MEDICARE, OTHER ==
--- NOTE | 2021-12-09 16:50 | ED ---
General Adult HPI - General Chief complaint: Abdominal Pain Stated complaint: rectal bleeding Time Seen by Provider: 12/09/21 16:37 Source: patient, RN notes reviewed, old records reviewed Mode of arrival: ambulatory Limitations: no limitations - History of Present Illness Initial comments: 76-year-old female presenting with rectal bleeding. Patient was recently admitted to this hospital with rectal bleeding. She underwent colonoscopy, and evaluation by both internal medicine and general surgery. She states she was discharged and continues to have rectal bleeding with bowel movements. She denies abdominal pain. She denies current anticoagulation. She states that she only has a bleeding with bowel movements. Never in between bowel movements. No lightheadedness or dizziness. No chest pain. - Related Data Home Medications Medication Instructions Recorded Confirmed metFORMIN HCL [Glucophage] 500 mg PO BID 08/19/17 11/26/21 Oxybutynin ER [Ditropan Xl] 10 mg PO HS 02/08/21 11/26/21 Albuterol Sulfate [Proair Hfa] 2 puff INHALATION RT-QID PRN 11/26/21 11/26/21 Aspirin 81 mg PO DAILY 11/26/21 11/26/21 Budesonide-Formot 160-4.5 Mcg 2 puff INHALATION RT-BID 11/26/21 11/26/21 [Symbicort 160-4.5 Mcg Inhaler] Calcium/Magnesium/Zinc 1 tab PO DAILY 11/26/21 11/26/21 [Ctjdhaz-Ftydouaas-Yuke Tablet] Cholecalciferol [Vitamin D3 (25 25 mcg PO DAILY 11/26/21 11/26/21 Mcg = 1000 Iu)] Cinnamon Bark [Cinnamon] 500 mg PO DAILY 11/26/21 11/26/21 Cranberry Fruit Extract [Cranberry] 500 mg PO DAILY 11/26/21 11/26/21 Cyanocobalamin (Vitamin B-12) 1,000 mcg PO DAILY 11/26/21 11/26/21 [Vitamin B-12] Elderberry Fruit and Flower [Black 1 cap PO DAILY 11/26/21 11/26/21 Elderberry 575 mg Cap] Isosorbide Mononitrate ER [Imdur] 15 mg PO HS 11/26/21 11/26/21 Losartan Potassium 100 mg PO DAILY 11/26/21 11/26/21 Metoprolol Succinate (ER) [Toprol 50 mg PO HS 11/26/21 11/26/21 XL] Multivit with Calcium,Iron,Min 1 tab PO DAILY 11/26/21 11/26/21 [Women's Multivitamin] Neuriva 1 cap PO DAILY 11/26/21 11/26/21 Vitamin C/Biotin [Hair, Skin and 1 tab PO DAILY 11/26/21 11/26/21 Nails Chew] cloNIDine HCL [Catapres] 0.1 mg PO BID 11/26/21 11/26/21 Allergies Allergy/AdvReac Type Severity Reaction Status Date / Time No Known Allergies Allergy Verified 12/09/21 14:06 Review of Systems ROS Statement: Those systems with pertinent positive or pertinent negative responses have been documented in the HPI. ROS Other: All systems not noted in ROS Statement are negative. Past Medical History Past Medical History: Cancer, Chest Pain / Angina, Hypertension, Osteoarthritis (OA) Additional Past Medical History / Comment(s): uterine cancer (surgery & radiation tx 1998), states "secondary lung disease", takes clonidine as preventative due to diabetes., Pain right foot- states using cane and walker, covid History of Any Multi-Drug Resistant Organisms: None Reported Past Surgical History: Heart Catheterization, Hysterectomy, Joint Replacement, Orthopedic Surgery, Tonsillectomy Additional Past Surgical History / Comment(s): total right knee x2 total left knee; Left foot surgery; maru trigger fingers. Heart Cath (may 2018 no stents) Past Anesthesia/Blood Transfusion Reactions: Blood Transfusion Reaction Additional Past Anesthesia/Blood Transfusion Reaction / Comment(s): Hx of rash with blood transfusion 1997 Past Psychological History: No Psychological Hx Reported Smoking Status: Never smoker Past Alcohol Use History: Daily Past Drug Use History: None Reported - Past Family History Daughter(s) Family Medical History: Thyroid Disorder Additional Family Medical History / Comment(s): Older - thyroid General Exam Limitations: no limitations General appearance: alert, in no apparent distress Head exam: Present: atraumatic, normocephalic Eye exam: Present: normal appearance ENT exam: Present: normal exam Neck exam: Present: normal inspection. Absent: tenderness, meningismus Respiratory exam: Present: normal lung sounds bilaterally. Absent: respiratory distress, wheezes Cardiovascular Exam: Present: regular rate, normal rhythm GI/Abdominal exam: Present: soft. Absent: distended, tenderness, guarding Rectal exam: Present: normal rectal tone. Absent: black stool, bloody stool, hemorrhoids (No external hemorrhoids) Back exam: Present: normal inspection Neurological exam: Present: alert, oriented X3, CN II-XII intact. Absent: motor sensory deficit Psychiatric exam: Present: normal affect, normal mood Skin exam: Present: warm, dry, intact. Absent: cyanosis, diaphoretic Course Vital Signs 12/09/21 14:01 Pulse Rate 78 Respiratory 20 Rate Blood Pressure 129/68 O2 Sat by Pulse 97 Oximetry Medical Decision Making - Medical Decision Making 76-year-old female presenting with persistent rectal bleeding. Patient had colonoscopy performed on recent admission which was negative for any source of the bleeding. She continues to have small amount of blood with bowel movements. No active bleeding on exam. Vital signs are stable. Hemoglobin is 9.8 which is slightly improved from 9.7. We discussed options and ultimately agreed upon strict return parameters and PCP follow-up. She will continue to monitor. - Lab Data Result diagrams: 12/09/21 17:08 12/09/21 17:08 Lab Results 12/09/21 12/09/21 12/09/21 Range/Units 17:08 17:08 17:08 WBC 6.8 (3.8-10.6) k/uL RBC 3.35 L (3.80-5.40) m/uL Hgb 9.8 L (11.4-16.0) gm/dL Hct 31.3 L (34.0-46.0) % MCV 93.4 (80.0-100.0) fL MCH 29.3 (25.0-35.0) pg MCHC 31.4 (31.0-37.0) g/dL RDW 14.8 (11.5-15.5) % Plt Count 413 (150-450) k/uL MPV 7.2 Neutrophils % 60 % Lymphocytes % 31 % Monocytes % 5 % Eosinophils % 2 % Basophils % 1 % Neutrophils # 4.1 (1.3-7.7) k/uL Lymphocytes # 2.1 (1.0-4.8) k/uL Monocytes # 0.3 (0-1.0) k/uL Eosinophils # 0.2 (0-0.7) k/uL Basophils # 0.1 (0-0.2) k/uL Hypochromasia Slight PT 9.9 (9.0-12.0) sec INR 0.9 (<1.2) APTT 23.0 (22.0-30.0) sec Sodium 138 (137-145) mmol/L Potassium 4.1 (3.5-5.1) mmol/L Chloride 106 (98-107) mmol/L Carbon Dioxide 25 (22-30) mmol/L Anion Gap 7 mmol/L BUN 14 (7-17) mg/dL Creatinine 0.52 (0.52-1.04) mg/dL Est GFR (CKD-EPI)AfAm >90 (>60 ml/min/1.73 sqM) Est GFR (CKD-EPI)NonAf >90 (>60 ml/min/1.73 sqM) Glucose 114 H (74-99) mg/dL Calcium 9.2 (8.4-10.2) mg/dL Total Bilirubin 0.2 (0.2-1.3) mg/dL AST 22 (14-36) U/L ALT 15 (4-34) U/L Alkaline Phosphatase 70 (38-126) U/L Total Protein 6.8 (6.3-8.2) g/dL Albumin 4.1 (3.5-5.0) g/dL Disposition Clinical Impression: Rectal bleeding Disposition: HOME SELF-CARE Condition: Fair Instructions (If sedation given, give patient instructions): Rectal Bleeding ( ED) Is patient prescribed a controlled substance at d/c from ED?: No Referrals: Lobito Ford MD [Primary Care Provider] - 1-2 days Time of Disposition: 17:45
[2021-12-09 17:19] LABS: Basophils # (A) 0.1 k/uL (0-0.2); Basophils % (A) 1 %; Eosinophils # (A) 0.2 k/uL (0-0.7); Eosinophils % (A) 2 %; HCT 31.3 % (34.0-46.0); HGB 9.8 gm/dL (11.4-16.0); Hypochromasia Slight; Lymphocytes # (A) 2.1 k/uL (1.0-4.8); Lymphocytes % (A) 31 %; MCH 29.3 pg (25.0-35.0); MCHC 31.4 g/dL (31.0-37.0); MCV 93.4 fL (80.0-100.0); Mean Platelet Volume 7.2; Monocytes # (A) 0.3 k/uL (0-1.0); Monocytes % (A) 5 %; Neutrophils # (A) 4.1 k/uL (1.3-7.7); Neutrophils % (A) 60 %; Platelet Count 413 k/uL (150-450); RBC 3.35 m/uL (3.80-5.40); RDW 14.8 % (11.5-15.5); WBC 6.8 k/uL (3.8-10.6)
[2021-12-09 17:30] LABS: ALT 15 U/L (4-34); AST 22 U/L (14-36); African American GFR (CKD) >90 (>60 ml/min/1.73 sqM); Albumin 4.1 g/dL (3.5-5.0); Alkaline Phosphatase 70 U/L (38-126); Anion Gap 7 mmol/L; Blood Urea Nitrogen 14 mg/dL (7-17); Calcium 9.2 mg/dL (8.4-10.2); Carbon Dioxide 25 mmol/L (22-30); Chloride 106 mmol/L (98-107); Glucose 114 mg/dL (74-99); Non-African American GFR(CKD) >90 (>60 ml/min/1.73 sqM); Potassium 4.1 mmol/L (3.5-5.1); Sodium 138 mmol/L (137-145); Total Bilirubin 0.2 mg/dL (0.2-1.3); Total Protein 6.8 g/dL (6.3-8.2)
[2021-12-09 17:33] LABS: INR 0.9 (<1.2); Prothrombin Time 9.9 sec (9.0-12.0)
[2021-12-09 18:24] VITALS: BP 128/76; PULSE 68; RESP 17; TEMP 97.8
== END 2021-12-09 18:24 | disposition home or self-care (01) ==
LOC: EC 13:29
DX: K62.5 Hemorrhage of anus and rectum (principal); I10 Essential (primary) hypertension
CPT/HCPCS: 36415; 80053; 85025; 85610; 85730; 99283

== ENCOUNTER → 2022-04-24 | Outpatient (CLI) | payer MEDICARE, OTHER ==
--- NOTE | 2022-04-25 08:09 | MM ---
Reason for Exam: Screening (asymptomatic). Last mammogram was performed 3 year(s) and 6 month(s) ago. Patient History: Menarche at age 14. First Full-Term at age 24. Left ovary removed at age 51. Right ovary removed at age 51. Hysterectomy at age 51. Postmenopausal. Endometrial cancer, age 51. 10/12/2018, Benign Core Biopsy on the right side. Risk Values: Manuela 5 year model risk: 1.7%. NCI Lifetime model risk: 3.5%. Prior Study Comparison: 09/29/2018 Bilateral Screening Mammogram, [facility]. 10/05/2018 Right Diagnostic Mammogram, [facility]. 04/04/2019 Right Diagnostic Mammogram, [facility]. Tissue Density: There are scattered fibroglandular densities. Findings: Analyzed By CAD. There is no suspicious group of microcalcifications or new suspicious mass in either breast. Overall Assessment: Benign, BI-RAD 2 Management: Screening Mammogram of both breasts in 1 year. A clinical breast exam by your physician is recommended on an annual basis and results should be correlated with mammographic findings. Electronically signed and approved by: Arya Cooney M.D. Radiologis
== END | disposition home or self-care (01) ==
LOC: RADMAMWWP 10:33
PROVIDERS: ATTEND Internal Medicine Geriatric Medicine
DX: Z12.31 Encounter for screening mammogram for malignant neoplasm of breast (principal); Z78.0 Asymptomatic menopausal state; Z90.721 Acquired absence of ovaries, unilateral
CPT/HCPCS: 77063; 77067

== ENCOUNTER → 2022-06-26 | Outpatient (CLI) | payer MEDICARE, OTHER ==
--- NOTE | 2022-06-26 14:08 | BD ---
EXAMINATION TYPE: Axial Bone Density DATE OF EXAM: 06/26/2022 COMPARISON: 08/28/2014 CLINICAL HISTORY: 77 years year old Female. ICD-10 CODE: M81.0 OSTEOPOROSIS Height: 64.5 Weight: 238.4 FRAX RISK QUESTIONS: Alcohol (3 or more units per day): NO Family History (Parent hip fracture): NO Glucocorticoids (More than 3mos): INHALER OCCASIONALLY FOR A FEW YEARS (Ex: prednisone, prednisolone, methylprednisolone, dexamethasone, and hydrocortisone). History of Fracture in Adulthood: NO Secondary Osteoporosis: 1. Type 1 Diabetes: NO 2. Hyperthyroidism: NO 3. Menopause before 45: NO 4. Malnutrition: NO 5. Chronic liver disease: NO Rheumatoid Arthritis: NO Current Tobacco Use: NO RISK FACTORS HISTORY OF: Hip Fracture (Right/Left): NO Spine Fracture: NO History of Wrist Fracture: NO Surgery to Spine/Hip(right/left)/Wrist (right/left): NO Family History of Osteoporosis: NO Active: YES Diet low in dairy products/other sources of calcium: YES Lost more than 2 inches in height since high school: YES Frequent falls: NO Poor Health: GOOD HEALTH Hyperparathyroidism: NO Adrenal Insufficiency: NO MEDICATIONS: Prednisone or other steroids: NO Thyroid Medications: NO Osteoporosis Medications: NO Additional Medications: BLOOD PRESSURE MEDS, METFORMIN, CALCIUM, MAGNESIUM, ZINC, B12, VIT D, FRUIT A ND VEGGIE SUPPLEMENT Additional History: HX OF RADIATION FOR UTERINE CANCER EXAM MEASUREMENTS: Bone mineral densitometry was performed using the [employer] System. Bone mineral density as measured about the Lumbar spine is: ----- L1-L4(G/cm2): 1.641 T Score Values are as follows: ----- L1: 0.7 ----- L2: 2.6 ----- L3: 5.9 ----- L4: 6.1 ----- L1-L4: 3.8 Bone mineral density has: INCREASED 2.1% since study of: 08/28/2014 Bone mineral density about the R hip (g/cm2): 1.016 Bone mineral density about the L hip (g/cm2): 1.001 T Score values are as follows: -----R Neck: -0.2 -----L Neck: -0.3 -----R Total: -0.1 -----L Total: 0.1 Bone mineral density has: DECREASED -6.3% since study of: 08/28/2014 FRAX%s: The graph provided illustrates a 7.6% chance for a major osteoporotic fx and a 0.8% chance fo r the hips probability for fx in 10 years time. IMPRESSION: Normal (Values between +1 and -1 indicate normal bone mass). Consider repeating this study in 5 year s or sooner if there is some new clinical indication. NOTE: T-SCORE=SD OF THE YOUNG ADULT MEAN.
== END | disposition home or self-care (01) ==
LOC: RADBDWWP 08:59
PROVIDERS: ATTEND Internal Medicine Geriatric Medicine
DX: M81.0 Age-related osteoporosis without current pathological fracture (principal); Z92.3 Personal history of irradiation
CPT/HCPCS: 77080

== ENCOUNTER → 2022-12-22 | Outpatient (CLI) | payer MEDICARE, OTHER ==
--- NOTE | 2022-12-22 15:16 | XR ---
EXAMINATION TYPE: XR chest 2V DATE OF EXAM: 12/22/2022 3:11 PM COMPARISON: Chest radiographs from 02/08/2021 TECHNIQUE: XR chest 2V Frontal and lateral views of the chest. CLINICAL INDICATION:Female, 77 years old with history of R06.02; FINDINGS: Lungs/Pleura: There is no evidence of pleural effusion, focal consolidation, or pneumothorax. Chroni c senescent parenchymal change. Pulmonary vascularity: Unremarkable. Heart/mediastinum: Cardiomediastinal silhouette is unremarkable. Musculoskeletal: No acute osseous pathology. Degenerative changes of the thoracic spine. Bilateral sh oulder arthropathy. IMPRESSION: No acute cardiopulmonary disease/process.
== END | disposition home or self-care (01) ==
LOC: RADXRMAIN 14:44
PROVIDERS: ATTEND Physician Assistant
DX: R06.02 Shortness of breath (principal)
CPT/HCPCS: 71046

== ENCOUNTER → 2022-12-23 | Outpatient (CLI) | payer MEDICARE, OTHER ==
--- NOTE | 2022-12-24 10:37 | CA ---
Transthoracic Echo Report Name: Susan Hopkins Age: 77 Gender: F : 1945 Exam Date: 12/23/2022 13:30 Exam Location: [facility] Ht (in): 66 Wt (lb): 235 Ordering Physician: Lobito Ford MD Attending/Referring Phys: Kristin Garrett PAC Options Advisor Deloris Hanna RDCS Procedure CPT: Indications: I25.119 Cardiac Hx: Technical Quality: Fair Contrast 1: Total Dose (mL): Contrast 2: Total Dose (mL): MEASUREMENTS (Male / Female) Normal Values 2D ECHO LV Diastolic Diameter PLAX 3.6 cm 4.2 - 5.9 / 3.9 - 5.3 cm LV Systolic Diameter PLAX 2.8 cm IVS Diastolic Thickness 1.2 cm 0.6 - 1.0 / 0.6 - 0.9 cm LVPW Diastolic Thickness 1.3 cm 0.6 - 1.0 / 0.6 - 0.9 cm LV Relative Wall Thickness 0.7 RV Internal Dim ED PLAX 2.7 cm LVOT Diameter 1.9 cm LA Systolic Diameter LX 2.8 cm 3.0 - 4.0 / 2.7 - 3.8 cm LV Diastolic Volume MOD 4C 111.9 cm??? LV Systolic Volume MOD 4C 52.8 cm??? LV Ejection Fraction MOD 4C 52.8 % LV Cardiac Index MOD 4C 2178.6 cm???/min???m??? LV Diastolic Length 4C 8.3 cm LV Systolic Length 4C 7.1 cm LV Diastolic Volume MOD 2C 58.3 cm??? LV Systolic Volume MOD 2C 21.3 cm??? LV Ejection Fraction MOD 2C 63.4 % LV Cardiac Index MOD 2C 1363.6 cm???/min???m??? LV Diastolic Length 2C 7.5 cm LV Systolic Length 2C 6.6 cm LA Volume 66.0 cm??? 18 - 58 / 22 - 52 cm??? M-MODE Aortic Root Diameter MM 3.4 cm MV E Point Septal Separation 0.3 cm AV Cusp Separation MM 1.6 cm DOPPLER AV Peak Velocity 286.4 cm/s AV Peak Gradient 32.8 mmHg AV Mean Velocity 196.9 cm/s AV Mean Gradient 18.5 mmHg AV Velocity Time Integral 56.8 cm LVOT Peak Velocity 137.7 cm/s LVOT Peak Gradient 7.6 mmHg AV Area Cont Eq pk 1.4 cm??? MV Peak Velocity 182.6 cm/s MV Peak Gradient 13.3 mmHg MV Mean Velocity 107.6 cm/s MV Mean Gradient 5.2 mmHg MV Velocity Time Integral 43.2 cm MV Area PHT 1.9 cm??? Mitral E Point Velocity 110.2 cm/s Mitral A Point Velocity 162.8 cm/s Mitral E to A Ratio 0.7 MV Deceleration Time 359.6 ms TR Peak Velocity 278.4 cm/s TR Peak Gradient 31.0 mmHg Right Ventricular Systolic Press 35.9 mmHg FINDINGS Left Ventricle Left ventricular ejection fraction is estimated at 55-60 %. Small left ventricular cavity. Mildly increased septal wall thickness. Mildly increased posterior wall thickness. Normal left ventricular wall motion. Right Ventricle Normal right ventricular size and function. Mild pulmonary hypertension. Right Atrium Normal right atrial size. Left Atrium Moderately increased left atrial volume. Mitral Valve Moderate thickening/calcification of the anterior mitral valve leaflet. Moderate thickening/calcification of the posterior mitral valve leaflet. Moderately decreased mobility of the posterior mitral valve leaflet. Mild to moderate mitral stenosis with mean gradient of 5 mmHg. Moderate mitral annular calcification. Aortic Valve Moderate aortic valve sclerosis. Mild aortic stenosis with a peak gradient of 33 mmHg and a mean gradient of 19 mmHg. Tricuspid Valve Structurally normal tricuspid valve. Mild tricuspid regurgitation. Pulmonic Valve Pulmonic valve not well visualized. Trace pulmonic regurgitation. Pericardium Normal pericardium. No pericardial effusion. Aorta Normal size aortic root and proximal ascending aorta. CONCLUSIONS Normal LV size and systolic function with mild concentric LVH. Mitral annular calcification and nonspecific thickening of mitral valve leaflets with mild restriction. Aortic valve sclerosis with calcification and mild to moderate stenosis without significant regurgitation. No significant pulmonary hypertension no pericardial effusion Previewed by: Dr. Rupert Lobo MD (Electronically Signed) Final Date: 24 December 2022 10:36
== END | disposition home or self-care (01) ==
LOC: RADECHMAIN 13:15
PROVIDERS: ATTEND Internal Medicine Geriatric Medicine
DX: I35.0 Nonrheumatic aortic (valve) stenosis (principal); I25.119 Atherosclerotic heart disease of native coronary artery with unspecified angina pectoris
CPT/HCPCS: 93306

== ENCOUNTER 2023-08-02 06:57 | Emergency (ER) | payer MEDICARE, OTHER ==
[2023-08-02 07:26] VITALS: TEMP 98.6
[2023-08-02] MEDS ORDERED: KETOROLAC 15 MG/ML 1 ML VIAL IVP STA (07:35)
[2023-08-02] MEDS ORDERED: SODIUM CHLORIDE 0.9% 1,000 ML IV ONE (07:35)
[2023-08-02] MEDS ORDERED: SODIUM CHLORIDE 0.9% 500 ML 500 ML IV ONE (07:35)
[2023-08-02] MEDS ORDERED: ONDANSETRON 4 MG/2 ML VIAL IVP STA (07:35)
--- NOTE | 2023-08-02 07:39 | ED ---
General Adult HPI - General Chief complaint: Back Pain/Injury Stated complaint: back pain Time Seen by Provider: 08/02/23 07:15 Source: patient, RN notes reviewed, old records reviewed Mode of arrival: ambulatory Limitations: no limitations - History of Present Illness Initial comments: This is a 78-year-old female presents to the emergency department stating she had 2 episodes of diarrhea prior to bed last night. Patient each went to bed last night and when she woke up at 7:00 this morning she need to go to the bathroom when she got her walker and since she went she had a little bit of urinary incontinence and she is not sure why that occurred she is not having any currently. Patient states she went to the bathroom and started having signific ant right-sided back pain and flank pain. Patient denies any dysuria or hematuria. Patient denies any abdominal pain. Patient denies any vomiting but was having dry heaves. Patient denies any fevers or chills per patient chest pain or difficulty breathing. - Related Data Home Medications Medication Instructions Recorded Confirmed metFORMIN HCL [Glucophage] 500 mg PO BID 08/19/17 11/26/21 Oxybutynin ER [Ditropan XL] 10 mg PO HS 02/08/21 11/26/21 Albuterol Sulfate [Proair Hfa] 2 puff INHALATION RT-QID PRN 11/26/21 11/26/21 Aspirin 81 mg PO DAILY 11/26/21 11/26/21 Budesonide-Formot 160-4.5 Mcg 2 puff INHALATION RT-BID 11/26/21 11/26/21 [Symbicort 160-4.5 Mcg Inhaler] Calcium/Magnesium/Zinc 1 tab PO DAILY 11/26/21 11/26/21 [Esxbnmy-Fbcnqtehz-Dptu Tablet] Cholecalciferol [Vitamin D3 (25 25 mcg PO DAILY 11/26/21 11/26/21 Mcg = 1000 Iu)] Cinnamon Bark [Cinnamon] 500 mg PO DAILY 11/26/21 11/26/21 Cranberry Fruit Extract [Cranberry] 500 mg PO DAILY 11/26/21 11/26/21 Cyanocobalamin (Vitamin B-12) 1,000 mcg PO DAILY 11/26/21 11/26/21 [Vitamin B-12] Elderberry Fruit and Flower [Black 1 cap PO DAILY 11/26/21 11/26/21 Elderberry 575 mg Cap] Isosorbide Mononitrate ER [Imdur] 15 mg PO HS 11/26/21 11/26/21 Losartan Potassium 100 mg PO DAILY 11/26/21 11/26/21 Metoprolol Succinate (ER) [Toprol 50 mg PO HS 11/26/21 11/26/21 XL] Multivit with Calcium,Iron,Min 1 tab PO DAILY 11/26/21 11/26/21 [Women's Multivitamin] Neuriva 1 cap PO DAILY 11/26/21 11/26/21 Vitamin C/Biotin [Hair, Skin and 1 tab PO DAILY 11/26/21 11/26/21 Nails Chew] cloNIDine HCL [Catapres] 0.1 mg PO BID 11/26/21 11/26/21 Previous Rx's Medication Instructions Recorded Ketorolac [Toradol] 10 mg PO Q6HR #15 tab 08/02/23 Nitrofurantoin Monohyd/M-Cryst 100 mg PO Q12HR #14 cap 08/02/23 [Macrobid] Allergies Allergy/AdvReac Type Severity Reaction Status Date / Time No Known Allergies Allergy Verified 08/02/23 07:16 Review of Systems ROS Statement: Those systems with pertinent positive or pertinent negative responses have been documented in the HPI. ROS Other: All systems not noted in ROS Statement are negative. Past Medical History Past Medical History: Cancer, Chest Pain / Angina, Hypertension, Osteoarthritis (OA) Additional Past Medical History / Comment(s): uterine cancer (surgery & radiation tx 1998), states "secondary lung disease", takes clonidine as preventative due to diabetes., Pain right foot- states using cane and walker, covid History of Any Multi-Drug Resistant Organisms: None Reported Past Surgical History: Heart Catheterization, Hysterectomy, Joint Replacement, Orthopedic Surgery, Tonsillectomy Additional Past Surgical History / Comment(s): total right knee x2 total left knee; Left foot surgery; maru trigger fingers. Heart Cath (may 2018 no stents) Past Anesthesia/Blood Transfusion Reactions: Blood Transfusion Reaction Additional Past Anesthesia/Blood Transfusion Reaction / Comment(s): Hx of rash with blood transfusion 1997 Past Psychological History: No Psychological Hx Reported Smoking Status: Never smoker Past Alcohol Use History: Daily Past Drug Use History: None Reported - Past Family History Daughter(s) Family Medical History: Thyroid Disorder Additional Family Medical History / Comment(s): Older - thyroid General Exam - General Exam Comments Initial Comments: GENERAL: Patient is well-developed and well-nourished. Patient is nontoxic and well- hydrated and is in moderate distress. ENT: Neck is soft and supple. No significant lymphadenopathy is noted. Oropharynx is clear. Moist mucous membranes. Neck has full range of motion without eliciting any pain. EYES: The sclera were anicteric and conjunctiva were pink and moist. Extraocular movements were intact and pupils were equal round and reactive to light. Eyelids were unremarkable. PULMONARY: Unlabored respirations. Good breath sounds bilaterally. No audible rales rhonchi or wheezing was noted. CARDIOVASCULAR: There is a regular rate and rhythm without any murmurs gallops or rubs. ABDOMEN: Soft and nontender with normal bowel sounds. There is no reproducible pain SKIN: Skin is clear with no lesions or rashes and otherwise unremarkable. NEUROLOGIC: Patient is alert and oriented x3. Cranial nerves II through XII are grossly intact. Motor and sensory are also intact. Normal speech, volume and content. Symmetrical smile. MUSCULOSKELETAL: Normal extremities with adequate strength and full range of motion. Patient has no CVA tenderness or reproducible pain in the back LYMPHATICS: No significant lymphadenopathy is noted PSYCHIATRIC: Normal psychiatric evaluation. Limitations: no limitations Course Vital Signs 08/02/23 07:13 Temperature 98.6 F Pulse Rate 84 Respiratory 18 Rate Blood Pressure 205/99 O2 Sat by Pulse 96 Oximetry Medical Decision Making - Medical Decision Making Was pt. sent in by a medical professional or institution (, PA, ENTRY LEVEL MANAGER, urgent care, hospital, or shelter...) When possible be specific @ -No Did you speak to anyone other than the patient for history (EMS, parent, family, police, friend...)? What history was obtained from this source @ -No Did you review nursing and triage notes (agree or disagree)? Why? @ -I reviewed and agree with nursing and triage notes Were old charts reviewed (outside hosp., previous admission, EMS record, old EKG, old radiological studies, urgent care reports/EKG's, shelter records)? Report findings @ -No old charts were reviewed Differential Diagnosis (chest pain, altered mental status, abdominal pain women, abdominal pain men, vaginal bleeding, weakness, fever, dyspnea, syncope, headache, dizziness, GI bleed, back pain, seizure, CVA, palpatations, mental health, musculoskeletal)? @ -Differential Back Pain: Strain, zoster, cauda equina syndrome, epidural abscess, vertebral osteomyelitis, discitis, fracture, subluxation, disc herniation, DJD, spinal stenosis, dissection, AAA, pancreatitis, peptic ulcer disease, pyelonephritis, kidney stone, this is not meant to be an all-inclusive list. EKG interpreted by me (3pts min.). @ -As above X-rays interpreted by me (1pt min.). @ -None done CT interpreted by me (1pt min.). @ -CT scan shows some mild hydro on the left but no obstructing stone U/S interpreted by me (1pt. min.). @ -None done What testing was considered but not performed or refused? (CT, X-rays, U/S, labs)? Why? @ -None What meds were considered but not given or refused? Why? @ -None Did you discuss the management of the patient with other professionals (professionals i.e. , PA, ENTRY LEVEL MANAGER, lab, RT, psych nurse, aids social worker, dynamite packing machine operator, teacher, school services officer, bilingual case manager)? Give summary @ -No Was smoking cessation discussed for >3mins.? @ -No Was critical care preformed (if so, how long)? @ -No Were there social determinants of health that impacted care today? How? (Homelessness, low income, unemployed, alcoholism, drug addiction, transportation, low edu. Level, literacy, decrease access to med. care, retirement, rehab)? @ -No Was there de-escalation of care discussed even if they declined (Discuss DNR or withdrawal of care, Hospice)? DNR status @ -No What co-morbidities impacted this encounter? (DM, HTN, Smoking, COPD, CAD, Cancer, CVA, ARF, Chemo, Hep., AIDS, mental health diagnosis, sleep apnea, morbid obesity)? @ -None Was patient admitted / discharged? Hospital course, mention meds given and route, prescriptions, significant lab abnormalities, going to OR and other pertinent info. @ -I went back in the room to reevaluate the patient after she received Toradol she was feeling considerably better. Patient did have some blood in the urine and few white cells so I will treat her for urinary tract infection and give her Toradol for pain for the potential of a kidney stone. Patient was informed that she needs to follow-up to make sure that the hematuria does not resolve Undiagnosed new problem with uncertain prognosis? @ -No Drug Therapy requiring intensive monitoring for toxicity (Heparin, Nitro, Insulin, Cardizem)? @ -No Were any procedures done? @ -No Diagnosis/symptom? @ -Hematuria Acute, or Chronic, or Acute on Chronic? @ -Acute Uncomplicated (without systemic symptoms) or Complicated (systemic symptoms)? @ -Complicated Side effects of treatment? @ -No Exacerbation, Progression, or Severe Exacerbation? @ -No Poses a threat to life or bodily function? How? (Chest pain, [place], [place], pneumonia, PE, COPD, DKA, ARF, appy, cholecystitis, CVA, Diverticulitis, Homicidal, Suicidal, threat to staff... and all critical care pts) @ -No Diagnosis/symptom? @ -Urinary tract infection Acute, or Chronic, or Acute on Chronic? @ -Acute Uncomplicated (without systemic symptoms) or Complicated (systemic symptoms)? @ -Complicated Side effects of treatment? @ -None Exacerbation, Progression, or Severe Exacerbation] @ -No Poses a threat to life or bodily function? @ -No - Lab Data Result diagrams: 08/02/23 07:46 08/02/23 07:46 Lab Results 08/02/23 08/02/23 08/02/23 Range/Units 07:46 07:46 07:46 WBC 8.0 (3.8-10.6) k/uL RBC 4.81 (3.80-5.40) m/uL Hgb 14.1 (11.4-16.0) gm/dL Hct 43.4 (34.0-46.0) % MCV 90.2 (80.0-100.0) fL MCH 29.4 (25.0-35.0) pg MCHC 32.6 (31.0-37.0) g/dL RDW 13.8 (11.5-15.5) % Plt Count 330 (150-450) k/uL MPV 8.0 Neutrophils % 85 % Lymphocytes % 11 % Monocytes % 3 % Eosinophils % 1 % Basophils % 1 % Neutrophils # 6.8 (1.3-7.7) k/uL Lymphocytes # 0.9 L (1.0-4.8) k/uL Monocytes # 0.2 (0-1.0) k/uL Eosinophils # 0.1 (0-0.7) k/uL Basophils # 0.0 (0-0.2) k/uL Sodium 138 (137-145) mmol/L Potassium 4.1 (3.5-5.1) mmol/L Chloride 105 (98-107) mmol/L Carbon Dioxide 23 (22-30) mmol/L Anion Gap 10 mmol/L BUN 17 (7-17) mg/dL Creatinine 0.40 L (0.52-1.04) mg/dL Est GFR (CKD-EPI)AfAm >90 (>60 ml/min/1.73 sqM) Est GFR (CKD-EPI)NonAf >90 (>60 ml/min/1.73 sqM) Glucose 168 H (74-99) mg/dL Calcium 9.3 (8.4-10.2) mg/dL Total Bilirubin 0.5 (0.2-1.3) mg/dL AST 23 (14-36) U/L ALT 18 (4-34) U/L Alkaline Phosphatase 104 (38-126) U/L Total Protein 7.4 (6.3-8.2) g/dL Albumin 4.3 (3.5-5.0) g/dL Urine Color Colorless Urine Appearance Clear (Clear) Urine pH 7.5 (5.0-8.0) Ur Specific [place] 1.017 (1.001-1.035) Urine Protein Trace H (Negative) Urine Glucose (UA) Trace H (Negative) Urine Ketones 1+ H (Negative) Urine Blood Trace H (Negative) Urine Nitrite Negative (Negative) Urine Bilirubin Negative (Negative) Urine Urobilinogen <2.0 (<2.0) mg/dL Ur Leukocyte Esterase Negative (Negative) Urine RBC 25 H (0-5) /hpf Urine WBC 13 H (0-5) /hpf Ur Squamous Epith Cells 1 (0-4) /hpf Urine Mucus Rare H (None) /hpf Disposition Clinical Impression: Hematuria, Urinary tract infection Disposition: HOME SELF-CARE Condition: Good Instructions (If sedation given, give patient instructions): Urinary Tract Infection in Women (ED), Hematuria (ED) Prescriptions: Nitrofurantoin Monohyd/M-Cryst [Macrobid] 100 mg PO Q12HR #14 cap Ketorolac [Toradol] 10 mg PO Q6HR #15 tab Is patient prescribed a controlled substance at d/c from ED?: No Referrals: Lobito Ford MD [Primary Care Provider] - 1-2 days Time of Disposition: 09:19
[2023-08-02 08:12] LABS: Basophils % (A) 1 %; Eosinophils # (A) 0.1 k/uL (0-0.7); Eosinophils % (A) 1 %; HCT 43.4 % (34.0-46.0); HGB 14.1 gm/dL (11.4-16.0); Lymphocytes # (A) 0.9 k/uL (1.0-4.8); Lymphocytes % (A) 11 %; MCH 29.4 pg (25.0-35.0); MCHC 32.6 g/dL (31.0-37.0); MCV 90.2 fL (80.0-100.0); Monocytes # (A) 0.2 k/uL (0-1.0); Monocytes % (A) 3 %; Neutrophils # (A) 6.8 k/uL (1.3-7.7); Neutrophils % (A) 85 %; Platelet Count 330 k/uL (150-450); RBC 4.81 m/uL (3.80-5.40); RDW 13.8 % (11.5-15.5)
[2023-08-02 08:17] LABS: ALT 18 U/L (4-34); AST 23 U/L (14-36); African American GFR (CKD) >90 (>60 ml/min/1.73 sqM); Albumin 4.3 g/dL (3.5-5.0); Alkaline Phosphatase 104 U/L (38-126); Anion Gap 10 mmol/L; Blood Urea Nitrogen 17 mg/dL (7-17); Calcium 9.3 mg/dL (8.4-10.2); Carbon Dioxide 23 mmol/L (22-30); Chloride 105 mmol/L (98-107); Glucose 168 mg/dL (74-99); Non-African American GFR(CKD) >90 (>60 ml/min/1.73 sqM); Potassium 4.1 mmol/L (3.5-5.1); Sodium 138 mmol/L (137-145); Total Bilirubin 0.5 mg/dL (0.2-1.3); Total Protein 7.4 g/dL (6.3-8.2)
--- NOTE | 2023-08-02 08:33 | CT ---
EXAMINATION TYPE: CT abdomen pelvis wo con DATE OF EXAM: 08/02/2023 COMPARISON: 01/12/2013 HISTORY: Back and abdominal pain CT DLP: 1404.9 mGycm Examination of the solid and hollow viscera is limited given the lack of contrast. FINDINGS: LUNG BASES: No evidence for nodule. No evidence for infiltrate. Small hiatal hernia. LIVER/GB: Layering gallstones noted. No space-occupying hepatic lesion. PANCREAS: No pancreatic mass identified. No inflammatory process seen. SPLEEN: No evidence for splenomegaly. No intrasplenic lesions seen. ADRENALS: No adrenal nodules identified. No evidence for thickening. KIDNEYS: No evidence for renal mass. There is mild left-sided hydronephrosis however an obstructing c alculus is not seen with certainty at this time. There are several calcifications adjacent to the dis edgar left ureter which are felt to reflect phleboliths. Correlate clinically for recently passed calcu fabiola. There are also calculi near the base of the urinary bladder and could reflect urethral calculi h owever. However appear to have been present on prior study of 2012. BOWEL: Appendix has a normal appearance. No evidence of bowel obstruction. No inflammatory process. Lymph nodes: No evidence for adenopathy greater than 1 cm. Abdominal aorta: Atheromatous changes seen. No evidence for aneurysm. Genital organs: No significant abnormality. Other: Fat-containing umbilical hernia. Severe degenerative changes lumbar spine. IMPRESSION: There is mild left-sided hydronephrosis however an obstructing calculus is not seen with certainty at this time. There are several calcifications adjacent to the distal left ureter which are felt to ref lect phleboliths. Correlate clinically for recently passed calculus.
[2023-08-02 08:47] LABS: Appearance,Urine Clear (Clear); Bilirubin,Urine Negative (Negative); Blood,Urine Trace (Negative); Color,Urine Colorless; Glucose,Urine (UA) Trace (Negative); Ketones,Urine 1+ (Negative); Leukocyte Esterase,Urine Negative (Negative); Mucus,Urine Rare /hpf; Nitrite,Urine Negative (Negative); PH, Urine 7.5 (5.0-8.0); Protein,Urine Trace (Negative); RBC,Urine 25 /hpf (0-5); Specific Gravity,Urine 1.017 (1.001-1.035); Squamous Epithelial Cell,Urine 1 /hpf (0-4); Urobilinogen,Urine <2.0 mg/dL (<2.0); WBC,Urine 13 /hpf (0-5)
[2023-08-02] MEDS ORDERED: cefTRIAXone IN SWFI 1,000 MG/10 ML SYRINGE IVP STA (09:23)
[2023-08-02 09:43] VITALS: BP 175/89; PULSE 90; RESP 20
== END 2023-08-02 09:38 | disposition home or self-care (01) ==
LOC: EC 06:57
DX: N39.0 Urinary tract infection, site not specified (principal); N13.30 Unspecified hydronephrosis; I10 Essential (primary) hypertension; E11.9 Type 2 diabetes mellitus without complications; M19.90 Unspecified osteoarthritis, unspecified site; Z79.84 Long term (current) use of oral hypoglycemic drugs; Z79.82 Long term (current) use of aspirin; Z79.899 Other long term (current) drug therapy; Z86.16 Personal history of COVID-19
CPT/HCPCS: 36415; 80053; 85025; 81001; 87086; 74176; 99284; 96374; 96375 ×2; 96361; J2405; J0696; J1885

== ENCOUNTER 2023-10-05 09:58 | Observation (INO) | payer MEDICARE, OTHER ==
[2023-10-05] MEDS: NITROGLYCERIN SL TABS 0.4 MG TAB SUBLINGUAL STA (10:30)
[2023-10-05] MEDS: ASPIRIN 81 MG PO STA (10:30)
[2023-10-05 10:58] LABS: Basophils % (A) 1 %; Eosinophils # (A) 0.1 k/uL (0-0.7); Eosinophils % (A) 1 %; HCT 41.9 % (34.0-46.0); HGB 13.6 gm/dL (11.4-16.0); Lymphocytes # (A) 1.3 k/uL (1.0-4.8); Lymphocytes % (A) 22 %; MCHC 32.5 g/dL (31.0-37.0); MCV 92.1 fL (80.0-100.0); Mean Platelet Volume 7.4; Monocytes # (A) 0.3 k/uL (0-1.0); Monocytes % (A) 5 %; Neutrophils # (A) 4.3 k/uL (1.3-7.7); Neutrophils % (A) 70 %; Platelet Count 312 k/uL (150-450); RBC 4.55 m/uL (3.80-5.40); RDW 13.3 % (11.5-15.5); WBC 6.2 k/uL (3.8-10.6)
--- NOTE | 2023-10-05 11:10 | XR ---
EXAMINATION TYPE: XR chest 2V DATE OF EXAM: 10/05/2023 COMPARISON: 12/22/2022 HISTORY: Shortness of breath TECHNIQUE: Frontal and lateral views of the chest are obtained. FINDINGS: Scattered senescent parenchymal changes noted. Hyperinflation compatible with COPD. No evidence for infiltrate. No evidence for atelectasis. Heart size is stable. Mediastinal structures are stable and grossly unremarkable. No evidence for hilar prominence. Degenerative changes dorsal spine. IMPRESSION: 1. No evidence for acute pulmonary disease.
[2023-10-05 11:18] LABS: ALT 15 U/L (4-34); AST 19 U/L (14-36); African American GFR (CKD) >90 (>60 ml/min/1.73 sqM); Albumin 3.8 g/dL (3.5-5.0); Alkaline Phosphatase 97 U/L (38-126); Anion Gap 6 mmol/L; Blood Urea Nitrogen 13 mg/dL (7-17); Calcium 9.6 mg/dL (8.4-10.2); Carbon Dioxide 27 mmol/L (22-30); Chloride 106 mmol/L (98-107); Glucose 104 mg/dL (74-99); Non-African American GFR(CKD) >90 (>60 ml/min/1.73 sqM); Potassium 4.6 mmol/L (3.5-5.1); Sodium 139 mmol/L (137-145); Total Bilirubin 0.3 mg/dL (0.2-1.3); Total Protein 6.5 g/dL (6.3-8.2)
[2023-10-05 11:21] LABS: INR 0.9 (<1.2); Partial Thromboplastin Time 23.3 sec (22.0-30.0); Prothrombin Time 9.8 sec (10.0-12.5)
--- NOTE | 2023-10-05 12:22 | ED ---
Chest Pain HPI - General Chief Complaint: Chest Pain Stated Complaint: Chest Pains Time Seen by Provider: 10/05/23 10:12 Source: patient, RN notes reviewed Mode of arrival: ambulatory Limitations: no limitations - History of Present Illness Initial Comments: 78-year-old female presents emergency department chief complaint of chest pain. Patient states has been having some intermittent symptoms was seen at info print press operator office today and sent over here for evaluation they had some concerns on her EKG and current symptoms. Patient states that she has known valve issue but denies any prior cardiac stents. Patient states symptoms do make her feel short of breath sometimes. She states was not given any medications prior to discharge from cardiology's office. Patient does have a history of hypertension. - Related Data Home Medications Medication Instructions Recorded Confirmed metFORMIN HCL [Glucophage] 500 mg PO BID 08/19/17 11/26/21 Oxybutynin ER [Ditropan XL] 10 mg PO HS 02/08/21 11/26/21 Albuterol Sulfate [Proair Hfa] 2 puff INHALATION RT-QID PRN 11/26/21 11/26/21 Aspirin 81 mg PO DAILY 11/26/21 11/26/21 Budesonide-Formot 160-4.5 Mcg 2 puff INHALATION RT-BID 11/26/21 11/26/21 [Symbicort 160-4.5 Mcg Inhaler] Calcium/Magnesium/Zinc 1 tab PO DAILY 11/26/21 11/26/21 [Qnudcbz-Qhjprbmvu-Onjk Tablet] Cholecalciferol [Vitamin D3 (25 25 mcg PO DAILY 11/26/21 11/26/21 Mcg = 1000 Iu)] Cinnamon Bark [Cinnamon] 500 mg PO DAILY 11/26/21 11/26/21 Cranberry Fruit Extract [Cranberry] 500 mg PO DAILY 11/26/21 11/26/21 Cyanocobalamin (Vitamin B-12) 1,000 mcg PO DAILY 11/26/21 11/26/21 [Vitamin B-12] Elderberry Fruit and Flower [Black 1 cap PO DAILY 11/26/21 11/26/21 Elderberry 575 mg Cap] Isosorbide Mononitrate ER [Imdur] 15 mg PO HS 11/26/21 11/26/21 Losartan Potassium 100 mg PO DAILY 11/26/21 11/26/21 Metoprolol Succinate (ER) [Toprol 50 mg PO HS 11/26/21 11/26/21 XL] Multivit with Calcium,Iron,Min 1 tab PO DAILY 11/26/21 11/26/21 [Women's Multivitamin] Neuriva 1 cap PO DAILY 11/26/21 11/26/21 Vitamin C/Biotin [Hair, Skin and 1 tab PO DAILY 11/26/21 11/26/21 Nails Chew] cloNIDine HCL [Catapres] 0.1 mg PO BID 11/26/21 11/26/21 Previous Rx's Medication Instructions Recorded Ketorolac [Toradol] 10 mg PO Q6HR #15 tab 08/02/23 Nitrofurantoin Monohyd/M-Cryst 100 mg PO Q12HR #14 cap 08/02/23 [Macrobid] Allergies Allergy/AdvReac Type Severity Reaction Status Date / Time No Known Allergies Allergy Verified 10/05/23 10:02 Review of Systems ROS Statement: Those systems with pertinent positive or pertinent negative responses have been documented in the HPI. ROS Other: All systems not noted in ROS Statement are negative. EKG Findings - EKG Comments: EKG Findings:: EKG performed at 10: 13 sinus rhythm first-degree block with a rate of 72 ND 229 QRS 98 QT/QTc 385/409 - EKG Results: EKG: interpreted by [facility] Past Medical History Past Medical History: Cancer, Chest Pain / Angina, Hypertension, Osteoarthritis (OA) Additional Past Medical History / Comment(s): uterine cancer (surgery & radiation tx 1998), states "secondary lung disease", takes clonidine as preventative due to diabetes., Pain right foot- states using cane and walker, covid History of Any Multi-Drug Resistant Organisms: None Reported Past Surgical History: Heart Catheterization, Hysterectomy, Joint Replacement, Orthopedic Surgery, Tonsillectomy Additional Past Surgical History / Comment(s): total right knee x2 total left knee; Left foot surgery; maru trigger fingers. Heart Cath (may 2018 no stents) Past Anesthesia/Blood Transfusion Reactions: Blood Transfusion Reaction Additional Past Anesthesia/Blood Transfusion Reaction / Comment(s): Hx of rash with blood transfusion 1997 Past Psychological History: No Psychological Hx Reported Smoking Status: Never smoker Past Alcohol Use History: Daily Past Drug Use History: None Reported - Past Family History Daughter(s) Family Medical History: Thyroid Disorder Additional Family Medical History / Comment(s): Older - thyroid General Exam Limitations: no limitations General appearance: alert, in no apparent distress Head exam: Present: atraumatic, normocephalic, normal inspection Eye exam: Present: normal appearance, PERRL, EOMI. Absent: scleral icterus, conjunctival injection, periorbital swelling Respiratory exam: Present: normal lung sounds bilaterally. Absent: respiratory distress, wheezes, rales, rhonchi, stridor Cardiovascular Exam: Present: regular rate, normal rhythm, normal heart sounds. Absent: systolic murmur, diastolic murmur, rubs, gallop, clicks GI/Abdominal exam: Present: soft, normal bowel sounds. Absent: distended, tenderness, guarding, rebound, rigid Back exam: Absent: CVA tenderness (R), CVA tenderness (L) Neurological exam: Present: alert Course Vital Signs 10/05/23 10:00 Temperature 97.9 F Pulse Rate 79 Respiratory 24 Rate Blood Pressure 180/95 O2 Sat by Pulse 97 Oximetry Chest Pain MDM - MDM Was pt. sent in by a medical professional or institution (Dr. PA, LOCOMOTIVE MECHANIC, urgent care, hospital, or intermediate...) When possible be specific @ -Cardiology Did you speak to anyone other than the patient for history (EMS, parent, family, police, friend...)? What history was obtained from this source @ -No Did you review nursing and triage notes (agree or disagree)? Why? @ -I reviewed and agree with nursing and triage notes Were old charts reviewed (outside hosp., previous admission, EMS record, old EKG, old radiological studies, urgent care reports/EKG's, intermediate records)? Report findings @ -No old charts were reviewed Differential Diagnosis (chest pain, altered mental status, abdominal pain women, abdominal pain men, vaginal bleeding, weakness, fever, dyspnea, syncope, headache, dizziness, GI bleed, back pain, seizure, CVA, palpatations, mental health, musculoskeletal)? @ -Differential Chest Pain: Stable Angina, Unstable Angina, STEMI, NSTEMI Aortic Dissection, Pneumothorax, Musculoskeletal, Esophageal Spasm GERD, Cholecystitis, Pancreatitis, Zoster, this is not meant to be an all-inclusive list. EKG interpreted by me (3pts min.). @ -As above X-rays interpreted by me (1pt min.). @ -[Chest x-ray shows no acute cardiopulmonary process CT interpreted by me (1pt min.). @ -None done U/S interpreted by me (1pt. min.). @ -None done What testing was considered but not performed or refused? (CT, X-rays, U/S, labs)? Why? @ -None What meds were considered but not given or refused? Why? @ -None Did you discuss the management of the patient with other professionals (professionals i.e. DrRay, PA, LOCOMOTIVE MECHANIC, lab, RT, psych nurse, social work supervisor, on line csr, teacher, president and chief commercial officer, business case analyst)? Give summary @Discussed the case with Dr. Ford for admission Was smoking cessation discussed for >3mins.? @ -No Was critical care preformed (if so, how long)? @ -No Were there social determinants of health that impacted care today? How? (Homelessness, low income, unemployed, alcoholism, drug addiction, transportation, low edu. Level, literacy, decrease access to med. care, assisted, rehab)? @ -No Was there de-escalation of care discussed even if they declined (Discuss DNR or withdrawal of care, Hospice)? DNR status @ -No What co-morbidities impacted this encounter? (DM, HTN, Smoking, COPD, CAD, Cancer, CVA, ARF, Chemo, Hep., AIDS, mental health diagnosis, sleep apnea, mo rbid obesity)? @ -Hypertension Was patient admitted / discharged? Hospital course, mention meds given and route, prescriptions, significant lab abnormalities, going to OR and other pertinent info. @ -Admit patient presented emerged part for cardiology evaluation for chest pain patient does have cardiac risk factors, patient did receive nitro with alleviation of her symptoms. Initial work including labs EKG and chest x-ray unremarkable. Patient will be admitted for cardiac rule out including echocardiogram. Undiagnosed new problem with uncertain prognosis? @ -No Drug Therapy requiring intensive monitoring for toxicity (Heparin, Nitro, Insulin, Cardizem)? @ -No Were any procedures done? @ -No Diagnosis/symptom? @ -Chest pain Acute, or Chronic, or Acute on Chronic? @ -Acute Uncomplicated (without systemic symptoms) or Complicated (systemic symptoms)? @ -Complicated Side effects of treatment? @ -No Exacerbation, Progression, or Severe Exacerbation? @ -No Poses a threat to life or bodily function? How? (Chest pain, [place], [place], pneumonia, PE, COPD, DKA, ARF, appy, cholecystitis, CVA, Diverticulitis, Homicidal, Suicidal, threat to staff... and all critical care pts) @ -Yes possible underlying ACS Disposition Clinical Impression: Chest pain Disposition: ADMITTED IP TO THIS HOSP Condition: Fair Referrals: Lobito Ford MD [Primary Care Provider] - 1-2 days Time of Disposition: 12:23
[2023-10-05] MEDS: NITROGLYCERIN OINT 1 INCH/GM PACKET TOPICAL SCH (12:41)
[2023-10-05] MEDS ORDERED: SYMBICORT 160-4.5 MCG INHALER INHALATION PRN (17:59)
[2023-10-05 20:50] LABS: Glucose,Whole Blood 154 mg/dL (70-110)
[2023-10-05] MEDS ORDERED: INSULIN ASPART (NovoLOG) 100 UNIT/ML VIAL SQ SCH (21:00)
[2023-10-05] MEDS: INSULIN ASPART (NovoLOG) 100 UNIT/ML VIAL SQ SCH (21:00)
[2023-10-05] MEDS ORDERED: metFORMIN 500 MG TAB PO SCH (21:00)
[2023-10-05] MEDS: OXYBUTYNIN 10 MG TAB.ER.24 PO SCH (21:01)
[2023-10-05] MEDS: ISOSORBIDE MONONITRATE ER 15 MG TAB PO SCH (21:01)
[2023-10-05] MEDS: METOPROLOL SUCCINATE (ER) 50 MG TAB.ER.24H PO SCH (21:01)
--- NOTE | 2023-10-05 23:59 | P.HPIM ---
History of Present Illness H&P Date: 10/05/23 HISTORY OF PRESENT ILLNESS: 78-year-old one of our office patient for many years with past medical history consistent of atherosclerotic heart disease, hypertension, Hyperlipidemia, type 2 diabetes, chronic incontinence, recurrent angina, and history of COPD who apparently was in to see Dr. Petit in his office and continue complaining about worsening shortness of breath along with tightness pressure and discomfort has been happening on exertion but it is happening it worse as well prevent her from doing what she enjoyed to do and from doing her daily activity. Apparently was sent to the emergency department will be seen reevaluated her first set of laboratory value with normal CBC, low PT/INR, normal chemistry the only exception of mildly elevated blood sugar troponin was negative at less than 0.012, EKG did not show any major change or abnormality. Patient still was hospitalized run troponin x 3 consult cardiology keep patient n.p.o. for possi ble going for heart cath. REVIEW OF SYSTEMS: CONSTITUTIONAL: Morbidly obese no acute respiratory distress. EYES: No icterus sclerae, no conjunctivitis. EARS, NOSE, MOUTH, THROAT, and FACE: No sore throat, lymphadenopathy, carotid bruits or deformity. RESPIRATORY: Slight shortness of breath cough wheezes. CARDIOVASCULAR: Mild palpitation no chest pain pressure PND orthopnea and angina. GASTROINTESTINAL: No Abd pain, Nausea or vomiting, no Diarrhea or constipation, No GI Bleed, no distention or masses. More IBS symptoms. GENITOURINARY: Negative for Hematuria or UTI, no kidney stones. INTEGUMENT/BREAST: Generalized arthritis and arthralgia with scar tissue from knee surgery.. HEMATOLOGIC/LYMPHATIC: Negative for bleed or purpura. No anemia. MUSCULOSKELTAL: Negative for Myalgia or arthralgia. NEURLOGICAL: No LOC, Sz or syncope, blurred vision dizziness or abnormality.. BEHAVIORAL/PSYCH: Negative. ENDOCRINE: Negative. PHYSICAL EXAMINATION: General Appearance: Alert, cooperative, no distress, appears stated age. Morbidly obese. Neck HEENT: Supple, no lymphadenopathy, no thyroid enlargement, no carotid bruits. Lungs: Clear to auscultation without crackles or wheezes no rhonchi, no deformity. Chest Wall: Chest wall normal expansion with deep inspiration no tenderness and no deformity was found on exam, no costochondral pain or discomfort. Heart: Regular rate and rhythm, S1, S2 normal, no murmur, rub or gallop. Back: Symmetric, no curvature, ROM normal, no CVA tenderness. Abdomen: Soft, non-tender, bowel sounds active all four quadrants, no masses, no organomegaly. Extremities: Extremities normal, atraumatic, no cyanosis or edema. Pulses: 2+ and symmetric. Skin: Skin color, texture, tugor normal, no rashes or lesions. Neurologic: Alert oriented x3 cranial nerves II through XII intact, no motor deficit, no abnormal balance or gait. ASSESSMENT AND PLAN: _Recurrent chest pain pain angina type: Patient was hospitalized troponin x 3 be done, consult cardiology, echocardiogram and possibly going for heart cath. _Atherosclerotic heart disease: With negative heart cath back in 2019: Patient stress and echo was done afterward and continue to be with no ischemic change. _Severe dyspnea and shortness of breath: Most likely cardiac in origin also this could be COPD and could be out of shape. PT OT will be recommended she is to use her _Type 2 diabetes: Has been well-controlled remain on metformin which should be taking off and medication listed after the heart cath if is going to be done by tomorrow she needed blood work 48 hours after her lab to make sure there is no kidney damage or change in kidney function. _COPD: Without exacerbation continue to be on O2. If needed updraft treatment or increased bronchodilator will be beneficial. _Mild palpitation and arrhythmia, remain on metoprolol succinate 50 mg at bedtime. _Chronic anemia: Repeat CBC again continue multivitamin iron supplement. _Hypertension: Remain on metoprolol succinate 50 mg at bedtime, isosorbide mononitrate 15 mg daily and still on loop diuretics. _GI prophylaxis: Continue patient on proton pump inhibitor. _DVT prophylaxis: Early mobilization and knee-high KENNY hose will be done. CODE STATUS: Full code. Admit patient to the inpatient service for 1-2 night stay. Past Medical History Past Medical History: Cancer, Chest Pain / Angina, Hypertension, Osteoarthritis (OA) Additional Past Medical History / Comment(s): uterine cancer (surgery & radiation tx 1998), states "secondary lung disease", takes clonidine as preventative due to diabetes., Pain right foot- states using cane and walker, covid History of Any Multi-Drug Resistant Organisms: None Reported Past Surgical History: Heart Catheterization, Hysterectomy, Joint Replacement, Orthopedic Surgery, Tonsillectomy Additional Past Surgical History / Comment(s): total right knee x2 total left knee; Left foot surgery; maru trigger fingers. Heart Cath (may 2018 no stents) Past Anesthesia/Blood Transfusion Reactions: Blood Transfusion Reaction Additional Past Anesthesia/Blood Transfusion Reaction / Comment(s): Hx of rash with blood transfusion 1997 Past Psychological History: No Psychological Hx Reported Smoking Status: Never smoker Past Alcohol Use History: Daily Additional Past Alcohol Use History / Comment(s): smoked 1976 for 9 months Past Drug Use History: None Reported - Past Family History Daughter(s) Family Medical History: Thyroid Disorder Additional Family Medical History / Comment(s): Older - thyroid Medications and Allergies Home Medications Medication Instructions Recorded Confirmed Type metFORMIN HCL [Glucophage] 500 mg PO BID 08/19/17 10/05/23 History Oxybutynin ER [Ditropan XL] 10 mg PO HS 02/08/21 10/05/23 History Aspirin 81 mg PO DAILY 11/26/21 10/05/23 History Budesonide-Formot 160-4.5 Mcg 2 puff INHALATION RT-BID PRN 11/26/21 10/05/23 History [Symbicort 160-4.5 Mcg Inhaler] Calcium/Magnesium/Zinc 1 tab PO DAILY 11/26/21 10/05/23 History [Zxmbbzg-Xzwitcyju-Uabu Tablet] Cholecalciferol [Vitamin D3 (25 25 mcg PO DAILY 11/26/21 10/05/23 History Mcg = 1000 Iu)] Cranberry Fruit Extract [Cranberry] 500 mg PO DAILY 11/26/21 10/05/23 History Cyanocobalamin (Vitamin B-12) 1,000 mcg PO DAILY 11/26/21 10/05/23 History [Vitamin B-12] Elderberry Fruit and Flower [Black 1 cap PO DAILY 11/26/21 10/05/23 History Elderberry 575 mg Cap] Isosorbide Mononitrate ER [Imdur] 15 mg PO HS 11/26/21 10/05/23 History Losartan Potassium 100 mg PO DAILY 11/26/21 10/05/23 History Metoprolol Succinate (ER) [Toprol 50 mg PO HS 11/26/21 10/05/23 History XL] Multivit with Calcium,Iron,Min 1 tab PO DAILY 11/26/21 10/05/23 History [Women's Multivitamin] Neuriva 1 cap PO DAILY 11/26/21 10/05/23 History Vitamin C/Biotin [Hair, Skin and 1 tab PO DAILY 11/26/21 10/05/23 History Nails Chew] Mv-Mn/Om3/Dha/Epa/Fish/Lut/Hannah 1 cap PO DAILY 10/05/23 10/05/23 History [Ocuvite Adult 50 Plus Softgel] Allergies Allergy/AdvReac Type Severity Reaction Status Date / Time No Known Allergies Allergy Verified 10/05/23 12:55 Physical Exam Vitals: Vital Signs Temp Pulse Pulse Resp BP BP Pulse Ox 10/05/23 17:11 97.9 F 76 16 161/87 95 10/05/23 16:04 82 22 146/81 95 10/05/23 10:00 97.9 F 79 24 180/95 97 Intake and Output 10/05/23 10/05/23 10/05/23 06:59 14:59 22:59 Other: Weight 105.687 kg 105.687 kg Results CBC & Chem 7: 10/05/23 10:28 10/05/23 10:28 Labs: Abnormal Lab Results - Last 24 Hours (Table) 10/05/23 10/05/23 Range/Units 10:28 10:28 PT 9.8 L (10.0-12.5) sec Creatinine 0.47 L (0.52-1.04) mg/dL Glucose 104 H (74-99) mg/dL
[2023-10-06 06:15] LABS: Glucose,Whole Blood 121 mg/dL (70-110)
[2023-10-06] MEDS ORDERED: HEPARIN SODIUM,PORCINE (1 ML) 2,500 UNIT in SODIUM CHLORIDE 0.9% 250 ML IRRIGATION PRN (07:00)
[2023-10-06] MEDS ORDERED: HEPARIN SODIUM,PORCINE 10,000 UNIT in SODIUM CHLORIDE 0.9% 1,000 ML IRRIGATION PRN (07:00)
[2023-10-06] MEDS: ASPIRIN 325 MG TAB PO SCH (08:22)
[2023-10-06] MEDS: CYANOCOBALAMIN 500 MCG TAB PO SCH (08:23)
[2023-10-06] MEDS: VIT A,C & E-LUTEIN-MINERALS 1 EACH TAB PO SCH (08:23)
[2023-10-06] MEDS: LOSARTAN 50 MG TAB PO SCH (08:23)
[2023-10-06] MEDS: CHOLECALCIFEROL 25 MCG (1000 IU) TABLET PO SCH (08:23)
[2023-10-06] MEDS: MULTIVITAMINS, THERA 1 EACH TAB PO SCH (08:23)
[2023-10-06] MEDS ORDERED: NON FORMULARY DRUG (Vitamin C/Biotin [Hair, Skin And Nails Chew] 1 EACH Tab.Chew) PO SCH (09:00)
[2023-10-06] MEDS ORDERED: NON FORMULARY DRUG (Neuriva 1 CAP) PO SCH (09:00)
[2023-10-06] MEDS ORDERED: NON FORMULARY DRUG (Calcium/Magnesium/Zinc [Calcium-Magnesium-Zinc Tablet] 1 EACH Tablet) PO SCH (09:00)
[2023-10-06] MEDS ORDERED: NON FORMULARY DRUG (Elderberry Fruit And Flower [Black Elderberry 575 Mg Cap] 1 EACH Capsu PO SCH (09:00)
[2023-10-06] MEDS ORDERED: NON FORMULARY DRUG (Cranberry Fruit Extract [Cranberry] 500 MG Tablet) PO SCH (09:00)
[2023-10-06] MEDS: ASPIRIN 81 MG PO SCH (09:01)
[2023-10-06] MEDS ORDERED: NITROGLYCERIN SL TABS 0.4 MG TAB SUBLINGUAL PRN (09:57)
[2023-10-06] MEDS ORDERED: ALPRAZolam 0.5 MG TAB PO PRN (09:57)
[2023-10-06] MEDS ORDERED: ALPRAZolam 0.25 MG TAB PO PRN (09:57)
--- NOTE | 2023-10-06 10:09 | CA ---
Transthoracic Echo Report Name: Susan Hopkins Age: 78 Gender: F : 1945 Exam Date: 10/05/2023 15:44 Exam Location: [facility] Ht (in): 67 Wt (lb): 233 Ordering Physician: Darren Johnston Attending/Referring Phys: [id number], Preston Rn Mds Deloris Hanna RDCS Procedure CPT: Indications: Chest Pain Cardiac Hx: Technical Quality: Good Contrast 1: Total Dose (mL): Contrast 2: Total Dose (mL): MEASUREMENTS (Male / Female) Normal Values 2D ECHO LV Diastolic Diameter PLAX 4.1 cm 4.2 - 5.9 / 3.9 - 5.3 cm LV Systolic Diameter PLAX 2.5 cm IVS Diastolic Thickness 1.4 cm 0.6 - 1.0 / 0.6 - 0.9 cm LVPW Diastolic Thickness 1.3 cm 0.6 - 1.0 / 0.6 - 0.9 cm LV Relative Wall Thickness 0.7 RV Internal Dim ED PLAX 3.1 cm LVOT Diameter 2.2 cm LA Systolic Diameter LX 3.3 cm 3.0 - 4.0 / 2.7 - 3.8 cm LV Diastolic Volume MOD 4C 111.2 cm??? LV Systolic Volume MOD 4C 51.2 cm??? LV Ejection Fraction MOD 4C 54.0 % LV Cardiac Index MOD 4C 2002.9 cm???/min???m??? LV Diastolic Length 4C 7.4 cm LV Systolic Length 4C 6.3 cm LA Volume 81.4 cm??? 18 - 58 / 22 - 52 cm??? LA Volume Index 35.7 cm???/m??? 16 - 28 cm???/m??? M-MODE Aortic Root Diameter MM 3.4 cm MV E Point Septal Separation 0.4 cm DOPPLER AV Peak Velocity 243.4 cm/s AV Peak Gradient 23.7 mmHg AV Mean Velocity 174.5 cm/s AV Mean Gradient 13.5 mmHg AV Velocity Time Integral 53.9 cm LVOT Peak Velocity 130.0 cm/s LVOT Peak Gradient 6.8 mmHg AV Area Cont Eq pk 2.0 cm??? MV Peak Velocity 188.7 cm/s MV Peak Gradient 14.2 mmHg MV Mean Velocity 106.0 cm/s MV Mean Gradient 5.2 mmHg MV Velocity Time Integral 47.4 cm MV Area PHT 2.5 cm??? Mitral E Point Velocity 102.4 cm/s Mitral A Point Velocity 139.1 cm/s Mitral E to A Ratio 0.7 MV Deceleration Time 304.8 ms TR Peak Velocity 280.2 cm/s TR Peak Gradient 31.4 mmHg Right Ventricular Systolic Press 36.4 mmHg FINDINGS Left Ventricle Left ventricular ejection fraction is estimated at 55-60 %. Left ventricular cavity size normal. Moderate concentric left ventricular hypertrophy. No obvious regional wall motion abnormalities. Right Ventricle Normal right ventricular size. Mild pulmonary hypertension. Right Atrium Normal right atrial size. Left Atrium Moderately increased left atrial volume. Mildly increased left atrial area. Mitral Valve Mild thickening/calcification of the anterior mitral valve leaflet. Mild thickening/calcification of the posterior mitral valve leaflet. Mitral annular calcification. Mild mitral stenosis. Aortic Valve Trileaflet aortic valve. Aortic valve sclerosis. Mild aortic stenosis with a peak gradient of 24 mmHg and a mean gradient of 14 mmHg. No aortic regurgitation. Tricuspid Valve Structurally normal tricuspid valve. Mild tricuspid regurgitation. Pulmonic Valve Structurally normal pulmonic valve. No pulmonic regurgitation. Pericardium No pericardial effusion. Aorta Normal size aortic root and proximal ascending aorta. CONCLUSIONS Normal LV size and systolic function with mild to moderate concentric LVH. No wall motion abnormality. Mitral annular calcification of a moderate degree with thickening of mitral valve leaflets calcification some restriction possibly mild mitral stenosis. Aortic valve sclerosis with mild restriction mild stenosis mean gradient about 15 mmHg. No pericardial effusion. No significant pulmonary hypertension Previewed by: Dr. Rupert Lobo MD (Electronically Signed) Final Date: 06 October 2023 10:08
[2023-10-06] MEDS: ATORVASTATIN 80 MG TAB PO STA (10:48)
[2023-10-06] MEDS: SODIUM CHLORIDE 0.9% 1,000 ML in EMPTY BAG 1 BAG IV ONE (10:48)
[2023-10-06 11:03] LABS: Chol/HDL Ratio 2.83 Ratio; LDL Cholesterol,Calculated 65.6 mg/dL (0.0-131.0)
[2023-10-06] MEDS: ASPIRIN 325 MG TAB PO STA (11:29)
[2023-10-06 12:17] LABS: Glucose,Whole Blood 113 mg/dL (70-110)
[2023-10-06] MEDS ORDERED: fentaNYL (PF) 50 MCG/ML 2 ML AMP ONE (15:29)
[2023-10-06] MEDS ORDERED: HEPARIN SODIUM 1,000 UN/ML (10ML VL) ONE (15:29)
[2023-10-06] MEDS: IV FLUID CONTINUATION 900 ML IV ONE (15:30)
[2023-10-06] MEDS: MIDAZOLAM 2 MG/2 ML VIAL IVP ONE (15:42)
[2023-10-06] MEDS: fentaNYL (PF) 50 MCG/ML 2 ML AMP IVP ONE (15:42)
[2023-10-06] MEDS: LIDOCAINE 1% INJ 10MG/ML (20 ML MDV) SQ ONE (15:46)
[2023-10-06] MEDS: VERAPAMIL SYRINGE (5 MG/10 ML) INTRAARTER ONE (15:50)
[2023-10-06] MEDS: HEPARIN SODIUM 1,000 UN/ML (10ML VL) IV ONE (15:54)
[2023-10-06] MEDS: IOPAMIDOL-370 100ML BTL INJ ONE ×2 (16:09→16:10)
--- NOTE | 2023-10-06 16:16 | P.CARDCATH ---
Description of Procedure: PROCEDURES PERFORMED: Left heart catheterization, bilateral coronary angiography, left ventriculogram, ultrasound guided arterial access INDICATION: Unstable angina CONSENT:I have discussed the risks, benefits and alternative therapies for the above-mentioned procedure and for both sedation/analgesia as well as necessary blood product administration, if indicated, as they pertain to this patient. The patient has indicated understanding and acceptance of the risks and procedures discussed. PROCEDURE: After the risks, benefits and alternatives of the above mentioned procedure explained in detail with the patient, informed consent was obtained. Patient was taken to the catheterization lab and prepped and draped in usual fas hion. Ultrasound guidance was used to assess for arterial access. 1% lidocaine was used to anesthetize the right radial artery. A 6-Bahamian sheath was placed in the right radial artery using modified Seldinger technique and ultrasound guidance. Left coronary angiography was performed with a 5-Bahamian JL 3.5 catheter and right coronary angiography was performed with a 5-Bahamian AAL1 catheter in various views. A 5-Bahamian AR2 catheter was inserted into the left ventricle and pressure measurements were obtained. A 6Fr pigtail catheter was used to perform power injection, left ventriculogram in the ROSE projection. The right radial sheath was removed and a TR band was placed with hemostasis achieved. The patient tolerated the procedure well. Patient was transported back to the post catheterization holding area in stable condition. Conscious Sedation: Patient was monitored under the direct supervision of myself for conscious sedation using Versed and fentanyl for a total duration of 23 m inutes HEMODYNAMICS: AO: 156/78 LV: 184/4, LVEDP 14, mean gradient 22mmHg SELECTIVE CORONARY ARTERIOGRAPHY: LEFT MAIN: The left main is a large caliber vessel which bifurcates into the LAD and circumflex. There is no significant stenosis. LEFT ANTERIOR DESCENDING CORONARY ARTERY: LAD is a large caliber vessel which wraps around to the apex. There is no significant stenosis. LEFT CIRCUMFLEX CORONARY ARTERY: Left circumflex is a large caliber vessel without significant stenosis. The circumflex give off the PDA and is the dominant vessel. RIGHT CORONARY ARTERY: The right coronary artery is a small to moderate caliber vessel which gives off an acute marginal branch and is a non dominant vessel. There is no significant stenosis. FINAL IMPRESSION: 1. Normal coronary arteries as described above. 2. Normal left sided filling pressures 3. Mild to moderate aortic stenosis with mean gradient 22mmHg PLAN: 1. Aggressive risk factor modification per most recent ACC/AHA guidelines. 2. Patient's chest pain was improved with nitro and consider PRN nitro and increasing Imdur for more antianginal effect.
[2023-10-06 17:16] LABS: Glucose,Whole Blood 107 mg/dL (70-110)
[2023-10-06 20:38] LABS: Glucose,Whole Blood 153 mg/dL (70-110)
--- NOTE | 2023-10-06 20:57 | CONS ---
CONSULTATION HISTORY OF PRESENT ILLNESS: This is a 78-year-old lady who sees Dr. Petit in the outpatient setting. Apparently, she went and saw him in the office yesterday and complained of some chest tightness, pressure, and also shortness of breath. He advised her to go to the emergency room. Her 3 sets of troponins are unremarkable. EKG does not reveal any acute changes to indicate ischemia. However, Dr. Petit was concerned that she may have significant CAD. Her cardiac cath in 2017 was unremarkable and a dobutamine echo in 2020 was unremarkable. However given her symptoms and presentation, he felt she should either have a stress test or cardiac cath. I spoke to the patient at length and she was already seen by her primary care physician, Dr. Harris. Patient wishes to proceed with cardiac cath. Has been having nondescript chest tightness and squeezing sensation along with shortness of breath randomly with increased frequency lately. She understands the rationale, risks, benefits, and options related to coronary angiography and Dr. Petit will perform the procedure later on today. PAST MEDICAL HISTORY: 1. Hypertension. 2. Hyperlipidemia. 3. No significant CAD by catheterization almost 6 years ago. 4. Type 2 diabetes. 5. History of emphysema of unclear etiology. No history of recent smoking. MEDICATIONS: Medications at home include, 1. Metformin. 2. Metoprolol succinate. 3. Imdur. 4. Vitamin D supplements. 5. Aspirin. PHYSICAL EXAMINATION: VITAL SIGNS: Blood pressure is 124/70, pulse rate is 78 per minute regular. HEENT: Unremarkable. Fundus was not examined by me. NECK: Supple. There is no JVD. There is no carotid bruit. HEART: Reveals S1, S2 with ejection systolic murmur at the base. Second heart sound is preserved. LUNGS: Revealed bilateral diminished air entry. ABDOMEN: Soft, nontender. EXTREMITIES: Lower extremities reveal diminished pulses. NEUROLOGIC: Central nervous system is normal. IMPRESSION: 1. Chest pain syndrome, cannot exclude angina. 2. Shortness of breath. 3. Hypertension. 4. Diabetes. RECOMMENDATIONS: I am recommending, after due discussion with Dr. Petit, that she can proceed with coronary angiography. The patient understands the risks, benefits, options, and rationale. Coronary angiography will be performed later on today. Thank you very much for the consult. MMODL / IJN: [id number] /
[2023-10-07 06:04] LABS: Glucose,Whole Blood 116 mg/dL (70-110)
--- NOTE | 2023-10-07 06:14 | P.PN ---
Subjective Progress Note Date: 10/06/23 HISTORY OF PRESENT ILLNESS: 78-year-old one of our office patient for many years with past medical history consistent of atherosclerotic heart disease, hypertension, Hyperlipidemia, type 2 diabetes, chronic incontinence, recurrent angina, and history of COPD who apparently was in to see Dr. Petit in his office and continue complaining about worsening shortness of breath along with tightness pressure and discomfort has been happening on exertion but it is happening it worse as well prevent her from doing what she enjoyed to do and from doing her daily activity. Apparently was sent to the emergency department will be seen reevaluated her first set of laboratory value with normal CBC, low PT/INR, normal chemistry the only exception of mildly elevated blood sugar troponin was negative at less than 0.012, EKG did not show any major change or abnormality. Patient still was hospitalized run troponin x 3 consult cardiology keep patient n.p.o. for possible going for heart cath. 10/06/2023: Echocardiogram was performed which showed ejection fraction of 55-60 percentile with moderate concentric left ventricular hypertrophy with no wall motion abnormality, aortic valve sclerosis with mild restrictive mild stenosis with gradient of 15 mmHg only. Mild mitral stenosis, the rest of her echo looks good. Laboratory value including her lipid and proBNP look good her LDL was only 65. Cardiology are planning to take her for heart cath with the current complaint of her cath was negative hopefully she will be able to be discharged home. REVIEW OF SYSTEMS: CONSTITUTIONAL: Morbidly obese no acute respiratory distress. EYES: No icterus sclerae, no conjunctivitis. EARS, NOSE, MOUTH, THROAT, and FACE: No sore throat, lymphadenopathy, carotid bruits or deformity. RESPIRATORY: Slight shortness of breath cough wheezes. CARDIOVASCULAR: Mild palpitation no chest pain pressure PND orthopnea and angina. GASTROINTESTINAL: No Abd pain, Nausea or vomiting, no Diarrhea or constipation, No GI Bleed, no distention or masses. More IBS symptoms. GENITOURINARY: Negative for Hematuria or UTI, no kidney stones. INTEGUMENT/BREAST: Generalized arthritis and arthralgia with scar tissue from knee surgery.. HEMATOLOGIC/LYMPHATIC: Negative for bleed or purpura. No anemia. MUSCULOSKELTAL: Negative for Myalgia or arthralgia. NEURLOGICAL: No LOC, Sz or syncope, blurred vision dizziness or abnormality.. BEHAVIORAL/PSYCH: Negative. ENDOCRINE: Negative. PHYSICAL EXAMINATION: General Appearance: Alert, cooperative, no distress, appears stated age. Morbidly obese. Neck HEENT: Supple, no lymphadenopathy, no thyroid enlargement, no carotid bruits. Lungs: Clear to auscultation without crackles or wheezes no rhonchi, no deformity. Chest Wall: Chest wall normal expansion with deep inspiration no tenderness and no deformity was found on exam, no costochondral pain or discomfort. Heart: Regular rate and rhythm, S1, S2 normal, no murmur, rub or gallop. Back: Symmetric, no curvature, ROM normal, no CVA tenderness. Abdomen: Soft, non-tender, bowel sounds active all four quadrants, no masses, no organomegaly. Extremities: Extremities normal, atraumatic, no cyanosis or edema. Pulses: 2+ and symmetric. Skin: Skin color, texture, tugor normal, no rashes or lesions. Neurologic: Alert oriented x3 cranial nerves II through XII intact, no motor deficit, no abnormal balance or gait. ASSESSMENT AND PLAN: _Recurrent chest pain pain angina type: Seeing cardiology and plan to go for heart cath today. _Atherosclerotic heart disease: With negative heart cath back in 2019: Patient stress and echo was done afterward and continue to be with no ischemic change. _Severe dyspnea and shortness of breath: Right exclude cardiac in origin patient also has mild COPD can benefit from PFT was seen pulmonary no O2 needed at this point. _Type 2 diabetes: Has been well-controlled remain on metformin which should be taking off and medication listed after the heart cath if is going to be done by tomorrow she needed blood work 48 hours after her lab to make sure there is no kidney damage or change in kidney function. Resume metformin in 48 hours after checking her kidney function. _COPD: Without exacerbation might benefit from adding the Trelegy daily also continue O2 try to keep pulse ox above 90 percentile. _Mild palpitation and arrhythmia, remain on metoprolol succinate 50 mg at bedtime. _Edema will benefit from at least smaller dose of loop diuretics. _Chronic anemia: Repeat CBC again continue multivitamin iron supplement. _Hypertension: Remain on metoprolol succinate 50 mg at bedtime, isosorbide mononitrate 15 mg daily and still on loop diuretics. _Prognosis: Fair. Discharge planning: After heart cath that looks normal patient can be discharged home. Objective - Vital Signs Vital signs: Vital Signs Temp 97.7 F 04/09/24 02:46 Pulse 79 10/06/23 02:46 Resp 18 10/06/23 02:46 BP 124/66 10/06/23 02:46 Pulse Ox 90 L 10/06/23 02:46 FiO2 Intake & Output 10/05/23 10/05/23 10/06/23 06:59 18:59 06:59 Intake Total 240 Balance 240 Weight 105.687 kg Intake: Oral 240 Other: # Voids 2 - Labs CBC & Chem 7: 10/05/23 10:28 10/05/23 10:28 Labs: Abnormal Lab Results - Last 24 Hours (Table) 10/05/23 10/05/23 10/05/23 Range/Units 10:28 10:28 20:49 PT 9.8 L (10.0-12.5) sec Creatinine 0.47 L (0.52-1.04) mg/dL Glucose 104 H (74-99) mg/dL POC Glucose (mg/dL) 154 H (70-110) mg/dL 10/06/23 Range/Units 06:14 PT (10.0-12.5) sec Creatinine (0.52-1.04) mg/dL Glucose (74-99) mg/dL POC Glucose (mg/dL) 121 H (70-110) mg/dL
--- NOTE | 2023-10-07 06:21 | P.DS ---
Providers Date of admission: 10/05/23 13:25 Attending physician: Lobito Ford Consults: 10/05/23 12:23 Consult Physician Urgent Consulting Provider: Ismael Petit Consult Reason/Comments: chest pain Do you want consulting provider notified?: Yes Primary care physician: Lobito Ford [facility] Course: HISTORY OF PRESENT ILLNESS: 78-year-old one of our office patient for many years with past medical history consistent of atherosclerotic heart disease, hypertension, Hyperlipidemia, type 2 diabetes, chronic incontinence, recurrent angina, and history of COPD who kathy arently was in to see Dr. Petit in his office and continue complaining about worsening shortness of breath along with tightness pressure and discomfort has been happening on exertion but it is happening it worse as well prevent her from doing what she enjoyed to do and from doing her daily activity. Apparently was sent to the emergency department will be seen reevaluated her first set of labor atory value with normal CBC, low PT/INR, normal chemistry the only exception of mildly elevated blood sugar troponin was negative at less than 0.012, EKG did not show any major change or abnormality. Patient still was hospitalized run troponin x 3 consult cardiology keep patient n.p.o. for possible going for heart cath. 10/06/2023: Echocardiogram was performed which showed ejection fraction of 55-60 percentile with moderate concentric left ventricular hypertrophy with no wall motion abnormality, aortic valve sclerosis with mild restrictive mild stenosis with gradient of 15 mmHg only. Mild mitral stenosis, the rest of her echo looks good. Laboratory value including her lipid and proBNP look good her LDL was only 65. Cardiology are planning to take her for heart cath with the current complaint of her cath was negative hopefully she will be able to be discharged home. REVIEW OF SYSTEMS: CONSTITUTIONAL: Morbidly obese no acute respiratory distress. EYES: No icterus sclerae, no conjunctivitis. EARS, NOSE, MOUTH, THROAT, and FACE: No sore throat, lymphadenopathy, carotid bruits or deformity. RESPIRATORY: Slight shortness of breath cough wheezes. CARDIOVASCULAR: Mild palpitation no chest pain pressure PND orthopnea and angina. GASTROINTESTINAL: No Abd pain, Nausea or vomiting, no Diarrhea or constipation, No GI Bleed, no distention or masses. More IBS symptoms. GENITOURINARY: Negative for Hematuria or UTI, no kidney stones. INTEGUMENT/BREAST: Generalized arthritis and arthralgia with scar tissue from knee surgery.. HEMATOLOGIC/LYMPHATIC: Negative for bleed or purpura. No anemia. MUSCULOSKELTAL: Negative for Myalgia or arthralgia. NEURLOGICAL: No LOC, Sz or syncope, blurred vision dizziness or abnormality.. BEHAVIORAL/PSYCH: Negative. ENDOCRINE: Negative. PHYSICAL EXAMINATION: General Appearance: Alert, cooperative, no distress, appears stated age. Morbidly obese. Neck HEENT: Supple, no lymphadenopathy, no thyroid enlargement, no carotid bruits. Lungs: Clear to auscultation without crackles or wheezes no rhonchi, no deformity. Chest Wall: Chest wall normal expansion with deep inspiration no tenderness and no deformity was found on exam, no costochondral pain or discomfort. Heart: Regular rate and rhythm, S1, S2 normal, no murmur, rub or gallop. Back: Symmetric, no curvature, ROM normal, no CVA tenderness. Abdomen: Soft, non-tender, bowel sounds active all four quadrants, no masses, no organomegaly. Extremities: Extremities normal, atraumatic, no cyanosis or edema. Pulses: 2+ and symmetric. Skin: Skin color, texture, tugor normal, no rashes or lesions. Neurologic: Alert oriented x3 cranial nerves II through XII intact, no motor deficit, no abnormal balance or gait. ASSESSMENT AND PLAN: _Recurrent chest pain pain angina type: Seeing cardiology and plan to go for heart cath today. _Atherosclerotic heart disease: With negative heart cath back in 2019: Patient stress and echo was done afterward and continue to be with no ischemic change. _Severe dyspnea and shortness of breath: Right exclude cardiac in origin patient also has mild COPD can benefit from PFT was seen pulmonary no O2 needed at this point. _Type 2 diabetes: Has been well-controlled remain on metformin which should be taking off and medication listed after the heart cath if is going to be done by tomorrow she needed blood work 48 hours after her lab to make sure there is no kidney damage or change in kidney function. Resume metformin in 48 hours after checking her kidney function. _COPD: Without exacerbation might benefit from adding the Trelegy daily also continue O2 try to keep pulse ox above 90 percentile. _Mild palpitation and arrhythmia, remain on metoprolol succinate 50 mg at bedtime. _Edema will benefit from at least smaller dose of loop diuretics. _Chronic anemia: Repeat CBC again continue multivitamin iron supplement. _Hypertension: Remain on metoprolol succinate 50 mg at bedtime, isosorbide mononitrate 15 mg daily and still on loop diuretics. _ posssible sleep Apnea: will required sleep study and Management as an out PT _Prognosis: Fair. Discharge planning: After heart cath that looks normal patient can be discharged home. Hospital course: Patient was admitted to the hospital after seeing cardiology with complaint of chest tightness pain and discomfort along with significant shortness of breath, cardiac enzyme EKG in the ER did not show any major abnormality. Patient had 2 more troponin both came back negative. Her blood sugar was slightly fluctuating we will hold her metformin for 24 hours after heart cath which will be started probably on 10/08/2023 creatinine This morning if no change patient to resume home metformin. In the meanwhile her platelet cholesterol is 119 with a goal of 65. Her echocardiogram did not show any major abnormality she had very mild degree of aortic stenosis and mitral regurgitation with normal well-preserved ejection fraction with left ventricular hypertrophy. Patient ended up going to the Service [facility] with Dr. Petit showed pretty normal coronary artery normal left-sided filling pressure mild to moderate aortic stenosis with mean gradient of 22 mmHg. Will continue patient on medical management apparently titrating her nitro might be with expected her isosorbide mononitrate will go higher gradually. Patient is stable to be discharged home today. She will need to go for sleep study as next step. Time spent on discharging patient was 31 minutes. Patient Condition at Discharge: Fair Plan - Discharge Summary Discharge Rx Participant: No New Discharge Prescriptions: New Nitroglycerin Sl Tabs [Nitrostat] 0.4 mg SUBLINGUAL Q5M PRN #25 tab PRN Reason: Chest Pain Continue metFORMIN HCL [Glucophage] 500 mg PO BID Neuriva 1 cap PO DAILY Vitamin C/Biotin [Hair, Skin and Nails Chew] 1 tab PO DAILY Calcium/Magnesium/Zinc [Bxwhqol-Crnawpitj-Qnoh Tablet] 1 tab PO DAILY Budesonide-Formot 160-4.5 Mcg [Symbicort 160-4.5 Mcg Inhaler] 2 puff INHA LATION RT-BID PRN PRN Reason: Shortness Of Breath Aspirin 81 mg PO DAILY Losartan Potassium 100 mg PO DAILY Isosorbide Mononitrate ER [Imdur] 15 mg PO HS Elderberry Fruit and Flower [Black Elderberry 575 mg Cap] 1 cap PO DAILY Oxybutynin ER [Ditropan XL] 10 mg PO HS Cyanocobalamin (Vitamin B-12) [Vitamin B-12] 1,000 mcg PO DAILY Cranberry Fruit Extract [Cranberry] 500 mg PO DAILY Cholecalciferol [Vitamin D3 (25 Mcg = 1000 Iu)] 25 mcg PO DAILY Multivit with Calcium,Iron,Min [Women's Multivitamin] 1 tab PO DAILY Metoprolol Succinate (ER) [Toprol XL] 50 mg PO HS Mv-Mn/Om3/Dha/Epa/Fish/Lut/Hannah [Ocuvite Adult 50 Plus Softgel] 1 cap PO DAILY Discharge Medication List metFORMIN HCL [Glucophage] 500 mg PO BID 08/19/17 [History] Oxybutynin ER [Ditropan XL] 10 mg PO HS 02/08/21 [History] Aspirin 81 mg PO DAILY 11/26/21 [History] Budesonide-Formot 160-4.5 Mcg [Symbicort 160-4.5 Mcg Inhaler] 2 puff INHALATION RT-BID PRN 11/26/21 [History] Calcium/Magnesium/Zinc [Zprihhg-Enkfxyfue-Fpuz Tablet] 1 tab PO DAILY 11/26/21 [History] Cholecalciferol [Vitamin D3 (25 Mcg = 1000 Iu)] 25 mcg PO DAILY 11/26/21 [History] Cranberry Fruit Extract [Cranberry] 500 mg PO DAILY 11/26/21 [History] Cyanocobalamin (Vitamin B-12) [Vitamin B-12] 1,000 mcg PO DAILY 11/26/21 [History] Elderberry Fruit and Flower [Black Elderberry 575 mg Cap] 1 cap PO DAILY 11/26/21 [History] Isosorbide Mononitrate ER [Imdur] 15 mg PO HS 11/26/21 [History] Losartan Potassium 100 mg PO DAILY 11/26/21 [History] Metoprolol Succinate (ER) [Toprol XL] 50 mg PO HS 11/26/21 [History] Multivit with Calcium,Iron,Min [Women's Multivitamin] 1 tab PO DAILY 11/26/21 [History] Neuriva 1 cap PO DAILY 11/26/21 [History] Vitamin C/Biotin [Hair, Skin and Nails Chew] 1 tab PO DAILY 11/26/21 [History] Mv-Mn/Om3/Dha/Epa/Fish/Lut/Hannah [Ocuvite Adult 50 Plus Softgel] 1 cap PO DAILY 10/05/23 [History] Nitroglycerin Sl Tabs [Nitrostat] 0.4 mg SUBLINGUAL Q5M PRN #25 tab 10/07/23 [Rx] Follow up Appointment(s)/Referral(s): Ismael Petit DO [STAFF PHYSICIAN] - 10/14/23 9:30 am Lobito Ford MD [Primary Care Provider] - 1-2 days Patient Instructions/Handouts: *Surgery [facility] - After Heart Catheterization - Manufacturing Maintenance Mechanic Instructions, Chest Pain (DC), Heart Catheterization (DC) Discharge Disposition: HOME SELF-CARE
[2023-10-07 07:47] LABS: African American GFR (CKD) >90 (>60 ml/min/1.73 sqM); Anion Gap 9 mmol/L; Blood Urea Nitrogen 16 mg/dL (7-17); Calcium 9.1 mg/dL (8.4-10.2); Carbon Dioxide 23 mmol/L (22-30); Chloride 105 mmol/L (98-107); Glucose 144 mg/dL (74-99); Non-African American GFR(CKD) >90 (>60 ml/min/1.73 sqM); Potassium 4.4 mmol/L (3.5-5.1); Sodium 137 mmol/L (137-145)
[2023-10-07 08:45] VITALS: BP 144/84; PULSE 75; RESP 16; TEMP 97.5
[2023-10-07] MEDS: ISOSORBIDE MONONITRATE ER 30 MG TAB.ER.24H PO SCH (09:34)
[2023-10-07] MEDS: ASPIRIN 81 MG PO SCH (09:34)
== END 2023-10-07 11:15 | disposition home or self-care (01) ==
LOC: EC 09:58 → 6NMEDSUR 13:25
PROVIDERS: ADMIT Internal Medicine Geriatric Medicine; ATTEND Internal Medicine Geriatric Medicine
DX: R07.89 Other chest pain (principal); R06.02 Shortness of breath; I25.10 Atherosclerotic heart disease of native coronary artery without angina pectoris; R00.2 Palpitations; I49.9 Cardiac arrhythmia, unspecified; I10 Essential (primary) hypertension; M19.90 Unspecified osteoarthritis, unspecified site; R32 Unspecified urinary incontinence; J44.9 Chronic obstructive pulmonary disease, unspecified; R60.9 Edema, unspecified; D64.9 Anemia, unspecified; I08.0 Rheumatic disorders of both mitral and aortic valves; E78.5 Hyperlipidemia, unspecified; E11.9 Type 2 diabetes mellitus without complications; E66.01 Morbid (severe) obesity due to excess calories; Z79.899 Other long term (current) drug therapy; Z85.42 Personal history of malignant neoplasm of other parts of uterus; Z92.3 Personal history of irradiation; Z86.16 Personal history of COVID-19; Z98.61 Coronary angioplasty status; Z68.36 Body mass index [BMI] 36.0-36.9, adult; Z79.84 Long term (current) use of oral hypoglycemic drugs; Z79.82 Long term (current) use of aspirin; Z79.51 Long term (current) use of inhaled steroids
CPT/HCPCS: 99285; 36415; 93005; 93306; 93458; 76937; 83880; 80061; 80053; 80048; 83735; 84484; 85025; 85610; 85730; 71046; G0378 ×3; C1769; C1894; J2250; J2001; J3010; J1644; Q9967

== ENCOUNTER 2023-10-12 14:19 | Inpatient (IN) | payer MEDICARE, OTHER ==
--- NOTE | 2023-10-12 14:57 | ED ---
General Adult HPI - General Chief complaint: Extremity Injury, Upper Stated complaint: Bleeding under skin Time Seen by Provider: 10/12/23 14:25 Source: patient, RN notes reviewed, old records reviewed Mode of arrival: ambulatory Limitations: no limitations - History of Present Illness Initial comments: Is a 78-year-old female who presents to the emergency department stating that she had a catheterization of her heart through her right radial artery on Thursday of last week. Patient states there is some bleeding around it and a small bump and it seemed to get a little bit bigger today after she used her hand. So patient came to the emergency department to be evaluated. Patient denies any increased pain patient denies any numbness or weakness. Patient Nuys any other problems this time. - Related Data Home Medications Medication Instructions Recorded Confirmed metFORMIN HCL [Glucophage] 500 mg PO BID 08/19/17 10/12/23 Oxybutynin ER [Ditropan XL] 10 mg PO HS 02/08/21 10/12/23 Aspirin 81 mg PO DAILY 11/26/21 10/12/23 Budesonide-Formot 160-4.5 Mcg 2 puff INHALATION RT-BID PRN 11/26/21 10/12/23 [Symbicort 160-4.5 Mcg Inhaler] Calcium/Magnesium/Zinc 1 tab PO DAILY 11/26/21 10/12/23 [Fpgpfhu-Txuqumuzy-Hlcv Tablet] Cholecalciferol [Vitamin D3 (25 25 mcg PO DAILY 11/26/21 10/12/23 Mcg = 1000 Iu)] Cranberry Fruit Extract [Cranberry] 500 mg PO DAILY 11/26/21 10/12/23 Cyanocobalamin (Vitamin B-12) 1,000 mcg PO DAILY 11/26/21 10/12/23 [Vitamin B-12] Elderberry Fruit and Flower [Black 1 cap PO DAILY 11/26/21 10/12/23 Elderberry 575 mg Cap] Isosorbide Mononitrate ER [Imdur] 30 mg PO HS 11/26/21 10/12/23 Losartan Potassium 100 mg PO DAILY 11/26/21 10/12/23 Metoprolol Succinate (ER) [Toprol 50 mg PO HS 11/26/21 10/12/23 XL] Multivit with Calcium,Iron,Min 1 tab PO DAILY 11/26/21 10/12/23 [Women's Multivitamin] Neuriva 1 cap PO DAILY 11/26/21 10/12/23 Vitamin C/Biotin [Hair, Skin and 1 tab PO DAILY 11/26/21 10/12/23 Nails Chew] Mv-Mn/Om3/Dha/Epa/Fish/Lut/Hannah 1 cap PO DAILY 10/05/23 10/12/23 [Ocuvite Adult 50 Plus Softgel] Previous Rx's Medication Instructions Recorded Nitroglycerin Sl Tabs [Nitrostat] 0.4 mg SUBLINGUAL Q5M PRN #25 tab 10/07/23 Allergies Allergy/AdvReac Type Severity Reaction Status Date / Time No Known Allergies Allergy Verified 10/12/23 15:04 Review of Systems ROS Statement: Those systems with pertinent positive or pertinent negative responses have been documented in the HPI. ROS Other: All systems not noted in ROS Statement are negative. Past Medical History Past Medical History: Cancer, Chest Pain / Angina, Hypertension, Osteoarthritis (OA) Additional Past Medical History / Comment(s): uterine cancer (surgery & radiation tx 1998), states "secondary lung disease", takes clonidine as preventative due to diabetes., Pain right foot- states using cane and walker, covid History of Any Multi-Drug Resistant Organisms: None Reported Past Surgical History: Heart Catheterization, Hysterectomy, Joint Replacement, Orthopedic Surgery, Tonsillectomy Additional Past Surgical History / Comment(s): total right knee x2 total left knee; Left foot surgery; maru trigger fingers. Heart Cath (may 2018 no stents) Past Anesthesia/Blood Transfusion Reactions: Blood Transfusion Reaction Additional Past Anesthesia/Blood Transfusion Reaction / Comment(s): Hx of rash with blood transfusion 1997 Past Psychological History: No Psychological Hx Reported Smoking Status: Never smoker Past Alcohol Use History: Daily Past Drug Use History: None Reported - Past Family History Daughter(s) Family Medical History: Thyroid Disorder Additional Family Medical History / Comment(s): Older - thyroid General Exam - General Exam Comments Initial Comments: GENERAL Patient is well-developed and well-nourished. Patient is in mild distress. EYES Patient's pupils are equal and round. Extraocular motion is intact SKIN Unremarkable NEURO The patient is alert and oriented -3 PYSCH Patient has normal interpersonal interactions. MUSCULOSKELETAL Right wrist has ecchymosis to the anterior surface and there is a small lump that is hard at the site of catheterization. Patient has no distal numbness or weakness. Limitations: no limitations Course Vital Signs 10/12/23 14:21 Temperature 97.7 F Pulse Rate 75 Respiratory 20 Rate Blood Pressure 152/76 O2 Sat by Pulse 97 Oximetry Medical Decision Making - Medical Decision Making Was pt. sent in by a medical professional or institution (IGNACIO Harvey, LANDING SUPPORT SPECIALIST, urgent care, hospital, or assisted...) When possible be specific @ -No Did you speak to anyone other than the patient for history (EMS, parent, family, police, friend...)? What history was obtained from this source @ -No Did you review nursing and triage notes (agree or disagree)? Why? @ -I reviewed and agree with nursing and triage notes Were old charts reviewed (outside hosp., previous admission, EMS record, old EKG, old radiological studies, urgent care reports/EKG's, assisted records)? Report findings @ -No old charts were reviewed Differential Diagnosis (chest pain, altered mental status, abdominal pain women, abdominal pain men, vaginal bleeding, weakness, fever, dyspnea, syncope, headache, dizziness, GI bleed, back pain, seizure, CVA, palpatations, mental health, musculoskeletal)? @ -Hematoma, ecchymosis, pseudoaneurysm, this is not an all-inclusive list EKG interpreted by me (3pts min.). @ -As above X-rays interpreted by me (1pt min.). @ -None done CT interpreted by me (1pt min.). @ -None done U/S interpreted by me (1pt. min.). @ -Ultrasound showed a small pseudoaneurysm What testing was considered but not performed or refused? (CT, X-rays, U/S, labs)? Why? @ -None What meds were considered but not given or refused? Why? @ -None Did you discuss the management of the patient with other professionals (professionals i.e. IGNACIO Harvey, LANDING SUPPORT SPECIALIST, lab, RT, psych nurse, social worker clinical, composition tile layer, teacher, tactical deception plans officer, director of casework services)? Give summary @ -I spoke with Dr. Ford and he agreed to admit the patient admit the patient recommending orders Was smoking cessation discussed for >3mins.? @ -No Was critical care preformed (if so, how long)? @ -No Were there social determinants of health that impacted care today? How? (Homelessness, low income, unemployed, alcoholism, drug addiction, transportation, low edu. Level, literacy, decrease access to med. care, intermediate, rehab)? @ -No Was there de-escalation of care discussed even if they declined (Discuss DNR or withdrawal of care, Hospice)? DNR status @ -No What co-morbidities impacted this encounter? (DM, HTN, Smoking, COPD, CAD, Cancer, CVA, ARF, Chemo, Hep., AIDS, mental health diagnosis, sleep apnea, morbid obesity)? @ -None Was patient admitted / discharged? Hospital course, mention meds given and route, prescriptions, significant lab abnormalities, going to OR and other pertinent info. @ -Ultrasound showed pseudoaneurysm. I spoke with Dr. Lanza he wanted the patient admitted I spoke with Dr. Ford he agreed to admit the patient. I consulted interventional radiology. Undiagnosed new problem with uncertain prognosis? @ -No Drug Therapy requiring intensive monitoring for toxicity (Heparin, Nitro, Insulin, Cardizem)? @ -No Were any procedures done? @ -No Diagnosis/symptom? @ -Pseudoaneurysm radial artery Acute, or Chronic, or Acute on Chronic? @ -Acute Uncomplicated (without systemic symptoms) or Complicated (systemic symptoms)? @ -Uncomplicated Side effects of treatment? @ -No Exacerbation, Progression, or Severe Exacerbation? @ -No Poses a threat to life or bodily function? How? (Chest pain, [place], [place], pneumonia, PE, COPD, DKA, ARF, appy, cholecystitis, CVA, Diverticulitis, Homicidal, Suicidal, threat to staff... and all critical care pts) @ -No Disposition Clinical Impression: Pseudoaneurysm Disposition: ADMITTED IP TO THIS HOSP Referrals: Lobito Ford MD [Primary Care Provider] - 1-2 days Time of Disposition: 16:25
--- NOTE | 2023-10-12 16:04 | US ---
EXAMINATION TYPE: US upper ext pseudo RT DATE OF EXAM: 10/12/2023 COMPARISON: NONE CLINICAL INDICATION: Female, 78 years old with history of Pseudoaneurysm; Pt states recent heart cath with right radial approach, increase pain, swelling and bruising to right wrist TECHNIQUE: Right radial artery FINDINGS: Possible small, partially thrombosed pseudoaneurysm anterior to right radial artery at pun cture site= 6 x 4 x 5 mm- neck difficult to visualize but appears 2 mm in width IMPRESSION: Outpouching off the radial artery with some internal color Doppler flow suggestive of sm all pseudoaneurysm.
[2023-10-12 16:47] LABS: Basophils % (A) 0 %; Eosinophils # (A) 0.2 k/uL (0-0.7); Eosinophils % (A) 2 %; HCT 40.9 % (34.0-46.0); HGB 13.5 gm/dL (11.4-16.0); Lymphocytes % (A) 25 %; MCH 29.8 pg (25.0-35.0); MCHC 33.2 g/dL (31.0-37.0); Monocytes # (A) 0.4 k/uL (0-1.0); Monocytes % (A) 5 %; Neutrophils # (A) 5.2 k/uL (1.3-7.7); Neutrophils % (A) 66 %; Platelet Count 328 k/uL (150-450); RBC 4.54 m/uL (3.80-5.40); RDW 13.5 % (11.5-15.5); WBC 7.9 k/uL (3.8-10.6)
[2023-10-12 16:56] LABS: ALT 18 U/L (4-34); AST 25 U/L (14-36); African American GFR (CKD) 88 (>60 ml/min/1.73 sqM); Albumin 4.3 g/dL (3.5-5.0); Alkaline Phosphatase 95 U/L (38-126); Anion Gap 9 mmol/L; Blood Urea Nitrogen 17 mg/dL (7-17); Calcium 9.8 mg/dL (8.4-10.2); Carbon Dioxide 26 mmol/L (22-30); Chloride 104 mmol/L (98-107); Glucose 103 mg/dL (74-99); Non-African American GFR(CKD) 77 (>60 ml/min/1.73 sqM); Potassium 4.6 mmol/L (3.5-5.1); Sodium 139 mmol/L (137-145); Total Bilirubin 0.4 mg/dL (0.2-1.3); Total Protein 7.2 g/dL (6.3-8.2)
[2023-10-12 17:02] LABS: INR 0.9 (<1.2); Partial Thromboplastin Time 22.8 sec (22.0-30.0); Prothrombin Time 10.1 sec (10.0-12.5)
[2023-10-12] MEDS ORDERED: NITROGLYCERIN SL TABS 0.4 MG TAB SUBLINGUAL PRN (18:30)
[2023-10-12] MEDS ORDERED: SYMBICORT 160-4.5 MCG INHALER INHALATION PRN (18:30)
[2023-10-12 20:00] LABS: Glucose,Whole Blood 146 mg/dL (70-110)
[2023-10-12] MEDS: INSULIN ASPART (NovoLOG) 100 UNIT/ML VIAL SQ SCH (20:07)
[2023-10-12] MEDS: ISOSORBIDE MONONITRATE ER 30 MG TAB.ER.24H PO SCH (20:36)
[2023-10-12] MEDS: OXYBUTYNIN 10 MG TAB.ER.24 PO SCH (20:37)
[2023-10-12] MEDS: METOPROLOL SUCCINATE (ER) 50 MG TAB.ER.24H PO SCH (20:37)
[2023-10-12] MEDS: metFORMIN 500 MG TAB PO SCH (20:37)
--- NOTE | 2023-10-12 20:41 | P.HPIM ---
History of Present Illness H&P Date: 10/12/23 HISTORY OF PRESENT ILLNESS: 78-year-old one of my office patient with longstanding history of atherosclerotic heart disease, hypertension, hyperlipidemia, type 2 diabetes, ch ronic incontinence, recurrent angina, history of COPD, history of recurrent arrhythmia, , Mild aortic stenosis and mild mitral stenosis. Who was hospitalized from 10/04 to 10/07/2023 for severe recurrent shortness of breath and dyspnea and ended up having an echocardiogram and went for heart cath the following day came back with minimal to mild disease only. Echocardiogram showed mild aortic stenosis and mild mitral stenosis. Well-preserved ejection fraction. Patient heart catheter was done through the right radius artery. Patient was discharged home successfully doing well slight adjustment of her COPD management and heart management as well with isosorbide along with metoprolol succinate she apparently was following day she felt and landed on her right wrist and prevent herself from having more injury developed to have mild bruise and discomfort in the right radius area and yesterday had help one of her family member was working in the yard as well while she is driving her motorized scooter she felt by the end of the day her wrist was hurting more and started having slight numbness weakness in the hand and fingers. She woke up this morning having significant bruise and hematoma on the right side consistent with much worsening complaint. She ended up calling the office and was instructed to come to the emergency department for suspicious of pseudoaneurysm with possible large hematoma from the puncture site of her heart cath. Patient mated to the emergency department and ultrasound done as a duplex scan came back with ou outpouching off the radial artery with some internal color Doppler flow suggestive of small pseudoaneurysm. She was hospitalized cardiology was notified and patient be seen interventional radiologist tomorrow for possible repair. REVIEW OF SYSTEMS: CONSTITUTIONAL: Obese laying in bed no acute respiratory distress. EYES: No icterus sclerae, no conjunctivitis. EARS, NOSE, MOUTH, THROAT, and FACE: No sore throat, lymphadenopathy, carotid bruits or deformity. RESPIRATORY: Slight shortness of breath improved from last time no cough or wheezes. CARDIOVASCULAR: Positive PND orthopnea palpitation with mild shortness of breath no sign of angina. GASTROINTESTINAL: No Abd pain, Nausea or vomiting, no Diarrhea or constipation, No GI Bleed, no distention or masses. GENITOURINARY: Negative for Hematuria or UTI, no kidney stones. INTEGUMENT/BREAST: Negative for any muscular injury with mild osteoarthritis.. Exts: Right upper extremity specially radius area had large hematoma bruise and slight pouching ballooning site typical for aneurysm. HEMATOLOGIC/LYMPHATIC: Negative for bleed or purpura. Large hematoma on the right upper extremity. MUSCULOSKELTAL: Negative for Myalgia or arthralgia. NEURLOGICAL: No LOC, Sz or syncope, blurred vision dizziness or abnormality.. BEHAVIORAL/PSYCH: Negative. ENDOCRINE: Negative. PHYSICAL EXAMINATION: General Appearance: Obese cooperative no acute respiratory distress breathing better than last time. Neck HEENT: Supple, no lymphadenopathy, no thyroid enlargement, no carotid bruits. Lungs: Decreased breath sound bilaterally with fine rhonchi no crackles pause mild expiratory wheezes. Chest Wall: Decreased expansion with deep inspiration no tenderness and no deformity was found on exam, no costochondral pain or discomfort. Heart: Regular rate and rhythm, S1, S2 normal, no murmur, rub or gallop. Back: Symmetric, no curvature, ROM normal, no CVA tenderness. Abdomen: Soft, non-tender, bowel sounds active all four quadrants, no masses, no organomegaly. Extremities: Right upper extremity has large bruise and hematoma with outpouching on the radius artery most likely consistent with pseudoaneurysm. Pulses: 2+ and symmetric. Skin: Skin color, texture, tugor normal, no rashes or lesions. Neurologic: Alert oriented x3 cranial nerves II through XII intact, no motor deficit, no abnormal balance or gait. ASSESSMENT AND PLAN: _Pseudoaneurysm of the right radius from puncture site from recent heart cath, patient be hospitalized breast upper extremity consult interventional radiologist and cardiology for possible intervention. _Severe dyspnea and shortness of breath: Has improved compared to last time continue current management still on current inhaler and nebulizer. _Valvular heart disease with aortic stenosis and mitral stenosis: On medical management at this point. _Type 2 diabetes remain on metformin along with Jardiance continue current management still on Accu-Chek with sliding scale coverage. _COPD: Without any exacerbation: Continue Trelegy along with updraft treatment. _Chronic anemia: Still on iron supplement doing well. _Edema will benefit from at least smaller dose of loop diuretics. _Hypertension: Remain on metoprolol succinate 50 mg at bedtime, isosorbide mono nitrate 15 mg daily and still on loop diuretics. _GI prophylaxis: Continue patient on proton pump inhibitor. _DVT prophylaxis: Early mobilization and knee-high KENNY hose will be done. CODE STATUS: Full code. Admit patient to the inpatient service for 1-2 night stay. Past Medical History Past Medical History: Cancer, Chest Pain / Angina, Hypertension, Osteoarthritis (OA) Additional Past Medical History / Comment(s): uterine cancer (surgery & radiation tx 1998), states "secondary lung disease", takes clonidine as preventative due to diabetes., Pain right foot- states using cane and walker, covid History of Any Multi-Drug Resistant Organisms: None Reported Past Surgical History: Heart Catheterization, Hysterectomy, Joint Replacement, Orthopedic Surgery, Tonsillectomy Additional Past Surgical History / Comment(s): total right knee x2 total left knee; Left foot surgery; maru trigger fingers. Heart Cath (may 2018 no stents) Past Anesthesia/Blood Transfusion Reactions: Blood Transfusion Reaction Additional Past Anesthesia/Blood Transfusion Reaction / Comment(s): Hx of rash with blood transfusion 1997 Past Psychological History: No Psychological Hx Reported Smoking Status: Never smoker Past Alcohol Use History: Daily Past Drug Use History: None Reported - Past Family History Daughter(s) Family Medical History: Thyroid Disorder Additional Family Medical History / Comment(s): Older - thyroid Medications and Allergies Home Medications Medication Instructions Recorded Confirmed Type metFORMIN HCL [Glucophage] 500 mg PO BID 08/19/17 10/12/23 History Oxybutynin ER [Ditropan XL] 10 mg PO HS 02/08/21 10/12/23 History Aspirin 81 mg PO DAILY 11/26/21 10/12/23 History Budesonide-Formot 160-4.5 Mcg 2 puff INHALATION RT-BID PRN 11/26/21 10/12/23 History [Symbicort 160-4.5 Mcg Inhaler] Calcium/Magnesium/Zinc 1 tab PO DAILY 11/26/21 10/12/23 History [Pyuswps-Xnzdfnhtx-Wjjw Tablet] Cholecalciferol [Vitamin D3 (25 25 mcg PO DAILY 11/26/21 10/12/23 History Mcg = 1000 Iu)] Cranberry Fruit Extract [Cranberry] 500 mg PO DAILY 11/26/21 10/12/23 History Cyanocobalamin (Vitamin B-12) 1,000 mcg PO DAILY 11/26/21 10/12/23 History [Vitamin B-12] Elderberry Fruit and Flower [Black 1 cap PO DAILY 11/26/21 10/12/23 History Elderberry 575 mg Cap] Isosorbide Mononitrate ER [Imdur] 30 mg PO HS 11/26/21 10/12/23 History Losartan Potassium 100 mg PO DAILY 11/26/21 10/12/23 History Metoprolol Succinate (ER) [Toprol 50 mg PO HS 11/26/21 10/12/23 History XL] Multivit with Calcium,Iron,Min 1 tab PO DAILY 11/26/21 10/12/23 History [Women's Multivitamin] Neuriva 1 cap PO DAILY 11/26/21 10/12/23 History Vitamin C/Biotin [Hair, Skin and 1 tab PO DAILY 11/26/21 10/12/23 History Nails Chew] Mv-Mn/Om3/Dha/Epa/Fish/Lut/Hnanah 1 cap PO DAILY 10/05/23 10/12/23 History [Ocuvite Adult 50 Plus Softgel] Nitroglycerin Sl Tabs [Nitrostat] 0.4 mg SUBLINGUAL Q5M PRN #25 tab 10/07/23 10/12/23 Rx Allergies Allergy/AdvReac Type Severity Reaction Status Date / Time No Known Allergies Allergy Verified 10/12/23 15:04 Physical Exam Vitals: Vital Signs Temp Pulse Resp BP Pulse Ox 10/12/23 20:35 97.8 F 79 16 120/77 97 10/12/23 19:36 77 16 126/67 98 10/12/23 16:54 73 16 161/96 96 10/12/23 14:21 97.7 F 75 20 152/76 97 Intake and Output 10/12/23 10/12/23 10/12/23 06:59 14:59 22:59 Other: Weight 104.326 kg Results CBC & Chem 7: 10/12/23 16:37 10/12/23 16:37 Labs: Abnormal Lab Results - Last 24 Hours (Table) 10/12/23 10/12/23 Range/Units 16:37 19:59 Glucose 103 H (74-99) mg/dL POC Glucose (mg/dL) 146 H (70-110) mg/dL
[2023-10-13 08:22] LABS: Glucose,Whole Blood 121 mg/dL (70-110)
--- NOTE | 2023-10-13 08:46 | P.CRDCN ---
History of Present Illness Consult date: 10/13/23 Reason for Consult (text): Pseudoaneurysm History of present illness: History of present illness: This is a 78-year-old female patient of Dr. Petit with past medical history of hypertension, hyperlipidemia, no significant coronary artery disease on cardiac catheterization in 2018, type 2 diabetes, emphysema without recent smoking. Presented to the hospital last week with chest pain and underwent cardiac catheterization with Dr. Petit which revealed normal coronary arteries. Normal left-sided filling pressures. Mild to moderate aortic stenosis with mean gradient 22 mmHg. Plan for aggressive risk factor modification. Patient presented to the emergency center due to bleeding and a small bump at the right radial wrist area. Patient is seen today in the emergency center waiting for a bed on the observation unit. Ultrasound right upper extremity: Outpouching of the radial artery with some internal color Doppler flow suggestive of small pseudoaneurysm. Review Of Systems: At the time of my exam: CONSTITUTIONAL: Denies fever or chills. HEENT: Denies blurred vision, vision changes, or eye pain. Denies hemoptysis CARDIOVASCULAR: Denies chest pain. Denies orthopnea. Denies PND. Denies palpitations RESPIRATORY: Denies shortness of breath. GASTROINTESTINAL: Denies abdominal pain. Denies nausea or vomiting. HEMATOLOGIC: Denies bleeding disorders. GENITOURINARY: Denies any blood in urine. SKIN: Denies pruitis. Denies rash. Physical examination: Gen: This is a 78-year-old female in no acute distress VS: reviewed HEENT: Head is atraumatic, normocephalic. Pupils equal, round. Sclerae is anicteric. NECK: Supple. No JVD. LUNGS: Clear to auscultation. No wheezes or rhonchi. No intercostal retractions. HEART: Regular rate and rhythm. Systolic ejection murmur at the base. ABDOMEN: Soft No tenderness. EXTREMITIES: Right radial wrist slightly bulging pulsating mass. No pedal edema. No calf tenderness. NEUROLOGICAL: Patient is awake, alert and oriented x3. Assessment: Pseudoaneurysm right wrist Normal coronary arteries on cardiac catheterization Hypertension Diabetes mellitus type 2 Hyperlipidemia Mild to moderate aortic stenosis Plan: Resume patient's home cardiac medications Consult IR/vascular surgery for intervention Further recommendations to follow based upon clinical course Thank you kindly for this consultation. Nurse practitioner note has been reviewed, I agree with documented findings and plan of care. Patient was seen and examined. Past Medical History Past Medical History: Cancer, Chest Pain / Angina, Hypertension, Osteoarthritis (OA) Additional Past Medical History / Comment(s): uterine cancer (surgery & radiatio n tx 1998), states "secondary lung disease", takes clonidine as preventative due to diabetes., Pain right foot- states using cane and walker, covid History of Any Multi-Drug Resistant Organisms: None Reported Past Surgical History: Heart Catheterization, Hysterectomy, Joint Replacement, Orthopedic Surgery, Tonsillectomy Additional Past Surgical History / Comment(s): total right knee x2 total left knee; Left foot surgery; maru trigger fingers. Heart Cath (may 2018 no stents) Past Anesthesia/Blood Transfusion Reactions: Blood Transfusion Reaction Additional Past Anesthesia/Blood Transfusion Reaction / Comment(s): Hx of rash with blood transfusion 1997 Past Psychological History: No Psychological Hx Reported Smoking Status: Never smoker Past Alcohol Use History: Daily Past Drug Use History: None Reported - Past Family History Daughter(s) Family Medical History: Thyroid Disorder Additional Family Medical History / Comment(s): Older - thyroid Medications and Allergies Home Medications Medication Instructions Recorded Confirmed Type metFORMIN HCL [Glucophage] 500 mg PO BID 08/19/17 10/12/23 History Oxybutynin ER [Ditropan XL] 10 mg PO HS 02/08/21 10/12/23 History Aspirin 81 mg PO DAILY 11/26/21 10/12/23 History Budesonide-Formot 160-4.5 Mcg 2 puff INHALATION RT-BID PRN 11/26/21 10/12/23 History [Symbicort 160-4.5 Mcg Inhaler] Calcium/Magnesium/Zinc 1 tab PO DAILY 11/26/21 10/12/23 History [Htqosnz-Symsioeva-Vdhs Tablet] Cholecalciferol [Vitamin D3 (25 25 mcg PO DAILY 11/26/21 10/12/23 History Mcg = 1000 Iu)] Cranberry Fruit Extract [Cranberry] 500 mg PO DAILY 11/26/21 10/12/23 History Cyanocobalamin (Vitamin B-12) 1,000 mcg PO DAILY 11/26/21 10/12/23 History [Vitamin B-12] Elderberry Fruit and Flower [Black 1 cap PO DAILY 11/26/21 10/12/23 History Elderberry 575 mg Cap] Isosorbide Mononitrate ER [Imdur] 30 mg PO HS 11/26/21 10/12/23 History Losartan Potassium 100 mg PO DAILY 11/26/21 10/12/23 History Metoprolol Succinate (ER) [Toprol 50 mg PO HS 11/26/21 10/12/23 History XL] Multivit with Calcium,Iron,Min 1 tab PO DAILY 11/26/21 10/12/23 History [Women's Multivitamin] Neuriva 1 cap PO DAILY 11/26/21 10/12/23 History Vitamin C/Biotin [Hair, Skin and 1 tab PO DAILY 11/26/21 10/12/23 History Nails Chew] Mv-Mn/Om3/Dha/Epa/Fish/Lut/Hannah 1 cap PO DAILY 10/05/23 10/12/23 History [Ocuvite Adult 50 Plus Softgel] Nitroglycerin Sl Tabs [Nitrostat] 0.4 mg SUBLINGUAL Q5M PRN #25 tab 10/07/23 10/12/23 Rx Allergies Allergy/AdvReac Type Severity Reaction Status Date / Time No Known Allergies Allergy Verified 10/12/23 15:04 Physical Exam Vitals: Vital Signs Temp Pulse Resp BP Pulse Ox 10/13/23 08:17 80 18 144/77 98 10/13/23 04:10 84 18 139/67 97 10/13/23 00:12 74 16 150/70 97 10/12/23 20:35 97.8 F 79 16 120/77 97 10/12/23 19:36 77 16 126/67 98 10/12/23 16:54 73 16 161/96 96 10/12/23 14:21 97.7 F 75 20 152/76 97 Results 10/12/23 16:37 10/12/23 16:37 Cardiac Enzymes 10/12/23 Range/Units 16:37 AST 25 (14-36) U/L Coagulation 10/12/23 Range/Units 16:42 PT 10.1 (10.0-12.5) sec APTT 22.8 (22.0-30.0) sec CBC 10/12/23 Range/Units 16:37 WBC 7.9 (3.8-10.6) k/uL RBC 4.54 (3.80-5.40) m/uL Hgb 13.5 (11.4-16.0) gm/dL Hct 40.9 (34.0-46.0) % Plt Count 328 (150-450) k/uL Comprehensive Metabolic Panel 10/12/23 Range/Units 16:37 Sodium 139 (137-145) mmol/L Potassium 4.6 (3.5-5.1) mmol/L Chloride 104 (98-107) mmol/L Carbon Dioxide 26 (22-30) mmol/L BUN 17 (7-17) mg/dL Creatinine 0.75 (0.52-1.04) mg/dL Glucose 103 H (74-99) mg/dL Calcium 9.8 (8.4-10.2) mg/dL AST 25 (14-36) U/L ALT 18 (4-34) U/L Alkaline Phosphatase 95 (38-126) U/L Total Protein 7.2 (6.3-8.2) g/dL Albumin 4.3 (3.5-5.0) g/dL Current Medications Generic Name Dose Route Start Last Admin Trade Name Freq PRN Reason Stop Dose Admin Aspirin 81 mg 10/13/23 09:00 Aspirin 81 Mg PO DAILY [facility] Budesonide/Formoterol Fumarate 2 puff 10/12/23 18:30 Symbicort 160-4.5 Mcg Inhaler INHALATION RT-BID PRN Shortness Of Breath Cholecalciferol 25 mcg 10/13/23 09:00 Cholecalciferol 25 Mcg (1000 Iu) Tablet PO DAILY [facility] Cyanocobalamin 1,000 mcg 10/13/23 09:00 Cyanocobalamin 500 Mcg Tab PO DAILY [facility] Famotidine 20 mg 10/13/23 09:00 Famotidine 20 Mg Tab PO DAILY [facility] Insulin Aspart 0 unit 10/12/23 21:00 10/13/23 08:21 Insulin Aspart (Novolog) 100 Unit/Ml Vial SQ Not Given ACHS [facility] Protocol Isosorbide Mononitrate 30 mg 10/12/23 21:00 10/12/23 20:36 Isosorbide Mononitrate Er 30 Mg Tab.Er.24h PO 30 mg HS [facility] Administration Losartan Potassium 100 mg 10/13/23 09:00 Losartan 50 Mg Tab PO DAILY [facility] Metformin HCl 500 mg 10/12/23 21:00 10/12/23 20:37 Metformin 500 Mg Tab PO 500 mg BID-W/MEALS [facility] Administration Metoprolol Succinate 50 mg 10/12/23 21:00 10/12/23 20:37 Metoprolol Succinate (Er) 50 Mg Tab.Er.24h PO 50 mg HS [facility] Administration Multivitamins 1 each 10/13/23 09:00 Multivitamins, Thera 1 Each Tab PO DAILY [facility] Multivitamins/Minerals 1 each 10/13/23 09:00 Vit A,C & J-Kqyuwb-Plyuemec 1 Each Tab PO DAILY [facility] Nitroglycerin 0.4 mg 10/12/23 18:30 Nitroglycerin Sl Tabs 0.4 Mg Tab SUBLINGUAL Q5M PRN Chest Pain Oxybutynin Chloride 10 mg 10/12/23 21:00 10/12/23 20:37 Oxybutynin 10 Mg Tab.Er.24 PO 10 mg HS [facility] Administration 10/12/23 16:37 10/12/23 16:37
[2023-10-13] MEDS: ASPIRIN 81 MG PO SCH (08:54)
[2023-10-13] MEDS: LOSARTAN 50 MG TAB PO SCH (08:54)
[2023-10-13] MEDS: MULTIVITAMINS, THERA 1 EACH TAB PO SCH (08:54)
[2023-10-13] MEDS: FAMOTIDINE 20 MG TAB PO SCH (08:54)
[2023-10-13] MEDS ORDERED: NON FORMULARY DRUG (Elderberry Fruit And Flower [Black Elderberry 575 Mg Cap] 1 EACH Capsu PO SCH (09:00)
[2023-10-13] MEDS ORDERED: NON FORMULARY DRUG (Cranberry Fruit Extract [Cranberry] 500 MG Tablet) PO SCH (09:00)
[2023-10-13] MEDS ORDERED: NON FORMULARY DRUG (Calcium/Magnesium/Zinc [Calcium-Magnesium-Zinc Tablet] 1 EACH Tablet) PO SCH (09:00)
[2023-10-13] MEDS ORDERED: NON FORMULARY DRUG (Vitamin C/Biotin [Hair, Skin And Nails Chew] 1 EACH Tab.Chew) PO SCH (09:00)
[2023-10-13] MEDS ORDERED: NON FORMULARY DRUG (Neuriva 1 CAP) PO SCH (09:00)
[2023-10-13] MEDS: CHOLECALCIFEROL 25 MCG (1000 IU) TABLET PO SCH (09:41)
[2023-10-13] MEDS: CYANOCOBALAMIN 500 MCG TAB PO SCH (09:41)
[2023-10-13] MEDS: VIT A,C & E-LUTEIN-MINERALS 1 EACH TAB PO SCH (09:42)
--- NOTE | 2023-10-13 11:14 | P.GSCN ---
History of Present Illness Consult date: 10/13/23 Reason for Consult: Pseudoaneurysm Requesting physician: Andriy Faith History of present illness: This is a pleasant 78-year-old female who presented to the emergency department with concerns of right upper extremity bruising and concerns of area of swelling. She was recently hospitalized October 04 through October 06 and underwent cardiac catheterization with Dr. Petit on October 06, 2023 with access of the right radial artery. Patient states that she went home and she was told and to rest that arm however states that she had tripped and reached down to brace herself. She then noticed some bruising and my small bump that had been forming. She denies any anticoagulation, she does take a daily 81 mg aspirin. No bleeding from the site. She has full range of motion of her right upper extremity. She states bilateral fingertips do have a little numbness tingling. Currently denies any shortness of breath, chest pain, abdominal pain, nausea or vomiting. She had a right upper extremity pseudoaneurysm ultrasound that reported outpouching of the radial artery with some internal color Doppler flow suggestive of small pseudoaneurysm. This measures 6 x 4 x 5 mm. Vascular surgery consulted for right radial artery pseudoaneurysm. Review of Systems A 14 point review systems was completed all pertinent positives and negatives as stated in the HPI. Past Medical History Past Medical History: Cancer, Chest Pain / Angina, Hypertension, Osteoarthritis (OA) Additional Past Medical History / Comment(s): uterine cancer (surgery & radiation tx 1998), states "secondary lung disease", takes clonidine as preventative due to diabetes., Pain right foot- states using cane and walker, covid History of Any Multi-Drug Resistant Organisms: None Reported Past Surgical History: Heart Catheterization, Hysterectomy, Joint Replacement, Orthopedic Surgery, Tonsillectomy Additional Past Surgical History / Comment(s): total right knee x2 total left knee; Left foot surgery; maru trigger fingers. Heart Cath (may 2018 no stents) Past Anesthesia/Blood Transfusion Reactions: Blood Transfusion Reaction Additional Past Anesthesia/Blood Transfusion Reaction / Comm: Hx of rash with blood transfusion 1997 Past Psychological History: No Psychological Hx Reported Smoking Status: Never smoker Past Alcohol Use History: Daily Past Drug Use History: None Reported - Past Family History Daughter(s) Family Medical History: Thyroid Disorder Additional Family Medical History / Comment(s): Older - thyroid Medications and Allergies Home Medications Medication Instructions Recorded Confirmed Type metFORMIN HCL [Glucophage] 500 mg PO BID 08/19/17 10/12/23 History Oxybutynin ER [Ditropan XL] 10 mg PO HS 02/08/21 10/12/23 History Aspirin 81 mg PO DAILY 11/26/21 10/12/23 History Budesonide-Formot 160-4.5 Mcg 2 puff INHALATION RT-BID PRN 11/26/21 10/12/23 History [Symbicort 160-4.5 Mcg Inhaler] Calcium/Magnesium/Zinc 1 tab PO DAILY 11/26/21 10/12/23 History [Pxxbdqo-Kuabvfeoy-Ihxr Tablet] Cholecalciferol [Vitamin D3 (25 25 mcg PO DAILY 11/26/21 10/12/23 History Mcg = 1000 Iu)] Cranberry Fruit Extract [Cranberry] 500 mg PO DAILY 11/26/21 10/12/23 History Cyanocobalamin (Vitamin B-12) 1,000 mcg PO DAILY 11/26/21 10/12/23 History [Vitamin B-12] Elderberry Fruit and Flower [Black 1 cap PO DAILY 11/26/21 10/12/23 History Elderberry 575 mg Cap] Isosorbide Mononitrate ER [Imdur] 30 mg PO HS 11/26/21 10/12/23 History Losartan Potassium 100 mg PO DAILY 11/26/21 10/12/23 History Metoprolol Succinate (ER) [Toprol 50 mg PO HS 11/26/21 10/12/23 History XL] Multivit with Calcium,Iron,Min 1 tab PO DAILY 11/26/21 10/12/23 History [Women's Multivitamin] Neuriva 1 cap PO DAILY 11/26/21 10/12/23 History Vitamin C/Biotin [Hair, Skin and 1 tab PO DAILY 11/26/21 10/12/23 History Nails Chew] Mv-Mn/Om3/Dha/Epa/Fish/Lut/Hannah 1 cap PO DAILY 10/05/23 10/12/23 History [Ocuvite Adult 50 Plus Softgel] Nitroglycerin Sl Tabs [Nitrostat] 0.4 mg SUBLINGUAL Q5M PRN #25 tab 10/07/23 10/12/23 Rx Allergies Allergy/AdvReac Type Severity Reaction Status Date / Time No Known Allergies Allergy Verified 10/12/23 15:04 Surgical - Exam Vital Signs Temp Pulse Resp BP Pulse Ox 97.7 F 75 20 152/76 97 10/12/23 14:21 10/12/23 14:21 10/12/23 14:21 10/12/23 14:21 10/12/23 14:21 General appearance: The patient is alert, oriented, appears in no acute distress. HET: Head is normocephalic and atraumatic. Neck: Supple. Heart: Regular. Lungs: Equal expansion, normal respiratory effort. Abdomen: Soft, nontender, nondistended. Extremities: Right forearm with ecchymosis, small lump felt at the access site at left wrist. There is a +2 palpable radial pulse. Sensorimotor intact. Neurological: No focal deficits. Strength and sensation are grossly intact. Results - Labs 10/12/23 16:37 10/12/23 16:37 Abnormal Lab Results - Last 24 Hours (Table) 10/12/23 10/12/23 10/13/23 Range/Units 16:37 19:59 08:21 Glucose 103 H (74-99) mg/dL POC Glucose (mg/dL) 146 H 121 H (70-110) mg/dL Diabetes panel 10/12/23 Range/Units 16:37 Sodium 139 (137-145) mmol/L Potassium 4.6 (3.5-5.1) mmol/L Chloride 104 (98-107) mmol/L Carbon Dioxide 26 (22-30) mmol/L BUN 17 (7-17) mg/dL Creatinine 0.75 (0.52-1.04) mg/dL Glucose 103 H (74-99) mg/dL Calcium 9.8 (8.4-10.2) mg/dL AST 25 (14-36) U/L ALT 18 (4-34) U/L Alkaline Phosphatase 95 (38-126) U/L Total Protein 7.2 (6.3-8.2) g/dL Albumin 4.3 (3.5-5.0) g/dL Calcium panel 10/12/23 Range/Units 16:37 Calcium 9.8 (8.4-10.2) mg/dL Albumin 4.3 (3.5-5.0) g/dL Pituitary panel 10/12/23 Range/Units 16:37 Sodium 139 (137-145) mmol/L Potassium 4.6 (3.5-5.1) mmol/L Chloride 104 (98-107) mmol/L Carbon Dioxide 26 (22-30) mmol/L BUN 17 (7-17) mg/dL Creatinine 0.75 (0.52-1.04) mg/dL Glucose 103 H (74-99) mg/dL Calcium 9.8 (8.4-10.2) mg/dL Adrenal panel 10/12/23 Range/Units 16:37 Sodium 139 (137-145) mmol/L Potassium 4.6 (3.5-5.1) mmol/L Chloride 104 (98-107) mmol/L Carbon Dioxide 26 (22-30) mmol/L BUN 17 (7-17) mg/dL Creatinine 0.75 (0.52-1.04) mg/dL Glucose 103 H (74-99) mg/dL Calcium 9.8 (8.4-10.2) mg/dL Total Bilirubin 0.4 (0.2-1.3) mg/dL AST 25 (14-36) U/L ALT 18 (4-34) U/L Alkaline Phosphatase 95 (38-126) U/L Total Protein 7.2 (6.3-8.2) g/dL Albumin 4.3 (3.5-5.0) g/dL - Imaging Comments: right upper extremity pseudoaneurysm ultrasound that reported outpouching of the radial artery with some internal color Doppler flow suggestive of small pseudoaneurysm. This measures 6 x 4 x 5 mm. Assessment and Plan Assessment: 1. Right radial artery pseudoaneurysm measuring 6 x 4 x 5 mm 2. Recent cardiac catheterization with access of right radial artery on 10/06/2023 Plan: 1. Apply pressure to right radial artery access site 2. Interventional radiology was consulted for thrombin injection however they are no longer providing the services 3. Will reevaluate pseudoaneurysm tomorrow with repeat ultrasound 4. Avoid any anticoagulation 5. Keep n.p.o. after midnight until patient is reevaluated by vascular surgery 6. Rest of medical management per primary medical team Thank you for this consultation, we will continue to follow. The impression and plan of care has been dictated as directed. Dr.Cuppari Sandy performed a history and examination of this patient, discussed the same with the dictator. I agree with the dictator's note ,documented as a scribe. Any additional findings or plans will be noted.
[2023-10-13 12:12] LABS: Glucose,Whole Blood 113 mg/dL (70-110)
[2023-10-13 15:22] VITALS: RESP 16
[2023-10-13 17:11] LABS: Glucose,Whole Blood 109 mg/dL (70-110)
[2023-10-13 20:06] LABS: Glucose,Whole Blood 130 mg/dL (70-110)
--- NOTE | 2023-10-13 23:13 | P.PN ---
Subjective Progress Note Date: 10/13/23 HISTORY OF PRESENT ILLNESS: 78-year-old one of my office patient with longstanding history of atherosclerotic heart disease, hypertension, hyperlipidemia, type 2 diabetes, chronic incontinence, recurrent angina, history of COPD, history of recurrent arrhythmia, , Mild aortic stenosis and mild mitral stenosis. Who was hospitalized from 10/04 to 10/07/2023 for severe recurrent shortness of breath and dyspnea and ended up having an echocardiogram and went for heart cath the following day came back with minimal to mild disease only. Echocardiogram showed mild aortic stenosis and mild mitral stenosis. Well-preserved ejection fraction. Patient heart catheter was done through the right radius artery. Patient was discharged home successfully doing well slight adjustment of her COPD management and heart management as well with isosorbide along with metoprolol succinate she apparently was following day she felt and landed on her right wrist and prevent herself from having more injury developed to have mild bruise and discomfort in the right radius area and yesterday had help one of her family member was working in the yard as well while she is driving her motorized scooter she felt by the end of the day her wrist was hurting more and started having slight numbness weakness in the hand and fingers. She woke up this morning having significant bruise and hematoma on the right side consistent with much worsening complaint. She ended up calling the office and was instructed to come to the emergency department for suspicious of pseudoaneurysm with possible large hematoma from the puncture site of her heart cath. Patient mated to the emergency department and ultrasound done as a duplex scan came back with ou outpouching off the radial artery with some internal color Doppler flow suggestive of small pseudoaneurysm. She was hospitalized cardiology was notified and patient be seen interventional radiologist tomorrow for possible repair. 10/13/2023: Patient was hospitalized yesterday for pseudoaneurysm of the right radius artery following her heart cath was supposed to see interventional radiology for possible correction apparently This is not done by them anymore, cardiology has consulted vascular to be seen her pseudoaneurysm is only 6 x 4 x 5 mm and has been applying a pressure on the right radius artery with no increas ed bleeding there is no interventional radiology management for this kind of problem at this point the patient will continue to be observed for conservative management and repeat ultrasound tomorrow vascular surgery will evaluate her after the ultrasound done for possible intervention if needed. Patient otherwise hemodynamically stable and she is not complaining of increased pain or discomfort still having slight numbness and weakness in the hand and fingers. REVIEW OF SYSTEMS: CONSTITUTIONAL: Obese laying in bed no acute respiratory distress. EYES: No icterus sclerae, no conjunctivitis. EARS, NOSE, MOUTH, THROAT, and FACE: No sore throat, lymphadenopathy, carotid bruits or deformity. RESPIRATORY: Slight shortness of breath improved from last time no cough or wheezes. CARDIOVASCULAR: Positive PND orthopnea palpitation with mild shortness of breath no sign of angina. GASTROINTESTINAL: No Abd pain, Nausea or vomiting, no Diarrhea or constipation, No GI Bleed, no distention or masses. GENITOURINARY: Negative for Hematuria or UTI, no kidney stones. INTEGUMENT/BREAST: Negative for any muscular injury with mild osteoarthritis.. Exts: Right upper extremity specially radius area had large hematoma bruise and slight pouching ballooning site typical for aneurysm. HEMATOLOGIC/LYMPHATIC: Negative for bleed or purpura. Large hematoma on the right upper extremity. MUSCULOSKELTAL: Negative for Myalgia or arthralgia. NEURLOGICAL: No LOC, Sz or syncope, blurred vision dizziness or abnormality.. BEHAVIORAL/PSYCH: Negative. ENDOCRINE: Negative. PHYSICAL EXAMINATION: General Appearance: Obese cooperative no acute respiratory distress breathing better than last time. Neck HEENT: Supple, no lymphadenopathy, no thyroid enlargement, no carotid bruits. Lungs: Decreased breath sound bilaterally with fine rhonchi no crackles pause mild expiratory wheezes. Chest Wall: Decreased expansion with deep inspiration no tenderness and no deformity was found on exam, no costochondral pain or discomfort. Heart: Regular rate and rhythm, S1, S2 normal, no murmur, rub or gallop. Back: Symmetric, no curvature, ROM normal, no CVA tenderness. Abdomen: Soft, non-tender, bowel sounds active all four quadrants, no masses, no organomegaly. Extremities: Right upper extremity has large bruise and hematoma with outpouching on the radius artery most likely consistent with pseudoaneurysm. Pulses: 2+ and symmetric. Skin: Skin color, texture, tugor normal, no rashes or lesions. Neurologic: Alert oriented x3 cranial nerves II through XII intact, no motor deficit, no abnormal balance or gait. ASSESSMENT AND PLAN: _Pseudoaneurysm of the right radius from puncture site from recent heart cath, continue conservative management seen vascular will repeat ultrasound tomorrow see if patient will benefit from doing any intervention no interventional radiologist to repair this type of problem at this point. _Severe dyspnea and shortness of breath: Has improved compared to last time continue current management still on current inhaler and nebulizer. _Valvular heart disease with aortic stenosis and mitral stenosis: On medical management at this point. Seen cardiology continue medical management. _Type 2 diabetes remain on metformin along with Jardiance continue current management still on Accu-Chek with sliding scale coverage. Blood sugars better controlled. _COPD: Without any exacerbation: Continue Trelegy along with updraft treatment. _Chronic anemia: Still on iron supplement doing well. _Edema will benefit from at least smaller dose of loop diuretics. _Hypertension: Remain on metoprolol succinate 50 mg at bedtime, isosorbide mononitrate 15 mg daily and still on loop diuretics. Prognosis: Fair. Discussion: Patient was seen vascular will continue conservative management watch for ultrasound by tomorrow decide by vascular whether can do intervention or not. Objective - Vital Signs Vital signs: Vital Signs Temp 97.8 F 10/12/23 20:35 Pulse 84 10/13/23 04:10 Resp 18 10/13/23 04:10 BP 139/67 10/13/23 04:10 Pulse Ox 97 10/13/23 04:10 FiO2 Intake & Output 10/12/23 10/12/23 10/13/23 06:59 18:59 06:59 Weight 104.326 kg - Labs CBC & Chem 7: 10/12/23 16:37 10/12/23 16:37 Labs: Abnormal Lab Results - Last 24 Hours (Table) 10/12/23 10/12/23 Range/Units 16:37 19:59 Glucose 103 H (74-99) mg/dL POC Glucose (mg/dL) 146 H (70-110) mg/dL
[2023-10-14 05:38] LABS: Glucose,Whole Blood 112 mg/dL (70-110)
[2023-10-14 08:21] VITALS: BP 154/66; PULSE 69; TEMP 98.1
--- NOTE | 2023-10-14 08:53 | US ---
EXAMINATION TYPE: US upper ext pseudo RT DATE OF EXAM: 10/14/2023 COMPARISON: NONE CLINICAL INDICATION: Female, 78 years old with history of re-evaluate pseudoaneurysm; small pseudo se en yesterday after recent heart cath TECHNIQUE: Soft tissue scan of right radial artery FINDINGS: Small pseudo seen yesterday appears to have no flow detected today. Patient had pressure b andage on last night. IMPRESSION: Occlusion of prior pseudoaneurysm.
--- NOTE | 2023-10-14 09:40 | P.PN ---
Subjective Progress Note Date: 10/14/23 Reason for Consult (text): Pseudoaneurysm History of present illness: History of present illness: This is a 78-year-old female patient of Dr. Petit with past medical history of hypertension, hyperlipidemia, no significant coronary artery disease on cardiac catheterization in 2018, type 2 diabetes, emphysema without recent smoking. Presented to the hospital last week with chest pain and underwent cardiac catheterization with Dr. Petit which revealed normal coronary arteries. Normal left-sided filling pressures. Mild to moderate aortic reymundo nosis with mean gradient 22 mmHg. Plan for aggressive risk factor modification. Patient presented to the emergency center due to bleeding and a small bump at the right radial wrist area. Patient is seen today in the emergency center waiting for a bed on the observation unit. Ultrasound right upper extremity: Outpouching of the radial artery with some internal color Doppler flow suggestive of small pseudoaneurysm. 10/13 Patient states the wrist is feeling better. Noted to have less ecchymosis and edema. Patient has been seen by vascular surgery and a repeat duplex was done this morning which revealed occlusion of prior pseudoaneurysm. Physical examination: Gen: This is a 78-year-old female in no acute distress VS: reviewed HEENT: Head is atraumatic, normocephalic. Pupils equal, round. Sclerae is anicteric. NECK: Supple. No JVD. LUNGS: Clear to auscultation. No wheezes or rhonchi. No intercostal retractions. HEART: Regular rate and rhythm. Systolic ejection murmur at the base. ABDOMEN: Soft No tenderness. EXTREMITIES: Right radial wrist slightly bulging pulsating mass. No pedal edema. No calf tenderness. NEUROLOGICAL: Patient is awake, alert and oriented x3. Assessment: Pseudoaneurysm right wrist Normal coronary arteries on cardiac catheterization Hypertension Diabetes mellitus type 2 Hyperlipidemia Mild to moderate aortic stenosis Plan: Continue patient's home cardiac medications Consult with vascular surgery appreciated At the time of discharge, patient will follow-up with Dr. Petit in 1 week. Nurse practitioner note has been reviewed, I agree with documented findings and plan of care. Patient was seen and examined. Objective - Vital Signs Vital signs: Vital Signs Temp 98.1 F 10/14/23 07:00 Pulse 69 10/14/23 07:00 Resp 16 10/14/23 07:00 BP 154/66 10/14/23 07:00 Pulse Ox 98 10/14/23 07:00 FiO2 Intake & Output 10/13/23 10/14/23 10/14/23 18:59 06:59 18:59 Intake Total 180 Balance 180 Weight 104.326 kg Intake: Oral 180 Other: # Voids 3 - Labs CBC & Chem 7: 10/12/23 16:37 10/12/23 16:37 Labs: Abnormal Lab Results - Last 24 Hours (Table) 10/13/23 10/13/23 10/13/23 Range/Units 08:21 12:11 20:05 POC Glucose (mg/dL) 121 H 113 H 130 H (70-110) mg/dL 10/14/23 Range/Units 05:36 POC Glucose (mg/dL) 112 H (70-110) mg/dL
--- NOTE | 2023-10-14 10:12 | P.PN ---
Subjective Progress Note Date: 10/14/23 Principal diagnosis: Right radial artery pseudoaneurysm Patient is seen and examined today as a follow-up. She was admitted for right radial artery pseudoaneurysm following cardiac catheterization with access from the right radial artery. She had a pressure dressing applied yesterday throughout the night. She underwent repeat pseudo aneurysm artery ultrasound which reports occlusion of prior aneurysm. She continues to have some bruising and small lump which is not any larger. She has full range of motion of the right upper extremity and fingers. States numbness and tingling to the fingertips improved. Objective - Vital Signs Vital signs: Vital Signs Temp 98.1 F 10/14/23 07:00 Pulse 69 10/14/23 07:00 Resp 16 10/14/23 07:00 BP 154/66 10/14/23 07:00 Pulse Ox 98 10/14/23 07:00 FiO2 Intake & Output 10/13/23 10/14/23 10/14/23 18:59 06:59 18:59 Intake Total 180 Balance 180 Weight 104.326 kg Intake: Oral 180 Other: # Voids 3 - Exam General appearance: The patient is alert, oriented, appears in no acute distress. HET: Head is normocephalic and atraumatic. Pupils are equal and reactive. Neck: Supple. Abdomen: Soft, nondistended. Extremities: Right wrist with ecchymosis, palpable lump near previous access site. No bleeding noted. Sensorimotor intact. Neurological: No focal deficits. Strength and sensation are grossly intact. - Labs CBC & Chem 7: 10/12/23 16:37 10/12/23 16:37 Labs: Abnormal Lab Results - Last 24 Hours (Table) 10/13/23 10/13/23 10/14/23 Range/Units 12:11 20:05 05:36 POC Glucose (mg/dL) 113 H 130 H 112 H (70-110) mg/dL Assessment and Plan Assessment: 1. Right radial artery pseudoaneurysm measuring 6 x 4 x 5 mm, now thrombosed 2. Recent cardiac catheterization with access of right radial artery on 10/06/2023 Plan: Ultrasound of upper extremity pseudoaneurysm reviewed.'s a small pseudo seen yesterday is reported as having no flow today. Occlusion of prior pseudoaneurysm. There is no indication for any vascular surgical intervention. Discussed with patient to limit use of right upper extremity, no heavy lifting or strenuous activity. Watch area for increased bruising swelling. She is to follow-up with cardiology as scheduled. She is cleared from vascular surgery for discharge. Thank you for this consultation, we will sign off at this time. The impression and plan of care has been dictated as directed. I performed a history and examination of this patient, discussed the same with the dictator. I agree with the dictator's note ,documented as a scribe. Any additional findings or plans will be noted.
--- NOTE | 2023-10-15 06:27 | P.DS ---
Providers Date of admission: 10/14/23 08:23 Attending physician: Lobito Ford Consults: 10/12/23 16:25 Consult Physician Urgent Consulting Provider: Berto Lanza Consult Reason/Comments: Pseudoaneurysm Do you want consulting provider notified?: Yes Consult Physician Urgent Consulting Provider: [facility] Consult Reason/Comments: Interventional radiology for a pseudoaneurysm Do you want consulting provider notified?: Yes 10/13/23 07:08 Consult Physician Routine Consulting Provider: Maxine Garcia Consult Reason/Comments: pseudoaneurysm Do you want consulting provider notified?: Yes Primary care physician: [facility] Course: HISTORY OF PRESENT ILLNESS: 78-year-old one of my office patient with longstanding history of atherosclerotic heart disease, hypertension, hyperlipidemia, type 2 diabetes, chronic incontinence, recurrent angina, history of COPD, history of recurrent arrhythmia, , Mild aortic stenosis and mild mitral stenosis. Who was hospitalized from 10/04 to 10/07/2023 for severe recurrent shortness of breath and dyspnea and ended up having an echocardiogram and went for heart cath the following day came back with minimal to mild disease only. Echocardiogram showed mild aortic stenosis and mild mitral stenosis. Well-preserved ejection fraction. Patient heart catheter was done through the right radius artery. Patient was discharged home successfully doing well slight adjustment of her COPD management and heart management as well with isosorbide along with metoprolol succinate she apparently was following day she felt and landed on her right wrist and prevent herself from having more injury developed to have mild bruise and discomfort in the right radius area and yesterday had help one of her family member was working in the yard as well while she is driving her motorized scooter she felt by the end of the day her wrist was hurting more and started having slight numbness weakness in the hand and fingers. She woke up this morning having significant bruise and hematoma on the right side consistent with much worsening complaint. She ended up calling the office and was instructed to come to the emergency department for suspicious of pseudoaneurysm with possible large hematoma from the puncture site of her heart cath. Patient mated to the emergency department and ultrasound done as a duplex scan came back with ou outpouching off the radial artery with some internal color Doppler flow suggestive of small pseudoaneurysm. She was hospitalized cardiology was notified and patient be seen interventional radiologist tomorrow for possible repair. 10/13/2023: Patient was hospitalized yesterday for pseudoaneurysm of the right radius artery following her heart cath was supposed to see interventional radiology for possible correction apparently This is not done by them anymore, cardiology has consulted vascular to be seen her pseudoaneurysm is only 6 x 4 x 5 mm and has been applying a pressure on the right radius artery with no increased bleeding there is no interventional radiology management for this kind of problem at this point the patient will continue to be observed for conservative management and repeat ultrasound tomorrow vascular surgery will evaluate her after the ultrasound done for possible intervention if needed. Patient otherwise hemodynamically stable and she is not complaining of increased pain or discomfort still having slight numbness and weakness in the hand and fingers. REVIEW OF SYSTEMS: CONSTITUTIONAL: Obese laying in bed no acute respiratory distress. EYES: No icterus sclerae, no conjunctivitis. EARS, NOSE, MOUTH, THROAT, and FACE: No sore throat, lymphadenopathy, carotid bruits or deformity. RESPIRATORY: Slight shortness of breath improved from last time no cough or wheezes. CARDIOVASCULAR: Positive PND orthopnea palpitation with mild shortness of breath no sign of angina. GASTROINTESTINAL: No Abd pain, Nausea or vomiting, no Diarrhea or constipation, No GI Bleed, no distention or masses. GENITOURINARY: Negative for Hematuria or UTI, no kidney stones. INTEGUMENT/BREAST: Negative for any muscular injury with mild osteoarthritis.. Exts: Right upper extremity specially radius area had large hematoma bruise and slight pouching ballooning site typical for aneurysm. HEMATOLOGIC/LYMPHATIC: Negative for bleed or purpura. Large hematoma on the right upper extremity. MUSCULOSKELTAL: Negative for Myalgia or arthralgia. NEURLOGICAL: No LOC, Sz or syncope, blurred vision dizziness or abnormality.. BEHAVIORAL/PSYCH: Negative. ENDOCRINE: Negative. PHYSICAL EXAMINATION: General Appearance: Obese cooperative no acute respiratory distress breathing better than last time. Neck HEENT: Supple, no lymphadenopathy, no thyroid enlargement, no carotid bruits. Lungs: Decreased breath sound bilaterally with fine rhonchi no crackles pause mild expiratory wheezes. Chest Wall: Decreased expansion with deep inspiration no tenderness and no deformity was found on exam, no costochondral pain or discomfort. Heart: Regular rate and rhythm, S1, S2 normal, no murmur, rub or gallop. Back: Symmetric, no curvature, ROM normal, no CVA tenderness. Abdomen: Soft, non-tender, bowel sounds active all four quadrants, no masses, no organomegaly. Extremities: Right upper extremity has large bruise and hematoma with outpouching on the radius artery most likely consistent with pseudoaneurysm. Pulses: 2+ and symmetric. Skin: Skin color, texture, tugor normal, no rashes or lesions. Neurologic: Alert oriented x3 cranial nerves II through XII intact, no motor deficit, no abnormal balance or gait. ASSESSMENT AND PLAN: _Pseudoaneurysm of the right radius from puncture site from recent heart cath, continue conservative management seen vascular will repeat ultrasound tomorrow see if patient will benefit from doing any intervention no interventional radiologist to repair this type of problem at this point. _Severe dyspnea and shortness of breath: Has improved compared to last time continue current management still on current inhaler and nebulizer. _Valvular heart disease with aortic stenosis and mitral stenosis: On medical management at this point. Seen cardiology continue medical management. _Type 2 diabetes remain on metformin along with Jardiance continue current management still on Accu-Chek with sliding scale coverage. Blood sugars better controlled. _COPD: Without any exacerbation: Continue Trelegy along with updraft treatment. _Chronic anemia: Still on iron supplement doing well. _Edema will benefit from at least smaller dose of loop diuretics. _Hypertension: Remain on metoprolol succinate 50 mg at bedtime, isosorbide mononitrate 15 mg daily and still on loop diuretics. Prognosis: Fair. Discussion: Patient was seen vascular will continue conservative management watch for ultrasound by tomorrow decide by vascular whether can do intervention or not. Hospital course: Patient was hospitalized on October 12, 2023 with diagnosis of pseudoaneurysm of the right upper extremity site of her heart cath from a week ago with significant hematoma and a large size of the puncture site of her arteriogram. Her ultrasound came back positive with 6 x 4 x 5 mm pseudoaneurysm on site. Patient was supposed to see interventional radiology for repair which turned that did not managing pseudoaneurysm anymore. She seen vascular who agreed to do resting slight compression on the side and to repeat ultrasound in 24 hours. Upon doing ultrasound on her site looks much better significant decreased bruising and hematoma with a pseudoaneurysm reduce in size. Decided to continue conservative management patient can go home to be seen by vascular and by our service in short period of time. Time spent on discharging patient was 30 minutes. Patient Condition at Discharge: Good Plan - Discharge Summary New Discharge Prescriptions: Continue metFORMIN HCL [Glucophage] 500 mg PO BID Neuriva 1 cap PO DAILY Vitamin C/Biotin [Hair, Skin and Nails Chew] 1 tab PO DAILY Calcium/Magnesium/Zinc [Ehmrsrk-Igknamzrs-Yiqs Tablet] 1 tab PO DAILY Budesonide-Formot 160-4.5 Mcg [Symbicort 160-4.5 Mcg Inhaler] 2 puff INHALATION RT-BID PRN PRN Reason: Shortness Of Breath Aspirin 81 mg PO DAILY Losartan Potassium 100 mg PO DAILY Isosorbide Mononitrate ER [Imdur] 30 mg PO HS Elderberry Fruit and Flower [Black Elderberry 575 mg Cap] 1 cap PO DAILY Oxybutynin ER [Ditropan XL] 10 mg PO HS Cyanocobalamin (Vitamin B-12) [Vitamin B-12] 1,000 mcg PO DAILY Cranberry Fruit Extract [Cranberry] 500 mg PO DAILY Cholecalciferol [Vitamin D3 (25 Mcg = 1000 Iu)] 25 mcg PO DAILY Multivit with Calcium,Iron,Min [Women's Multivitamin] 1 tab PO DAILY Metoprolol Succinate (ER) [Toprol XL] 50 mg PO HS Mv-Mn/Om3/Dha/Epa/Fish/Lut/Hannah [Ocuvite Adult 50 Plus Softgel] 1 cap PO DAILY Nitroglycerin Sl Tabs [Nitrostat] 0.4 mg SUBLINGUAL Q5M PRN #25 tab PRN Reason: Chest Pain Discharge Medication List metFORMIN HCL [Glucophage] 500 mg PO BID 08/19/17 [History] Oxybutynin ER [Ditropan XL] 10 mg PO HS 02/08/21 [History] Aspirin 81 mg PO DAILY 11/26/21 [History] Budesonide-Formot 160-4.5 Mcg [Symbicort 160-4.5 Mcg Inhaler] 2 puff INHALATION RT-BID PRN 11/26/21 [History] Calcium/Magnesium/Zinc [Hdpchjk-Sdwodfnsw-Yigs Tablet] 1 tab PO DAILY 11/26/21 [History] Cholecalciferol [Vitamin D3 (25 Mcg = 1000 Iu)] 25 mcg PO DAILY 11/26/21 [History] Cranberry Fruit Extract [Cranberry] 500 mg PO DAILY 11/26/21 [History] Cyanocobalamin (Vitamin B-12) [Vitamin B-12] 1,000 mcg PO DAILY 11/26/21 [Hist ory] Elderberry Fruit and Flower [Black Elderberry 575 mg Cap] 1 cap PO DAILY 11/26/21 [History] Isosorbide Mononitrate ER [Imdur] 30 mg PO HS 11/26/21 [History] Losartan Potassium 100 mg PO DAILY 11/26/21 [History] Metoprolol Succinate (ER) [Toprol XL] 50 mg PO HS 11/26/21 [History] Multivit with Calcium,Iron,Min [Women's Multivitamin] 1 tab PO DAILY 11/26/21 [History] Neuriva 1 cap PO DAILY 11/26/21 [History] Vitamin C/Biotin [Hair, Skin and Nails Chew] 1 tab PO DAILY 11/26/21 [History] Mv-Mn/Om3/Dha/Epa/Fish/Lut/Hannah [Ocuvite Adult 50 Plus Softgel] 1 cap PO DAILY 10/05/23 [History] Nitroglycerin Sl Tabs [Nitrostat] 0.4 mg SUBLINGUAL Q5M PRN #25 tab 10/07/23 [Rx] Follow up Appointment(s)/Referral(s): Ismael Petit DO [STAFF PHYSICIAN] - 1 Week Alexandro Berry DO [STAFF PHYSICIAN] - As Needed Lobito Ford MD [Primary Care Provider] - 1-2 days Patient Instructions/Handouts: Pseudoaneurysm (GEN) Discharge Disposition: HOME SELF-CARE
== END 2023-10-14 10:32 | disposition home or self-care (01) | DRG 299 ==
LOC: EC 14:19 → 6NMEDSUR 16:28 → OBSVTOIN 10-14 08:23
PROVIDERS: ADMIT Internal Medicine Geriatric Medicine; ATTEND Internal Medicine Geriatric Medicine
DX: T81.718A Complication of other artery following a procedure, not elsewhere classified, initial encounter (principal); J18.9 Pneumonia, unspecified organism; J44.0 Chronic obstructive pulmonary disease with (acute) lower respiratory infection; I72.1 Aneurysm of artery of upper extremity; E11.9 Type 2 diabetes mellitus without complications; I08.0 Rheumatic disorders of both mitral and aortic valves; I10 Essential (primary) hypertension; E78.5 Hyperlipidemia, unspecified; D50.8 Other iron deficiency anemias; I25.10 Atherosclerotic heart disease of native coronary artery without angina pectoris; R32 Unspecified urinary incontinence; I49.8 Other specified cardiac arrhythmias; Y84.0 Cardiac catheterization as the cause of abnormal reaction of the patient, or of later complication, without mention of misadventure at the time of the procedure; Z96.653 Presence of artificial knee joint, bilateral; Z92.3 Personal history of irradiation; Z79.84 Long term (current) use of oral hypoglycemic drugs; Z79.82 Long term (current) use of aspirin; Z79.51 Long term (current) use of inhaled steroids; Z79.899 Other long term (current) drug therapy; Z85.42 Personal history of malignant neoplasm of other parts of uterus
CPT/HCPCS: 80053; 85025; 85610; 85730; 99285

== ENCOUNTER 2024-01-19 07:53 | Emergency (ER) | payer MEDICARE, OTHER ==
--- NOTE | 2024-01-19 08:32 | ED ---
Female Urogenital HPI - General Chief complaint: Urogenital Stated complaint: Urogenital Time Seen by Provider: 01/19/24 08:30 Source: patient, RN notes reviewed Mode of arrival: ambulatory Limitations: no limitations - History of Present Illness Initial comments: Patient is a 78-year-old female presented to the ER with a chief complaint of hematuria. Patient reports when she woke up this morning around 6 AM she went to the bathroom. She noted upon standing up there was a large amount of bright red blood in the toilet. She does report dime sized clots as well. She states she only urinated at that time. She is denying any abdominal pain, nausea, vomiting, constipation/diarrhea. She is not currently on any blood thinners. But she does take a baby aspirin daily. Patient does admit to a hysterectomy in 1997 due to uterine cancer. Patient did receive radiation at that time. She reports her last bowel movement was yesterday and was per normal. Patient also reports she has been feeling fatigued lately. She states she has been unable to complete daily tasks in a row and having to take numerous breaks. She denies any chest pain, shortness of breath, fevers, chills, dysuria or peripheral edema. - Related Data Home Medications Medication Instructions Recorded Confirmed metFORMIN HCL [Glucophage] 500 mg PO BID 08/19/17 01/19/24 Oxybutynin ER [Ditropan XL] 10 mg PO HS 02/08/21 01/19/24 Aspirin 81 mg PO DAILY 11/26/21 01/19/24 Budesonide-Formot 160-4.5 Mcg 2 puff INHALATION RT-BID PRN 11/26/21 01/19/24 [Symbicort 160-4.5 Mcg Inhaler] Calcium/Magnesium/Zinc 1 tab PO DAILY 11/26/21 01/19/24 [Aetirww-Huinpjcsb-Fsob Tablet] Cholecalciferol [Vitamin D3 (25 25 mcg PO DAILY 11/26/21 01/19/24 Mcg = 1000 Iu)] Cranberry Fruit Extract [Cranberry] 500 mg PO DAILY 11/26/21 01/19/24 Cyanocobalamin (Vitamin B-12) 1,000 mcg PO DAILY 11/26/21 01/19/24 [Vitamin B-12] Elderberry Fruit and Flower [Black 1 cap PO DAILY 11/26/21 01/19/24 Elderberry 575 mg Cap] Isosorbide Mononitrate ER [Imdur] 30 mg PO HS 11/26/21 01/19/24 Losartan Potassium 100 mg PO DAILY 11/26/21 01/19/24 Metoprolol Succinate (ER) [Toprol 50 mg PO HS 11/26/21 01/19/24 XL] Multivit with Calcium,Iron,Min 1 tab PO DAILY 11/26/21 01/19/24 [Women's Multivitamin] Neuriva 1 cap PO DAILY 11/26/21 01/19/24 Vitamin C/Biotin [Hair, Skin and 1 tab PO DAILY 11/26/21 01/19/24 Nails Chew] Mv-Mn/Om3/Dha/Epa/Fish/Lut/Hannah 1 cap PO DAILY 10/05/23 01/19/24 [Ocuvite Adult 50 Plus Softgel] Previous Rx's Medication Instructions Recorded Nitroglycerin Sl Tabs [Nitrostat] 0.4 mg SUBLINGUAL Q5M PRN #25 tab 10/07/23 Allergies Allergy/AdvReac Type Severity Reaction Status Date / Time No Known Allergies Allergy Verified 01/19/24 10:09 Review of Systems ROS Statement: Those systems with pertinent positive or pertinent negative responses have been documented in the HPI. ROS Other: All systems not noted in ROS Statement are negative. Past Medical History Past Medical History: Cancer, Chest Pain / Angina, Hypertension, Osteoarthritis (OA) Additional Past Medical History / Comment(s): uterine cancer (surgery & radiation tx 1998), states "secondary lung disease", takes clonidine as preventative due to diabetes., Pain right foot- states using cane and walker, covid History of Any Multi-Drug Resistant Organisms: None Reported Past Surgical History: Heart Catheterization, Hysterectomy, Joint Replacement, Orthopedic Surgery, Tonsillectomy Additional Past Surgical History / Comment(s): total right knee x2 total left knee; Left foot surgery; maru trigger fingers. Heart Cath (may 2018 no stents) Past Anesthesia/Blood Transfusion Reactions: Blood Transfusion Reaction Additional Past Anesthesia/Blood Transfusion Reaction / Comment(s): Hx of rash with blood transfusion 1997 Past Psychological History: No Psychological Hx Reported Smoking Status: Never smoker Past Alcohol Use History: Daily Past Drug Use History: None Reported - Past Family History Daughter(s) Family Medical History: Thyroid Disorder Additional Family Medical History / Comment(s): Older - thyroid General Exam Limitations: no limitations General appearance: alert, in no apparent distress Respiratory exam: Present: normal lung sounds bilaterally. Absent: respiratory distress, wheezes, rales, rhonchi, stridor Cardiovascular Exam: Present: regular rate, normal rhythm, normal heart sounds. Absent: systolic murmur, diastolic murmur, rubs, gallop, clicks GI/Abdominal exam: Present: soft, normal bowel sounds. Absent: distended, tenderness, guarding, rebound, rigid Rectal exam: Present: normal inspection, normal rectal tone, other (Skin tag present) External exam: Present: normal external exam Skin exam: Present: warm, dry, intact, normal color. Absent: rash Course Vital Signs 01/19/24 01/19/24 01/19/24 07:54 08:34 09:00 Temperature 97.9 F Pulse Rate 80 85 76 Respiratory 20 16 18 Rate Blood Pressure 158/88 147/88 152/80 O2 Sat by Pulse 96 80 L 95 Oximetry 01/19/24 01/19/24 01/19/24 10:00 11:00 12:00 Temperature Pulse Rate 74 77 77 Respiratory 18 17 16 Rate Blood Pressure 141/77 158/74 151/87 O2 Sat by Pulse 99 95 95 Oximetry 01/19/24 01/19/24 13:45 14:00 Temperature 98.0 F Pulse Rate 78 83 Respiratory 16 16 Rate Blood Pressure 141/123 169/82 O2 Sat by Pulse 95 95 Oximetry - Reevaluation(s) Reevaluation #1: 01/19/24 08:32 Rectal and pelvic inspection completed and chaperoned by Vanessa CALIX. Medical Decision Making - Medical Decision Making Was pt. sent in by a medical professional or institution (, PA, [employer] WAST[employer]OVER, urgent care, hospital, or snf...) When possible be specific @ -No Did you speak to anyone other than the patient for history (EMS, parent, family, police, friend...)? What history was obtained from this source @ -No Did you review nursing and triage notes (agree or disagree)? Why? @ -I reviewed and agree with nursing and triage notes Were old charts reviewed (outside hosp., previous admission, EMS record, old EKG, old radiological studies, urgent care reports/EKG's, snf records)? Report findings @ -No old charts were reviewed Differential Diagnosis (chest pain, altered mental status, abdominal pain women, abdominal pain men, vaginal bleeding, weakness, fever, dyspnea, syncope, headache, dizziness, GI bleed, back pain, seizure, CVA, palpatations, mental health, musculoskeletal)? @ -Differential Abdominal Pain Women:Appendicitis, Cholecystitis, diverticulosis, ischemic bowel, pancreatitis, hepatitis, UTI, gastroenteritis, AAA, incarcerated hernia, bowel obstruction, constipation, inflammatory bowel, hepatitis, peptic ulcer disease, splenic infarction, perforated viscus, vulvitis, ovarian torsion, PID, kidney stone, placenta abruption, this is not meant to be an all-inclusive list EKG interpreted by me (3pts min.). @ -None X-rays interpreted by me (1pt min.). @ -None done CT interpreted by me (1pt min.). @ -CT abdomen pelvis showing a stable variation of attenuation within the urinary bladder of uncertain significance. Cholelithiasis without evidence of cholecystitis. U/S interpreted by me (1pt. min.). @ -Ultrasound kidney/renal and bladder showing a urinary bladder lesion that is difficult to exclude. CT was recommended. What testing was considered but not performed or refused? (CT, X-rays, U/S, labs)? Why? @ -None What meds were considered but not given or refused? Why? @ -None Did you discuss the management of the patient with other professionals (professionals i.e. , PA, [employer]OVER, lab, RT, psych nurse, case management social worker, home security professional, teacher, hydrographical technical officer, mental health case manager)? Give summary @ -No Was smoking cessation discussed for >3mins.? @ -No Was critical care preformed (if so, how long)? @ -No Were there social determinants of health that impacted care today? How? (Homelessness, low income, unemployed, alcoholism, drug addiction, transportation, low edu. Level, literacy, decrease access to med. care, retirement, rehab)? @ -No Was there de-escalation of care discussed even if they declined (Discuss DNR or withdrawal of care, Hospice)? DNR status @ -No What co-morbidities impacted this encounter? (DM, HTN, Smoking, COPD, CAD, Cancer, CVA, ARF, Chemo, Hep., AIDS, mental health diagnosis, sleep apnea, morbid obesity)? @ -None Was patient admitted / discharged? Hospital course, mention meds given and route, prescriptions, significant lab abnormalities, going to OR and other pertinent info. @ -Discharge. 78-year-old female presented to the ER with a chief complaint of hematuria. History and physical exam completed. Vitals stable. Patient in no signs of acute distress and nontoxic-appearing. No focal abdominal tenderness on exam. Rectal exam performed and completed chaperoned by Vanessa CALIX. No gross blood on rectal or vaginal exam. Laboratory studies obtained remarkable for stable hemoglobin of 14.0 laboratory studies otherwise unremarkable. Stool occult negative. Urine analysis hemorrhagic with greater than 182 RBCs and WBC s. Ultrasound obtained at that time to further evaluate hematuria. Ultrasound showing a urinary bladder lesion is difficult to exclude. CT was recommended. CT showing a subtle variation attenuation within the urinary bladder of uncertain significance. Cholelithiasis without evidence of cholecystitis. Upon reevaluation, patient resting comfortably in exam room in no signs of acute distress. Results discussed with patient, all questions answered. Due to patient having a stable hemoglobin and is not retaining urine patient is stable for discharge. I advised her to follow-up closely with urology, referral given. Extremely strict return parameters discussed. Patient discharged in stable condition with follow-up to PCP and urology. Patient verbally expressed understanding and agreement care plan. Case discussed with ED attending, Leon Escobedo. Undiagnosed new problem with uncertain prognosis? @ -No Drug Therapy requiring intensive monitoring for toxicity (Heparin, Nitro, Insulin, Cardizem)? @ -No Were any procedures done? @ -No Diagnosis/symptom? @ -Hematuria Acute, or Chronic, or Acute on Chronic? @ -Acute Uncomplicated (without systemic symptoms) or Complicated (systemic symptoms)? @ -Uncomplicated Side effects of treatment? @ -No Exacerbation, Progression, or Severe Exacerbation? @ -No Poses a threat to life or bodily function? How? (Chest pain, USA, NC, pneumonia, PE, COPD, DKA, ARF, appy, cholecystitis, CVA, Diverticulitis, Homicidal, Suicidal, threat to staff... and all critical care pts) @ -No - Lab Data Result diagrams: 01/19/24 08:23 01/19/24 08:23 Lab Results 01/19/24 01/19/24 01/19/24 Range/Units 08:23 08:23 08:23 WBC 5.9 (3.8-10.6) k/uL RBC 4.61 (3.80-5.40) m/uL Hgb 14.0 (11.4-16.0) gm/dL Hct 41.7 (34.0-46.0) % MCV 90.3 (80.0-100.0) fL MCH 30.4 (25.0-35.0) pg MCHC 33.6 (31.0-37.0) g/dL RDW 14.0 (11.5-15.5) % Plt Count 321 (150-450) k/uL MPV 7.4 Neutrophils % 70 % Lymphocytes % 22 % Monocytes % 5 % Eosinophils % 1 % Basophils % 0 % Neutrophils # 4.1 (1.3-7.7) k/uL Lymphocytes # 1.3 (1.0-4.8) k/uL Monocytes # 0.3 (0-1.0) k/uL Eosinophils # 0.1 (0-0.7) k/uL Basophils # 0.0 (0-0.2) k/uL Sodium 138 (137-145) mmol/L Potassium 4.5 (3.5-5.1) mmol/L Chloride 107 (98-107) mmol/L Carbon Dioxide 26 (22-30) mmol/L Anion Gap 5 mmol/L BUN 18 H (7-17) mg/dL Creatinine 0.38 L (0.52-1.04) mg/dL Est GFR (CKD-EPI)AfAm >90 (>60 ml/min/1.73 sqM) Est GFR (CKD-EPI)NonAf >90 (>60 ml/min/1.73 sqM) Glucose 126 H (74-99) mg/dL Plasma Lactic Acid Swapnil 1.0 (0.7-2.0) mmol/L Calcium 9.5 (8.4-10.2) mg/dL Total Bilirubin 0.6 (0.2-1.3) mg/dL AST 28 (14-36) U/L ALT 16 (4-34) U/L Alkaline Phosphatase 86 (38-126) U/L Total Protein 6.8 (6.3-8.2) g/dL Albumin 4.0 (3.5-5.0) g/dL Urine Appearance (Clear) Urine RBC (0-5) /hpf Urine WBC (0-5) /hpf Stool Occult Blood (Negative) Blood Type Blood Type Recheck Bld Type Recheck Status Spec Expiration Date 01/19/24 01/19/24 01/19/24 Range/Units 08:23 08:23 12:05 WBC (3.8-10.6) k/uL RBC (3.80-5.40) m/uL Hgb (11.4-16.0) gm/dL Hct (34.0-46.0) % MCV (80.0-100.0) fL MCH (25.0-35.0) pg MCHC (31.0-37.0) g/dL RDW (11.5-15.5) % Plt Count (150-450) k/uL MPV Neutrophils % % Lymphocytes % % Monocytes % % Eosinophils % % Basophils % % Neutrophils # (1.3-7.7) k/uL Lymphocytes # (1.0-4.8) k/uL Monocytes # (0-1.0) k/uL Eosinophils # (0-0.7) k/uL Basophils # (0-0.2) k/uL Sodium (137-145) mmol/L Potassium (3.5-5.1) mmol/L Chloride (98-107) mmol/L Carbon Dioxide (22-30) mmol/L Anion Gap mmol/L BUN (7-17) mg/dL Creatinine (0.52-1.04) mg/dL Est GFR (CKD-EPI)AfAm (>60 ml/min/1.73 sqM) Est GFR (CKD-EPI)NonAf (>60 ml/min/1.73 sqM) Glucose (74-99) mg/dL Plasma Lactic Acid Swapnil (0.7-2.0) mmol/L Calcium (8.4-10.2) mg/dL Total Bilirubin (0.2-1.3) mg/dL AST (14-36) U/L ALT (4-34) U/L Alkaline Phosphatase (38-126) U/L Total Protein (6.3-8.2) g/dL Albumin (3.5-5.0) g/dL Urine Appearance Bloody H (Clear) Urine RBC >182 H (0-5) /hpf Urine WBC >182 H (0-5) /hpf Stool Occult Blood Negative (Negative) Blood Type O Positive Blood Type Recheck O Pos Bld Type Recheck Status No Spec Expiration Date 01/22/20242304 - EKG Data -: EKG Interpreted by Me EKG Comments: EKG taken at 10: 36 normal sinus rhythm. No acute ST segment or T wave abnormalities. Ventricular rate 80, IL interval 194, QRS duration 98, QT/QTc 383/419. - Radiology Data Radiology results: report reviewed, image reviewed Disposition Clinical Impression: Hematuria Disposition: HOME SELF-CARE Condition: Stable Instructions (If sedation given, give patient instructions): Hematuria (ED) Additional Instructions: Please follow-up with urology. Return to the ER for any significant bleeding or worsening symptoms. Is patient prescribed a controlled substance at d/c from ED?: No Referrals: Lobito Ford MD [Primary Care Provider] - 1-2 days Surjit Francis MD [STAFF PHYSICIAN] - 1-2 days Time of Disposition: 14:10
[2024-01-19 08:39] VITALS: RESP 16
[2024-01-19 09:22] LABS: Basophils % (A) 0 %; Eosinophils # (A) 0.1 k/uL (0-0.7); Eosinophils % (A) 1 %; HCT 41.7 % (34.0-46.0); Lymphocytes # (A) 1.3 k/uL (1.0-4.8); Lymphocytes % (A) 22 %; MCH 30.4 pg (25.0-35.0); MCHC 33.6 g/dL (31.0-37.0); MCV 90.3 fL (80.0-100.0); Mean Platelet Volume 7.4; Monocytes # (A) 0.3 k/uL (0-1.0); Monocytes % (A) 5 %; Neutrophils # (A) 4.1 k/uL (1.3-7.7); Neutrophils % (A) 70 %; Platelet Count 321 k/uL (150-450); RBC 4.61 m/uL (3.80-5.40); WBC 5.9 k/uL (3.8-10.6)
[2024-01-19 09:31] LABS: ALT 16 U/L (4-34); African American GFR (CKD) >90 (>60 ml/min/1.73 sqM); Anion Gap 5 mmol/L; Blood Urea Nitrogen 18 mg/dL (7-17); Calcium 9.5 mg/dL (8.4-10.2); Carbon Dioxide 26 mmol/L (22-30); Chloride 107 mmol/L (98-107); Glucose 126 mg/dL (74-99); Non-African American GFR(CKD) >90 (>60 ml/min/1.73 sqM); Sodium 138 mmol/L (137-145); Total Bilirubin 0.6 mg/dL (0.2-1.3); Total Protein 6.8 g/dL (6.3-8.2)
[2024-01-19 09:35] LABS: AST 28 U/L (14-36); Alkaline Phosphatase 86 U/L (38-126); Potassium 4.5 mmol/L (3.5-5.1)
[2024-01-19 09:39] LABS: RBC,Urine >182 /hpf (0-5); WBC,Urine >182 /hpf (0-5)
[2024-01-19 09:40] LABS: Appearance,Urine Bloody (Clear)
--- NOTE | 2024-01-19 10:37 | US ---
EXAMINATION TYPE: US kidneys/renal and bladder DATE OF EXAM: 01/19/2024 COMPARISON: 09/01/2023 CLINICAL INDICATION: Female, 78 years old with history of hematuria; Hx Renal stones; new onset gross hematuria and weakness EXAM MEASUREMENTS: Right Kidney: 11.7 x 5.7 x 4.9 cm Left Kidney: 11.9 x 6.4 x 6.7 cm Post Void Residual Volume: Na mL Right Kidney: WNL Left Kidney: Subcentimeter cyst noted Bladder: Lesion seen right posterior bladder wall = 2.9 x 2.7 x 2.0 cm Bilateral Jets seen: Not able to assess Normal Post Void Residual: NA There is no evidence for hydronephrosis at this point in time. No solid nephrolithiasis is seen. No masses are identified. IMPRESSION: 1. Urinary bladder lesion is difficult to exclude. Consider CT with contrast and delayed images throu gh the urinary bladder.
--- NOTE | 2024-01-19 13:16 | CT ---
EXAMINATION TYPE: CT abdomen pelvis w con CT DLP: 2261.4 mGycm, Automated exposure control for dose reduction was used. DATE OF EXAM: 01/19/2024 12:30 PM COMPARISON: CT abdomen pelvis 08/02/2023 CLINICAL INDICATION:Female, 78 years old with history of bladder lesion; bladder lesion TECHNIQUE: Axial CT abdomen pelvis w con;Sagittal and coronal reformats were created on a separate w orkstation. Contrast used:100 mL of Isovue 300 with IV Contrast, (none if empty) Oral contrast used: without Oral Contrast (none if empty) FINDINGS: LOWER CHEST: Unremarkable ABDOMEN LIVER: Small cyst right lobe, otherwise unremarkable GALLBLADDER AND BILE DUCTS: Multiple tiny layering cholelithiasis. No evidence of cholecystitis. PANCREAS: Unremarkable. SPLEEN: Unremarkable. ADRENAL GLANDS: Unremarkable. KIDNEYS AND URETERS: No evidence of hydronephrosis or renal calculus. The ureters are unremarkable. S mall left cortical cyst is simple and requires no follow-up. Left parapelvic cysts. PELVIS BLADDER: Subtle variations of attenuation within the urinary bladder of uncertain significance. REPRODUCTIVE: Unremarkable. ABDOMEN & PELVIS STOMACH AND BOWEL: No evidence of bowel obstruction. PERITONEUM/RETROPERITONEUM: No evidence of pneumoperitoneum or free fluid. VASCULATURE: No evidence of aortic aneurysm. MUSCULOSKELETAL: No acute osseous abnormalities LYMPH NODES: No gross evidence for lymphadenopathy. SOFT TISSUE/ABDOMINAL WALL: Unremarkable IMPRESSION: 1. Subtle variations of attenuation within the urinary bladder of uncertain significance. 2. Cholelithiasis without evidence of cholecystitis.
[2024-01-19 14:39] VITALS: BP 169/82; PULSE 83; TEMP 98
== END 2024-01-19 14:35 | disposition home or self-care (01) ==
LOC: EC 07:53
DX: K80.20 Calculus of gallbladder without cholecystitis without obstruction (principal); N32.9 Bladder disorder, unspecified
CPT/HCPCS: 36415; 93005; 86900; 86901; 80053; 83605; 85025; 86850; 86870; 86880; 82272; 81001; 87086; 76770; 74177; 99284; Q9967

== ENCOUNTER 2024-02-13 17:13 | Emergency (ER) | payer MEDICARE, OTHER ==
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
== END 2024-02-13 20:35 | disposition home or self-care (01) ==
LOC: EC 17:13
CPT/HCPCS: 71046; 99284

== ENCOUNTER → 2024-04-07 | Outpatient (CLI) | payer OTHER, MEDICARE ==
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
== END | disposition home or self-care (01) ==
LOC: RADCTMAIN 09:45
PROVIDERS: ATTEND Internal Medicine Geriatric Medicine
DX: M50.33 Other cervical disc degeneration, cervicothoracic region (principal); M47.813 Spondylosis without myelopathy or radiculopathy, cervicothoracic region
CPT/HCPCS: 70450; 72125

== ENCOUNTER → 2024-08-25 | Outpatient (CLI) | payer OTHER, MEDICARE ==
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
== END | disposition home or self-care (01) ==
LOC: RADMRIMAIN 12:45
PROVIDERS: ATTEND Orthopaedic Surgery
DX: M47.22 Other spondylosis with radiculopathy, cervical region (principal); M48.02 Spinal stenosis, cervical region; M50.11 Cervical disc disorder with radiculopathy, high cervical region
CPT/HCPCS: 72141

== ENCOUNTER 2025-01-12 12:58 | Emergency (ER) | payer MEDICARE, OTHER ==
--- NOTE | 2025-01-12 13:15 | ED ---
General Adult HPI - General Chief complaint: Extremity Injury, Lower Stated complaint: R hip pain Time Seen by Provider: 01/12/25 13:04 Source: patient, RN notes reviewed Mode of arrival: ambulatory Limitations: no limitations - History of Present Illness Initial comments: 79-year-old female presenting to the emergency department complaints of right hip and right pelvis pain. Patient states that yesterday she was walking upstairs when she felt and heard a pop in her right hip. Patient states that she has been able to ambulate since the injury however states that this does elicit pain. She denies previous surgeries of the right hip. Denies falling onto the hip. She denies loss of bladder or bowel control, saddle anesthesias, fevers or chills. Took naproxen earlier today. - Related Data Home Medications Medication Instructions Recorded Confirmed metFORMIN HCL [Glucophage] 500 mg PO BID 08/19/17 01/19/24 Oxybutynin ER [Ditropan XL] 10 mg PO HS 02/08/21 01/19/24 Aspirin 81 mg PO DAILY 11/26/21 01/19/24 Budesonide-Formot 160-4.5 Mcg 2 puff INHALATION RT-BID PRN 11/26/21 01/19/24 [Symbicort 160-4.5 Mcg Inhaler] Calcium/Magnesium/Zinc 1 tab PO DAILY 11/26/21 01/19/24 [Wepnxzx-Laiqqhmfu-Ffps Tablet] Cholecalciferol [Vitamin D3 (25 25 mcg PO DAILY 11/26/21 01/19/24 Mcg = 1000 Iu)] Cranberry Fruit Extract [Cranberry] 500 mg PO DAILY 11/26/21 01/19/24 Cyanocobalamin (Vitamin B-12) 1,000 mcg PO DAILY 11/26/21 01/19/24 [Vitamin B-12] Elderberry Fruit and Flower [Black 1 cap PO DAILY 11/26/21 01/19/24 Elderberry 575 mg Cap] Isosorbide Mononitrate ER [Imdur] 30 mg PO HS 11/26/21 01/19/24 Losartan Potassium 100 mg PO DAILY 11/26/21 01/19/24 Metoprolol Succinate (ER) [Toprol 50 mg PO HS 11/26/21 01/19/24 XL] Multivit with Calcium,Iron,Min 1 tab PO DAILY 11/26/21 01/19/24 [Women's Multivitamin] Neuriva 1 cap PO DAILY 11/26/21 01/19/24 Vitamin C/Biotin [Hair, Skin and 1 tab PO DAILY 11/26/21 01/19/24 Nails Chew] Mv-Mn/Om3/Dha/Epa/Fish/Lut/Hannah 1 cap PO DAILY 10/05/23 01/19/24 [Ocuvite Adult 50 Plus Softgel] Previous Rx's Medication Instructions Recorded Nitroglycerin Sl Tabs [Nitrostat] 0.4 mg SUBLINGUAL Q5M PRN #25 tab 10/07/23 Allergies Allergy/AdvReac Type Severity Reaction Status Date / Time No Known Allergies Allergy Verified 01/19/24 10:09 Review of Systems ROS Statement: Those systems with pertinent positive or pertinent negative responses have been documented in the HPI. ROS Other: All systems not noted in ROS Statement are negative. Past Medical History Past Medical History: Cancer, Chest Pain / Angina, Hypertension, Osteoarthritis (OA) Additional Past Medical History / Comment(s): uterine cancer (surgery & radiation tx 1998), states "secondary lung disease", takes clonidine as preventative due to diabetes., Pain right foot- states using cane and walker, covid History of Any Multi-Drug Resistant Organisms: None Reported Past Surgical History: Heart Catheterization, Hysterectomy, Joint Replacement, Orthopedic Surgery, Tonsillectomy Additional Past Surgical History / Comment(s): total right knee x2 total left knee; Left foot surgery; maru trigger fingers. Heart Cath (may 2018 no stents) Past Anesthesia/Blood Transfusion Reactions: Blood Transfusion Reaction Additional Past Anesthesia/Blood Transfusion Reaction / Comment(s): Hx of rash with blood transfusion 1997 Past Psychological History: No Psychological Hx Reported Smoking Status: Never smoker Past Alcohol Use History: Daily Past Drug Use History: None Reported - Past Family History Daughter(s) Family Medical History: Thyroid Disorder Additional Family Medical History / Comment(s): Older - thyroid General Exam Limitations: no limitations Respiratory exam: Present: normal lung sounds bilaterally. Absent: respiratory distress, wheezes, rales, rhonchi, stridor Cardiovascular Exam: Present: regular rate, normal rhythm, normal heart sounds. Absent: systolic murmur, diastolic murmur, rubs, gallop, clicks GI/Abdominal exam: Present: soft, normal bowel sounds. Absent: distended, tenderness, guarding, rebound, rigid Right Hip exam: Present: tenderness. Absent: swelling, deformity, crepitus Gait: observed and normal Back exam: Present: normal inspection Course Vital Signs 01/12/25 01/12/25 13:00 14:13 Temperature 97.9 F 97.8 F Pulse Rate 80 74 Respiratory 16 18 Rate Blood Pressure 157/80 146/83 O2 Sat by Pulse 95 95 Oximetry Medical Decision Making - Medical Decision Making Was pt. sent in by a medical professional or institution (, [place], STATE HISTORICAL SOCIETY DIRECTOR, urgent care, hospital, or detention...) When possible be specific @ -No Did you speak to anyone other than the patient for history (EMS, parent, family, police, friend...)? What history was obtained from this source @ -No Did you review nursing and triage notes (agree or disagree)? Why? @ -I reviewed and agree with nursing and triage notes Were old charts reviewed (outside hosp., previous admission, EMS record, old EKG, old radiological studies, urgent care reports/EKG's, detention records)? Report findings @ -No old charts were reviewed Differential Diagnosis (chest pain, altered mental status, abdominal pain women, abdominal pain men, vaginal bleeding, weakness, fever, dyspnea, syncope, headache, dizziness, GI bleed, back pain, seizure, CVA, palpatations, mental health, musculoskeletal)? @ -Differential Musculoskeletal Muscular strain, contusion, ligament sprain, fracture, arthritis, septic arthritis, bursitis, cellulitis, muscle spasm, nerve compression, DVT, arterial occlusion, herpes zoster, electrolyte abnormality, tumor.... This is not meant to be in all inclusive list EKG interpreted by me (3pts min.). @ -none X-rays interpreted by me (1pt min.). @ -X-ray of the right hip and AP pelvis reveals no obvious displaced fracture noted with mild bilateral right hip osteoarthritis and sacroiliac joint osteoarthritis with degeneration of the lumbar spine CT interpreted by me (1pt min.). @ -none U/S interpreted by me (1pt. min.). @ -None done What testing was considered but not performed or refused? (CT, X-rays, U/S, labs)? Why? @ -None What meds were considered but not given or refused? Why? @ -None Did you discuss the management of the patient with other professionals (pro fessionals i.e. , PA, STATE HISTORICAL SOCIETY DIRECTOR, lab, RT, psych nurse, social services director, home energy consultant supervisor, teacher, chief information officer, pillowcase turner)? Give summary @ -No Was smoking cessation discussed for >3mins.? @ -No Was critical care preformed (if so, how long)? @ -No Were there social determinants of health that impacted care today? How? (Homelessness, low income, unemployed, alcoholism, drug addiction, transportation, low edu. Level, literacy, decrease access to med. care, long-term, rehab)? @ -No Was there de-escalation of care discussed even if they declined (Discuss DNR or withdrawal of care, Hospice)? DNR status @ -No What co-morbidities impacted this encounter? (DM, HTN, Smoking, COPD, CAD, Cancer, CVA, ARF, Chemo, Hep., AIDS, mental health diagnosis, sleep apnea, morbid obesity)? @ -None Was patient admitted / discharged? Hospital course, mention meds given and route, prescriptions, significant lab abnormalities, going to OR and other pertinent info. @ -Discharge. 79-year-old female presenting with right hip pain. Patient's pain is mildly reproducible on palpation. Range of motion is intact of the right lower extremity. Patient was offered pain medication however she is declined. X-ray imaging reveals no obvious fracture or dislocation however there is osteoarthritis. Patient is able to bear weight and ambulate with walker. Recommend she continue Tylenol Motrin as needed for pain relief and resting the affected hip. Patient stable for discharge. Case discussed with my attending Dr. Paige. Undiagnosed new problem with uncertain prognosis? @ -No Drug Therapy requiring intensive monitoring for toxicity (Heparin, Nitro, Insulin, Cardizem)? @ -No Were any procedures done? @ -No Diagnosis/symptom? @ -Hip strain Acute, or Chronic, or Acute on Chronic? @ -Acute Uncomplicated (without systemic symptoms) or Complicated (systemic symptoms)? @ -Uncomplicated Side effects of treatment? @ -No Exacerbation, Progression, or Severe Exacerbation? @ -No Poses a threat to life or bodily function? How? (Chest pain, [place], [place], pneumonia, PE, COPD, DKA, ARF, appy, cholecystitis, CVA, Diverticulitis, Homicidal, Suicidal, threat to staff... and all critical care pts) @ -No Disposition Clinical Impression: Sprain of right hip Disposition: HOME SELF-CARE Condition: Good Instructions (If sedation given, give patient instructions): Hip Sprain (ED) Additional Instructions: Please return to the Emergency Department if symptoms worsen or any other concerns. Is patient prescribed a controlled substance at d/c from ED?: No Referrals: Lobito Ford MD [Primary Care Provider] - 1-2 days Time of Disposition: 14:07
--- NOTE | 2025-01-12 13:45 | XR ---
EXAMINATION TYPE: XR Hip 2 views RT and AP Pelvis DATE OF EXAM: 01/12/2025 1:35 PM COMPARISON: None CLINICAL INDICATION: Female, 79 years old with history of 'pop' yesterday going up stairs, pain; PHH, pain FINDINGS: Exam limited due to the degree of osteopenia. There is mild degenerative change of both hips with a m arginal spurring. Severe degenerative disc disease noted within the visualized lower lumbar spine araceli ng with mild degenerative subarticular sclerosis of the right SI joint. No obvious displaced fracture is seen. IMPRESSION: 1. No obvious displaced fracture is seen. However, note that the exam is limited due to the degree of osteopenia. If the patient is nonweightbearing or if there is concern for an occult osseous injury, MRI can provide more sensitive evaluation. 2. Mild bilateral hip OA and mild right SI joint OA. 3. Severe degenerative disc disease lower lumbar spine. [facility], Workstation: [facility], 01/12/2025 1:42 PM
[2025-01-12 14:15] VITALS: BP 146/83; PULSE 74; RESP 18; TEMP 97.8
== END 2025-01-12 14:17 | disposition home or self-care (01) ==
LOC: EC 12:58
DX: S76.011A Strain of muscle, fascia and tendon of right hip, initial encounter (principal); M46.1 Sacroiliitis, not elsewhere classified; Y93.01 Activity, walking, marching and hiking
CPT/HCPCS: 73502; 99283